=== PATIENT | male | born 1980 | race Caucasian/White ===

== ENCOUNTER 2017-02-26 12:07 | Emergency (ER) | payer OTHER ==
[2017-02-26 12:16] VITALS: BP 138/82; PULSE 96; RESP 20; TEMP 97.5; O2SAT 100
--- NOTE | 2017-02-26 12:24 | PD ---
HPI Chief Complaint: Laceration/Skin Injury Time Seen by Provider: 12:19 Travel History International Travel<30 days: No Contact w/Intl Traveler<30days: No Traveled to known affect area: No History of Present Illness HPI This is a 36-year-old male who presents to the emergency department having been arrested and going to assisted. Retirement was unwilling to take him because he has a chronic wound on his foot and he wanted him to be evaluated. He denies any fevers or chills. The foot wound has been present since 2000 and he says he is intermittently required wound care. He was just admitted to [facility] 3 days ago for 5 days and was discharged on 12 weeks of Zyvox and Levaquin which she's been taking. He's been doing wet-to-dry dressings and cleaning the wound with Hibiclens. FOR[facility]LY [facility] Social History Alcohol Use: Yes Tobacco Use: Yes Review of Systems General / Constitutional: No: Fever, Chills Respiratory: No: Cough, Shortness of Breath Physical Exam Narrative GENERAL: Well-appearing, no acute distress, nontoxic SKIN: 4 x 3 cm ulcer on the base of the left heel, with clean wound margins, some surrounding warmth and erythema with no purulent discharge HEAD: Atraumatic. Normocephalic. ENT: No nasal bleeding or discharge. Moist mucous membranes MUSCULOSKELETAL: No obvious deformities. No clubbing. No cyanosis. No edema. NEUROLOGICAL: Awake and alert. No obvious cranial nerve deficits. Motor grossly within normal limits. Normal speech. PSYCHIATRIC: Appropriate mood and affect; insight and judgment normal. Data Data Last Documented VS Vital Signs Date Time Temp Pulse Resp B/P (MAP) Pulse Ox O2 Delivery O2 Flow Rate FiO2 02/26/17 12:16 97.5 96 20 138/82 (100) 100 MDM Medical Decision Making Medical Screen Exam Complete: Yes Emergency Medical Condition: Yes Interpretation(s) Afebrile, heart rate is 96 Differential Diagnosis Foot ulcer, osteomyelitis, cellulitis Narrative Course This is a 36-year-old male who presents to the emergency department having recently been hospitalized and discharged due to a chronic foot ulcer on his left heel. He was discharged on 12 weeks of Zyvox and Levaquin which he has at home and he seems well versed in his personal wound care. He is nontoxic appearing. He is getting active treatment for the wound. I don't think there is anything additional I can offer this patient and the patient didn't really want to be evaluated in the emergency department as he is happy with the care he is received at another hospital. Patient will be discharged home. Diagnosis Primary Impression: Chronic foot ulcer Qualified Codes: L97.522 - Non-pressure chronic ulcer of other part of left foot with fat layer exposed Patient Instructions: General Instructions Additional Instructions: If you develop fever, increasing redness, warmth, or spreading of your infection , or severe pain return to the emergency department immediately as you may require antibiotics through your IV. Complete your course of antibiotics as prescribed. Med/Other Pt SpecificInfo: No Change to Meds Disposition: 01 DISCHARGE HOME Condition: Stable Sammi Cervantes MD Feb 26, 2017 12:24
== END 2017-02-26 13:02 | disposition home or self-care (01) ==
LOC: NEPD 12:07
DX: L97.522 Non-pressure chronic ulcer of other part of left foot with fat layer exposed (principal)
CPT/HCPCS: 99282

== ENCOUNTER 2017-06-09 23:35 | Inpatient (IN) | payer MEDICARE, OTHER ==
[~2017-06-09] VITALS: Ht 170.2 cm; Wt 80.0 kg
[2017-06-09 23:49] VITALS: BP 157/82; PULSE 118; RESP 16; TEMP 99.2; O2SAT 98
[2017-06-09] MEDS ORDERED: NAPR500T2 PO (23:59)
[2017-06-09] MEDS ORDERED: ZANT150T2 PO (23:59)
[2017-06-09] MEDS ORDERED: GABA300C5 PO (23:59)
[2017-06-09] MEDS ORDERED: DILA8TAB4 PO (23:59)
[2017-06-09] MEDS ORDERED: XANA2TAB2 PO (23:59)
[2017-06-10] VITALS (11 sets, daily range): BP systolic 104–132; BP diastolic 52–76; PULSE 60–111; RESP 16–20; TEMP 97.5–99.7; O2SAT 98–100
--- NOTE | 2017-06-10 01:23 | PD ---
HPI Chief Complaint: Pain: Acute or Chronic Time Seen by Provider: 01:01 Travel History International Travel<30 days: No Contact w/Intl Traveler<30days: No Traveled to known affect area: No History of Present Illness HPI Patient is a 36-year-old male presents emergency department for evaluation of left foot pain and ulcer. Patient has a history of osteomyelitis of the foot and has been taking p.o. antibiotics as an outpatient per his infectious disease office or at [facility]. He was told that he may ultimately need an amputation below the knee but they wanted to try antibiotics first. He states that it became significantly more swollen and inflamed today and so he decided to come here and see what our opinion of that was as well. 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 He denies any fever nausea vomiting diarrhea constipation chest pain or shortness of breath. PFSH Past Medical History Anxiety: Yes Integumentary: Yes (MRSA AND STAPH IN LEFT LEG ) Tetanus Vaccination: < 5 Years Social History Alcohol Use: No Tobacco Use: Yes (5/ DAY) Substance Use: Yes (MARIJUANA, JOSE, DILAUDID) Allergies-Medications (Allergen,Severity, Reaction): Coded Allergies: No Known Allergies (Unverified , 06/09/17) Reported Meds & Prescriptions Reported Meds & Active Scripts Active Reported Naproxen 500 Mg Tab 500 Mg PO DAILY Gabapentin 300 Mg Cap 300 Mg PO TID Zantac (Ranitidine HCl) 150 Mg Tab 150 Mg PO BID Xanax (Alprazolam) 2 Mg Tab 2 Mg PO DAILY PRN Dilaudid (Hydromorphone HCl) 8 Mg Tab 8 Mg PO Q6H PRN Review of Systems Except as stated in HPI: all other systems reviewed are Neg Physical Exam Narrative GENERAL: Well-developed well-nourished no obvious distress SKIN: Focused skin assessment warm/dry. There is a significant skin ulcer on the heel of his left foot, significant erythema edema of the left ankle and foot. Highly suggestive of osteomyelitis. HEAD: Atraumatic. Normocephalic. EYES: Pupils equal and round. No scleral icterus. No injection or drainage. ENT: No nasal bleeding or discharge. Mucous membranes pink and moist. NECK: Trachea midline. No JVD. CARDIOVASCULAR: Regular rate and rhythm. No murmur appreciated. RESPIRATORY: No accessory muscle use. Clear to auscultation. Breath sounds equal bilaterally. GASTROINTESTINAL: Abdomen soft, non-tender, nondistended. Hepatic and splenic margins not palpable. MUSCULOSKELETAL: No obvious deformities. No clubbing. No cyanosis. No edema. NEUROLOGICAL: Awake and alert. No obvious cranial nerve deficits. Motor grossly within normal limits. Normal speech. PSYCHIATRIC: Appropriate mood and affect; insight and judgment normal. Data Data Last Documented VS Vital Signs Date Time Temp Pulse Resp B/P (MAP) Pulse Ox O2 Delivery O2 Flow Rate FiO2 06/10/17 01:41 99 Room Air 06/10/17 01:41 06/10/17 00:55 111 18 06/09/17 23:49 99.2 Orders Orders Sepsis Workup Initiated (06/10/17 ) Complete Blood Count With Diff (06/10/17:18) Comprehensive Metabolic Panel (06/10/17:18) Prothrombin Time / Inr (Pt) (06/10/17:18) Act Partial Throm Time (Ptt) (06/10/17:18) Lactic Acid Sepsis Protocol (06/10/17:18) Phosphorus (Po4) (06/10/17:18) Lipase (06/10/17:18) Ckmb (Isoenzyme) Profile (06/10/17:18) Troponin I (06/10/17:18) Urinalysis - C+S If Indicated (06/10/17:18) Blood Culture (06/10/17:18) Ecg Monitoring (06/10/17:18) Iv Access Insert/Monitor (06/10/17:18) Oximetry (06/10/17:18) Oxygen Administration (06/10/17:18) Vancomycin Inj (Vancomycin Inj) (06/10/17 01:30) Piperacil-Tazo 4.5 Gm Premix (Zosyn 4.5 (06/10/17 01:30) Foot, Complete ([id number]) (06/10/17 ) Sodium Chlor 0.9% 1000 Ml Inj (Ns 1000 M (06/10/17 01:30) Drug Screen, Random Urine (06/10/17 02:09) CKMB (06/10/17 01:20) CKMB% (06/10/17 01:20) Admit Order (Ed Use Only) (06/10/17 ) Labs Laboratory Tests Test 06/10/17 01:20 06/10/17 01:45 White Blood Count 11.2 TH/MM3 Red Blood Count 4.50 MIL/MM3 Hemoglobin 12.2 GM/DL Hematocrit 36.6 % Mean Corpuscular Volume 81.4 FL Mean Corpuscular Hemoglobin 27.0 PG Mean Corpuscular Hemoglobin Concent 33.2 % Red Cell Distribution Width 16.4 % Platelet Count 357 TH/MM3 Mean Platelet Volume 7.1 FL Neutrophils (%) (Auto) 67.2 % Lymphocytes (%) (Auto) 18.8 % Monocytes (%) (Auto) 13.5 % Eosinophils (%) (Auto) 0.2 % Basophils (%) (Auto) 0.3 % Neutrophils # (Auto) 7.5 TH/MM3 Lymphocytes # (Auto) 2.1 TH/MM3 Monocytes # (Auto) 1.5 TH/MM3 Eosinophils # (Auto) 0.0 TH/MM3 Basophils # (Auto) 0.0 TH/MM3 CBC Comment DIFF FINAL Differential Comment Prothrombin Time 11.3 SEC Prothromb Time International Ratio 1.1 RATIO Activated Partial Thromboplast Time 35.5 SEC Blood Urea Nitrogen 15 MG/DL Creatinine 0.81 MG/DL Random Glucose 88 MG/DL Total Protein 7.2 GM/DL Albumin 3.0 GM/DL Calcium Level 8.4 MG/DL Phosphorus Level 3.3 MG/DL Alkaline Phosphatase 148 U/L Aspartate Amino Transf (AST/SGOT) 96 U/L Alanine Aminotransferase (ALT/SGPT) 186 U/L Total Bilirubin 0.6 MG/DL Sodium Level 140 MEQ/L Potassium Level 3.9 MEQ/L Chloride Level 105 MEQ/L Carbon Dioxide Level 25.9 MEQ/L Anion Gap 9 MEQ/L Estimat Glomerular Filtration Rate 108 ML/MIN Lactic Acid Level 1.2 mmol/L Total Creatine Kinase 149 U/L Creatine Kinase MB 2.1 NG/ML Troponin I LESS THAN 0.02 NG/ML Lipase 171 U/L Urine Color YELLOW Urine Turbidity CLEAR Urine pH 6.0 Urine Specific [place] 1.024 Urine Protein TRACE mg/dL Urine Glucose (UA) NEG mg/dL Urine Ketones NEG mg/dL Urine Occult Blood MOD Urine Nitrite NEG Urine Bilirubin NEG Urine Urobilinogen 4.0 MG/DL Urine Leukocyte Esterase NEG Urine RBC 98 /hpf Urine WBC 3 /hpf Urine Calcium Oxalate Crystals MOD /hpf Urine Mucus FEW /lpf Microscopic Urinalysis Comment CATH-CULT NOT IND Urine Opiates Screen POS Urine Barbiturates Screen NEG Urine Amphetamines Screen NEG Urine Benzodiazepines Screen NEG Urine Cocaine Screen NEG Urine Cannabinoids Screen POS MDM Medical Decision Making Medical Screen Exam Complete: Yes Emergency Medical Condition: Yes Differential Diagnosis Osteomyelitis of the foot, sepsis unlikely, nonhealing ulcer to the plantar surface of the foot. Narrative Course Patient room to the emergency department, his signs and symptoms highly suggestive of osteomyelitis, he is on an unknown p.o. antibiotic as an outpatient, certainly this would warrant a failure of outpatient therapy, I recommended for him to be admitted to the hospital for further workup and he is agreeable. Labs are otherwise reassuring, x-ray does show the deep ulcer but no evidence of osteomyelitis. Discussed with Dr. Toledo who agrees to admit. Last 24 hours Impressions Foot X-Ray 06/10/17 0000 Signed Impressions: Service Date/Time: Saturday, June 10, 2017 01:31 - CONCLUSION: Deep ulceration involving the heel with soft tissue air extending to the bone Dustin Soto MD Diagnosis Primary Impression: Cellulitis of foot Admitting Information Admitting Physician Requests: Admit Condition: Stable Miguel Ángel Horner MD Jun 10, 2017 01:23
[2017-06-10] MEDS ORDERED: VANCOMYCIN INJ 1,000 MG in SODIUM CHLOR 0.9% 250 ML INJ 250 ML IV ONE (01:30)
[2017-06-10] MEDS ORDERED: SODIUM CHLOR 0.9% 1000 ML INJ 1,000 ML IV ONE (01:30)
[2017-06-10] MEDS ORDERED: PIPERACIL-TAZO 4.5 GM PREMIX 100 ML IV ONE (01:30)
[2017-06-10 01:44] LABS: AUTOMATED NEUTROPHIL # 7.5 TH/MM3 (1.8-7.7); BASOPHIL % 0.3 % (0.0-2.0); EOSINOPHIL % 0.2 % (0.0-4.0); HEMATOCRIT 36.6 % (39.0-51.0); HEMOGLOBIN 12.2 GM/DL (13.0-17.0); LYMPH % 18.8 % (9.0-44.0); LYMPHOCYTE # 2.1 TH/MM3 (1.0-4.8); MEAN CELL VOLUME 81.4 FL (80.0-100.0); MEAN CORPUSCULAR HGB CONC 33.2 % (32.0-36.0); MEAN PLATELET VOLUME 7.1 FL (7.0-11.0); MONO % 13.5 % (0.0-8.0); MONOCYTE # 1.5 TH/MM3 (0-0.9); NEUT % 67.2 % (16.0-70.0); PLATELET COUNT 357 TH/MM3 (150-450); RED CELL DISTRIBUTION WIDTH 16.4 % (11.6-17.2); WHITE BLOOD COUNT 11.2 TH/MM3 (4.0-11.0)
--- NOTE | 2017-06-10 01:49 | RADRPT ---
EXAM DATE/TIME: 06/10/2017 01:31 [place] COMPARISON: No previous studies available for comparison. INDICATIONS : Swelling in left foot. Pain at left foot. MEDICAL HISTORY : Non responsive. SURGICAL HISTORY : None. ENCOUNTER: Initial ACUITY: 1 day PAIN SCORE: Non-responsive. LOCATION: Left foot FINDINGS: There is a deep ulceration along the plantar aspect of the heel with air in the soft tissues extendin g to the base of the calcaneus. The foot is elsewhere unremarkable. CONCLUSION: Deep ulceration involving the heel with soft tissue air extending to the bone Dustin Soto MD on June 10, 2017 at 1:46 Board Certified Radiologist. This report was verified electronically.
[2017-06-10 01:54] LABS: INTERNATIONAL NORMALIZED RATIO 1.1 RATIO; PROTHROMBIN TIME - PATIENT 11.3 SEC (9.8-11.6)
[2017-06-10 02:09] LABS: BILIRUBIN, URINE NEG (NEG); BLOOD, URINE MOD (NEG); CALCIUM OXALATE CRYSTALS,URINE MOD /hpf; GLUCOSE,URINE NEG (NEG); KETONE, URINE NEG (NEG); MUCUS URINE FEW /lpf (OCC); NITRITE,URINE NEG (NEG); URINE COLOR YELLOW (YELLW/STRAW); URINE LEUKOCYTE ESTERASE NEG (NEG)
[2017-06-10 02:09] LABS: ALT (GPT) 186 U/L (12-78); AST (GOT) 96 U/L (15-37); BICARBONATE 25.9 MEQ/L (21.0-32.0); BLOOD UREA NITROGEN 15 MG/DL (7-18); CALCIUM 8.4 MG/DL (8.5-10.1); CHLORIDE 105 MEQ/L (98-107); CREATININE 0.81 MG/DL (0.60-1.30); GLOMERULAR FILTRATION RATE 108 ML/MIN (>89); GLUCOSE,RANDOM 88 MG/DL (74-106); PHOSPHORUS 3.3 MG/DL (2.5-4.9); SODIUM (NA) 140 MEQ/L (136-145)
[2017-06-10 02:13] LABS: ALKALINE PHOSPHATASE 148 U/L (45-117); TOTAL BILIRUBIN ADULT 0.6 MG/DL (0.2-1.0); TOTAL PROTEIN 7.2 GM/DL (6.4-8.2); TROPONIN I LESS THAN 0.02 NG/ML (0.02-0.05)
[2017-06-10] MEDS ORDERED: Vancomycin Consult Pharmacy 1 EA OTHER SCH (02:45)
[2017-06-10] MEDS ORDERED: NALOXONE HCL 0.4 MG/ML AMP IV PUSH PRN (02:45)
[2017-06-10] MEDS ORDERED: ACETAMINOPHEN 325 MG TAB PO PRN (02:45)
[2017-06-10] MEDS ORDERED: BISACODYL 10 MG SUPP RECTAL PRN (02:45)
[2017-06-10] MEDS ORDERED: SENNOSIDES 8.6 MG TAB PO PRN (02:45)
[2017-06-10] MEDS ORDERED: MAGNESIUM HYDROXIDE SUSP 30 ML CUP PO PRN (02:45)
[2017-06-10] MEDS ORDERED: ONDANSETRON HCL 4 MG/2 ML VIAL IVP PRN (02:45)
[2017-06-10] MEDS ORDERED: MORPHINE SULFATE 2 MG/ML SYRINGE IM PRN (03:00)
[2017-06-10] MEDS: SODIUM CHLOR 0.9% 1000 ML INJ 1,000 ML IV SCH ×3 (03:18→20:37)
[2017-06-10] MEDS: MORPHINE SULFATE 2 MG/ML SYRINGE IV PUSH PRN ×5 (03:19→15:53)
[2017-06-10] MEDS: PIPERACIL-TAZO 3.375 GM PREMIX 50 ML IV SCH ×3 (07:41→19:35)
--- NOTE | 2017-06-10 07:53 | PD.POD ---
Past Med/Surg/Social History Social History Smoking Status: Current Every Day Smoker Objective Vital Signs Vital Signs Date Time Temp Pulse Resp B/P (MAP) Pulse Ox O2 Delivery O2 Flow Rate FiO2 06/10/17 07:15 97.9 79 18 118/63 (81) 98 Room Air 06/10/17 05:00 99.7 99 18 121/57 (78) 99 Room Air 06/10/17 03:30 89 18 127/67 (87) 98 Room Air 06/10/17 01:41 99 Room Air 06/10/17 01:41 99 Room Air 06/10/17 00:55 111 18 132/76 (94) 98 Room Air 06/10/17 00:00 99 18 06/09/17 23:49 99.2 118 16 157/82 (107) 98 Coded Allergies: No Known Allergies (Unverified , 06/09/17) Assessment & Plan A/P FULL CONSULT DICTATED Left heel ulcer infection with gas and tissue. CT with and without contrast ordered, heel ulcer open and draining, plan for urgent incision and drainage debridement with bone biopsy later today. Patient ordered n.p.o. after liquid breakfast, patient seen and discussed with medicine. Arnulfo Jin DPM Jun 10, 2017 07:53
--- NOTE | 2017-06-10 07:56 | HHI.HP ---
[facility] Service [place] [facility] Primary Care Physician Unknown Admission Diagnosis Osteomyelitis of foot. Diagnoses: (1) Left foot infection Diagnosis: Principal Chief Complaint: infection of the left foot Travel History International Travel<30 Days: No Contact w/Intl Traveler <30 Da: No Traveled to Known Affected Are: No History of Present Illness patient is a 36 y/o male who presented to ER with infection of the left foot. he says that it's been going on for about six months. he's been on regimens of antibiotics since then. he says that he had a bone biopsy about three weeks ago. he says that it seems the the antibiotics are not working. he had some fever last week. he says that the swelling and redness of the left foot is getting worse which made him to come to the hospital. Review of Systems Constitutional: DENIES: Fever, Weight loss, Chills, Night Sweats Eyes: DENIES: Blurred vision, Diplopia, Vision loss, Double Vision Ears, nose, mouth, throat: DENIES: Tinnitus, Vertigo, Throat pain, Epistaxis Respiratory: DENIES: Apneas, Cough, Snoring, Wheezing, Hemoptysis, Sputum production, Shortness of breath Cardiovascular: DENIES: Chest pain, Palpitations, Syncope, Dyspnea on Exertion , PND, Lower Extremity Edema, Orthopnea, Claudication Gastrointestinal: DENIES: Abdominal pain, Black stools, Bloody stools, Constipation, Diarrhea, Nausea, Vomiting, Difficulty Swallowing, Anorexia Genitourinary: DENIES: Urinary frequency, Urgency, Hematuria, Dysuria Musculoskeletal: COMPLAINS OF: Joint pain (left foot), DENIES: Muscle aches, Stiffness, Joint Swelling Integumentary: DENIES: Rash Neurologic: DENIES: Abnormal gait, Headache, Localized weakness, Paresthesias, Seizures, Speech Problems, Tremor, Poor Balance Psychiatric: DENIES: Anxiety, Confusion, Mood changes, Depression, Hallucinations, Agitation, Suicidal Ideation, Homicidal Ideation, Delusions Past Family Social History Past Medical History left foot infection-otherwise no other health issues. Past Surgical History nerve stimulator/ surgeries on the foot. Reported Medications Naproxen 500 Mg Tab 500 Mg PO DAILY Gabapentin 300 Mg Cap 300 Mg PO TID Zantac (Ranitidine HCl) 150 Mg Tab 150 Mg PO BID Xanax (Alprazolam) 2 Mg Tab 2 Mg PO DAILY PRN Dilaudid (Hydromorphone HCl) 8 Mg Tab 8 Mg PO Q6H PRN Allergies: Coded Allergies: No Known Allergies (Unverified , 06/09/17) Active Ordered Medications Inpatient Medications Acetaminophen (Tylenol) 650 mg Q4H PRN PO TEMP > 100.4 Last administered on 06/10at 05:02; Start 06/10/17 at 02:45 Bisacodyl (Dulcolax Supp) 10 mg DAILY PRN RECTAL SEVERE CONSITIPATION; Start at 02:45 Magnesium Hydroxide (Milk Of Magnesia Liq) 30 ml Q12H PRN PO Mild constipation ; Start 06/10/17 at 02:45 Morphine Sulfate (Morphine Inj) 2 mg Q3H PRN IV PUSH pain > 4 Last administered on 06/10/17at 06:06; Start 06/10/17 at 03:00 Naloxone HCl (Narcan Inj) 0.4 mg UNSCH PRN IV PUSH SEE LABEL COMMENTS; Start at 02:45 Ondansetron HCl (Zofran Inj) 4 mg Q6H PRN IVP NAUSEA OR VOMITING; Start at 02:45 Pharmacy Profile Note 0 ml @ 0 mls/hr UNSCH OTHER ; Start 06/10/17 at 02:45 Piperacillin Sod/ Tazobactam Sod 50 ml @ 100 mls/hr Q6H IV Last administered on 06/10/17at 07:41; Start 06/10/17 at 07:35 Sennosides (Senokot) 17.2 mg Q12H PRN PO Moderate constipation; Start 06/10/17 at 02:45 Sodium Chloride (NS Flush) 2 ml BID IV FLUSH ; Start 06/10/17 at 09:00 Vancomycin HCl 1000 mg/Sodium Chloride 250 ml @ 250 mls/hr ONCE ONCE IV Last administered on 06/10/17at 01:53; Start 06/10/17 at 01:30; Stop 06/10/17 at 02:29; Status DC Family History not relevant to this admission. Social History smokes a few cigarettes/ uses marijuana/ doesn't drink. Physical Exam Vital Signs Vital Signs Date Time Temp Pulse Resp B/P (MAP) Pulse Ox O2 Delivery O2 Flow Rate FiO2 06/10/17 05:00 99.7 99 18 121/57 (78) 99 Room Air 06/10/17 03:30 89 18 127/67 (87) 98 Room Air 06/10/17 01:41 99 Room Air 06/10/17 01:41 99 Room Air 06/10/17 00:55 111 18 132/76 (94) 98 Room Air 06/10/17 00:00 99 18 06/09/17 23:49 99.2 118 16 157/82 (107) 98 Physical Exam GENERAL: This is a well-nourished, well-developed patient, in no apparent distress. SKIN:erythema of the left foot with an open wound on the bottom of the left foot. HEAD: Atraumatic. Normocephalic. No temporal or scalp tenderness. EYES: Pupils equal round and reactive. Extraocular motions intact. No scleral icterus. No injection or drainage. ENT: Nose without bleeding, purulent drainage or septal hematoma. Throat without erythema, tonsillar hypertrophy or exudate. Uvula midline. Airway patent. NECK: Trachea midline. No JVD or lymphadenopathy. Supple, nontender, no meningeal signs. CARDIOVASCULAR: Regular rate and rhythm without murmurs, gallops, or rubs. RESPIRATORY: Clear to auscultation. Breath sounds equal bilaterally. No wheezes , rales, or rhonchi. GASTROINTESTINAL: Abdomen soft, non-tender, nondistended. No hepato-splenomegaly , or palpable masses. No guarding. MUSCULOSKELETAL: swelling/ erythema of the left foot. NEUROLOGICAL: Awake and alert. Cranial nerves II through XII intact. Motor and sensory grossly within normal limits. Five out of 5 muscle strength in all muscle groups. Normal speech. Laboratory Laboratory Tests Test 06/10/17 01:20 06/10/17 01:45 White Blood Count 11.2 Red Blood Count 4.50 Hemoglobin 12.2 Hematocrit 36.6 Mean Corpuscular Volume 81.4 Mean Corpuscular Hemoglobin 27.0 Mean Corpuscular Hemoglobin Concent 33.2 Red Cell Distribution Width 16.4 Platelet Count 357 Mean Platelet Volume 7.1 Neutrophils (%) (Auto) 67.2 Lymphocytes (%) (Auto) 18.8 Monocytes (%) (Auto) 13.5 Eosinophils (%) (Auto) 0.2 Basophils (%) (Auto) 0.3 Neutrophils # (Auto) 7.5 Lymphocytes # (Auto) 2.1 Monocytes # (Auto) 1.5 Eosinophils # (Auto) 0.0 Basophils # (Auto) 0.0 CBC Comment DIFF FINAL Differential Comment Prothrombin Time 11.3 Prothromb Time International Ratio 1.1 Activated Partial Thromboplast Time 35.5 Blood Urea Nitrogen 15 Creatinine 0.81 Random Glucose 88 Total Protein 7.2 Albumin 3.0 Calcium Level 8.4 Phosphorus Level 3.3 Alkaline Phosphatase 148 Aspartate Amino Transf (AST/SGOT) 96 Alanine Aminotransferase (ALT/SGPT) 186 Total Bilirubin 0.6 Sodium Level 140 Potassium Level 3.9 Chloride Level 105 Carbon Dioxide Level 25.9 Anion Gap 9 Estimat Glomerular Filtration Rate 108 Lactic Acid Level 1.2 Total Creatine Kinase 149 Creatine Kinase MB 2.1 Troponin I LESS THAN 0.02 Lipase 171 Urine Color YELLOW Urine Turbidity CLEAR Urine pH 6.0 Urine Specific [place] 1.024 Urine Protein TRACE Urine Glucose (UA) NEG Urine Ketones NEG Urine Occult Blood MOD Urine Nitrite NEG Urine Bilirubin NEG Urine Urobilinogen 4.0 Urine Leukocyte Esterase NEG Urine RBC 98 Urine WBC 3 Urine Calcium Oxalate Crystals MOD Urine Mucus FEW Microscopic Urinalysis Comment CATH-CULT NOT IND Urine Opiates Screen POS Urine Barbiturates Screen NEG Urine Amphetamines Screen NEG Urine Benzodiazepines Screen NEG Urine Cocaine Screen NEG Urine Cannabinoids Screen POS Date/Time Source Procedure Growth Status 06/10/17 01:20 Blood Peripheral Aerobic Blood Culture Pending Received 06/10/17 01:20 Blood Peripheral Anaerobic Blood Culture Pending Received Result Diagram: 06/10/17 0120 06/10/17 0120 Imaging Last Impressions Foot X-Ray 06/10/17 0000 Signed Impressions: Service Date/Time: Saturday, June 10, 2017 01:31 - CONCLUSION: Deep ulceration involving the heel with soft tissue air extending to the bone MD Elder Ríos VTE Risk Assessment Elder VTE Risk Assessment: Mod/High Risk (score >= 2) Nikhilrini Risk Assessment Model Point Value = 1 Point Value = 2 Point Value = 3 Point Value = 5 Age 41-60 Minor surgery BMI > 25 kg/m2 Swollen legs Varicose veins or History of unexplained or recurrent spontaneous Oral contraceptives or hormone replacement Sepsis (< 1 month) Serious lung disease, including pneumonia (< 1 month) Abnormal pulmonary function Acute myocardial infarction Congestive heart failure (< 1 month) History of inflammatory bowel disease Medical patient at bed rest Age 61-74 Arthroscopic surgery Major open surgery (> 45 min) Laparoscopic surgery (> 45 min) Malignancy Confined to bed (> 72 hours) Immobilizing plaster cast Central venous access Age >= 75 History of VTE Family history of VTE Factor V Leiden Prothrombin [id number] Lupus anticoagulant Anticardiolipin antibodies Elevated serum homocysteine Heparin-induced thrombocytopenia Other congenital or acquired thrombophilia Stroke (< 1 month) Elective arthroplasty Hip, pelvis, or leg fracture Acute spinal cord injury (< 1 month) Prophylaxis Regimen Total Risk Factor Score Risk Level Prophylaxis Regimen 0-1 Low Early ambulation 2 Moderate Order ONE of the following: *Sequential Compression Device (SCD) *Heparin 5000 units SQ BID 3-4 Higher Order ONE of the following medications: *Heparin 5000 units SQ TID *Enoxaparin/Lovenox 40 mg SQ daily (WT < 150 kg, CrCl > 30 mL/min) *Enoxaparin/Lovenox 30 mg SQ daily (WT < 150 kg, CrCl > 10-29 mL/min) *Enoxaparin/Lovenox 30 mg SQ BID (WT < 150 kg, CrCl > 30 mL/min) AND/OR *Sequential Compression Device (SCD) 5 or more Highest Order ONE of the following medications: *Heparin 5000 units SQ TID (Preferred with Epidurals) *Enoxaparin/Lovenox 40 mg SQ daily (WT < 150 kg, CrCl > 30 mL/min) *Enoxaparin/Lovenox 30 mg SQ daily (WT < 150 kg, CrCl > 10-29 mL/min) *Enoxaparin/Lovenox 30 mg SQ BID (WT < 150 kg, CrCl > 30 mL/min) AND *Sequential Compression Device (SCD) Assessment and Plan Assessment and Plan A/P -infection/open wound of the left foot continue with IV antibiotics and pain control- follow the cultures. podiatry consult appreciated; will obtain CT of the left foot; plan for surgery /bone biopsy this afternoon- ID consulted. -elevated LFT's- check hepatitis panel -DVT prophylaxis- pending surgical intervention. Discussed Condition With the patient and . Physician Certification 2 Midnight Certification Type: Admission for Inpatient Services Order for Inpatient Services The services are ordered in accordance with Medicare regulations or non- Medicare payer requirements, as applicable. In the case of services not specified as inpatient-only, they are appropriately provided as inpatient services in accordance with the 2-midnight benchmark. Estimated LOS (days): 3 days is the estimated time the patient will need to remain in the hospital, assuming treatment plan goals are met and no additional complications. Post-Hospital Plan: Not yet determined Josseline Bernard MD Jun 10, 2017 07:56
[2017-06-10] MEDS ORDERED: IOHEXOL 350 MG/ML 10 ML VIAL (for RAD DIAG) IVCONTRAST ONE (08:24)
[2017-06-10] MEDS: SODIUM CHLORIDE 0.9% FLUSH 10 ML FLUSH IV FLUSH SCH ×2 (08:26→21:00)
[2017-06-10] MEDS: VANCOMYCIN INJ 1,500 MG in SODIUM CHLORID 0.9% 500 ML INJ 500 ML IV SCH ×2 (09:20→23:40)
--- NOTE | 2017-06-10 10:07 | RADRPT ---
EXAM DATE/TIME: 06/10/2017 08:21 [place] COMPARISON: No previous studies available for comparison. INDICATIONS : Left heel ulcer IV CONTRAST: 94 cc Omnipaque 350 (iohexol) IV RADIATION DOSE: 7.29 CTDIvol (mGy) MEDICAL HISTORY : Osteomyelitis. SURGICAL HISTORY : None. ENCOUNTER: Initial ACUITY: 2 weeks PAIN SCALE: 4/10 LOCATION: Left Foot TECHNIQUE: Volumetric scanning of the foot was performed. Using automated exposure control and adjustment of th e mA and/or kV according to patient size, radiation dose was kept as low as reasonably achievable to obtain optimal diagnostic quality images. DICOM format image data is available electronically for re view and comparison. FINDINGS: BONES: Calcaneal spurs at the Achilles attachment and plantar aponeurosis. Just posterior to the aponeurotic spur is an area of cortical disruption and regional sclerosis concerning for osteomyelitis. This is subjacent to the prominent heel ulcer and regional soft tissue edema. Benign appearing, well-corticat ed osseous cyst at the junction of body and neck of the calcaneus. JOINTS: No evidence of joint narrowing or effusion. SOFT TISSUES: Muscles, tendons, and neurovascular structures are grossly unremarkable. Plantar heel spur with soft tissue air measures 1.9 cm in depth. A few dots of air actually extend down to the plantar surface of the calcaneus. Regional soft tissue edema characteristic of cellulitis CONCLUSION: 1. Heel ulcer measuring 1.9 cm in depth with dots of air actually extending deeper adjacent to the co rtical surface of the calcaneus. Edema and air is seen in the adjacent soft tissues characteristic of cellulitis. 2. In addition, there is cortical disruption of the plantar aspect of the calcaneus characteristic of regional osteomyelitis. 3. No acute fracture. Benign calcaneal osseous cyst Kian Rock MD on June 10, 2017 at 9:58 Board Certified Radiologist. This report was verified electronically.
[2017-06-10] MEDS ORDERED: PROPOFOL 200 MG/20 ML AMP IV ONE (12:00)
[2017-06-10] MEDS ORDERED: ROCURONIUM INJ 50 MG/5 ML SYRINGE IV PUSH ONE (12:00)
[2017-06-10] MEDS ORDERED: LACTATED RINGER'S 1000 ML INJ 1,000 ML IV ONE (12:00)
[2017-06-10] MEDS ORDERED: LIDOCAINE HCL 1% PF 5 ML SYRINGE OTHER ONE (12:00)
[2017-06-10] MEDS ORDERED: ONDANSETRON HCL 4 MG/2 ML VIAL IV ONE (12:00)
[2017-06-10] MEDS ORDERED: NEOSTIGMINE 5 MG/5 ML SYRINGE IV PUSH ONE (12:00)
[2017-06-10] MEDS ORDERED: DEXAMETHASONE SOD PHOS 4 MG/ML VIAL IV ONE (12:00)
[2017-06-10] MEDS ORDERED: GLYCOPYRROLATE 1 MG/5 ML SYRINGE IV PUSH ONE (12:00)
--- NOTE | 2017-06-10 12:14 | PD.ID.CON ---
History of Present Illness Service ID Consult Requested By Delicia Rogers Reason for Consult L foot osteo Primary Care Physician Unknown Diagnoses: History of Present Illness 36 yo M with neuropathy n2/2 tarumatic nerve injury with markedly decresaed L foot sensation develops ulcers on the heel Apparently last time developped ulcer on L heel about 6 mos ago with heavy drainage, edema, erythea He came with above issue t the hosp[facility] and Xray showed gas in soft tissue, CT showed osteo Pt is scheduled for OR today NO fever, Leukocytosis @ 11.2 K Review of Systems Except as stated in HPI: all other systems reviewed are Neg Past Family Social History Allergies: Coded Allergies: No Known Allergies (Unverified , 06/09/17) Past Medical History left foot infection-otherwise no other health issues. B/L hip fractures Past Surgical History hip surgeries nerve stimulator/ surgeries on the foot. Active Ordered Medications Medications where reviewed in EMR Antibiotics Include: reanna chamorro Family History not contributory to ID problem this admission. Social History smokes a few cigarettes/ uses marijuana/ doesn't drink. Physical Exam Vital Signs Vital Signs Date Time Temp Pulse Resp B/P (MAP) Pulse Ox O2 Delivery O2 Flow Rate FiO2 06/10/17 11:00 97.9 93 16 118/69 (85) 99 Room Air 06/10/17 09:25 16 06/10/17 09:03 98.0 86 18 123/71 (88) 98 Room Air 06/10/17 07:15 97.9 79 18 118/63 (81) 98 Room Air 06/10/17 07:15 78 16 06/10/17 05:00 99.7 99 18 121/57 (78) 99 Room Air 06/10/17 03:30 89 18 127/67 (87) 98 Room Air 06/10/17 01:41 99 Room Air 06/10/17 01:41 99 Room Air 06/10/17 00:55 111 18 132/76 (94) 98 Room Air 06/10/17 00:00 99 18 06/09/17 23:49 99.2 118 16 157/82 (107) 98 Physical Exam CONSTITUTIONAL/GENERAL: This is an adequately nourished patient, in no apparent distress. TUBES/LINES/DRAINS: SKIN: No jaundice, rashes, or lesions. Skin temperature appropriate. Not diaphoretic. HEAD: Atraumatic. Normocephalic. EYES: Pupils equal and round and reactive. Extraocular motions intact. No scleral icterus. No injection or drainage. Fundi not examined. ENT: Hearing grossly normal. Nose without bleeding or purulent drainage. Throat without visible erythema, exudates, masses, or lesions. NECK: Trachea midline. Supple, nontender. No palpable thyroid enlargement or nodularity. CARDIOVASCULAR: Regular rate and rhythm without murmurs, gallops, or rubs. No JVD. Peripheral pulses symmetric. RESPIRATORY/CHEST: Symmetric, unlabored respirations. Clear to auscultation. Breath sounds equal bilaterally. No wheezes, rales, or rhonchi. GASTROINTESTINAL: Abdomen soft, non-tender, nondistended. No hepato-splenomegaly , or palpable masses. No guarding. Bowel sounds present. GENITOURINARY: Without palpable bladder distension. MUSCULOSKELETAL: Extremities without clubbing, cyanosis, STATUS LOCLIS: marked edema of L heel, hindfoot extending to proximal ankle Open wound staining odorless pus from the heel' + prominenet ertyhema as well + ipsilateral lymphadenopathy . No joint tenderness or effusion noted. No calf tenderness. No mottling or clubbing. LYMPHATICS: No palpable cervical or supraclavicular adenopathy. NEUROLOGICAL: Awake and alert. Motor and sensory grossly within normal limits. Follows commands. Clear speech. Moves all extremities. PSYCHIATRIC: No obvious anxiety/depression. no apparent hallucinations or other psychotic thought process. Laboratory Laboratory Tests Test 06/10/17 01:20 06/10/17 01:45 06/10/17 09:21 White Blood Count 11.2 Red Blood Count 4.50 Hemoglobin 12.2 Hematocrit 36.6 Mean Corpuscular Volume 81.4 Mean Corpuscular Hemoglobin 27.0 Mean Corpuscular Hemoglobin Concent 33.2 Red Cell Distribution Width 16.4 Platelet Count 357 Mean Platelet Volume 7.1 Neutrophils (%) (Auto) 67.2 Lymphocytes (%) (Auto) 18.8 Monocytes (%) (Auto) 13.5 Eosinophils (%) (Auto) 0.2 Basophils (%) (Auto) 0.3 Neutrophils # (Auto) 7.5 Lymphocytes # (Auto) 2.1 Monocytes # (Auto) 1.5 Eosinophils # (Auto) 0.0 Basophils # (Auto) 0.0 CBC Comment DIFF FINAL Differential Comment Prothrombin Time 11.3 Prothromb Time International Ratio 1.1 Activated Partial Thromboplast Time 35.5 Blood Urea Nitrogen 15 Creatinine 0.81 Random Glucose 88 Total Protein 7.2 Albumin 3.0 Calcium Level 8.4 Phosphorus Level 3.3 Alkaline Phosphatase 148 Aspartate Amino Transf (AST/SGOT) 96 Alanine Aminotransferase (ALT/SGPT) 186 Total Bilirubin 0.6 Sodium Level 140 Potassium Level 3.9 Chloride Level 105 Carbon Dioxide Level 25.9 Anion Gap 9 Estimat Glomerular Filtration Rate 108 Lactic Acid Level 1.2 Total Creatine Kinase 149 Creatine Kinase MB 2.1 Troponin I LESS THAN 0.02 Lipase 171 Urine Color YELLOW Urine Turbidity CLEAR Urine pH 6.0 Urine Specific [place] 1.024 Urine Protein TRACE Urine Glucose (UA) NEG Urine Ketones NEG Urine Occult Blood MOD Urine Nitrite NEG Urine Bilirubin NEG Urine Urobilinogen 4.0 Urine Leukocyte Esterase NEG Urine RBC 98 Urine WBC 3 Urine Calcium Oxalate Crystals MOD Urine Mucus FEW Microscopic Urinalysis Comment CATH-CULT NOT IND Urine Opiates Screen POS Urine Barbiturates Screen NEG Urine Amphetamines Screen NEG Urine Benzodiazepines Screen NEG Urine Cocaine Screen NEG Urine Cannabinoids Screen POS Hepatitis A IgM Antibody NONREACTIVE Hepatitis B Surface Antigen REACTIVE Hepatitis B Core IgM Antibody REACTIVE Hepatitis C IgG Antibody REACTIVE Date/Time Source Procedure Growth Status 06/10/17 01:20 Blood Peripheral Aerobic Blood Culture Pending Received 06/10/17 01:20 Blood Peripheral Anaerobic Blood Culture Pending Received Result Diagram: 06/10/17 0120 06/10/17 0120 Imaging Last Impressions Lower Extremity CT 06/10/17 0000 Signed Impressions: Service Date/Time: Saturday, June 10, 2017 08:21 - CONCLUSION: 1. Heel ulcer measuring 1.9 cm in depth with dots of air actually extending deeper adjacent to the cortical surface of the calcaneus. Edema and air is seen in the adjacent soft tissues characteristic of cellulitis. 2. In addition, there is cortical disruption of the plantar aspect of the calcaneus characteristic of regional osteomyelitis. 3. No acute fracture. 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
[2017-06-10] MEDS ORDERED: HYDROmorphone HCL PF 2 MG/ML VIAL IV PUSH ONE (14:00)
[2017-06-10] MEDS ORDERED: BUPIVACAINE HCL PF 0.5% 30 ML VIAL ONE (15:25)
[2017-06-10] MEDS ORDERED: NEOMYCIN/POLYMYXIN 1 ML G.U. IRRIGANT ONE (15:28)
[2017-06-10] MEDS ORDERED: ACETAMINOPHEN 1000 MG/100 ML 0 ML IV ONE (16:57)
[2017-06-10] MEDS ORDERED: KETAMINE HCL 500 MG/10 ML VIAL ONE (17:37)
[2017-06-10] MEDS ORDERED: DEXMEDETOMIDINE HCL 200 MCG/2 ML VIAL ONE (18:47)
[2017-06-10] MEDS ORDERED: LORazepam 2 MG/ML VIAL ONE (18:49)
--- NOTE | 2017-06-10 19:40 | HHI.PR ---
Immediate Post Op Note Procedure Date: Jun 10, 2017 Pre Op Diagnosis: (1) Left foot infection Post Op Diagnosis: same Surgeon: Arnulfo Vasquez Chief Investigator(s): scrub Procedure: Left incision bone cortex, Incision drainage left foot Findings: deep abscess along calcaneus with likely OM Additional Information: Will likely need calcanectomy vs BKA pending path. Complications: none Specimen(s) removed: soft tissue and bone for micro bone for path Estimated blood loss: less than 75 mL Anesthesia: General Drains: Other Patient to: Other Patient Condition: Good Implant/Devices: SEE IMPLANT LOG (if applicable) Date/Time of Procedure: SEE SURGICAL CARE RECORD Arnulfo Vasquez DPM Jun 10, 2017 19:40
[2017-06-10] MEDS ORDERED: DO NOT ADM ANY ANTICOAGULANT DRUGS PRN (19:48)
--- NOTE | 2017-06-10 19:51 | MP ---
cc: Arnulfo Jin DPM DATE OF OPERATION: PREOPERATIVE DIAGNOSIS: Left calcaneal osteomyelitis abscess with a gas-producing organism. POSTOPERATIVE DIAGNOSIS: Left calcaneal osteomyelitis abscess with a gas-producing organism. PROCEDURE PERFORMED: Left incision, bone, calcaneus; expansile incision, drainage, debridement, posterior heel and plantar foot with resection of plantar fascia. ESTIMATED BLOOD LOSS: Less than 75 mL ANESTHESIA: General. POSITION: Prone. TOURNIQUET: 10 minutes with an Esmarch about the patient's ankle. SPECIMEN: Tissue for microbial analysis, bone for microbial analysis, bone for biopsy, plantar calcaneus. COMPLICATIONS: None. DISPOSITION: Return to floor. Monitor wound and bone biopsy status. Likely will need partial calcanectomy or discussion regarding below the knee amputation. PROCEDURE IN DETAIL: Under mild sedation, the patient was brought to the operating room, remained on the operative gurney. He was then intubated, sedated and placed in the prone position. The left lower extremity was then scrubbed, prepped and draped in the usual aseptic fashion. The foot was elevated, exsanguinated and the Esmarch was wrapped around the ankle. The foot was examined. There was noted to be a full-thickness ulcer measuring approximately 2 x 3 cm probing directly to the calcaneus. A linear incision was made along the posterior aspect of the calcaneus. Sharp and blunt dissection was carried down to the level of the cortical wall, which is noted to be soft. It was then debrided down to viable cancellous bone. A deep biopsy was taken and sent for pathological analysis, microbial analysis and tissue was also removed and sent for microbial analysis. There was noted to be mixed fatty, maria-like, unhealthy, granulomatous-type tissue. Further dissection took place along the medial wall of the calcaneus. There was noted to be air pocket. There was no obvious distinct putrid odor. There was noted to be abscess formation, which was debrided and packed open. The wound was then flushed with copious amounts of normal saline. Retention sutures placed along the back of the heel. A packing placed within the wound. A bulky bandage applied. After release of the tourniquet, there was a prompt hyperemic response to all digits with actually good blood flow at the surgical site. The patient was then extubated uneventfully in the supine position. My recommendation is to continue to monitor the wound status, await biopsy results and then possibly proceed at a later date with a partial calcanectomy versus discussion regarding functionality with a below the knee amputation. YVONNE Hart/BRIAN , 07:36 PM , 07:50 PM
[2017-06-10] MEDS ORDERED: MIDAZOLAM HCL 2 MG/2 ML VIAL ONE (19:53)
[2017-06-10] MEDS: HYDROmorphone HCL 4 MG TAB PO PRN (22:39)
[2017-06-11] VITALS (7 sets, daily range): BP systolic 101–117; BP diastolic 53–61; PULSE 57–89; RESP 17–20; TEMP 97.3–98; O2SAT 97–99
[2017-06-11] MEDS: PIPERACIL-TAZO 3.375 GM PREMIX 50 ML IV SCH ×3 (01:34→12:17)
[2017-06-11] MEDS: MORPHINE SULFATE 2 MG/ML SYRINGE IV PUSH PRN ×4 (01:45→21:02)
[2017-06-11 05:25] LABS: AUTOMATED NEUTROPHIL # 5.4 TH/MM3 (1.8-7.7); BASOPHIL % 0.2 % (0.0-2.0); HEMATOCRIT 34.6 % (39.0-51.0); HEMOGLOBIN 11.3 GM/DL (13.0-17.0); LYMPH % 13.8 % (9.0-44.0); LYMPHOCYTE # 0.9 TH/MM3 (1.0-4.8); MEAN CORPUSCULAR HEMOGLOBIN 26.8 PG (27.0-34.0); MEAN CORPUSCULAR HGB CONC 32.7 % (32.0-36.0); MONO % 6.6 % (0.0-8.0); MONOCYTE # 0.5 TH/MM3 (0-0.9); NEUT % 79.4 % (16.0-70.0); PLATELET COUNT 244 TH/MM3 (150-450); RED BLOOD COUNT 4.21 MIL/MM3 (4.50-5.90); RED CELL DISTRIBUTION WIDTH 16.2 % (11.6-17.2); WHITE BLOOD COUNT 6.9 TH/MM3 (4.0-11.0)
[2017-06-11 05:52] LABS: ALBUMIN 2.5 GM/DL (3.4-5.0); ALT (GPT) 145 U/L (12-78); AST (GOT) 86 U/L (15-37); BICARBONATE 27.1 MEQ/L (21.0-32.0); BLOOD UREA NITROGEN 8 MG/DL (7-18); CALCIUM 8.3 MG/DL (8.5-10.1); CHLORIDE 104 MEQ/L (98-107); CREATININE 0.69 MG/DL (0.60-1.30); GLOMERULAR FILTRATION RATE 130 ML/MIN (>89); GLUCOSE,RANDOM 151 MG/DL (74-106); SODIUM (NA) 138 MEQ/L (136-145)
[2017-06-11 05:55] LABS: ALKALINE PHOSPHATASE 111 U/L (45-117); TOTAL BILIRUBIN ADULT 0.4 MG/DL (0.2-1.0); TOTAL PROTEIN 5.9 GM/DL (6.4-8.2)
[2017-06-11] MEDS: HYDROmorphone HCL 4 MG TAB PO PRN ×3 (05:57→18:34)
[2017-06-11] MEDS: SODIUM CHLORIDE 0.9% FLUSH 10 ML FLUSH IV FLUSH SCH ×2 (08:39→21:08)
[2017-06-11] MEDS ORDERED: PHARMACY ORDERED LAB ONE (09:45)
[2017-06-11] MEDS: VANCOMYCIN INJ 1,500 MG in SODIUM CHLORID 0.9% 500 ML INJ 500 ML IV SCH (10:11)
--- NOTE | 2017-06-11 15:10 | HHI.PR ---
Subjective Remarks The patient is in bed he appears to not acute distress at this time. Says he has some pain in his leg at the surgical site. No nausea or vomiting no diarrhea or constipation. He is eating well. No fever or chills overnight. Objective Vitals Vital Signs Date Time Temp Pulse Resp B/P (MAP) Pulse Ox O2 Delivery O2 Flow Rate FiO2 06/11/17 12:40 97.8 69 20 117/54 (75) 97 06/11/17 08:28 97.3 57 20 103/53 (70) 99 06/11/17 05:00 98.0 89 18 105/56 (72) 98 06/11/17 02:00 16 06/11/17 00:00 97.6 82 18 101/59 (73) 97 06/10/17 23:47 17 06/10/17 23:41 99 21 06/10/17 21:00 97.5 66 18 112/52 (72) 99 06/10/17 20:30 97.4 69 14 102/53 (69) 99 Room Air 06/10/17 20:15 54 18 96/54 (68) 100 Nasal Cannula 2 06/10/17 20:00 52 22 89/54 (66) 100 Nasal Cannula 2 06/10/17 19:45 60 16 91/50 (64) 97 Nasal Cannula 2 06/10/17 19:40 97.1 56 16 95/50 (65) 100 Nasal Cannula 2 06/10/17 18:05 98.1 60 16 108/59 (75) 99 06/10/17 16:34 97.6 60 20 104/65 (78) 100 I/O 06/10/17 06/10/17 06/10/17 06/11/17 06/11/17 06/11/17 07:00 15:00 23:00 07:00 15:00 23:00 Intake Total 2350 ml 1565 ml 1156 ml 1156 ml Output Total 400 ml 900 ml 75 ml Balance 1950 ml 665 ml 1081 ml 1156 ml Intake IV Total 2350 ml 1565 ml 1156 ml 1156 ml Output Urine Total 400 ml 900 ml Estimated Blood Loss 75 ml # Voids 1 1 1 # Bowel Movements 0 Result Diagram: 06/11/17 0507 06/11/17 0507 Imaging Last Impressions Lower Extremity CT 06/10/17 0000 Signed Impressions: Service Date/Time: Saturday, June 10, 2017 08:21 - CONCLUSION: 1. Heel ulcer measuring 1.9 cm in depth with dots of air actually extending deeper adjacent to the cortical surface of the calcaneus. Edema and air is seen in the adjacent soft tissues characteristic of cellulitis. 2. In addition, there is cortical disruption of the plantar aspect of the calcaneus characteristic of regional osteomyelitis. 3. No acute fracture. Benign calcaneal osseous cyst Kian Rock MD Foot X-Ray 06/10/17 0000 Signed Impressions: Service Date/Time: Saturday, June 10, 2017 01:31 - CONCLUSION: Deep ulceration involving the heel with soft tissue air extending to the bone Dustin Soto MD Objective Remarks GENERAL: This is a well-nourished, well-developed patient, in no apparent distress. SKIN: Erythema of the left foot with an open wound on the bottom of the left foot. HEAD: Atraumatic. Normocephalic. No temporal or scalp tenderness. EYES: Pupils equal round and reactive. Extraocular motions intact. No scleral icterus. No injection or drainage. ENT: Nose without bleeding, purulent drainage or septal hematoma. Throat without erythema, tonsillar hypertrophy or exudate. Uvula midline. Airway patent. NECK: Trachea midline. No JVD or lymphadenopathy. Supple, nontender, no meningeal signs. CARDIOVASCULAR: Regular rate and rhythm without murmurs, gallops, or rubs. RESPIRATORY: Clear to auscultation. Breath sounds equal bilaterally. No wheezes , rales, or rhonchi. GASTROINTESTINAL: Abdomen soft, non-tender, nondistended. No hepato-splenomegaly , or palpable masses. No guarding. MUSCULOSKELETAL: swelling/ erythema of the left foot. NEUROLOGICAL: Awake and alert. Cranial nerves II through XII intact. Motor and sensory grossly within normal limits. Five out of 5 muscle strength in all muscle groups. Normal speech. A/P Problem List: (1) Left foot infection ICD Code: L08.9 - Local infection of the skin and subcutaneous tissue, unspecified Assessment and Plan Infection/open wound of the left foot Bacteremia, MRSA. Repeat blood cultures. Consult infectious disease following Neuropathy continue with IV antibiotics and pain control- follow the cultures. podiatry consult appreciated; will obtain CT of the left foot; plan for surgery /bone biopsy this afternoon- ID consulted. Elevated LFT's- hepatitis panel pending DVT prophylaxis- pending surgical intervention. Discussed Condition With Pt., nurse Kassie Ross MD Jun 11, 2017 15:10
[2017-06-11] MEDS: VANCOMYCIN 1,000 MG/NS 250 ML IV SCH ×2 (16:55)
--- NOTE | 2017-06-11 17:22 | HHI.IDPN ---
Subjective Subjective Remarks 2 D echo neg repeat blood clx negative MRSA in blood 03/12 c/l foot pain Antibiotics vanco Allergies: Coded Allergies: No Known Allergies (Unverified , 06/09/17) Objective . Vital Signs Date Time Temp Pulse Resp B/P (MAP) Pulse Ox O2 Delivery O2 Flow Rate FiO2 06/11/17 12:40 97.8 69 20 117/54 (75) 97 06/11/17 08:28 97.3 57 20 103/53 (70) 99 06/11/17 05:00 98.0 89 18 105/56 (72) 98 06/11/17 02:00 16 06/11/17 00:00 97.6 82 18 101/59 (73) 97 06/10/17 23:47 17 06/10/17 23:41 99 21 06/10/17 21:00 97.5 66 18 112/52 (72) 99 06/10/17 20:30 97.4 69 14 102/53 (69) 99 Room Air 06/10/17 20:15 54 18 96/54 (68) 100 Nasal Cannula 2 06/10/17 20:00 52 22 89/54 (66) 100 Nasal Cannula 2 06/10/17 19:45 60 16 91/50 (64) 97 Nasal Cannula 2 06/10/17 19:40 97.1 56 16 95/50 (65) 100 Nasal Cannula 2 06/10/17 18:05 98.1 60 16 108/59 (75) 99 . Laboratory Tests Test 06/10/17 01:20 06/11/17 05:07 White Blood Count 11.2 TH/MM3 6.9 TH/MM3 Red Blood Count 4.50 MIL/MM3 4.21 MIL/MM3 Hemoglobin 12.2 GM/DL 11.3 GM/DL Hematocrit 36.6 % 34.6 % Mean Corpuscular Volume 81.4 FL 82.0 FL Mean Corpuscular Hemoglobin 27.0 PG 26.8 PG Mean Corpuscular Hemoglobin Concent 33.2 % 32.7 % Red Cell Distribution Width 16.4 % 16.2 % Platelet Count 357 TH/MM3 244 TH/MM3 Mean Platelet Volume 7.1 FL 7.0 FL Neutrophils (%) (Auto) 67.2 % 79.4 % Lymphocytes (%) (Auto) 18.8 % 13.8 % Monocytes (%) (Auto) 13.5 % 6.6 % Eosinophils (%) (Auto) 0.2 % 0.0 % Basophils (%) (Auto) 0.3 % 0.2 % Neutrophils # (Auto) 7.5 TH/MM3 5.4 TH/MM3 Lymphocytes # (Auto) 2.1 TH/MM3 0.9 TH/MM3 Monocytes # (Auto) 1.5 TH/MM3 0.5 TH/MM3 Eosinophils # (Auto) 0.0 TH/MM3 0.0 TH/MM3 Basophils # (Auto) 0.0 TH/MM3 0.0 TH/MM3 CBC Comment DIFF FINAL DIFF FINAL Differential Comment Laboratory Tests Test 06/10/17 01:20 06/11/17 05:07 Blood Urea Nitrogen 15 MG/DL 8 MG/DL Creatinine 0.81 MG/DL 0.69 MG/DL Random Glucose 88 MG/DL 151 MG/DL Total Protein 7.2 GM/DL 5.9 GM/DL Albumin 3.0 GM/DL 2.5 GM/DL Calcium Level 8.4 MG/DL 8.3 MG/DL Phosphorus Level 3.3 MG/DL Alkaline Phosphatase 148 U/L 111 U/L Aspartate Amino Transf (AST/SGOT) 96 U/L 86 U/L Alanine Aminotransferase (ALT/SGPT) 186 U/L 145 U/L Total Bilirubin 0.6 MG/DL 0.4 MG/DL Sodium Level 140 MEQ/L 138 MEQ/L Potassium Level 3.9 MEQ/L 4.5 MEQ/L Chloride Level 105 MEQ/L 104 MEQ/L Carbon Dioxide Level 25.9 MEQ/L 27.1 MEQ/L Anion Gap 9 MEQ/L 7 MEQ/L Estimat Glomerular Filtration Rate 108 ML/MIN 130 ML/MIN Lactic Acid Level 1.2 mmol/L Total Creatine Kinase 149 U/L Creatine Kinase MB 2.1 NG/ML Troponin I LESS THAN 0.02 NG/ML Lipase 171 U/L Microbiology Date/Time Source Procedure Growth Status 06/11/17 14:30 Blood Peripheral Aerobic Blood Culture Pending Received 06/11/17 14:30 Blood Peripheral Anaerobic Blood Culture Pending Received 06/11/17 14:25 Blood Peripheral Aerobic Blood Culture Pending Received 06/11/17 14:25 Blood Peripheral Anaerobic Blood Culture Pending Received 06/10/17 01:20 Blood Peripheral Aerobic Blood Culture - Preliminary S. Aureus Mrsa Resulted 06/10/17 01:20 Blood Peripheral Anaerobic Blood Culture - Preliminary NO GROWTH IN 1 DAY Resulted 06/10/17 01:15 Blood Peripheral Aerobic Blood Culture - Preliminary NO GROWTH IN 1 DAY Resulted 06/10/17 01:15 Blood Peripheral Anaerobic Blood Culture - Preliminary NO GROWTH IN 1 DAY Resulted 06/10/17 19:11 Wound Foot Fungal Smear - Final NO FUNGAL ELEMENTS SEEN. Resulted 06/10/17 19:11 Wound Foot Fungal Culture Pending Resulted 06/10/17 19:11 Wound Foot Acid Fast Stain Pending Received 06/10/17 19:11 Wound Foot Mycobacterial Culture Pending Received 06/10/17 19:11 Wound Foot Gram Stain - Final Resulted 06/10/17 19:11 Wound Culture - Preliminary S. Aureus Mrsa Resulted 06/10/17 19:11 Wound Foot Fungal Smear - Final NO FUNGAL ELEMENTS SEEN. Resulted 06/10/17 19:11 Wound Foot Fungal Culture Pending Resulted 06/10/17 19:11 Wound Foot Acid Fast Stain Pending Received 06/10/17 19:11 Wound Foot Mycobacterial Culture Pending Received 06/10/17 19:11 Wound Foot Gram Stain - Final Resulted 06/10/17 19:11 Wound Culture - Preliminary S. Aureus Mrsa Resulted Imaging Last Impressions Foot X-Ray 06/16/17 0000 Signed Impressions: Service Date/Time: Friday, June 16, 2017 17:47 - CONCLUSION: Surgical changes with amputation of the inferior posterior aspect of the calcaneus. Julius Barry MD Lower Extremity CT 06/10/17 0000 Signed Impressions: Service Date/Time: Saturday, June 10, 2017 08:21 - CONCLUSION: 1. Heel ulcer measuring 1.9 cm in depth with dots of air actually extending deeper adjacent to the cortical surface of the calcaneus. Edema and air is seen in the adjacent soft tissues characteristic of cellulitis. 2. In addition, there is cortical disruption of the plantar aspect of the calcaneus characteristic of regional osteomyelitis. 3. No acute fracture. Benign calcaneal osseous cyst Kian Rock MD Physical Exam CONSTITUTIONAL/GENERAL: This is an adequately nourished patient, in no apparent distress. TUBES/LINES/DRAINS: SKIN: No jaundice, rashes, or lesions. Skin temperature appropriate. Not diaphoretic. MUSCULOSKELETAL: Extremities without clubbing, cyanosis, STATUS LOCLIS: post op dressing in place . No joint tenderness or effusion noted. No calf tenderness. No mottling or clubbing. NEUROLOGICAL: Awake and alert. Motor and sensory grossly within normal limits. Follows commands. Clear speech. Moves all extremities. PSYCHIATRIC: No obvious anxiety/depression. no apparent hallucinations or other psychotic thought process. 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
[2017-06-12 00:10] VITALS: BP 131/60; PULSE 75; RESP 17; TEMP 97.4; O2SAT 98
[2017-06-12] MEDS: VANCOMYCIN 1,000 MG/NS 250 ML IV SCH ×6 (02:26→18:03)
[2017-06-12] MEDS: SODIUM CHLOR 0.9% 1000 ML INJ 1,000 ML IV SCH ×3 (02:34→13:04)
[2017-06-12 05:03] VITALS: BP 121/68; PULSE 62; RESP 17; TEMP 98.4; O2SAT 99
[2017-06-12] MEDS: HYDROmorphone HCL 4 MG TAB PO PRN ×3 (05:43→18:43)
--- NOTE | 2017-06-12 05:47 | PD.PN.STU ---
Subjective Remarks Follow up for left foot wound. Patient is resting comfortably in bed. No acute concerns over night. He denies fever, chills, nausea, vomiting, shortness of breath and chest pain. Objective Vitals Vital Signs Date Time Temp Pulse Resp B/P (MAP) Pulse Ox O2 Delivery O2 Flow Rate FiO2 06/12/17 05:03 98.4 62 17 121/68 (85) 99 06/12/17 00:10 97.4 75 17 131/60 (83) 98 06/11/17 20:40 97.7 72 17 115/61 (79) 98 06/11/17 17:58 99 21 06/11/17 17:26 97.4 64 20 105/55 (72) 99 06/11/17 12:40 97.8 69 20 117/54 (75) 97 06/11/17 08:28 97.3 57 20 103/53 (70) 99 I/O 06/11/17 06/11/17 06/11/17 06/12/17 06/12/17 06/12/17 07:00 15:00 23:00 07:00 15:00 23:00 Intake Total 1156 ml 720 ml 490 ml Output Total 1125 ml 2650 ml Balance 1156 ml -405 ml -2160 ml Intake Oral 720 ml 240 ml IV Total 1156 ml 250 ml Output Urine Total 1125 ml 2650 ml # Voids 1 Result Diagram: 06/11/17 0507 06/11/17 0507 Imaging Last Impressions Lower Extremity CT 06/10/17 0000 Signed Impressions: Service Date/Time: Saturday, June 10, 2017 08:21 - CONCLUSION: 1. Heel ulcer measuring 1.9 cm in depth with dots of air actually extending deeper adjacent to the cortical surface of the calcaneus. Edema and air is seen in the adjacent soft tissues characteristic of cellulitis. 2. In addition, there is cortical disruption of the plantar aspect of the calcaneus characteristic of regional osteomyelitis. 3. No acute fracture. Benign calcaneal osseous cyst Kian Rock MD Foot X-Ray 06/10/17 0000 Signed Impressions: Service Date/Time: Saturday, June 10, 2017 01:31 - CONCLUSION: Deep ulceration involving the heel with soft tissue air extending to the bone Dustin Soto MD Objective Remarks GENERAL: Alert, oriented x3, NAD SKIN: Warm and dry. HEAD: Normocephalic. EYES: No scleral icterus. No injection or drainage. NECK: Supple, trachea midline. No JVD or lymphadenopathy. CARDIOVASCULAR: Regular rate and rhythm without murmurs, gallops, or rubs. RESPIRATORY: Breath sounds equal bilaterally. No accessory muscle use. GASTROINTESTINAL: Abdomen soft, non-tender, nondistended. MUSCULOSKELETAL: No cyanosis, or edema of RLE. LLE in post op dressing. BACK: Nontender without obvious deformity. No CVA tenderness. Procedures 2D Echo done 06/12 Findings Normal left ventricular size. Wall thickness is measured at the upper limits of normal. Mild thickening of the mitral valve leaflets. Mild thickening of the aortic valve leaflets. The pulmonary valve is not well visualized. The left ventricular systolic function is normal with an estimated ejection fraction in the range of 60-65%. A/P Assessment and Plan The patient is a 36 year old male with infection of the left foot for the last 6 months. He's had courses of antibiotics in the past. He said that he had a bone biopsy about three weeks ago. He said that it seems the the antibiotics are not working. He had some fever last week. He said that the swelling and redness of the left foot were getting worse which made him to come to the hospital. He was seen by podiatry and underwent left calcaneal I and D with tissue and bone biopsy and culture. Assessment and Plan Infection/open wound of the left foot Bacteremia, MRSA. Continue Vancomycin/Zosyn and pain control Repeat blood cultures. ID following Podiatry consult appreciated will obtain CT of the left foot S/P left calcaneal I and D with tissue and bone biopsy and culture Elevated LFT's hepatitis panel back, Hep B surface antigen +, anti core Hep B IgM + may indicate acute hepatitis. DVT prophylaxis: scd/teds/lovenox Discharge Planning D/C pending bone biopsy results, blood cx's, podiatry and ID recs. Trevin Aviles M3 Jun 12, 2017 05:47 Kassie Ross MD Jun 12, 2017 11:10
[2017-06-12 08:00] VITALS: BP 114/57; PULSE 72; RESP 20; TEMP 97.3; O2SAT 97
[2017-06-12] MEDS: SODIUM CHLORIDE 0.9% FLUSH 10 ML FLUSH IV FLUSH SCH ×2 (08:00→20:00)
[2017-06-12] MEDS: MORPHINE SULFATE 2 MG/ML SYRINGE IV PUSH PRN ×3 (09:22→20:00)
[2017-06-12 10:33] VITALS: O2SAT 95
--- NOTE | 2017-06-12 11:10 | HHI.PR ---
Subjective Remarks No fever or chills overnight. Denies any chest pain or shortness of breath. He has pain at the surgical site, the pain is controlled by medications. Objective Vitals Vital Signs Date Time Temp Pulse Resp B/P (MAP) Pulse Ox O2 Delivery O2 Flow Rate FiO2 06/12/17 10:33 95 06/12/17 08:00 97.3 72 20 114/57 (76) 97 06/12/17 05:03 98.4 62 17 121/68 (85) 99 06/12/17 00:10 97.4 75 17 131/60 (83) 98 06/11/17 20:40 97.7 72 17 115/61 (79) 98 06/11/17 17:58 99 21 06/11/17 17:26 97.4 64 20 105/55 (72) 99 06/11/17 12:40 97.8 69 20 117/54 (75) 97 I/O 06/11/17 06/11/17 06/11/17 06/12/17 06/12/17 06/12/17 07:00 15:00 23:00 07:00 15:00 23:00 Intake Total 1156 ml 720 ml 490 ml 250 ml Output Total 1125 ml 2650 ml Balance 1156 ml -405 ml -2160 ml 250 ml Intake Oral 720 ml 240 ml IV Total 1156 ml 250 ml 250 ml Output Urine Total 1125 ml 2650 ml # Voids 1 Result Diagram: 06/11/17 0507 06/11/17 0507 Imaging Last Impressions Lower Extremity CT 06/10/17 0000 Signed Impressions: Service Date/Time: Saturday, June 10, 2017 08:21 - CONCLUSION: 1. Heel ulcer measuring 1.9 cm in depth with dots of air actually extending deeper adjacent to the cortical surface of the calcaneus. Edema and air is seen in the adjacent soft tissues characteristic of cellulitis. 2. In addition, there is cortical disruption of the plantar aspect of the calcaneus characteristic of regional osteomyelitis. 3. No acute fracture. Benign calcaneal osseous cyst Kian Rock MD Foot X-Ray 06/10/17 0000 Signed Impressions: Service Date/Time: Saturday, June 10, 2017 01:31 - CONCLUSION: Deep ulceration involving the heel with soft tissue air extending to the bone Dustin Soto MD Objective Remarks GENERAL: This is a well-nourished, well-developed patient, in no apparent distress. SKIN: Erythema of the left foot with an open wound on the bottom of the left foot. HEAD: Atraumatic. Normocephalic. No temporal or scalp tenderness. EYES: Pupils equal round and reactive. Extraocular motions intact. No scleral icterus. No injection or drainage. ENT: Nose without bleeding, purulent drainage or septal hematoma. Throat without erythema, tonsillar hypertrophy or exudate. Uvula midline. Airway patent. NECK: Trachea midline. No JVD or lymphadenopathy. Supple, nontender, no meningeal signs. CARDIOVASCULAR: Regular rate and rhythm without murmurs, gallops, or rubs. RESPIRATORY: Clear to auscultation. Breath sounds equal bilaterally. No wheezes , rales, or rhonchi. GASTROINTESTINAL: Abdomen soft, non-tender, nondistended. No hepato-splenomegaly , or palpable masses. No guarding. MUSCULOSKELETAL: swelling/ erythema of the left foot. NEUROLOGICAL: Awake and alert. Cranial nerves II through XII intact. Motor and sensory grossly within normal limits. Five out of 5 muscle strength in all muscle groups. Normal speech. A/P Problem List: (1) Left foot infection ICD Code: L08.9 - Local infection of the skin and subcutaneous tissue, unspecified Assessment and Plan Infection/open wound of the left foot Bacteremia, MRSA. Repeat blood cultures. Consult infectious disease following Neuropathy continue with IV antibiotics and pain control- follow the cultures. podiatry consult appreciated; will obtain CT of the left foot; plan for surgery /bone biopsy this afternoon- ID consulted. Elevated LFT's- hepatitis panel pending DVT prophylaxis- pending surgical intervention. Discussed Condition With Pt., nurse Kassie Ross MD Jun 12, 2017 11:10
--- NOTE | 2017-06-12 13:17 | ECHRPT ---
Indication: Endocarditis CONCLUSIONS Normal left ventricular size. Wall thickness is measured at the upper limits of normal. Mild thickening of the mitral valve leaflets. Mild thickening of the aortic valve leaflets. The pulmonary valve is not well visualized. The left ventricular systolic function is normal with an estimated ejection fraction in the range of 60-65%. BP: / HR: 61 Rhythm: Sinus Technical Quality:Fair FINDINGS LEFT VENTRICLE Normal left ventricular size. Wall thickness is measured at the upper limits of normal. The left ventricular systolic function is normal with an estimated ejection fraction in the range of 60-65%. RIGHT VENTRICLE Normal right ventricular size and systolic function. LEFT ATRIUM The left atrial size is normal. RIGHT ATRIUM The right atrial size is normal. ATRIAL SEPTUM Normal atrial septal thickness without atrial level shunting by limited color doppler interrogation. AORTA The aortic root and proximal ascending aorta are normal in size on limited imaging. MITRAL VALVE Mild thickening of the mitral valve leaflets. AORTIC VALVE Trileaflet aortic valve. Mild thickening of the aortic valve leaflets. TRICUSPID VALVE Structurally normal tricuspid valve. No tricuspid valve stenosis or regurgitation. PULMONARY VALVE The pulmonary valve is not well visualized. VESSELS The inferior vena cava is normal in size. PERICARDIUM No pericardial effusion. Kennedy Rutledge MD, FACC (Electronically Signed) Final Date:12 June 2017 13:16
[2017-06-12 16:23] VITALS: BP 115/61; PULSE 75; RESP 20; TEMP 97.7; O2SAT 98
--- NOTE | 2017-06-12 17:08 | PD.POD ---
Subjective Pain score: 6 Remarks Chronic pain remains he is asking for increase in pain meds, he states he receives 8 mg oral Dilaudid 5 times a day. Past Med/Surg/Social History Social History Smoking Status: Current Every Day Smoker Objective Vital Signs Vital Signs Date Time Temp Pulse Resp B/P (MAP) Pulse Ox O2 Delivery O2 Flow Rate FiO2 06/12/17 16:23 97.7 75 20 115/61 (79) 98 06/12/17 10:33 95 06/12/17 08:00 97.3 72 20 114/57 (76) 97 06/12/17 05:03 98.4 62 17 121/68 (85) 99 06/12/17 00:10 97.4 75 17 131/60 (83) 98 06/11/17 20:40 97.7 72 17 115/61 (79) 98 06/11/17 17:58 99 21 06/11/17 17:26 97.4 64 20 105/55 (72) 99 Coded Allergies: No Known Allergies (Unverified , 06/09/17) Medications and IVs Administered Medications Medications (Trade) Dose Ordered Sig/Negra Route PRN Reason Start Time Stop Time Status Last Admin Dose Admin Sodium Chloride 1,000 ml @ 100 mls/hr Q10H IV 06/10/17 02:43 06/12/17 13:04 Sodium Chloride (NS Flush) 2 ml BID IV FLUSH 06/10/17 09:00 06/11/17 21:08 Acetaminophen (Tylenol) 650 mg Q4H PRN PO TEMP > 100.4 06/10/17 02:45 06/10/17 05:02 Morphine Sulfate (Morphine Inj) 2 mg Q3H PRN IV PUSH breakthrough pain 06/10/17 03:00 06/12/17 14:54 Hydromorphone HCl (Dilaudid) 4 mg Q6HR PRN PO PAIN SCALE 5 TO 10 06/10/17 19:30 06/12/17 13:04 Vancomycin HCl 1000 mg/Sodium Chloride 250 ml @ 250 mls/hr Q8H IV 06/11/17 18:00 06/12/17 09:23 Miscellaneous Information SPECIFIC LAB TO BE DRAWN:VANCO TROUGH DATE... ONCE ONCE .XX 06/12/17 17:45 06/12/17 17:46 06/12/17 16:31 Other Results Laboratory Tests Test 06/11/17 05:07 White Blood Count 6.9 TH/MM3 Red Blood Count 4.21 MIL/MM3 Hemoglobin 11.3 GM/DL Hematocrit 34.6 % Mean Corpuscular Volume 82.0 FL Mean Corpuscular Hemoglobin 26.8 PG Mean Corpuscular Hemoglobin Concent 32.7 % Red Cell Distribution Width 16.2 % Platelet Count 244 TH/MM3 Mean Platelet Volume 7.0 FL Neutrophils (%) (Auto) 79.4 % Lymphocytes (%) (Auto) 13.8 % Monocytes (%) (Auto) 6.6 % Eosinophils (%) (Auto) 0.0 % Basophils (%) (Auto) 0.2 % Neutrophils # (Auto) 5.4 TH/MM3 Lymphocytes # (Auto) 0.9 TH/MM3 Monocytes # (Auto) 0.5 TH/MM3 Eosinophils # (Auto) 0.0 TH/MM3 Basophils # (Auto) 0.0 TH/MM3 CBC Comment DIFF FINAL Differential Comment Laboratory Tests Test 06/11/17 05:07 Blood Urea Nitrogen 8 MG/DL Creatinine 0.69 MG/DL Random Glucose 151 MG/DL Total Protein 5.9 GM/DL Albumin 2.5 GM/DL Calcium Level 8.3 MG/DL Alkaline Phosphatase 111 U/L Aspartate Amino Transf (AST/SGOT) 86 U/L Alanine Aminotransferase (ALT/SGPT) 145 U/L Total Bilirubin 0.4 MG/DL Sodium Level 138 MEQ/L Potassium Level 4.5 MEQ/L Chloride Level 104 MEQ/L Carbon Dioxide Level 27.1 MEQ/L Anion Gap 7 MEQ/L Estimat Glomerular Filtration Rate 130 ML/MIN Microbiology Date/Time Source Procedure Growth Status 06/11/17 14:30 Blood Peripheral Aerobic Blood Culture - Preliminary NO GROWTH IN 1 DAY Resulted 06/11/17 14:30 Blood Peripheral Anaerobic Blood Culture - Preliminary NO GROWTH IN 1 DAY Resulted 06/11/17 14:25 Blood Peripheral Aerobic Blood Culture - Preliminary NO GROWTH IN 1 DAY Resulted 06/11/17 14:25 Blood Peripheral Anaerobic Blood Culture - Preliminary NO GROWTH IN 1 DAY Resulted 06/10/17 01:20 Blood Peripheral Aerobic Blood Culture - Final S. Aureus Mrsa Resulted 06/10/17 01:20 Blood Peripheral Anaerobic Blood Culture - Preliminary NO GROWTH IN 2 DAYS Resulted 06/10/17 01:15 Blood Peripheral Aerobic Blood Culture - Preliminary NO GROWTH IN 2 DAYS Resulted 06/10/17 01:15 Blood Peripheral Anaerobic Blood Culture - Preliminary NO GROWTH IN 2 DAYS Resulted 06/10/17 19:11 Wound Foot Fungal Smear - Final NO FUNGAL ELEMENTS SEEN. Resulted 06/10/17 19:11 Wound Foot Fungal Culture Pending Resulted 06/10/17 19:11 Wound Foot Acid Fast Stain - Final NO ACID FAST BACILLI SEEN Resulted 06/10/17 19:11 Wound Foot Mycobacterial Culture Pending Resulted 06/10/17 19:11 Wound Foot Gram Stain - Final Complete 06/10/17 19:11 Wound Culture - Final S. Aureus Mrsa Complete 06/10/17 19:11 Wound Foot Fungal Smear - Final NO FUNGAL ELEMENTS SEEN. Resulted 06/10/17 19:11 Wound Foot Fungal Culture Pending Resulted 06/10/17 19:11 Wound Foot Acid Fast Stain - Final NO ACID FAST BACILLI SEEN Resulted 06/10/17 19:11 Wound Foot Mycobacterial Culture Pending Resulted 06/10/17 19:11 Wound Foot Gram Stain - Final Complete 06/10/17 19:11 Wound Culture - Final S. Aureus Mrsa Complete Pathology has returned as acute osteomyelitis Physical Exam Remarks Left lower extremity is examined Partially coapted posterior calcaneal incision with packing intact decreased erythema and decreased edema of fluctuance within tissue no gas pockets felt Limited range of motion decreased feeling to light touch intact pedal pulses capillary fill time intact digits Assessment & Plan A/P Left heel ulcer infection with gas and tissue, calcaneal osteomyelitis Status post incision and drainage debridement with now positive osteomyelitis confirmed by bone biopsy postop day 2 Recommendation is to continue IV antibiotics, preparing the soft tissue envelope for likely partial calcanectomy next week. PT ordered crutches the patient is okay for toe-touch weight-bear with CAM walking boot for now however will need to be nonweightbearing after calcanectomy. We will attempt to obtain clear margins however may need long-term IV antibiotics. I do not feel comfortable adjusting the patient's oral dilaudid as the patient has requested, I will leave this to the medical team to manage his chronic- Low back Arnulfo Jin DPM Jun 12, 2017 17:08
[2017-06-12] MEDS ORDERED: PHARMACY ORDERED LAB ONE (17:45)
[2017-06-12] MEDS: ENOXAPARIN SODIUM 40 MG/0.4 ML SYRINGE SQ SCH (18:42)
[2017-06-12 21:00] VITALS: BP 142/79; PULSE 86; RESP 18; TEMP 97.9; O2SAT 97
[2017-06-13] VITALS (7 sets, daily range): BP systolic 107–137; BP diastolic 56–75; PULSE 66–122; RESP 18; TEMP 97.4–98.7; O2SAT 94–99
[2017-06-13] MEDS: MORPHINE SULFATE 2 MG/ML SYRINGE IV PUSH PRN ×5 (00:21→23:38)
[2017-06-13] MEDS: HYDROmorphone HCL 4 MG TAB PO PRN ×4 (01:16→19:18)
[2017-06-13] MEDS: SODIUM CHLOR 0.9% 1000 ML INJ 1,000 ML IV SCH ×3 (01:53→23:38)
[2017-06-13] MEDS: VANCOMYCIN INJ 1,500 MG in SODIUM CHLORID 0.9% 500 ML INJ 500 ML IV SCH ×3 (01:53→18:17)
--- NOTE | 2017-06-13 10:01 | HHI.PR ---
Subjective Remarks Patient seen and examined this morning. His vitals are stable he's afebrile. Resting comfortably. No complaints or concerns this am. Denies CP or difficulty breathing. Objective Vital Signs Date Time Temp Pulse Resp B/P (MAP) Pulse Ox O2 Delivery O2 Flow Rate FiO2 06/13/17 08:00 98.4 67 18 122/61 (81) 95 06/13/17 06:06 98.6 79 18 107/75 (86) 98 06/13/17 00:34 98.3 67 18 128/65 (86) 99 06/12/17 21:00 97.9 86 18 142/79 (100) 97 06/12/17 16:23 97.7 75 20 115/61 (79) 98 06/12/17 10:33 95 I/O 06/12/17 06/12/17 06/12/17 06/13/17 06/13/17 06/13/17 06:59 14:59 22:59 06:59 14:59 22:59 Intake Total 490 ml 250 ml 1960 ml Output Total 2650 ml 1200 ml Balance -2160 ml 250 ml 1960 ml -1200 ml Intake Oral 240 ml 960 ml IV Total 250 ml 250 ml 1000 ml Output Urine Total 2650 ml 1200 ml # Voids 4 Result Diagram: 06/11/17 0507 06/11/17 0507 Imaging Last Impressions Lower Extremity CT 06/10/17 0000 Signed Impressions: Service Date/Time: Saturday, June 10, 2017 08:21 - CONCLUSION: 1. Heel ulcer measuring 1.9 cm in depth with dots of air actually extending deeper adjacent to the cortical surface of the calcaneus. Edema and air is seen in the adjacent soft tissues characteristic of cellulitis. 2. In addition, there is cortical disruption of the plantar aspect of the calcaneus characteristic of regional osteomyelitis. 3. No acute fracture. Benign calcaneal osseous cyst Kian Rock MD Foot X-Ray 06/10/17 0000 Signed Impressions: Service Date/Time: Saturday, June 10, 2017 01:31 - CONCLUSION: Deep ulceration involving the heel with soft tissue air extending to the bone Dustin Soto MD Objective Remarks GENERAL: WN, WD CA male laying comfortably in bed in NAD. SKIN: Warm and dry. HEENT: Pupils equal and round. MMM. NECK: Supple no tender LAD or JVD. HEART: RRR no m/r/g. LUNGS: CTAB without wheezes or crackles. ABDOMEN: Soft, NT, ND. EXTREMITIES: Left extremity bandage on foot, c/d/i. NEURO: Awake and alert. PSYCH: Appropriate mood and affect. A/P Problem List: (1) Left foot infection ICD Code: L08.9 - Local infection of the skin and subcutaneous tissue, unspecified Assessment and Plan In summary this is a 36-year-old male is in his [place] ER for evaluation of left foot ulcer. Failed outpatient treatment. 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 He is on chronic pain medications. Left foot infection - Infectious disease was consulted, currently on Zosyn, MRSA + blood one out of 4. 2-D echo with no vegetations - Podiatry: Status post I&D by Dr. Jin, Biopsy shoes acute osteo, positive margins. Plan to continue IV antibiotics, further intervention next week. Patient is okay for toe-touch weightbearing with walking boot for now however will need to be nonweightbearing after calcenectomy. May need long-term antibiotics. Chronic pain - Patient reports chronic low back pain and that he takes 8 mg of oral Dilaudid 5 times a day - Also per review of H&P patient consumes soren and marijuana on a daily basis - He is sitting comfortably in bed, no indication to change his medications at this time. Discharge Planning D/C plan not yet in place. Surgical and medical management still underway. Rand Hamm MD Jun 13, 2017 10:01
[2017-06-13] MEDS: SODIUM CHLORIDE 0.9% FLUSH 10 ML FLUSH IV FLUSH SCH ×2 (10:19→21:00)
[2017-06-13] MEDS: ENOXAPARIN SODIUM 40 MG/0.4 ML SYRINGE SQ SCH (18:16)
[2017-06-14] VITALS (7 sets, daily range): BP systolic 107–127; BP diastolic 57–76; PULSE 62–104; RESP 16–18; TEMP 97.9–98.6; O2SAT 96–99
[2017-06-14] MEDS: HYDROmorphone HCL 4 MG TAB PO PRN ×4 (01:20→19:50)
[2017-06-14] MEDS: VANCOMYCIN INJ 1,500 MG in SODIUM CHLORID 0.9% 500 ML INJ 500 ML IV SCH ×3 (01:20→18:10)
[2017-06-14] MEDS: SODIUM CHLOR 0.9% 1000 ML INJ 1,000 ML IV SCH ×2 (06:43→16:43)
[2017-06-14 07:44] LABS: AUTOMATED NEUTROPHIL # 3.6 TH/MM3 (1.8-7.7); BASOPHIL % 0.6 % (0.0-2.0); EOSINOPHIL # 0.1 TH/MM3 (0-0.4); EOSINOPHIL % 0.9 % (0.0-4.0); HEMATOCRIT 36.6 % (39.0-51.0); HEMOGLOBIN 11.8 GM/DL (13.0-17.0); LYMPH % 31.2 % (9.0-44.0); MEAN CELL VOLUME 82.6 FL (80.0-100.0); MEAN CORPUSCULAR HEMOGLOBIN 26.7 PG (27.0-34.0); MEAN CORPUSCULAR HGB CONC 32.3 % (32.0-36.0); MONO % 10.7 % (0.0-8.0); MONOCYTE # 0.7 TH/MM3 (0-0.9); NEUT % 56.6 % (16.0-70.0); PLATELET COUNT 312 TH/MM3 (150-450); RED BLOOD COUNT 4.43 MIL/MM3 (4.50-5.90); RED CELL DISTRIBUTION WIDTH 16.5 % (11.6-17.2); WHITE BLOOD COUNT 6.4 TH/MM3 (4.0-11.0)
[2017-06-14 08:33] LABS: BICARBONATE 30.7 MEQ/L (21.0-32.0); CALCIUM 8.7 MG/DL (8.5-10.1); CREATININE 0.51 MG/DL (0.60-1.30)
[2017-06-14] MEDS: MORPHINE SULFATE 2 MG/ML SYRINGE IV PUSH PRN ×3 (08:49→20:58)
[2017-06-14] MEDS: SODIUM CHLORIDE 0.9% FLUSH 10 ML FLUSH IV FLUSH SCH ×2 (08:50→21:00)
[2017-06-14] MEDS ORDERED: PHARMACY ORDERED LAB-VANCO TROUGH ONE (09:45)
--- NOTE | 2017-06-14 10:19 | HHI.PR ---
Subjective Remarks Patient seen and examined this morning. His vitals are stable he's afebrile. Resting comfortably. No complaints or concerns this am. Denies CP or difficulty breathing. Wants to know if he can have dilaudid for his chronic back pain. Foot pain he says is well controlled. Objective Vital Signs Date Time Temp Pulse Resp B/P (MAP) Pulse Ox O2 Delivery O2 Flow Rate FiO2 06/14/17 07:41 98.0 85 18 109/59 (76) 96 06/14/17 04:00 98.2 70 18 127/70 (89) 98 06/14/17 00:00 97.9 104 18 127/76 (93) 98 06/13/17 20:00 98.7 122 18 137/63 (87) 94 06/13/17 16:39 98.4 68 18 123/56 (78) 98 06/13/17 12:21 97.4 66 18 116/68 (84) 98 I/O 06/13/17 06/13/17 06/13/17 06/14/17 06/14/17 06/14/17 07:00 15:00 23:00 07:00 15:00 23:00 Output Total 800 ml 2900 ml Balance -800 ml -2900 ml Output Urine Total 800 ml 2900 ml Result Diagram: 06/14/17 0619 06/14/17 0619 Imaging Last Impressions Lower Extremity CT 06/10/17 0000 Signed Impressions: Service Date/Time: Saturday, June 10, 2017 08:21 - CONCLUSION: 1. Heel ulcer measuring 1.9 cm in depth with dots of air actually extending deeper adjacent to the cortical surface of the calcaneus. Edema and air is seen in the adjacent soft tissues characteristic of cellulitis. 2. In addition, there is cortical disruption of the plantar aspect of the calcaneus characteristic of regional osteomyelitis. 3. No acute fracture. Benign calcaneal osseous cyst Kian Rock MD Foot X-Ray 06/10/17 0000 Signed Impressions: Service Date/Time: Saturday, June 10, 2017 01:31 - CONCLUSION: Deep ulceration involving the heel with soft tissue air extending to the bone Dustin Soto MD Objective Remarks GENERAL: WN, WD CA male laying comfortably in bed in NAD. SKIN: Warm and dry. HEENT: Pupils equal and round. MMM. NECK: Supple no tender LAD or JVD. HEART: RRR no m/r/g. LUNGS: CTAB without wheezes or crackles. ABDOMEN: Soft, NT, ND. EXTREMITIES: Left extremity bandage on foot, c/d/i. NEURO: Awake and alert. PSYCH: Appropriate mood and affect. A/P Problem List: (1) Left foot infection ICD Code: L08.9 - Local infection of the skin and subcutaneous tissue, unspecified Assessment and Plan In summary this is a 36-year-old male is in his [place] ER for evaluation of left foot ulcer. Failed outpatient treatment. 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 He is on chronic pain medications. Left foot infection - Infectious disease was consulted, currently on Zosyn, MRSA + blood one out of 4. 2-D echo with no vegetations - Podiatry: Status post I&D by Dr. Jin, Biopsy shoes acute osteo, positive margins. Plan to continue IV antibiotics, further intervention next week. Patient is okay for toe-touch weightbearing with walking boot for now however will need to be nonweightbearing after calcenectomy. May need long-term antibiotics. Chronic pain - Patient reports chronic low back pain and that he takes 8 mg of oral Dilaudid 5 times a day - Also per review of H&P patient consumes soren and marijuana on a daily basis - Spoke with Daren clinical pharmacist, he will assist and see if we can get this verified. [facility] in [place], prescriber is Dr. Sunday Lewis Discharge Planning D/C plan not yet in place. Surgical and medical management still underway. Rand Hamm MD Jun 14, 2017 10:19
--- NOTE | 2017-06-14 15:39 | PD.POD ---
Subjective Pain score: 6 Remarks Chronic pain remains, no events. Past Med/Surg/Social History Social History Smoking Status: Current Every Day Smoker Objective Vital Signs Vital Signs Date Time Temp Pulse Resp B/P (MAP) Pulse Ox O2 Delivery O2 Flow Rate FiO2 06/14/17 11:42 98.6 62 18 125/57 (79) 98 06/14/17 08:12 99 21 06/14/17 07:41 98.0 85 18 109/59 (76) 96 06/14/17 04:00 98.2 70 18 127/70 (89) 98 06/14/17 00:00 97.9 104 18 127/76 (93) 98 06/13/17 20:00 98.7 122 18 137/63 (87) 94 06/13/17 16:39 98.4 68 18 123/56 (78) 98 Coded Allergies: No Known Allergies (Unverified , 06/09/17) Physical Exam Remarks Left lower extremity is examined Partially coapted posterior calcaneal incision with packing intact continued decreased erythema and continue decreased edema of fluctuance within tissue no gas pockets felt Limited range of motion decreased feeling to light touch intact pedal pulses capillary fill time intact digits Assessment & Plan A/P Left heel ulcer infection with gas and tissue, calcaneal osteomyelitis Status post incision and drainage debridement with now positive osteomyelitis confirmed by bone biopsy postop Wants limb salvage. Recommendation is to continue IV antibiotics, We will attempt to obtain clear margins however may need long-term IV antibiotics due to chronic infection. Will sign out to Dr Virk, surgery, left foot incision drainage debridement with partial calcanectomy with possible wound vac planned for . Arnulfo Jin DPM Jun 14, 2017 15:39
[2017-06-14] MEDS ORDERED: VANCOMYCIN INJ 1,750 MG in SODIUM CHLORID 0.9% 500 ML INJ 500 ML IV SCH (18:00)
[2017-06-14] MEDS: ENOXAPARIN SODIUM 40 MG/0.4 ML SYRINGE SQ SCH (18:10)
[2017-06-15] VITALS: BP 148/72; PULSE 81; RESP 20; TEMP 97; O2SAT 98
[2017-06-15] MEDS: SODIUM CHLOR 0.9% 1000 ML INJ 1,000 ML IV SCH ×3 (00:02→22:43)
[2017-06-15] MEDS: MORPHINE SULFATE 2 MG/ML SYRINGE IV PUSH PRN ×6 (00:03→23:27)
[2017-06-15] MEDS: VANCOMYCIN INJ 1,500 MG in SODIUM CHLORID 0.9% 500 ML INJ 500 ML IV SCH ×3 (01:54→18:00)
[2017-06-15] MEDS: HYDROmorphone HCL 4 MG TAB PO PRN ×4 (01:54→21:05)
[2017-06-15 04:00] VITALS: BP 123/58; PULSE 79; RESP 18; TEMP 97.9; O2SAT 97
[2017-06-15] MEDS ORDERED: SODIUM CHLORID 0.9% 500 ML IV PRN (04:45)
[2017-06-15] MEDS ORDERED: LACTATED RINGER'S 1000 ML IV PRN (04:45)
[2017-06-15 08:15] VITALS: BP 110/59; PULSE 75; RESP 18; TEMP 98.1; O2SAT 99
[2017-06-15] MEDS: SODIUM CHLORIDE 0.9% FLUSH 10 ML FLUSH IV FLUSH SCH ×2 (10:36→21:00)
--- NOTE | 2017-06-15 11:59 | HHI.PR ---
Subjective Remarks Follow up Left heel ulcer infection with gas and tissue, calcaneal osteomyelitis 06/15/17-patient seen and examined; requesting his narcotics to be adjusted accordingly due to poorly controlled pain. Afebrile Objective Vitals Vital Signs Date Time Temp Pulse Resp B/P (MAP) Pulse Ox O2 Delivery O2 Flow Rate FiO2 06/15/17 08:15 98.1 75 18 110/59 (76) 99 06/15/17 04:00 97.9 79 18 123/58 (79) 97 06/15/17 00:00 97.0 81 20 148/72 (97) 98 06/14/17 20:00 98.1 77 16 107/57 (74) 97 06/14/17 16:00 98.0 77 18 114/57 (76) 98 I/O 06/14/17 06/14/17 06/14/17 06/15/17 06/15/17 06/15/17 07:00 15:00 23:00 07:00 15:00 23:00 Intake Total 850 ml Output Total 2900 ml 900 ml 1000 ml Balance -2900 ml -900 ml -150 ml Intake Oral 850 ml Output Urine Total 2900 ml 900 ml 1000 ml # Voids 5 # Bowel Movements 1 Result Diagram: 06/14/17 0619 06/14/17 0619 Imaging Last Impressions Lower Extremity CT 06/10/17 0000 Signed Impressions: Service Date/Time: Saturday, June 10, 2017 08:21 - CONCLUSION: 1. Heel ulcer measuring 1.9 cm in depth with dots of air actually extending deeper adjacent to the cortical surface of the calcaneus. Edema and air is seen in the adjacent soft tissues characteristic of cellulitis. 2. In addition, there is cortical disruption of the plantar aspect of the calcaneus characteristic of regional osteomyelitis. 3. No acute fracture. Benign calcaneal osseous cyst Kian Rock MD Foot X-Ray 06/10/17 0000 Signed Impressions: Service Date/Time: Saturday, June 10, 2017 01:31 - CONCLUSION: Deep ulceration involving the heel with soft tissue air extending to the bone Dustin Soto MD Objective Remarks GENERAL: NAD SKIN: Warm and dry. HEAD: Normocephalic. EYES: No scleral icterus. No injection or drainage. NECK: Supple, trachea midline. No JVD or lymphadenopathy. CARDIOVASCULAR: Regular rate and rhythm without murmurs, gallops, or rubs. RESPIRATORY: Breath sounds equal bilaterally. No accessory muscle use. GASTROINTESTINAL: Abdomen soft, non-tender, nondistended. MUSCULOSKELETAL: No cyanosis, or edema. dressing over left foot-neurovascular intact BACK: Nontender without obvious deformity. No CVA tenderness. Procedures 06/10/17-Left incision, bone, calcaneus; expansile incision, drainage, debridement , posterior heel and plantar foot with resection of plantar fascia. A/P Problem List: (1) Left foot infection ICD Code: L08.9 - Local infection of the skin and subcutaneous tissue, unspecified Assessment and Plan 36-year-old man with Left foot infection Status post I&D by Dr. Jin, Biopsy shoes acute osteo, positive margins. Plan for left foot incision drainage debridement with partial calcanectomy with possible wound vac planned for 06/16/17 currently on vancomycin per ID and monitor culture report Okay for toe-touch weightbearing with walking boot for now Chronic pain - Patient reports chronic low back pain and that he takes 8 mg of oral Dilaudid 5 times a day - Also per review of H&P patient consumes soren and marijuana on a daily basis - Previous Hospitalist Spoke with Daren clinical pharmacist, and states he will assist and see if we can get this verified. [facility] in [place] , prescriber is Haider Duckworth MD Jun 15, 2017 11:59
[2017-06-15 12:10] VITALS: BP 112/58; PULSE 77; RESP 16; TEMP 97.7; O2SAT 98
[2017-06-15 16:24] VITALS: BP 106/62; PULSE 90; RESP 16; TEMP 97.6; O2SAT 96
[2017-06-15] MEDS: ENOXAPARIN SODIUM 40 MG/0.4 ML SYRINGE SQ SCH (18:01)
[2017-06-15 20:00] VITALS: BP 121/60; PULSE 79; RESP 20; TEMP 98.4; O2SAT 99
--- NOTE | 2017-06-15 21:22 | HHI.PR ---
Subjective Remarks Patient seen bedside. Denies N,V,F,CH. Reports his pain is not well controlled as he is not receiving appropriate pain medications. States his outside chronic pain medications are not being matched. Agrees with surgical intervention. Objective Vital Signs Date Time Temp Pulse Resp B/P (MAP) Pulse Ox O2 Delivery O2 Flow Rate FiO2 06/15/17 16:24 97.6 90 16 106/62 (77) 96 06/15/17 12:10 97.7 77 16 112/58 (76) 98 06/15/17 08:15 98.1 75 18 110/59 (76) 99 06/15/17 04:00 97.9 79 18 123/58 (79) 97 06/15/17 00:00 97.0 81 20 148/72 (97) 98 I/O 06/14/17 06/14/17 06/14/17 06/15/17 06/15/17 06/15/17 07:00 15:00 23:00 07:00 15:00 23:00 Intake Total 850 ml 480 ml Output Total 2900 ml 900 ml 1000 ml Balance -2900 ml -900 ml -150 ml 480 ml Intake Oral 850 ml 480 ml Output Urine Total 2900 ml 900 ml 1000 ml # Voids 5 4 # Bowel Movements 1 1 Result Diagram: 06/14/17 0619 06/14/17 0619 Imaging Last Impressions Lower Extremity CT 06/10/17 0000 Signed Impressions: Service Date/Time: Saturday, June 10, 2017 08:21 - CONCLUSION: 1. Heel ulcer measuring 1.9 cm in depth with dots of air actually extending deeper adjacent to the cortical surface of the calcaneus. Edema and air is seen in the adjacent soft tissues characteristic of cellulitis. 2. In addition, there is cortical disruption of the plantar aspect of the calcaneus characteristic of regional osteomyelitis. 3. No acute fracture. Benign calcaneal osseous cyst Kian Rock MD Foot X-Ray 06/10/17 0000 Signed Impressions: Service Date/Time: Saturday, June 10, 2017 01:31 - CONCLUSION: Deep ulceration involving the heel with soft tissue air extending to the bone Dustin Soto MD Procedures Microbiology Date/Time Source Procedure Growth Status 06/11/17 14:30 Blood Peripheral Aerobic Blood Culture - Preliminary NO GROWTH IN 4 DAYS Resulted 06/11/17 14:30 Blood Peripheral Anaerobic Blood Culture - Preliminary NO GROWTH IN 4 DAYS Resulted 06/10/17 19:11 Wound Foot Fungal Smear - Final NO FUNGAL ELEMENTS SEEN. Resulted 06/10/17 19:11 Wound Foot Fungal Culture Pending Resulted Other Results Microbiology Date/Time Source Procedure Growth Status 06/11/17 14:30 Blood Peripheral Aerobic Blood Culture - Preliminary NO GROWTH IN 4 DAYS Resulted 06/11/17 14:30 Blood Peripheral Anaerobic Blood Culture - Preliminary NO GROWTH IN 4 DAYS Resulted 06/10/17 19:11 Wound Foot Fungal Smear - Final NO FUNGAL ELEMENTS SEEN. Resulted 06/10/17 19:11 Wound Foot Fungal Culture Pending Resulted Objective Remarks Incision to posterior calcaneus with distal ulceration with sanguinous drainage. Surrounding erythema and edema noted. MMT 0/5. Active/passive DF/PF absent. STORE GIFT WRAP ASSOCIATE under 3 secs to digits x5. DP/PT 2/4. Medications and IVs Current Medications Medications (Trade) Dose Ordered Sig/Negra Route Start Time Stop Time Status Last Admin Pharmacy Profile Note 0 ml @ 0 mls/hr UNSCH OTHER 06/10/17 02:45 Sodium Chloride 1,000 ml @ 100 mls/hr Q10H IV 06/10/17 02:43 06/15/17 00:02 (NS Flush) 2 ml UNSCH PRN IV FLUSH 06/10/17 02:45 (NS Flush) 2 ml BID IV FLUSH 06/10/17 09:00 06/15/17 10:36 (Tylenol) 650 mg Q4H PRN PO 06/10/17 02:45 06/10/17 05:02 (Zofran Inj) 4 mg Q6H PRN IVP 06/10/17 02:45 (Narcan Inj) 0.4 mg UNSCH PRN IV PUSH 06/10/17 02:45 (Milk Of Magnesia Liq) 30 ml Q12H PRN PO 06/10/17 02:45 (Senokot) 17.2 mg Q12H PRN PO 06/10/17 02:45 (Dulcolax Supp) 10 mg DAILY PRN RECTAL 06/10/17 02:45 (Morphine Inj) 2 mg Q3H PRN IV PUSH 06/10/17 03:00 06/15/17 20:14 (Dilaudid) 4 mg Q6HR PRN PO 06/10/17 19:30 06/15/17 21:05 (Lovenox Inj) 40 mg Q24H SQ 06/12/17 19:00 06/15/17 18:01 Vancomycin HCl 1500 mg/Sodium Chloride 515 ml @ 250 mls/hr Q8H IV 06/13/17 02:00 06/15/17 18:00 Miscellaneous Information SPECIFIC LAB TO BE MARIAM... ONCE ONCE .XX 06/16/17 01:45 06/16/17 01:46 Lactated Ringer's 1,000 ml @ 30 mls/hr Q24H PRN IV 06/15/17 04:45 06/18/17 04:44 Sodium Chloride 500 ml @ 30 mls/hr [id number] PRN IV 06/15/17 04:45 06/18/17 04:44 Assessment and Plan Assessment and Plan 36 year old male with positive bone biopsy to left heel Patient examined and evaluated with all questions answered To OR tomorrow for partial calc resection with incision and drainage NPO after midnight Consent signed LLE marked and signed Patient states he is aware of risk of limb loss with continued smoking Dayna Virk DPM Jun 15, 2017 21:22
[2017-06-16] VITALS: BP 119/63; PULSE 74; RESP 18; TEMP 97.4; O2SAT 98
[2017-06-16] MEDS ORDERED: PHARMACY ORDERED LAB ONE (01:45)
[2017-06-16] MEDS: HYDROmorphone HCL 4 MG TAB PO PRN ×3 (02:50→20:33)
[2017-06-16] MEDS: VANCOMYCIN INJ 1,500 MG in SODIUM CHLORID 0.9% 500 ML INJ 500 ML IV SCH ×2 (02:52→09:05)
[2017-06-16] MEDS: MORPHINE SULFATE 2 MG/ML SYRINGE IV PUSH PRN ×5 (03:28→21:58)
[2017-06-16 04:00] VITALS: BP 116/62; PULSE 70; RESP 20; TEMP 98.6; O2SAT 98
[2017-06-16] MEDS ORDERED: LACTATED RINGER'S 1000 ML IV PRN (05:30)
[2017-06-16] MEDS ORDERED: CHLORHEXIDINE GLUCONATE 2 % 1 PACK (2 CLOTHS) TOPICAL PRN (05:30)
[2017-06-16] MEDS ORDERED: SODIUM CHLORID 0.9% 500 ML IV PRN (05:30)
[2017-06-16] MEDS ORDERED: POVIDONE IODINE 5% (ANTISEPSIS KIT) 4 APPLICATIONS EACH NARE PRN (05:30)
[2017-06-16 07:59] LABS: CREATININE 0.53 MG/DL (0.60-1.30)
[2017-06-16 08:22] VITALS: BP 107/55; PULSE 60; RESP 18; TEMP 97.9; O2SAT 99
[2017-06-16] MEDS: SODIUM CHLORIDE 0.9% FLUSH 10 ML FLUSH IV FLUSH SCH ×2 (09:05→20:39)
--- NOTE | 2017-06-16 11:25 | HHI.PR ---
Subjective Remarks Follow up Left heel ulcer infection with gas and tissue, calcaneal osteomyelitis 06/15/17-patient seen and examined; requesting his narcotics to be adjusted accordingly due to poorly controlled pain. Afebrile 06/16/17-patient seen and examined; currently nothing by mouth pending surgical intervention today by podiatry. pain medication will be adjusted accordingly Objective Vitals Vital Signs Date Time Temp Pulse Resp B/P (MAP) Pulse Ox O2 Delivery O2 Flow Rate FiO2 06/16/17 08:22 97.9 60 18 107/55 (72) 99 06/16/17 04:00 98.6 70 20 116/62 (80) 98 06/16/17 00:00 97.4 74 18 119/63 (81) 98 06/15/17 20:00 98.4 79 20 121/60 (80) 99 06/15/17 16:24 97.6 90 16 106/62 (77) 96 06/15/17 12:10 97.7 77 16 112/58 (76) 98 I/O 06/15/17 06/15/17 06/15/17 06/16/17 06/16/17 06/16/17 07:00 15:00 23:00 07:00 15:00 23:00 Intake Total 850 ml 480 ml Output Total 1000 ml 750 ml 800 ml Balance -150 ml 480 ml -750 ml -800 ml Intake Oral 850 ml 480 ml Output Urine Total 1000 ml 750 ml 800 ml # Voids 5 4 # Bowel Movements 1 1 Result Diagram: 06/14/17 0619 06/16/17 0608 Objective Remarks GENERAL: NAD SKIN: Warm and dry. HEAD: Normocephalic. EYES: No scleral icterus. No injection or drainage. NECK: Supple, trachea midline. No JVD or lymphadenopathy. CARDIOVASCULAR: Regular rate and rhythm without murmurs, gallops, or rubs. RESPIRATORY: Breath sounds equal bilaterally. No accessory muscle use. GASTROINTESTINAL: Abdomen soft, non-tender, nondistended. MUSCULOSKELETAL: No cyanosis, or edema. dressing over left foot-neurovascular intact BACK: Nontender without obvious deformity. No CVA tenderness. Procedures 06/10/17-Left incision, bone, calcaneus; expansile incision, drainage, debridement , posterior heel and plantar foot with resection of plantar fascia. A/P Problem List: (1) Left foot infection ICD Code: L08.9 - Local infection of the skin and subcutaneous tissue, unspecified Assessment and Plan 36-year-old man with Left foot infection Status post I&D by Dr. Jin, Biopsy shoes acute osteo, positive margins. Plan for left foot incision drainage debridement with partial calcanectomy with possible wound vac plan for today 06/16/17 currently on vancomycin per ID and monitor culture report Okay for toe-touch weightbearing with walking boot for now Will adjust patient's pain meds accordingly after his procedure today 06/16/17 Chronic pain - Patient reports chronic low back pain and that he takes 8 mg of oral Dilaudid 5 times a day - Also per review of H&P patient consumes soren and marijuana on a daily basis - Previous Hospitalist Spoke with Daren clinical pharmacist, and states he will assist and see if we can get this verified. [facility] in [place] , prescriber is Haider Duckworth MD Jun 16, 2017 11:24
[2017-06-16] MEDS ORDERED: PHENYLEPH/NS 1000 MCG/10 ML SYR IV ONE (12:00)
[2017-06-16] MEDS ORDERED: ROCURONIUM INJ 50 MG/5 ML SYRINGE IV PUSH ONE (12:00)
[2017-06-16] MEDS ORDERED: GLYCOPYRROLATE 1 MG/5 ML SYRINGE IV PUSH ONE (12:00)
[2017-06-16] MEDS ORDERED: STERILE WATER FOR INJECTION 20 ML VIAL IV ONE (12:00)
[2017-06-16] MEDS ORDERED: PROPOFOL 200 MG/20 ML AMP IV ONE (12:00)
[2017-06-16] MEDS ORDERED: NEOSTIGMINE 5 MG/5 ML SYRINGE IV PUSH ONE (12:00)
[2017-06-16] MEDS ORDERED: ONDANSETRON HCL 4 MG/2 ML VIAL IV ONE (12:00)
[2017-06-16] MEDS ORDERED: LACTATED RINGER'S 1000 ML INJ 1,000 ML IV ONE (12:00)
[2017-06-16] MEDS ORDERED: ePHEDrine/NS 25 MG/5 ML SYRINGE IV ONE (12:00)
[2017-06-16] MEDS ORDERED: LIDOCAINE HCL 1% PF 5 ML SYRINGE OTHER ONE (12:00)
[2017-06-16 12:05] VITALS: BP 108/60; PULSE 79; RESP 16; TEMP 97.7; O2SAT 97
[2017-06-16] MEDS: SODIUM CHLORIDE 0.9% FLUSH 10 ML FLUSH IV FLUSH PRN ×2 (13:47→21:58)
--- NOTE | 2017-06-16 14:17 | HHI.PR ---
Subjective Remarks Consent signed. LLE marked. Agrees with surgical intervention. Objective Vital Signs Date Time Temp Pulse Resp B/P (MAP) Pulse Ox O2 Delivery O2 Flow Rate FiO2 06/16/17 12:05 97.7 79 16 108/60 (76) 97 06/16/17 08:22 97.9 60 18 107/55 (72) 99 06/16/17 04:00 98.6 70 20 116/62 (80) 98 06/16/17 00:00 97.4 74 18 119/63 (81) 98 06/15/17 20:00 98.4 79 20 121/60 (80) 99 06/15/17 16:24 97.6 90 16 106/62 (77) 96 I/O 06/15/17 06/15/17 06/15/17 06/16/17 06/16/17 06/16/17 07:00 15:00 23:00 07:00 15:00 23:00 Intake Total 850 ml 480 ml Output Total 1000 ml 750 ml 800 ml Balance -150 ml 480 ml -750 ml -800 ml Intake Oral 850 ml 480 ml Output Urine Total 1000 ml 750 ml 800 ml # Voids 5 4 # Bowel Movements 1 1 Result Diagram: 06/14/17 0619 06/16/17 0608 Imaging Last Impressions Lower Extremity CT 06/10/17 0000 Signed Impressions: Service Date/Time: Saturday, June 10, 2017 08:21 - CONCLUSION: 1. Heel ulcer measuring 1.9 cm in depth with dots of air actually extending deeper adjacent to the cortical surface of the calcaneus. Edema and air is seen in the adjacent soft tissues characteristic of cellulitis. 2. In addition, there is cortical disruption of the plantar aspect of the calcaneus characteristic of regional osteomyelitis. 3. No acute fracture. Benign calcaneal osseous cyst Kian Rock MD Foot X-Ray 06/10/17 0000 Signed Impressions: Service Date/Time: Saturday, June 10, 2017 01:31 - CONCLUSION: Deep ulceration involving the heel with soft tissue air extending to the bone Dustin Soto MD Procedures Microbiology Date/Time Source Procedure Growth Status 06/11/17 14:30 Blood Peripheral Aerobic Blood Culture - Preliminary NO GROWTH IN 4 DAYS Resulted 06/11/17 14:30 Blood Peripheral Anaerobic Blood Culture - Preliminary NO GROWTH IN 4 DAYS Resulted 06/10/17 19:11 Wound Foot Fungal Smear - Final NO FUNGAL ELEMENTS SEEN. Resulted 06/10/17 19:11 Wound Foot Fungal Culture Pending Resulted Other Results Microbiology Date/Time Source Procedure Growth Status 06/11/17 14:30 Blood Peripheral Aerobic Blood Culture - Final NO GROWTH IN 5 DAYS Complete 06/11/17 14:30 Blood Peripheral Anaerobic Blood Culture - Final NO GROWTH IN 5 DAYS Complete 06/10/17 19:11 Wound Foot Fungal Smear - Final NO FUNGAL ELEMENTS SEEN. Resulted 06/10/17 19:11 Wound Foot Fungal Culture Pending Resulted Objective Remarks Incision to posterior calcaneus with distal ulceration with sanguinous drainage. Surrounding erythema and edema noted. MMT 0/5. Active/passive DF/PF absent. TALENT DEVELOPMENT SPECIALIST under 3 secs to digits x5. DP/PT 2/4. Medications and IVs Current Medications Medications (Trade) Dose Ordered Sig/Negra Route Start Time Stop Time Status Last Admin Pharmacy Profile Note 0 ml @ 0 mls/hr UNSCH OTHER 06/10/17 02:45 Sodium Chloride 1,000 ml @ 100 mls/hr Q10H IV 06/10/17 02:43 06/15/17 00:02 (NS Flush) 2 ml UNSCH PRN IV FLUSH 06/10/17 02:45 06/16/17 13:47 (NS Flush) 2 ml BID IV FLUSH 06/10/17 09:00 06/15/17 10:36 (Tylenol) 650 mg Q4H PRN PO 06/10/17 02:45 06/10/17 05:02 (Zofran Inj) 4 mg Q6H PRN IVP 06/10/17 02:45 (Narcan Inj) 0.4 mg UNSCH PRN IV PUSH 06/10/17 02:45 (Milk Of Magnesia Liq) 30 ml Q12H PRN PO 06/10/17 02:45 (Senokot) 17.2 mg Q12H PRN PO 06/10/17 02:45 (Dulcolax Supp) 10 mg DAILY PRN RECTAL 06/10/17 02:45 (Morphine Inj) 2 mg Q3H PRN IV PUSH 06/10/17 03:00 06/16/17 13:46 (Dilaudid) 4 mg Q6HR PRN PO 06/10/17 19:30 06/16/17 09:08 (Lovenox Inj) 40 mg Q24H SQ 06/12/17 19:00 06/15/17 18:01 Lactated Ringer's 1,000 ml @ 30 mls/hr Q24H PRN IV 06/16/17 05:30 06/19/17 05:29 Sodium Chloride 500 ml @ 30 mls/hr [id number] PRN IV 06/16/17 05:30 06/19/17 05:29 (Betadine 5% Antisepsis Kit) 1 applic METAL FRAMER PRN EACH NARE 06/16/17 05:30 06/19/17 05:29 (Chlorhexidine 2% Cloth) 3 pack METAL FRAMER PRN TOPICAL 06/16/17 05:30 06/19/17 05:29 Vancomycin HCl 1500 mg/Sodium Chloride 515 ml @ 250 mls/hr Q12H IV 06/17/17 00:00 Miscellaneous Information SPECIFIC LAB TO BE DRAWN:VANCOMYCIN TROUGH DATE TO... ONCE ONCE .XX 06/18/17 11:45 06/18/17 11:46 Assessment and Plan Assessment and Plan 36 year old male with positive bone biopsy to left heel Patient examined and evaluated with all questions answered To OR today for partial calc resection with incision and drainage Patient has remained NPO after midnight Consent signed LLE marked and signed Patient states he is aware of risk of limb loss with continued smoking Dyana Vrik DPRo Jun 16, 2017 14:17
[2017-06-16] MEDS ORDERED: LIDOCAINE 1%/EPINEPHrine 1:100,000 SOLN 30 ML VIAL ONE (15:49)
[2017-06-16] MEDS ORDERED: DEXMEDETOMIDINE HCL 200 MCG/2 ML VIAL ONE ×2 (15:54→16:03)
[2017-06-16] MEDS ORDERED: BUPIVACAINE HCL PF 0.5% 30 ML VIAL INFIL ONE (17:23)
[2017-06-16] MEDS: SODIUM CHLOR 0.9% 1000 ML INJ 1,000 ML IV SCH ×2 (18:43→20:37)
[2017-06-16] MEDS ORDERED: MIDAZOLAM HCL 2 MG/2 ML VIAL ONE (18:57)
[2017-06-16] MEDS: ENOXAPARIN SODIUM 40 MG/0.4 ML SYRINGE SQ SCH (19:00)
--- NOTE | 2017-06-16 19:05 | HHI.PR ---
Immediate Post Op Note Procedure Date: Jun 16, 2017 Pre Op Diagnosis: Left posterior heel gas gangrene, left posterior heel acute osteomyelitis Post Op Diagnosis: Left posterior heel gas gangrene, left posterior heel acute osteomyelitis Surgeon: Dayna Virk Streetcar Dispatcher(s): None Procedure: Left partial calcaneal resection/osteotomy, left foot incision and drainage Findings: None Additional Information: None Complications: None Specimen(s) removed: 1. Calcaneus left foot 2. Calcaneus proximal clearing margin for pathology 3. Calcaneus proximal clearing margin for micro 4. Soft tissue left foot Estimated blood loss: None Anesthesia: General Drains: None (Leslie wound VAC placed) Patient to: PACU Patient Condition: Dayna Sher DPM Jun 16, 2017 19:05
[2017-06-16] MEDS ORDERED: Post-op Orders (for Pharmacy) XX ONE (19:15)
[2017-06-16] MEDS ORDERED: DO NOT ADM ANY ANTICOAGULANT DRUGS PRN (19:30)
[2017-06-16] MEDS ORDERED: *morphine SULFATE 4 MG/ML PERIprocedure ONLY ONE (19:32)
[2017-06-16 20:00] VITALS: BP 109/73; PULSE 90; RESP 19; TEMP 97.5; O2SAT 100
--- NOTE | 2017-06-16 20:04 | RADRPT ---
EXAM DATE/TIME: 06/16/2017 19:30 [facility] COMPARISON: CT FOOT LEFT W CONTRAST, June 10, 2017, 8:21. FOOT LEFT COMPLETE ([id number]), June 10, 2017, 1:31. INDICATIONS : Post OP, osteomyelitis. MEDICAL HISTORY : None. SURGICAL HISTORY : None. ENCOUNTER: Subsequent ACUITY: 4 - 6 days PAIN SCORE: 0/10 LOCATION: Bilateral chest FINDINGS: Multiple views left foot were obtained and demonstrate interval postsurgical changes with removal of the inferior most portion of the calcaneus. There is adjacent soft tissue swelling and gas bubbles. CONCLUSION: Interval postsurgical change. Julius Barry MD on June 16, 2017 at 20:00 Board Certified Radiologist. This report was verified electronically.
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
--- NOTE | 2017-06-16 20:35 | RADRPT ---
EXAM DATE/TIME: 06/16/2017 17:47 [facility] COMPARISON: CT FOOT LEFT W CONTRAST, June 10, 2017, 8:21. FOOT LEFT COMPLETE ([id number]), June 10, 2017, 1:31. INDICATIONS : Left calcanectomy. MEDICAL HISTORY : Smoker. SURGICAL HISTORY : None. ENCOUNTER: Subsequent ACUITY: 4 - 6 days PAIN SCORE: Non-responsive. LOCATION: Left calcaneous. FINDINGS: A single lateral view of the calcaneus was obtained and demonstrates postsurgical change with amputat ion of the inferior posterior aspect of the calcaneus. There is adjacent soft tissue swelling and irr egularity. CONCLUSION: Surgical changes with amputation of the inferior posterior aspect of the calcaneus. Julius Barry MD on June 16, 2017 at 20:32 Board Certified Radiologist. This report was verified electronically.
[2017-06-17] VITALS (7 sets, daily range): BP systolic 105–122; BP diastolic 56–80; PULSE 81–98; RESP 18–20; TEMP 97.6–100.7; O2SAT 96–100
[2017-06-17] MEDS: MORPHINE SULFATE 2 MG/ML SYRINGE IV PUSH PRN ×5 (00:28→13:16)
[2017-06-17] MEDS: HYDROmorphone HCL 4 MG TAB PO PRN ×2 (02:28→08:41)
[2017-06-17] MEDS: SODIUM CHLORIDE 0.9% FLUSH 10 ML FLUSH IV FLUSH SCH (04:38)
--- NOTE | 2017-06-17 10:17 | HHI.PR ---
Subjective Remarks Follow up Left heel ulcer infection with gas and tissue, calcaneal osteomyelitis 06/15/17-patient seen and examined; requesting his narcotics to be adjusted accordingly due to poorly controlled pain. Afebrile 06/16/17-patient seen and examined; currently nothing by mouth pending surgical intervention today by podiatry. pain medication will be adjusted accordingly 06/17/17-patient seen and examined, s/p Left partial calcaneal resection/ osteotomy, left foot incision and drainage. patient is requesting adjustment of his narcotics. Tmax of 100.7 Objective Vitals Vital Signs Date Time Temp Pulse Resp B/P (MAP) Pulse Ox O2 Delivery O2 Flow Rate FiO2 06/17/17 09:29 100.7 98 20 119/58 (78) 98 06/17/17 05:12 17 06/17/17 04:00 99.0 95 18 121/56 (77) 100 06/17/17 03:50 17 06/17/17 00:18 97.7 88 20 122/60 (80) 99 06/16/17 20:00 97.5 90 19 109/73 (85) 100 06/16/17 19:30 63 12 101/58 (72) 100 Room Air 06/16/17 19:15 63 12 93/54 (67) 100 Nasal Cannula 2 06/16/17 19:00 62 12 93/51 (65) 100 Nasal Cannula 2 06/16/17 18:53 67 13 93/55 (68) 100 Nasal Cannula 2 06/16/17 18:49 97.6 63 15 101/52 (68) 99 Nasal Cannula 2 06/16/17 12:05 97.7 79 16 108/60 (76) 97 I/O 06/16/17 06/16/17 06/16/17 06/17/17 06/17/17 06/17/17 07:00 15:00 23:00 07:00 15:00 23:00 Intake Total 960 ml 1956 ml Output Total 750 ml 800 ml 1705 ml 500 ml Balance -750 ml -800 ml -745 ml 1456 ml Intake Oral 960 ml 720 ml IV Total 1236 ml Output Urine Total 750 ml 800 ml 1700 ml 500 ml Estimated Blood Loss 5 ml # Bowel Movements 1 0 0 Result Diagram: 06/14/17 0619 06/16/17 0608 Objective Remarks GENERAL: NAD SKIN: Warm and dry. HEAD: Normocephalic. EYES: No scleral icterus. No injection or drainage. NECK: Supple, trachea midline. No JVD or lymphadenopathy. CARDIOVASCULAR: Regular rate and rhythm without murmurs, gallops, or rubs. RESPIRATORY: Breath sounds equal bilaterally. No accessory muscle use. GASTROINTESTINAL: Abdomen soft, non-tender, nondistended. MUSCULOSKELETAL: No cyanosis, or edema. dressing over left foot BACK: Nontender without obvious deformity. No CVA tenderness. Procedures 06/10/17-Left incision, bone, calcaneus; expansile incision, drainage, debridement , posterior heel and plantar foot with resection of plantar fascia. 06/16/17-s/p Left partial calcaneal resection/osteotomy, left foot incision and drainage A/P Problem List: (1) Left foot infection ICD Code: L08.9 - Local infection of the skin and subcutaneous tissue, unspecified Assessment and Plan 36-year-old man with Left foot infection Status post I&D by Dr. Jin, Biopsy shoes acute osteo, positive margins. s/p Left partial calcaneal resection/osteotomy, left foot incision and drainage 06/16/17 currently on vancomycin per ID and monitor culture report Okay for toe-touch weightbearing with walking boot for now Will adjust his pain meds accordingly Chronic pain - Patient reports chronic low back pain and that he takes 8 mg of oral Dilaudid 5 times a day - Also per review of H&P patient consumes soren and marijuana on a daily basis - Previous Hospitalist Spoke with Daren clinical pharmacist, and states he will assist and see if we can get this verified. [facility] in [place] , prescriber is Dr. Sunday Lewis Hep C and B Outpatient follow up with Traveling Sales Representative Haider Weber MD Jun 17, 2017 10:16
[2017-06-17] MEDS: VANCOMYCIN INJ 1,500 MG in SODIUM CHLORID 0.9% 500 ML INJ 500 ML IV SCH ×3 (10:22)
[2017-06-17] MEDS ORDERED: HYDROmorphone HCL 4 MG TAB PO PRN (10:30)
[2017-06-17] MEDS ORDERED: HYDROmorphone HCL 2 MG TAB PO PRN (11:15)
[2017-06-17] MEDS: SODIUM CHLORIDE 0.9% FLUSH 10 ML FLUSH IV FLUSH PRN (13:16)
[2017-06-17] MEDS: ENOXAPARIN SODIUM 40 MG/0.4 ML SYRINGE SQ SCH (18:24)
[2017-06-17] MEDS: HYDROmorphone HCL 2 MG TAB PO PRN (18:25)
--- NOTE | 2017-06-17 21:28 | HHI.PR ---
Subjective Remarks Patient seen bedside. States his outside medications are being matched. Patient understands he will no longer be receiving morphine. Objective Vital Signs Date Time Temp Pulse Resp B/P (MAP) Pulse Ox O2 Delivery O2 Flow Rate FiO2 06/17/17 15:44 98.5 87 20 115/59 (77) 96 06/17/17 12:18 98.5 84 20 105/80 (88) 97 06/17/17 09:29 100.7 98 20 119/58 (78) 98 06/17/17 05:12 17 06/17/17 04:00 99.0 95 18 121/56 (77) 100 06/17/17 03:50 17 06/17/17 00:18 97.7 88 20 122/60 (80) 99 I/O 06/16/17 06/16/17 06/16/17 06/17/17 06/17/17 06/17/17 07:00 15:00 23:00 07:00 15:00 23:00 Intake Total 960 ml 1956 ml 940 ml Output Total 750 ml 800 ml 1705 ml 500 ml Balance -750 ml -800 ml -745 ml 1456 ml 940 ml Intake Oral 960 ml 720 ml 940 ml IV Total 1236 ml Output Urine Total 750 ml 800 ml 1700 ml 500 ml Estimated Blood Loss 5 ml # Voids 4 # Bowel Movements 1 0 0 0 Result Diagram: 06/14/17 0619 06/16/17 0608 Imaging Last Impressions Foot X-Ray 06/16/17 0000 Signed Impressions: Service Date/Time: Friday, June 16, 2017 17:47 - CONCLUSION: Surgical changes with amputation of the inferior posterior aspect of the calcaneus. Julius Barry MD Lower Extremity CT 06/10/17 0000 Signed Impressions: Service Date/Time: Saturday, June 10, 2017 08:21 - CONCLUSION: 1. Heel ulcer measuring 1.9 cm in depth with dots of air actually extending deeper adjacent to the cortical surface of the calcaneus. Edema and air is seen in the adjacent soft tissues characteristic of cellulitis. 2. In addition, there is cortical disruption of the plantar aspect of the calcaneus characteristic of regional osteomyelitis. 3. No acute fracture. Benign calcaneal osseous cyst Kian Rock MD Procedures Microbiology Date/Time Source Procedure Growth Status 06/11/17 14:30 Blood Peripheral Aerobic Blood Culture - Preliminary NO GROWTH IN 4 DAYS Resulted 06/11/17 14:30 Blood Peripheral Anaerobic Blood Culture - Preliminary NO GROWTH IN 4 DAYS Resulted 06/10/17 19:11 Wound Foot Fungal Smear - Final NO FUNGAL ELEMENTS SEEN. Resulted 06/10/17 19:11 Wound Foot Fungal Culture Pending Resulted Other Results Microbiology Date/Time Source Procedure Growth Status 06/16/17 18:31 Wound Foot Fungal Smear - Final NO FUNGAL ELEMENTS SEEN. Resulted 06/16/17 18:31 Wound Foot Fungal Culture Pending Resulted 06/16/17 18:31 Wound Foot Acid Fast Stain Pending Received 06/16/17 18:31 Wound Foot Mycobacterial Culture Pending Received 06/16/17 18:31 Wound Foot Gram Stain - Final Resulted 06/16/17 18:31 Wound Foot Wound Culture - Preliminary NO GROWTH IN 24 HOURS. Resulted 06/16/17 18:31 Wound Foot Fungal Smear - Final NO FUNGAL ELEMENTS SEEN. Resulted 06/16/17 18:31 Wound Foot Fungal Culture Pending Resulted 06/16/17 18:31 Wound Foot Acid Fast Stain Pending Received 06/16/17 18:31 Wound Foot Mycobacterial Culture Pending Received 06/16/17 18:31 Wound Foot Gram Stain - Final Resulted 06/16/17 18:31 Wound Foot Wound Culture - Preliminary NO GROWTH IN 24 HOURS. Resulted Objective Remarks Dressing to left foot clean dry and intact. 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 Medications and IVs Current Medications Medications (Trade) Dose Ordered Sig/Negra Route Start Time Stop Time Status Last Admin Pharmacy Profile Note 0 ml @ 0 mls/hr UNSCH OTHER 06/10/17 02:45 (NS Flush) 2 ml UNSCH PRN IV FLUSH 06/10/17 02:45 06/17/17 13:16 (NS Flush) 2 ml BID IV FLUSH 06/10/17 09:00 06/17/17 04:38 (Tylenol) 650 mg Q4H PRN PO 06/10/17 02:45 06/10/17 05:02 (Zofran Inj) 4 mg Q6H PRN IVP 06/10/17 02:45 (Narcan Inj) 0.4 mg UNSCH PRN IV PUSH 06/10/17 02:45 (Milk Of Magnesia Liq) 30 ml Q12H PRN PO 06/10/17 02:45 (Senokot) 17.2 mg Q12H PRN PO 06/10/17 02:45 (Dulcolax Supp) 10 mg DAILY PRN RECTAL 06/10/17 02:45 (Lovenox Inj) 40 mg Q24H SQ 06/12/17 19:00 06/17/17 18:24 Lactated Ringer's 1,000 ml @ 30 mls/hr Q24H PRN IV 06/16/17 05:30 06/19/17 05:29 06/16/17 14:47 Sodium Chloride 500 ml @ 30 mls/hr [id number] PRN IV 06/16/17 05:30 06/19/17 05:29 (Betadine 5% Antisepsis Kit) 1 applic PAPER PROCESSING MACHINE HELPER PRN EACH NARE 06/16/17 05:30 06/19/17 05:29 (Chlorhexidine 2% Cloth) 3 pack PAPER PROCESSING MACHINE HELPER PRN TOPICAL 06/16/17 05:30 06/19/17 05:29 Vancomycin HCl 1500 mg/Sodium Chloride 515 ml @ 250 mls/hr Q12H IV 06/17/17 00:00 06/17/17 10:22 Miscellaneous Information SPECIFIC LAB TO BE DRAWN:VANCOMYCIN TROUGH DATE TO... ONCE ONCE .XX 06/18/17 11:45 06/18/17 11:46 (Dilaudid) 8 mg Q6H PRN PO 06/17/17 17:15 06/17/17 18:25 Assessment and Plan Assessment and Plan 36 year old male with positive bone biopsy to left heel Patient examined and evaluated with all questions answered Dressing to remain clean, dry and intact. Will perform dressing change prior to discharge Awaiting clean bone margins and ID recommendation on outpatient antibiotics base on bone biopsy results Patient to have heel offloaded at all times in foam Patient to remain NWB to right foot Dayna Virk DPM Jun 17, 2017 21:28
[2017-06-18 00:10] VITALS: BP 110/64; PULSE 80; RESP 17; TEMP 97.8; O2SAT 97
[2017-06-18] MEDS: VANCOMYCIN INJ 1,500 MG in SODIUM CHLORID 0.9% 500 ML INJ 500 ML IV SCH ×2 (00:10→12:00)
[2017-06-18] MEDS: HYDROmorphone HCL 2 MG TAB PO PRN ×4 (00:11→18:32)
[2017-06-18] MEDS: SODIUM CHLORIDE 0.9% FLUSH 10 ML FLUSH IV FLUSH SCH ×3 (00:12→22:50)
[2017-06-18 04:00] VITALS: BP 112/69; PULSE 76; RESP 19; TEMP 97.6; O2SAT 98
[2017-06-18 08:10] VITALS: BP 112/63; PULSE 88; RESP 20; TEMP 98.8; O2SAT 95
[2017-06-18 09:01] LABS: CREATININE 0.6 MG/DL (0.60-1.30)
--- NOTE | 2017-06-18 10:26 | HHI.PR ---
Subjective Remarks Follow up Left heel ulcer infection with gas and tissue, calcaneal osteomyelitis 06/15/17-patient seen and examined; requesting his narcotics to be adjusted accordingly due to poorly controlled pain. Afebrile 06/16/17-patient seen and examined; currently nothing by mouth pending surgical intervention today by podiatry. pain medication will be adjusted accordingly 06/17/17-patient seen and examined, s/p Left partial calcaneal resection/ osteotomy, left foot incision and drainage. patient is requesting adjustment of his narcotics. Tmax of 100.7 06/18/17-patient seen and examined; states his pain is now well controlled now. Afebrile Objective Vitals Vital Signs Date Time Temp Pulse Resp B/P (MAP) Pulse Ox O2 Delivery O2 Flow Rate FiO2 06/18/17 08:10 98.8 88 20 112/63 (79) 95 06/18/17 04:00 97.6 76 19 112/69 (83) 98 06/18/17 00:10 97.8 80 17 110/64 (79) 97 06/17/17 20:50 97.6 81 18 106/61 (76) 96 06/17/17 20:32 98 21 06/17/17 15:44 98.5 87 20 115/59 (77) 96 06/17/17 12:18 98.5 84 20 105/80 (88) 97 I/O 06/17/17 06/17/17 06/17/17 06/18/17 06/18/17 06/18/17 07:00 15:00 23:00 07:00 15:00 23:00 Intake Total 1956 ml 2140 ml 1710 ml Output Total 500 ml 1000 ml 1950 ml Balance 1456 ml 1140 ml -240 ml Intake Oral 720 ml 2140 ml 1200 ml IV Total 1236 ml 510 ml Output Urine Total 500 ml 1000 ml 1950 ml # Voids 4 # Bowel Movements 0 0 0 Result Diagram: 06/14/1719 06/18/17 08 Objective Remarks GENERAL: NAD SKIN: Warm and dry. HEAD: Normocephalic. EYES: No scleral icterus. No injection or drainage. NECK: Supple, trachea midline. No JVD or lymphadenopathy. CARDIOVASCULAR: Regular rate and rhythm without murmurs, gallops, or rubs. RESPIRATORY: Breath sounds equal bilaterally. No accessory muscle use. GASTROINTESTINAL: Abdomen soft, non-tender, nondistended. MUSCULOSKELETAL: No cyanosis, or edema. dressing over left foot BACK: Nontender without obvious deformity. No CVA tenderness. Procedures 06/10/17-Left incision, bone, calcaneus; expansile incision, drainage, debridement , posterior heel and plantar foot with resection of plantar fascia. 06/16/17-s/p Left partial calcaneal resection/osteotomy, left foot incision and drainage A/P Problem List: (1) Left foot infection ICD Code: L08.9 - Local infection of the skin and subcutaneous tissue, unspecified Assessment and Plan 36-year-old man with Left foot infection Status post I&D by Dr. Jin, Biopsy shoes acute osteo, positive margins. s/p Left partial calcaneal resection/osteotomy, left foot incision and drainage 06/16/17 Awaiting clean bone margins currently on vancomycin per ID and monitor culture report Okay for toe-touch weightbearing with walking boot for now Chronic pain - Patient reports chronic low back pain and that he takes 8 mg of oral Dilaudid 5 times a day - Also per review of H&P patient consumes soren and marijuana on a daily basis - Previous Hospitalist Spoke with Daren clinical pharmacist, and states he will assist and see if we can get this verified. [facility] in [place] , prescriber is Dr. Sunday Lewis Hep C and B Outpatient follow up with Cardiac Technologist Haider Weber MD Jun 18, 2017 10:26
[2017-06-18] MEDS ORDERED: DO NOT ADM ANY ANTICOAGULANT DRUGS PRN (11:00)
[2017-06-18 11:39] VITALS: BP 117/66; PULSE 87; RESP 20; TEMP 98.9; O2SAT 98
[2017-06-18] MEDS ORDERED: PHARMACY ORDERED LAB ONE (11:45)
[2017-06-18] MEDS: PIPERACIL-TAZO 4.5 GM PREMIX 100 ML IV SCH ×2 (12:54→18:29)
--- NOTE | 2017-06-18 13:00 | HHI.IDPN ---
Subjective Subjective Remarks afebrile , but had some low grade temps yday no new c/o Growing GNB from the foot Antibiotics vanco zosyn - restarted 06/18 Allergies: Coded Allergies: No Known Allergies (Unverified , 06/09/17) Objective . Vital Signs Date Time Temp Pulse Resp B/P (MAP) Pulse Ox O2 Delivery O2 Flow Rate FiO2 06/18/17 11:39 98.9 87 20 117/66 (83) 98 06/18/17 08:10 98.8 88 20 112/63 (79) 95 06/18/17 04:00 97.6 76 19 112/69 (83) 98 06/18/17 00:10 97.8 80 17 110/64 (79) 97 06/17/17 20:50 97.6 81 18 106/61 (76) 96 06/17/17 20:32 98 21 06/17/17 15:44 98.5 87 20 115/59 (77) 96 . Laboratory Tests Test 06/18/17 08:05 Creatinine 0.60 MG/DL Estimat Glomerular Filtration Rate 153 ML/MIN Microbiology Date/Time Source Procedure Growth Status 06/16/17 18:31 Wound Foot Fungal Smear - Final NO FUNGAL ELEMENTS SEEN. Resulted 06/16/17 18:31 Wound Foot Fungal Culture Pending Resulted 06/16/17 18:31 Wound Foot Acid Fast Stain - Final NO ACID FAST BACILLI SEEN Resulted 06/16/17 18:31 Wound Foot Mycobacterial Culture Pending Resulted 06/16/17 18:31 Wound Foot Gram Stain - Final Resulted 06/16/17 18:31 Wound Culture - Preliminary Gram Negative Veto Resulted 06/16/17 18:31 Wound Foot Fungal Smear - Final NO FUNGAL ELEMENTS SEEN. Resulted 06/16/17 18:31 Wound Foot Fungal Culture Pending Resulted 06/16/17 18:31 Wound Foot Acid Fast Stain - Final NO ACID FAST BACILLI SEEN Resulted 06/16/17 18:31 Wound Foot Mycobacterial Culture Pending Resulted 06/16/17 18:31 Wound Foot Gram Stain - Final Resulted 06/16/17 18:31 Wound Foot Wound Culture - Preliminary NO GROWTH IN 48 HOURS. Resulted Imaging Last Impressions Foot X-Ray 06/16/17 0000 Signed Impressions: Service Date/Time: Friday, June 16, 2017 17:47 - CONCLUSION: Surgical changes with amputation of the inferior posterior aspect of the calcaneus. Julius Barry MD Lower Extremity CT 06/10/17 0000 Signed Impressions: Service Date/Time: Saturday, June 10, 2017 08:21 - CONCLUSION: 1. Heel ulcer measuring 1.9 cm in depth with dots of air actually extending deeper adjacent to the cortical surface of the calcaneus. Edema and air is seen in the adjacent soft tissues characteristic of cellulitis. 2. In addition, there is cortical disruption of the plantar aspect of the calcaneus characteristic of regional osteomyelitis. 3. No acute fracture. Benign calcaneal osseous cyst Kian Rock MD Physical Exam CONSTITUTIONAL/GENERAL: This is an adequately nourished patient, in no apparent distress. TUBES/LINES/DRAINS: SKIN: No jaundice, rashes, or lesions. EYES: . No scleral icterus. No injection or drainage. Fundi not examined. CARDIOVASCULAR: Regular rate and rhythm without murmurs, gallops, or rubs. No JVD. Peripheral pulses symmetric. RESPIRATORY/CHEST: Symmetric, unlabored respirations. Clear to auscultation. Breath sounds equal bilaterally. No wheezes, rales, or rhonchi. GASTROINTESTINAL: Abdomen soft, non-tender, nondistended. No hepato-splenomegaly , or palpable masses. No guarding. Bowel sounds present. MUSCULOSKELETAL: Extremities without clubbing, cyanosis, Dressing in place L foot LYMPHATICS: No palpable cervical or supraclavicular adenopathy. NEUROLOGICAL: Awake and alert. Motor and sensory grossly within normal limits. Follows commands. Clear speech. Moves all extremities. PSYCHIATRIC: No obvious anxiety/depression. no apparent hallucinations or other psychotic thought process. 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
[2017-06-18 15:05] VITALS: BP 124/63; PULSE 98; RESP 20; TEMP 98.1; O2SAT 98
[2017-06-18] MEDS: ENOXAPARIN SODIUM 40 MG/0.4 ML SYRINGE SQ SCH (18:30)
[2017-06-18 20:00] VITALS: BP 135/63; PULSE 87; RESP 18; TEMP 98; O2SAT 98
[2017-06-18] MEDS ORDERED: VANCOMYCIN INJ 1,500 MG in SODIUM CHLORID 0.9% 500 ML INJ 500 ML IV SCH (22:00)
[2017-06-18] MEDS ORDERED: VANCOMYCIN INJ 1,250 MG in SODIUM CHLOR 0.9% 250 ML INJ 250 ML IV SCH (22:00)
[2017-06-18] MEDS: VANCOMYCIN INJ 1,250 MG in SODIUM CHLOR 0.9% 250 ML INJ 250 ML IV SCH (22:49)
[2017-06-19] VITALS: BP 145/84; PULSE 69; RESP 18; TEMP 98.6; O2SAT 97
[2017-06-19] MEDS: HYDROmorphone HCL 2 MG TAB PO PRN ×5 (00:05→23:54)
[2017-06-19] MEDS: PIPERACIL-TAZO 4.5 GM PREMIX 100 ML IV SCH ×5 (00:52→23:51)
[2017-06-19 04:00] VITALS: BP 115/55; PULSE 90; RESP 18; TEMP 98.1; O2SAT 98
[2017-06-19] MEDS: VANCOMYCIN INJ 1,250 MG in SODIUM CHLOR 0.9% 250 ML INJ 250 ML IV SCH ×3 (07:10→23:50)
[2017-06-19 08:00] VITALS: BP 113/60; PULSE 82; RESP 18; TEMP 98.2; O2SAT 97
[2017-06-19] MEDS: SODIUM CHLORIDE 0.9% FLUSH 10 ML FLUSH IV FLUSH SCH ×2 (08:22→23:49)
--- NOTE | 2017-06-19 10:24 | HHI.PR ---
Subjective Remarks Follow up Left heel ulcer infection with gas and tissue, calcaneal osteomyelitis 06/15/17-patient seen and examined; requesting his narcotics to be adjusted accordingly due to poorly controlled pain. Afebrile 06/16/17-patient seen and examined; currently nothing by mouth pending surgical intervention today by podiatry. pain medication will be adjusted accordingly 06/17/17-patient seen and examined, s/p Left partial calcaneal resection/ osteotomy, left foot incision and drainage. patient is requesting adjustment of his narcotics. Tmax of 100.7 06/18/17-patient seen and examined; states his pain is now well controlled now. Afebrile 06/19/17-patient seen and examined; afebrile and no complaints. Objective Vitals Vital Signs Date Time Temp Pulse Resp B/P (MAP) Pulse Ox O2 Delivery O2 Flow Rate FiO2 06/19/17 08:00 98.2 82 18 113/60 (77) 97 06/19/17 04:00 98.1 90 18 115/55 (75) 98 06/19/17 00:00 98.6 69 18 145/84 (104) 97 06/18/17 20:00 98.0 87 18 135/63 (87) 98 06/18/17 15:05 98.1 98 20 124/63 (83) 98 06/18/17 11:39 98.9 87 20 117/66 (83) 98 I/O 06/18/17 06/18/17 06/18/17 06/19/17 06/19/17 06/19/17 07:00 15:00 23:00 07:00 15:00 23:00 Intake Total 1710 ml 940 ml 455 ml Output Total 1950 ml 1600 ml Balance -240 ml 940 ml -1145 ml Intake Oral 1200 ml 940 ml IV Total 510 ml 455 ml Output Urine Total 1950 ml 1600 ml # Voids 3 # Bowel Movements 0 1 Result Diagram: 06/18/17804 Objective Remarks GENERAL: NAD SKIN: Warm and dry. HEAD: Normocephalic. EYES: No scleral icterus. No injection or drainage. NECK: Supple, trachea midline. No JVD or lymphadenopathy. CARDIOVASCULAR: Regular rate and rhythm without murmurs, gallops, or rubs. RESPIRATORY: Breath sounds equal bilaterally. No accessory muscle use. GASTROINTESTINAL: Abdomen soft, non-tender, nondistended. MUSCULOSKELETAL: No cyanosis, or edema. dressing over left foot BACK: Nontender without obvious deformity. No CVA tenderness. Procedures 06/10/17-Left incision, bone, calcaneus; expansile incision, drainage, debridement , posterior heel and plantar foot with resection of plantar fascia. 06/16/17-s/p Left partial calcaneal resection/osteotomy, left foot incision and drainage A/P Problem List: (1) Left foot infection ICD Code: L08.9 - Local infection of the skin and subcutaneous tissue, unspecified Assessment and Plan 36-year-old man with Left foot infection Status post I&D by Dr. Jin, Biopsy shoes acute osteo, positive margins. s/p Left partial calcaneal resection/osteotomy, left foot incision and drainage 06/16/17 Awaiting clean bone margins currently on vancomycin and Zosyn per ID and culture +GNB Will need 6weeks of therapy Chronic pain - Patient reports chronic low back pain and that he takes 8 mg of oral Dilaudid 5 times a day - Also per review of H&P patient consumes soren and marijuana on a daily basis - Previous Hospitalist Spoke with Daren clinical pharmacist, and states he will assist and see if we can get this verified. [facility] in [place] , prescriber is Dr. Sunday Lewis Hep C and B Outpatient follow up with Security Door Installer Haider Weber MD Jun 19, 2017 10:24
[2017-06-19 12:00] VITALS: BP 119/60; PULSE 88; RESP 18; TEMP 98.1; O2SAT 98
[2017-06-19 16:00] VITALS: BP 108/55; PULSE 77; RESP 18; TEMP 97.8; O2SAT 97
[2017-06-19] MEDS: ENOXAPARIN SODIUM 40 MG/0.4 ML SYRINGE SQ SCH (16:02)
--- NOTE | 2017-06-19 17:14 | HHI.PR ---
Subjective Remarks Patient seen bedside. States he occasionally experiences sharp pain to his left ankle however pain is well controlled. Objective Vital Signs Date Time Temp Pulse Resp B/P (MAP) Pulse Ox O2 Delivery O2 Flow Rate FiO2 06/19/17 16:00 97.8 77 18 108/55 (72) 97 06/19/17 12:00 98.1 88 18 119/60 (79) 98 06/19/17 08:00 98.2 82 18 113/60 (77) 97 06/19/17 04:00 98.1 90 18 115/55 (75) 98 06/19/17 00:00 98.6 69 18 145/84 (104) 97 06/18/17 20:00 98.0 87 18 135/63 (87) 98 I/O 06/18/17 06/18/17 06/18/17 06/19/17 06/19/17 06/19/17 07:00 15:00 23:00 07:00 15:00 23:00 Intake Total 1710 ml 940 ml 455 ml Output Total 1950 ml 1600 ml Balance -240 ml 940 ml -1145 ml Intake Oral 1200 ml 940 ml IV Total 510 ml 455 ml Output Urine Total 1950 ml 1600 ml # Voids 3 # Bowel Movements 0 1 Result Diagram: 06/18/17 0805 Imaging Last Impressions Foot X-Ray 06/16/17 0000 Signed Impressions: Service Date/Time: Friday, June 16, 2017 17:47 - CONCLUSION: Surgical changes with amputation of the inferior posterior aspect of the calcaneus. Julius Barry MD Lower Extremity CT 06/10/17 0000 Signed Impressions: Service Date/Time: Saturday, June 10, 2017 08:21 - CONCLUSION: 1. Heel ulcer measuring 1.9 cm in depth with dots of air actually extending deeper adjacent to the cortical surface of the calcaneus. Edema and air is seen in the adjacent soft tissues characteristic of cellulitis. 2. In addition, there is cortical disruption of the plantar aspect of the calcaneus characteristic of regional osteomyelitis. 3. No acute fracture. Benign calcaneal osseous cyst Kian Rock MD Procedures Microbiology Date/Time Source Procedure Growth Status 06/11/17 14:30 Blood Peripheral Aerobic Blood Culture - Preliminary NO GROWTH IN 4 DAYS Resulted 06/11/17 14:30 Blood Peripheral Anaerobic Blood Culture - Preliminary NO GROWTH IN 4 DAYS Resulted 06/10/17 19:11 Wound Foot Fungal Smear - Final NO FUNGAL ELEMENTS SEEN. Resulted 06/10/17 19:11 Wound Foot Fungal Culture Pending Resulted Other Results Microbiology Date/Time Source Procedure Growth Status 06/11/17 14:30 Blood Peripheral Aerobic Blood Culture - Final NO GROWTH IN 5 DAYS Complete 06/11/17 14:30 Blood Peripheral Anaerobic Blood Culture - Final NO GROWTH IN 5 DAYS Complete 06/16/17 18:31 Wound Foot Fungal Smear - Final NO FUNGAL ELEMENTS SEEN. Resulted 06/16/17 18:31 Wound Foot Fungal Culture Pending Resulted Objective Remarks Dressing to left foot clean dry and intact. 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 Upon removal of jesse wound vac dressing suture line to posterior heel and plantar heel with sutures intact and skin well coapted. No periwound maceration noted. No erythema noted to incision line. Minimal drainage noted. Medications and IVs Current Medications Medications (Trade) Dose Ordered Sig/Negra Route Start Time Stop Time Status Last Admin Pharmacy Profile Note 0 ml @ 0 mls/hr UNSCH OTHER 06/10/17 02:45 (NS Flush) 2 ml UNSCH PRN IV FLUSH 06/10/17 02:45 06/17/17 13:16 (NS Flush) 2 ml BID IV FLUSH 06/10/17 09:00 06/19/17 08:22 (Tylenol) 650 mg Q4H PRN PO 06/10/17 02:45 06/10/17 05:02 (Zofran Inj) 4 mg Q6H PRN IVP 06/10/17 02:45 (Narcan Inj) 0.4 mg UNSCH PRN IV PUSH 06/10/17 02:45 (Milk Of Magnesia Liq) 30 ml Q12H PRN PO 06/10/17 02:45 (Senokot) 17.2 mg Q12H PRN PO 06/10/17 02:45 (Dulcolax Supp) 10 mg DAILY PRN RECTAL 06/10/17 02:45 (Lovenox Inj) 40 mg Q24H SQ 06/12/17 19:00 06/19/17 16:02 (Dilaudid) 8 mg Q6H PRN PO 06/17/17 17:15 06/19/17 12:32 Piperacillin Sod/ Tazobactam Sod 100 ml @ 200 mls/hr Q6H IV 06/18/17 12:00 06/19/17 16:04 Miscellaneous Information SPECIFIC LAB TO BE DRAWN:VANCOMYCIN TROUGH DATE TO... ONCE ONCE .XX 06/20/17 05:45 06/20/17 05:46 Vancomycin HCl 1250 mg/Sodium Chloride 262.5 ml @ 250 mls/hr Q8H IV 06/18/17 22:00 06/19/17 14:49 Assessment and Plan Assessment and Plan 36 year old male with positive bone biopsy to left heel Patient examined and evaluated with all questions answered Dressing to remain clean, dry and intact. OK to DC per podiatry with abx recommendations from ID Pathology + for acute OM in proximal clearing margins Patient to follow up in 1 week in office once discharged Patient to have heel offloaded at all times in foam Patient to remain NWB to right foot Dayna Virk DPM Jun 19, 2017 17:14
[2017-06-19 21:15] VITALS: BP 124/68; PULSE 82; RESP 16; TEMP 97.6; O2SAT 96
[2017-06-20 00:40] VITALS: BP 127/72; PULSE 80; RESP 16; TEMP 98.4; O2SAT 97
[2017-06-20 05:00] VITALS: BP 125/65; PULSE 88; RESP 17; TEMP 97.6; O2SAT 98
[2017-06-20] MEDS ORDERED: PHARMACY ORDERED LAB ONE (05:45)
[2017-06-20] MEDS: HYDROmorphone HCL 2 MG TAB PO PRN ×3 (06:04→23:54)
[2017-06-20] MEDS: PIPERACIL-TAZO 4.5 GM PREMIX 100 ML IV SCH ×4 (06:04→23:34)
[2017-06-20] MEDS: VANCOMYCIN INJ 1,250 MG in SODIUM CHLOR 0.9% 250 ML INJ 250 ML IV SCH ×3 (06:04→21:24)
[2017-06-20] MEDS: SODIUM CHLORIDE 0.9% FLUSH 10 ML FLUSH IV FLUSH SCH ×2 (07:26→21:24)
[2017-06-20 07:47] LABS: CREATININE 0.65 MG/DL (0.60-1.30)
[2017-06-20 07:49] LABS: VANCOMYCIN TROUGH 12.2 MCG/ML (5.0-10.0)
[2017-06-20 08:24] VITALS: BP 130/59; PULSE 78; RESP 18; TEMP 98.2; O2SAT 97
--- NOTE | 2017-06-20 11:09 | HHI.PR ---
Subjective Remarks Follow up Left heel ulcer infection with gas and tissue, calcaneal osteomyelitis 06/15/17-patient seen and examined; requesting his narcotics to be adjusted accordingly due to poorly controlled pain. Afebrile 06/16/17-patient seen and examined; currently nothing by mouth pending surgical intervention today by podiatry. pain medication will be adjusted accordingly 06/17/17-patient seen and examined, s/p Left partial calcaneal resection/ osteotomy, left foot incision and drainage. patient is requesting adjustment of his narcotics. Tmax of 100.7 06/18/17-patient seen and examined; states his pain is now well controlled now. Afebrile 06/19/17-patient seen and examined; afebrile and no complaints. 06/20/17-patient seen and examined, Doing well and no acute event overnight Objective Vitals Vital Signs Date Time Temp Pulse Resp B/P (MAP) Pulse Ox O2 Delivery O2 Flow Rate FiO2 06/20/17 08:24 98.2 78 18 130/59 (82) 97 06/20/17 07:25 16 06/20/17 05:00 97.6 88 17 125/65 (85) 98 06/20/17 00:40 98.4 80 16 127/72 (90) 97 06/19/17 21:15 97.6 82 16 124/68 (86) 96 06/19/17 16:00 97.8 77 18 108/55 (72) 97 06/19/17 12:00 98.1 88 18 119/60 (79) 98 I/O 06/19/17 06/19/17 06/19/17 06/20/17 06/20/17 06/20/17 07:00 15:00 23:00 07:00 15:00 23:00 Intake Total 455 ml 850 ml 1000 ml Output Total 1600 ml 1600 ml Balance -1145 ml 850 ml -600 ml Intake Oral 850 ml 1000 ml IV Total 455 ml Output Urine Total 1600 ml 1600 ml # Voids 1 2 # Bowel Movements 0 0 Result Diagram: 06/20/17 0528 Objective Remarks GENERAL: NAD SKIN: Warm and dry. HEAD: Normocephalic. EYES: No scleral icterus. No injection or drainage. NECK: Supple, trachea midline. No JVD or lymphadenopathy. CARDIOVASCULAR: Regular rate and rhythm without murmurs, gallops, or rubs. RESPIRATORY: Breath sounds equal bilaterally. No accessory muscle use. GASTROINTESTINAL: Abdomen soft, non-tender, nondistended. MUSCULOSKELETAL: No cyanosis, or edema. dressing over left foot BACK: Nontender without obvious deformity. No CVA tenderness. Procedures 06/10/17-Left incision, bone, calcaneus; expansile incision, drainage, debridement , posterior heel and plantar foot with resection of plantar fascia. 06/16/17-s/p Left partial calcaneal resection/osteotomy, left foot incision and drainage A/P Problem List: (1) Left foot infection ICD Code: L08.9 - Local infection of the skin and subcutaneous tissue, unspecified Assessment and Plan 36-year-old man with Left foot infection Status post I&D by Dr. Jin, Biopsy shoes acute osteo, positive margins. s/p Left partial calcaneal resection/osteotomy, left foot incision and drainage 06/16/17 Pathology + for acute OM in proximal clearing margins currently on vancomycin and Zosyn per ID and culture +GNB Will need 6weeks of therapy NWB to LLE Chronic pain - Patient reports chronic low back pain and that he takes 8 mg of oral Dilaudid 5 times a day - Also per review of H&P patient consumes soren and marijuana on a daily basis - Previous Hospitalist Spoke with Daren clinical pharmacist, and states he will assist and see if we can get this verified. [facility] in [place] , prescriber is Dr. Sunday Lewis Hep C and B Outpatient follow up with Household Appliance Mechanic Haider Weber MD Jun 20, 2017 11:09
[2017-06-20 12:21] VITALS: BP 126/61; PULSE 85; RESP 18; TEMP 98.2; O2SAT 99
[2017-06-20 16:00] VITALS: BP 117/58; PULSE 86; RESP 18; TEMP 98; O2SAT 99
[2017-06-20] MEDS: ENOXAPARIN SODIUM 40 MG/0.4 ML SYRINGE SQ SCH (17:51)
[2017-06-20 20:46] VITALS: BP 117/56; PULSE 77; RESP 18; TEMP 97.8; O2SAT 98
[2017-06-21 01:28] VITALS: BP 130/63; PULSE 71; RESP 18; TEMP 98.7; O2SAT 100
[2017-06-21 05:24] VITALS: BP 117/56; PULSE 88; RESP 18; TEMP 99; O2SAT 99
[2017-06-21] MEDS: VANCOMYCIN INJ 1,250 MG in SODIUM CHLOR 0.9% 250 ML INJ 250 ML IV SCH ×3 (05:33→23:00)
[2017-06-21] MEDS: PIPERACIL-TAZO 4.5 GM PREMIX 100 ML IV SCH ×3 (05:33→17:59)
[2017-06-21] MEDS: HYDROmorphone HCL 2 MG TAB PO PRN ×3 (05:36→18:07)
[2017-06-21] MEDS: SODIUM CHLORIDE 0.9% FLUSH 10 ML FLUSH IV FLUSH SCH ×2 (07:43→23:00)
[2017-06-21 08:20] VITALS: BP 122/60; PULSE 92; RESP 18; TEMP 98.9; O2SAT 97
--- NOTE | 2017-06-21 10:25 | HHI.PR ---
Subjective Remarks Follow up Left heel ulcer infection with gas and tissue, calcaneal osteomyelitis 06/15/17-patient seen and examined; requesting his narcotics to be adjusted accordingly due to poorly controlled pain. Afebrile 06/16/17-patient seen and examined; currently nothing by mouth pending surgical intervention today by podiatry. pain medication will be adjusted accordingly 06/17/17-patient seen and examined, s/p Left partial calcaneal resection/ osteotomy, left foot incision and drainage. patient is requesting adjustment of his narcotics. Tmax of 100.7 06/18/17-patient seen and examined; states his pain is now well controlled now. Afebrile 06/19/17-patient seen and examined; afebrile and no complaints. 06/20/17-patient seen and examined, Doing well and no acute event overnight 06/21/17-patient seen and examined; no complaint this AM,Afebrile, NO CP or SOB Objective Vitals Vital Signs Date Time Temp Pulse Resp B/P (MAP) Pulse Ox O2 Delivery O2 Flow Rate FiO2 06/21/17 08:20 98.9 92 18 122/60 (80) 97 06/21/17 05:24 99.0 88 18 117/56 (76) 99 06/21/17 01:28 98.7 71 18 130/63 (85) 100 06/20/17 20:46 97.8 77 18 117/56 (76) 98 06/20/17 19:01 16 06/20/17 16:00 98.0 86 18 117/58 (77) 99 06/20/17 12:21 98.2 85 18 126/61 (82) 99 I/O 06/20/17 06/20/17 06/20/17 06/21/17 06/21/17 06/21/17 07:00 15:00 23:00 07:00 15:00 23:00 Intake Total 1000 ml 360 ml Output Total 1600 ml 625 ml Balance -600 ml 360 ml -625 ml Intake Oral 1000 ml IV Total 360 ml Output Urine Total 1600 ml 625 ml # Voids 2 # Bowel Movements 0 1 Result Diagram: 06/20/17 0528 Imaging Last Impressions Foot X-Ray 06/16/17 0000 Signed Impressions: Service Date/Time: Friday, June 16, 2017 17:47 - CONCLUSION: Surgical changes with amputation of the inferior posterior aspect of the calcaneus. Julius Barry MD Lower Extremity CT 06/10/17 0000 Signed Impressions: Service Date/Time: Saturday, June 10, 2017 08:21 - CONCLUSION: 1. Heel ulcer measuring 1.9 cm in depth with dots of air actually extending deeper adjacent to the cortical surface of the calcaneus. Edema and air is seen in the adjacent soft tissues characteristic of cellulitis. 2. In addition, there is cortical disruption of the plantar aspect of the calcaneus characteristic of regional osteomyelitis. 3. No acute fracture. Benign calcaneal osseous cyst Kian Rock MD Objective Remarks GENERAL: NAD SKIN: Warm and dry. HEAD: Normocephalic. EYES: No scleral icterus. No injection or drainage. NECK: Supple, trachea midline. No JVD or lymphadenopathy. CARDIOVASCULAR: Regular rate and rhythm without murmurs, gallops, or rubs. RESPIRATORY: Breath sounds equal bilaterally. No accessory muscle use. GASTROINTESTINAL: Abdomen soft, non-tender, nondistended. MUSCULOSKELETAL: No cyanosis, or edema. dressing over left foot BACK: Nontender without obvious deformity. No CVA tenderness. Procedures 06/10/17-Left incision, bone, calcaneus; expansile incision, drainage, debridement , posterior heel and plantar foot with resection of plantar fascia. 06/16/17-s/p Left partial calcaneal resection/osteotomy, left foot incision and drainage A/P Problem List: (1) Left foot infection ICD Code: L08.9 - Local infection of the skin and subcutaneous tissue, unspecified Assessment and Plan 36-year-old man with Left foot infection Status post I&D by Dr. Jin, Biopsy shoes acute osteo, positive margins. s/p Left partial calcaneal resection/osteotomy, left foot incision and drainage 06/16/17 Pathology + for acute OM in proximal clearing margins currently on vancomycin and Zosyn per ID and culture +GNB Will need 6weeks of therapy NWB to LLE Chronic pain - On Dilaudid 8mg Q4 Hep C and B Outpatient follow up with Foreign Exchange Clerk Haider Weber MD Jun 21, 2017 10:25
[2017-06-21 12:22] VITALS: BP 107/57; PULSE 86; RESP 18; TEMP 98.3; O2SAT 97
[2017-06-21 15:56] VITALS: BP 116/59; PULSE 74; RESP 18; TEMP 98.5; O2SAT 98
[2017-06-21] MEDS: ENOXAPARIN SODIUM 40 MG/0.4 ML SYRINGE SQ SCH (18:05)
[2017-06-21 20:44] VITALS: BP 119/59; PULSE 77; RESP 18; TEMP 98; O2SAT 98
[2017-06-22] MEDS: HYDROmorphone HCL 2 MG TAB PO PRN ×5 (00:05→23:59)
[2017-06-22] MEDS: PIPERACIL-TAZO 4.5 GM PREMIX 100 ML IV SCH ×3 (00:05→11:48)
[2017-06-22 01:13] VITALS: BP 124/67; PULSE 70; RESP 18; TEMP 98.7; O2SAT 100
[2017-06-22 05:23] VITALS: BP 113/62; PULSE 79; RESP 18; TEMP 98.6; O2SAT 96
[2017-06-22] MEDS ORDERED: PHARMACY ORDERED LAB ONE (05:45)
[2017-06-22] MEDS: VANCOMYCIN INJ 1,250 MG in SODIUM CHLOR 0.9% 250 ML INJ 250 ML IV SCH ×2 (06:57→14:03)
[2017-06-22 07:51] VITALS: BP 126/64; PULSE 78; RESP 17; TEMP 98.5; O2SAT 98
[2017-06-22] MEDS: SODIUM CHLORIDE 0.9% FLUSH 10 ML FLUSH IV FLUSH SCH ×2 (08:12→22:19)
[2017-06-22] MEDS ORDERED: Vancomycin Consult Pharmacy 1 EA IV SCH (10:00)
[2017-06-22 10:54] LABS: CREATININE 0.63 MG/DL (0.60-1.30)
[2017-06-22 11:00] LABS: VANCOMYCIN TROUGH 11.9 MCG/ML (5.0-10.0)
--- NOTE | 2017-06-22 11:09 | HHI.PR ---
Subjective Remarks Follow up Left heel ulcer infection with gas and tissue, calcaneal osteomyelitis 06/15/17-patient seen and examined; requesting his narcotics to be adjusted accordingly due to poorly controlled pain. Afebrile 06/16/17-patient seen and examined; currently nothing by mouth pending surgical intervention today by podiatry. pain medication will be adjusted accordingly 06/17/17-patient seen and examined, s/p Left partial calcaneal resection/ osteotomy, left foot incision and drainage. patient is requesting adjustment of his narcotics. Tmax of 100.7 06/18/17-patient seen and examined; states his pain is now well controlled now. Afebrile 06/19/17-patient seen and examined; afebrile and no complaints. 06/20/17-patient seen and examined, Doing well and no acute event overnight 06/21/17-patient seen and examined; no complaint this AM,Afebrile, NO CP or SOB 06/22/17-patient seen and examined; stable and no complaint Objective Vitals Vital Signs Date Time Temp Pulse Resp B/P (MAP) Pulse Ox O2 Delivery O2 Flow Rate FiO2 06/22/17 07:51 98.5 78 17 126/64 (84) 98 06/22/17 05:23 98.6 79 18 113/62 (79) 96 06/22/17 01:13 98.7 70 18 124/67 (86) 100 06/21/17 20:44 98.0 77 18 119/59 (79) 98 06/21/17 15:56 98.5 74 18 116/59 (78) 98 06/21/17 12:22 98.3 86 18 107/57 (74) 97 I/O 06/21/17 06/21/17 06/21/17 06/22/17 06/22/17 06/22/17 07:00 15:00 23:00 07:00 15:00 23:00 Intake Total 360 ml 460 ml Output Total 625 ml 800 ml Balance 360 ml -625 ml -340 ml IV Total 360 ml 460 ml Output Urine Total 625 ml 800 ml # Bowel Movements 1 Result Diagram: 06/22/17 0654 Imaging Last Impressions Foot X-Ray 06/16/17 0000 Signed Impressions: Service Date/Time: Friday, June 16, 2017 17:47 - CONCLUSION: Surgical changes with amputation of the inferior posterior aspect of the calcaneus. Julius Barry MD Lower Extremity CT 06/10/17 0000 Signed Impressions: Service Date/Time: Saturday, June 10, 2017 08:21 - CONCLUSION: 1. Heel ulcer measuring 1.9 cm in depth with dots of air actually extending deeper adjacent to the cortical surface of the calcaneus. Edema and air is seen in the adjacent soft tissues characteristic of cellulitis. 2. In addition, there is cortical disruption of the plantar aspect of the calcaneus characteristic of regional osteomyelitis. 3. No acute fracture. Benign calcaneal osseous cyst Kian Rock MD Objective Remarks GENERAL: NAD SKIN: Warm and dry. HEAD: Normocephalic. EYES: No scleral icterus. No injection or drainage. NECK: Supple, trachea midline. No JVD or lymphadenopathy. CARDIOVASCULAR: Regular rate and rhythm without murmurs, gallops, or rubs. RESPIRATORY: Breath sounds equal bilaterally. No accessory muscle use. GASTROINTESTINAL: Abdomen soft, non-tender, nondistended. MUSCULOSKELETAL: No cyanosis, or edema. dressing over left foot BACK: Nontender without obvious deformity. No CVA tenderness. Procedures 06/10/17-Left incision, bone, calcaneus; expansile incision, drainage, debridement , posterior heel and plantar foot with resection of plantar fascia. 06/16/17-s/p Left partial calcaneal resection/osteotomy, left foot incision and drainage A/P Problem List: (1) Left foot infection ICD Code: L08.9 - Local infection of the skin and subcutaneous tissue, unspecified Assessment and Plan 36-year-old man with Left foot infection Status post I&D by Dr. Jin, Biopsy shoes acute osteo, positive margins. s/p Left partial calcaneal resection/osteotomy, left foot incision and drainage 06/16/17 Pathology + for acute OM in proximal clearing margins currently on vancomycin and Zosyn per ID and culture +GNB Will need 6weeks of therapy NWB to LLE Chronic pain - On Dilaudid 8mg Q4 Hep C and B Outpatient follow up with Footwear Stitcher Haider Weber MD Jun 22, 2017 11:09
[2017-06-22 11:47] VITALS: BP 122/65; PULSE 83; RESP 18; TEMP 98.5; O2SAT 100
[2017-06-22] MEDS ORDERED: DILA2TAB4 PO (12:09)
--- NOTE | 2017-06-22 14:14 | HHI.FF ---
Infusion Therapy Location of Infusion Therapy: Home Health Care IV Infusion Order Patient Information Patient Weight 80 kg Diagnosis: Coded Allergies: No Known Allergies (Unverified , 06/09/17) Administer Medication Vancomycin 2 grams IV q 12 hours Start Treatment: Jun 22, 2017 Stop Treatment: August 02, 2017 Additional Information Venous access: PICC Line Additional Instructions [x] Peripheral flush and dressing changes per protocol [x] Implanted port and central line maintainer: * Implanted port: 10 ml Normal Saline followed by 5 ml Heparin 100 units/ml Heparin flush after each use and monthly to maintain. [] May leave port accessed during therapy. [] May leave peripheral site accessed for duration of therapy. [x] If patient has SOB or respiratory distress, check oxygen saturation. If less than 90% or clinical signs of respiratory distress, administer oxygen at 2 L/min. via nasal cannula and notify physician. [x] Anaphylaxis/Reaction orders: * Stop infusion. * Keep IV line open with saline flush. * Notify physician. * Monitor vital signs every 15 minutes until symptoms resolve. * Check Oxygen saturation; Oxygen at 2 L/min. via nasal cannula if less than 90% or clinical signs of respiratory distress. * Administer diphenhydramine (Benadryl) 25 mg IV STAT, (unless patient has received as pre-med). May repeat once, if necessary. * Solu-Cortef 250 mg IVP over 30-60 seconds, use 100 mg vials for each dissolution. * Epinephrine (1mg/1 ml) 0.3 mg subcutaneously or IVP now with any signs of respiratory distress. * Check with physician for new additional pre-med orders if patient is re- challenged or re-treated. [x] May remove PICC line when treatment complete, after confirming with Physician. [x] If the patient is admitted to the hospital, the ED, or transferred via [facility] , complete transfer form including medication reconciliation order sheet. Laboratory Tests Weekly Labs: CBC w/diff, Creatinine, CRP, LFT's (Hepatic function test), SED Rate, Vancomycin Trough Pham Alvarez MD Jun 22, 2017 14:14
[2017-06-22] MEDS ORDERED: SOLU250I IV PUSH (14:16)
[2017-06-22] MEDS ORDERED: LEVA750T9 PO (14:16)
[2017-06-22] MEDS ORDERED: EPIN1INJ21 IV PUSH (14:16)
[2017-06-22] MEDS ORDERED: VANC10IN IV (14:16)
[2017-06-22] MEDS ORDERED: EPIN1INJ21 SQ (14:16)
[2017-06-22 15:43] VITALS: BP 113/57; PULSE 96; RESP 18; TEMP 98.4; O2SAT 99
--- NOTE | 2017-06-22 16:24 | HHI.FF ---
Face to Face Verification Diagnosis: (1) Left foot infection Home Health Nursing Order: IV medication administration I have seen patient Hipolito Sarmiento on 06/22/17. My clinical findings support the need for the requested home health care services because: Infection w/ risk of complications Injectable med education/admin I certify that my clinical findings support that this patient is homebound because: Poor cardiac reserve Haider Weber MD Jun 22, 2017 16:24
--- NOTE | 2017-06-22 16:25 | HHI.DS ---
Discharge Summary Admission Date Jun 10, 2017 at 02:33 Discharge Date: Jun 23, 2017 Admitting Diagnosis Osteomyelitis of foot. (1) Left foot infection ICD Code: L08.9 - Local infection of the skin and subcutaneous tissue, unspecified Diagnosis: Principal Procedures 06/10/17-Left incision, bone, calcaneus; expansile incision, drainage, debridement , posterior heel and plantar foot with resection of plantar fascia. 06/16/17-s/p Left partial calcaneal resection/osteotomy, left foot incision and drainage Brief History - From Admission patient is a 36 y/o male who presented to ER with infection of the left foot. he says that it's been going on for about six months. he's been on regimens of antibiotics since then. he says that he had a bone biopsy about three weeks ago. he says that it seems the the antibiotics are not working. he had some fever last week. he says that the swelling and redness of the left foot is getting worse which made him to come to the hospital. CBC/BMP: 06/22/17 0654 Significant Findings Laboratory Tests Test 06/20/17 05:28 06/22/17 06:54 Vancomycin Level Trough 12.2 MCG/ML (5.0-10.0) 11.9 MCG/ML (5.0-10.0) Imaging Last Impressions Foot X-Ray 06/16/17 0000 Signed Impressions: Service Date/Time: Friday, June 16, 2017 17:47 - CONCLUSION: Surgical changes with amputation of the inferior posterior aspect of the calcaneus. Julius Barry MD Lower Extremity CT 06/10/17 0000 Signed Impressions: Service Date/Time: Saturday, June 10, 2017 08:21 - CONCLUSION: 1. Heel ulcer measuring 1.9 cm in depth with dots of air actually extending deeper adjacent to the cortical surface of the calcaneus. Edema and air is seen in the adjacent soft tissues characteristic of cellulitis. 2. In addition, there is cortical disruption of the plantar aspect of the calcaneus characteristic of regional osteomyelitis. 3. No acute fracture. Benign calcaneal osseous cyst Kian Rock MD PE at Discharge GENERAL: NAD SKIN: Warm and dry. HEAD: Normocephalic. EYES: No scleral icterus. No injection or drainage. NECK: Supple, trachea midline. No JVD or lymphadenopathy. CARDIOVASCULAR: Regular rate and rhythm without murmurs, gallops, or rubs. RESPIRATORY: Breath sounds equal bilaterally. No accessory muscle use. GASTROINTESTINAL: Abdomen soft, non-tender, nondistended. MUSCULOSKELETAL: No cyanosis, or edema. dressing over left foot BACK: Nontender without obvious deformity. No CVA tenderness. Hospital Course While in the hospital, the patient was treated for: Left foot infection Status post I&D by Dr. Jin, Biopsy shoes acute osteo, positive margins. s/p Left partial calcaneal resection/osteotomy, left foot incision and drainage 06/16/17 Pathology + for acute OM in proximal clearing margins currently on vancomycin and Zosyn per ID and culture +GNB Will need 6weeks of therapy NWB to LLE Chronic pain - On Dilaudid 8mg Q4 Hep C and B Outpatient follow up with Product Management Intern Pt Condition on Discharge: Good Discharge Disposition: Disch w/ Home Health Serv Discharge Time: > 30 minutes Discharge Instructions DIET: Follow Instructions for: As Tolerated, No Restrictions Activities you can perform: Non Weight Bearing Follow up Referrals: PCP Follow-up - 1 Week Podiatry @ [facility] with Dayna Virk DPM New Medications: Epinephrine Inj (Epinephrine Inj) 1 Mg/Ml (1 Ml) Inj 0.3 MG IV PUSH ONCE PRN for ALLERGIC REACTION, #1 VIAL Epinephrine Inj (Epinephrine Inj) 1 Mg/Ml (1 Ml) Inj 0.3 MG SQ ONCE PRN for ALLERGIC REACTION, #1 VIAL Give with any signs of respiratory distress. Hydrocortisone Inj (Solu-Cortef Inj) 250 Mg/2 Ml Inj 250 MG IV PUSH ONCE PRN for ALLERGIC REACTION, #1 VIAL 0 Refills Give over 30-60 seconds. Levofloxacin (Levaquin) 750 Mg Tablet 750 MG PO DAILY for Infection for 40 Days, #40 TAB 0 Refills Vancomycin Inj (Vancomycin Inj) 10 Gram Inj 2000 MG IV Q12HR for Infection for 40 Days, VIAL Hydromorphone (Dilaudid) 2 Mg Tab 8 MG PO Q6H PRN for PAIN SCALE 5 TO 10, #20 TAB Continued Medications: Alprazolam (Xanax) 2 Mg Tab 2 MG PO DAILY PRN for ANXIETY, TAB 0 Refills Gabapentin (Gabapentin) 300 Mg Cap 300 MG PO TID, #90 CAP 0 Refills Hydromorphone (Dilaudid) 8 Mg Tab 8 MG PO Q6H PRN for Pain Management, TAB 0 Refills Naproxen (Naproxen) 500 Mg Tab 500 MG PO DAILY, #60 TAB 0 Refills Ranitidine (Zantac) 150 Mg Tab 150 MG PO BID for Reduce Stomach Acid, #60 TAB 0 Refills Haider Weber MD Jun 22, 2017 16:25
[2017-06-22] MEDS: LEVOFLOXACIN 750 MG TAB PO SCH (17:54)
[2017-06-22] MEDS: ENOXAPARIN SODIUM 40 MG/0.4 ML SYRINGE SQ SCH (19:00)
[2017-06-22 20:00] VITALS: BP 108/58; PULSE 82; RESP 18; TEMP 98.1; O2SAT 98
--- NOTE | 2017-06-22 20:27 | HHI.IDPN ---
Subjective Subjective Remarks Delayed entry afebrile no new c/o Growing GNBx2 from the foot both S to Levaquine Antibiotics vanco zosyn - restarted 06/18 Allergies: Coded Allergies: No Known Allergies (Unverified , 06/09/17) Objective . Vital Signs Date Time Temp Pulse Resp B/P (MAP) Pulse Ox O2 Delivery O2 Flow Rate FiO2 06/22/17 15:43 98.4 96 18 113/57 (75) 99 06/22/17 11:47 98.5 83 18 122/65 (84) 100 06/22/17 07:51 98.5 78 17 126/64 (84) 98 06/22/17 05:23 98.6 79 18 113/62 (79) 96 06/22/17 01:13 98.7 70 18 124/67 (86) 100 06/21/17 20:44 98.0 77 18 119/59 (79) 98 06/22/17 06/22/17 06/23/17 15:00 23:00 07:00 Intake Total 362.5 ml 742.5 ml Output Total 700 ml Balance -337.5 ml 742.5 ml Intake Oral 480 ml IV Total 362.5 ml 262.5 ml Output Urine Total 700 ml # Voids 2 . Laboratory Tests Test 06/22/17 06:54 Creatinine 0.63 MG/DL Estimat Glomerular Filtration Rate 145 ML/MIN Imaging Last Impressions Foot X-Ray 06/16/17 0000 Signed Impressions: Service Date/Time: Friday, June 16, 2017 17:47 - CONCLUSION: Surgical changes with amputation of the inferior posterior aspect of the calcaneus. Julius Barry MD Lower Extremity CT 06/10/17 0000 Signed Impressions: Service Date/Time: Saturday, June 10, 2017 08:21 - CONCLUSION: 1. Heel ulcer measuring 1.9 cm in depth with dots of air actually extending deeper adjacent to the cortical surface of the calcaneus. Edema and air is seen in the adjacent soft tissues characteristic of cellulitis. 2. In addition, there is cortical disruption of the plantar aspect of the calcaneus characteristic of regional osteomyelitis. 3. No acute fracture. Benign calcaneal osseous cyst Kian Rock MD Physical Exam CONSTITUTIONAL/GENERAL: This is an adequately nourished patient, in no apparent distress. TUBES/LINES/DRAINS: SKIN: No jaundice, rashes, or lesions. 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 Infection, probably mixed aerobic /anaerobic with osteomyelitis L heel, MRSA s/p partial calcanectomy: margins appear free of infx now growing GNBs x2 - PROVIDENCIA STUARTII and PROTEUS VULGARIS MRSA sepsis - likley 2/2 osteo - low grade 1/4 bottlexs 2 D echo, repeat clx negativw Hep C, Hep B - - cont vanco - will need at least 6 weeks of post op vancomycin will cjhnage zosyn to levaquine po and also give x 6 weeks OPAT forms filled/monitor labs: CBC creat, LFTs PICC OK to dc once everytheing is arranged - if clinically not improving will need longer course - the final stop date to be decided by o/p provider Pham Alvarez MD Jun 22, 2017 20:26
[2017-06-22 20:35] LABS: AUTOMATED NEUTROPHIL # 4.5 TH/MM3 (1.8-7.7); BASOPHIL % 0.6 % (0.0-2.0); EOSINOPHIL # 0.1 TH/MM3 (0-0.4); EOSINOPHIL % 1.2 % (0.0-4.0); LYMPH % 20.8 % (9.0-44.0); LYMPHOCYTE # 1.4 TH/MM3 (1.0-4.8); MEAN CELL VOLUME 82.7 FL (80.0-100.0); MEAN CORPUSCULAR HEMOGLOBIN 26.8 PG (27.0-34.0); MEAN CORPUSCULAR HGB CONC 32.4 % (32.0-36.0); MEAN PLATELET VOLUME 7.1 FL (7.0-11.0); MONO % 11.7 % (0.0-8.0); MONOCYTE # 0.8 TH/MM3 (0-0.9); NEUT % 65.7 % (16.0-70.0); PLATELET COUNT 281 TH/MM3 (150-450); RED BLOOD COUNT 4.48 MIL/MM3 (4.50-5.90); RED CELL DISTRIBUTION WIDTH 16.9 % (11.6-17.2); WHITE BLOOD COUNT 6.8 TH/MM3 (4.0-11.0)
[2017-06-22] MEDS: VANCOMYCIN INJ 2,000 MG in SODIUM CHLORID 0.9% 500 ML INJ 500 ML IV SCH (22:19)
[2017-06-23 04:00] VITALS: BP 127/83; PULSE 92; RESP 18; TEMP 97.1; O2SAT 98
[2017-06-23] MEDS: HYDROmorphone HCL 2 MG TAB PO PRN ×2 (06:30→12:09)
[2017-06-23 08:00] VITALS: BP 119/74; PULSE 87; RESP 20; TEMP 98.1; O2SAT 96
[2017-06-23] MEDS: LEVOFLOXACIN 750 MG TAB PO SCH (08:01)
[2017-06-23] MEDS: SODIUM CHLORIDE 0.9% FLUSH 10 ML FLUSH IV FLUSH SCH (08:03)
[2017-06-23] MEDS: VANCOMYCIN INJ 2,000 MG in SODIUM CHLORID 0.9% 500 ML INJ 500 ML IV SCH (09:52)
--- NOTE | 2017-06-23 10:47 | HHI.PR ---
Subjective Remarks Follow up Left heel ulcer infection with gas and tissue, calcaneal osteomyelitis 06/15/17-patient seen and examined; requesting his narcotics to be adjusted accordingly due to poorly controlled pain. Afebrile 06/16/17-patient seen and examined; currently nothing by mouth pending surgical intervention today by podiatry. pain medication will be adjusted accordingly 06/17/17-patient seen and examined, s/p Left partial calcaneal resection/ osteotomy, left foot incision and drainage. patient is requesting adjustment of his narcotics. Tmax of 100.7 06/18/17-patient seen and examined; states his pain is now well controlled now. Afebrile 06/19/17-patient seen and examined; afebrile and no complaints. 06/20/17-patient seen and examined, Doing well and no acute event overnight 06/21/17-patient seen and examined; no complaint this AM,Afebrile, NO CP or SOB 06/22/17-patient seen and examined; stable and no complaint June 23, 2017-patient is excited about going home today. No acute event overnight. PICC line was placed today Objective Vitals Vital Signs Date Time Temp Pulse Resp B/P (MAP) Pulse Ox O2 Delivery O2 Flow Rate FiO2 06/23/17 08:00 98.1 87 20 119/74 (89) 96 06/23/17 04:00 97.1 92 18 127/83 (98) 98 06/23/17 01:23 18 06/22/17 20:00 98.1 82 18 108/58 (75) 98 06/22/17 15:43 98.4 96 18 113/57 (75) 99 06/22/17 11:47 98.5 83 18 122/65 (84) 100 I/O 06/22/17 06/22/17 06/22/17 06/23/17 06/23/17 06/23/17 07:00 15:00 23:00 07:00 15:00 23:00 Intake Total 460 ml 362.5 ml 995.5 ml 520 ml Output Total 800 ml 700 ml 700 ml 2 ml Balance -340 ml -337.5 ml 295.5 ml 518 ml Intake Oral 480 ml IV Total 460 ml 362.5 ml 515.5 ml 520 ml Output Urine Total 800 ml 700 ml 700 ml 2 ml # Voids 3 Result Diagram: 06/22/17202506/22/17 0654 Imaging Last Impressions Foot X-Ray 06/16/17 0000 Signed Impressions: Service Date/Time: Friday, June 16, 2017 17:47 - CONCLUSION: Surgical changes with amputation of the inferior posterior aspect of the calcaneus. Julius Barry MD Lower Extremity CT 06/10/17 0000 Signed Impressions: Service Date/Time: Saturday, June 10, 2017 08:21 - CONCLUSION: 1. Heel ulcer measuring 1.9 cm in depth with dots of air actually extending deeper adjacent to the cortical surface of the calcaneus. Edema and air is seen in the adjacent soft tissues characteristic of cellulitis. 2. In addition, there is cortical disruption of the plantar aspect of the calcaneus characteristic of regional osteomyelitis. 3. No acute fracture. Benign calcaneal osseous cyst Kian Rock MD Objective Remarks GENERAL: NAD SKIN: Warm and dry. HEAD: Normocephalic. EYES: No scleral icterus. No injection or drainage. NECK: Supple, trachea midline. No JVD or lymphadenopathy. CARDIOVASCULAR: Regular rate and rhythm without murmurs, gallops, or rubs. RESPIRATORY: Breath sounds equal bilaterally. No accessory muscle use. GASTROINTESTINAL: Abdomen soft, non-tender, nondistended. MUSCULOSKELETAL: No cyanosis, or edema. dressing over left foot BACK: Nontender without obvious deformity. No CVA tenderness. Procedures 06/10/17-Left incision, bone, calcaneus; expansile incision, drainage, debridement , posterior heel and plantar foot with resection of plantar fascia. 06/16/17-s/p Left partial calcaneal resection/osteotomy, left foot incision and drainage A/P Problem List: (1) Left foot infection ICD Code: L08.9 - Local infection of the skin and subcutaneous tissue, unspecified Assessment and Plan 36-year-old man with Left foot infection Status post I&D by Dr. Jin, Biopsy shoes acute osteo, positive margins. s/p Left partial calcaneal resection/osteotomy, left foot incision and drainage 06/16/17 Pathology + for acute OM in proximal clearing margins currently on vancomycin and Zosyn per ID and culture +GNB Will need 6weeks of therapy NWB to LLE PICC line placed today June 23, 2017 [facility] written Chronic pain - On Dilaudid 8mg Q4 Hep C and B Outpatient follow up with [employer] Supervisor Haider Weber MD Jun 23, 2017 10:47
[2017-06-25] MEDS ORDERED: PHARMACY ORDERED LAB ONE (09:45)
== END 2017-06-23 14:38 | disposition home health service (06) | DRG 477 ==
LOC: NEPE 23:35 → NEDA 06-10 02:33 → NEDH 06-10 06:48 → N05A 06-10 15:39
PROVIDERS: ADMIT Hospitalist; ATTEND Hospitalist
PROC: 0QBM0ZX Excision of Left Tarsal, Open Approach, Diagnostic (ICD-10-PCS; 2017-06-10)
PROC: 0QDM0ZZ Extraction of Left Tarsal, Open Approach (ICD-10-PCS; 2017-06-10)
PROC: 0QBM0ZX Excision of Left Tarsal, Open Approach, Diagnostic (ICD-10-PCS; 2017-06-16)
PROC: 0QBM0ZZ Excision of Left Tarsal, Open Approach (ICD-10-PCS; principal; 2017-06-16 16:19)
DX: M86.172 Other acute osteomyelitis, left ankle and foot (principal); A48.0 Gas gangrene; L89.624 Pressure ulcer of left heel, stage 4; L03.116 Cellulitis of left lower limb; B19.10 Unspecified viral hepatitis B without hepatic coma; G62.9 Polyneuropathy, unspecified; F41.9 Anxiety disorder, unspecified; F17.210 Nicotine dependence, cigarettes, uncomplicated; F12.90 Cannabis use, unspecified, uncomplicated; Z86.14 Personal history of Methicillin resistant Staphylococcus aureus infection; B19.20 Unspecified viral hepatitis C without hepatic coma; G89.29 Other chronic pain; M54.5 Low back pain
CPT/HCPCS: 36569; 73630; 73701; 76000; 76937; 80048; 80053; 80074; 80202; 80307; 81001; 82550; 82552; 82565; 82948; 83605; 83690; 84100; 84484; 85025; 85610; 85730; 86403; 87015; 87040; 87070; 87077; 87102; 87116; 87147; 87176; 87186; 87205; 87206; 88305; 88307; 88311; 93308; 94150; 96365; 96368; 99285; E0113; J0131; J1100; J1170; J1650; J2060; J2250; J2270; J2370; J2405; J2543; J2710; J3010; J3370; J7030; J7040; J7050; J7120; Q9967

== ENCOUNTER 2017-06-26 10:29 | Emergency (ER) | payer MEDICARE, OTHER ==
[~2017-06-26] VITALS: Ht 180.3 cm; Wt 82.0 kg
[~2017-06-26 10:29] MED LIST: DILA2TAB4 PO; DILA8TAB4 PO; EPIN1INJ21 IV PUSH; EPIN1INJ21 SQ; GABA300C5 PO; LEVA750T9 PO; NAPR500T2 PO; SOLU250I IV PUSH; VANC10IN IV; XANA2TAB2 PO; ZANT150T2 PO
[2017-06-26 10:37] VITALS: BP 128/89; PULSE 110; RESP 20; TEMP 98; O2SAT 99
[2017-06-26 10:51] VITALS: O2SAT 98
[2017-06-26] MEDS ORDERED: VANCOMYCIN INJ 2,000 MG in SODIUM CHLORID 0.9% 500 ML INJ 500 ML IV ONE (11:00)
[2017-06-26] MEDS ORDERED: LEVOFLOXACIN 750 MG TAB PO ONE (11:00)
[2017-06-26 11:25] LABS: BICARBONATE 29.5 MEQ/L (21.0-32.0); BLOOD UREA NITROGEN 13 MG/DL (7-18); CALCIUM 9.3 MG/DL (8.5-10.1); CHLORIDE 106 MEQ/L (98-107); CREATININE 0.75 MG/DL (0.60-1.30); GLOMERULAR FILTRATION RATE 119 ML/MIN (>89); GLUCOSE,RANDOM 98 MG/DL (74-106); SODIUM (NA) 140 MEQ/L (136-145)
--- NOTE | 2017-06-26 11:32 | PD ---
HPI Chief Complaint: Medical Clearance Time Seen by Provider: 10:57 Travel History International Travel<30 days: No Contact w/Intl Traveler<30days: No Traveled to known affect area: No History of Present Illness HPI 36-year-old male with a history of osteomyelitis of the right foot, drug use, who presents here in custody with the police for medical clearance. The patient apparently had a warrant out for his arrest and was stopped by police today. He states that he was sleeping at a friend's house and using "mildly". He states that when he woke up this morning he was walking outside and the police stopped him and asked him who he was. He states that he is scheduled to have his vancomycin dose this morning and unfortunately missed it. He does have a wound VAC in place and reports that it stopped working this morning. There are no other complaints at this time my examination. PFSH Past Medical History Anxiety: Yes Cancer: No Cardiovascular Problems: No Diminished Hearing: No Endocrine: No Genitourinary: No Immune Disorder: No Medical other: Yes (OSTEOMYELITIS) Musculoskeletal: Yes (CHRONIC BACK PAIN) Neurologic: Yes Reproductive: No Respiratory: No Integumentary: Yes (MRSA AND STAPH IN LEFT LEG ) Tetanus Vaccination: < 5 Years Influenza Vaccination: No Past Surgical History Abdominal Surgery: No Body Medical Devices: NEUROSTIMULATOR, HARDWARE IN HIPS Cardiac Surgery: No Ear Surgery: No Endocrine Surgery: No Eye Surgery: No Genitourinary Surgery: No Gynecologic Surgery: No Neurologic Surgery: Yes (NEUROSTIMULATOR IN BACK) Oral Surgery: No Thoracic Surgery: No Other Surgery: Yes (RIGHT FOOT SX) Social History Alcohol Use: No Tobacco Use: Yes (5/ DAY) Substance Use: Yes (JOSE LAST NIGHT) Allergies-Medications (Allergen,Severity, Reaction): Coded Allergies: No Known Allergies (Unverified , 06/26/17) Reported Meds & Prescriptions Reported Meds & Active Scripts Active Epinephrine Inj 1 Mg/Ml (1 Ml) Inj 0.3 Mg IV PUSH ONCE PRN Solu-Cortef Inj (Hydrocortisone Sodium Succinate) 250 Mg/2 Ml Inj 250 Mg IV PUSH ONCE PRN Give over 30-60 seconds. Vancomycin Inj (Vancomycin HCl) 10 Gram Inj 2,000 Mg IV Q12HR 40 Days Levaquin (Levofloxacin) 750 Mg Tablet 750 Mg PO DAILY 40 Days Reported Naproxen 500 Mg Tab 500 Mg PO DAILY Gabapentin 300 Mg Cap 300 Mg PO TID Zantac (Ranitidine HCl) 150 Mg Tab 150 Mg PO BID Xanax (Alprazolam) 2 Mg Tab 2 Mg PO DAILY PRN Dilaudid (Hydromorphone HCl) 8 Mg Tab 8 Mg PO Q6H PRN Review of Systems Except as stated in HPI: all other systems reviewed are Neg General / Constitutional: No: Fever, Chills HENT: No: Headaches, Lightheadedness Cardiovascular: No: Chest Pain or Discomfort, Palpitations Respiratory: No: Cough, Shortness of Breath Gastrointestinal: No: Nausea, Vomiting, Diarrhea, Abdominal Pain Genitourinary: No: Dysuria, Decreased Urinary Output Musculoskeletal: Positive: Edema (Of the left foot. He reports because he has been up and ambulatory more than normal.), Pain (left foot where he has a wound VAC near his heel.) Skin: Positive Lesions (Wound VAC over an open wound on his right heel and posterior foot) Neurologic: No: Weakness, Headache, Change in Mentation Psychiatric: Positive: Substance Abuse ("Mildly".) Physical Exam Narrative GENERAL: Well-developed well-nourished male in no acute respiratory distress. SKIN: Focused skin assessment warm/dry. HEAD: Atraumatic. Normocephalic. EYES: No scleral icterus. No injection or drainage. ENT: No nasal bleeding or discharge. Mucous membranes pink and moist. NECK: Trachea midline. Supple. CARDIOVASCULAR: Regular rate and rhythm. No murmur appreciated. RESPIRATORY: No accessory muscle use. Clear to auscultation. Breath sounds equal bilaterally. GASTROINTESTINAL: Abdomen soft, non-tender, nondistended. Hepatic and splenic margins not palpable. MUSCULOSKELETAL: Patient has a wound VAC over his left posterior heel. There is no obvious drainage from the skin. NEUROLOGICAL: Awake and alert. No obvious cranial nerve deficits. Motor grossly within normal limits. Normal speech. Data Data Last Documented VS Vital Signs Date Time Temp Pulse Resp B/P (MAP) Pulse Ox O2 Delivery O2 Flow Rate FiO2 06/26/17 14:12 81 19 148/85 (106) 98 Room Air 06/26/17 10:37 98.0 Orders Orders Basic Metabolic Panel (Bmp) (06/26/17 10:48) Iv Access Insert/Monitor (06/26/17 10:48) Ecg Monitoring (06/26/17 10:48) Oximetry (06/26/17 10:48) Drug Screen, Random Urine (06/26/17 10:48) Alcohol (Ethanol) (06/26/17 10:48) Vancomycin Inj (Vancomycin Inj) (06/26/17 11:00) Levofloxacin (Levaquin) (06/26/17 11:00) Wound Care (06/26/17 13:14) Oxycodone-Acetamin 7.5-325 Mg (Percocet (06/26/17 14:00) Diet Regular Basic (06/26/17 Lunch) Wound Culture And Gram Stain (06/26/17 14:40) Consult Wound / Ostomy Nurse (06/26/17 ) Wound Care (06/26/17 15:03) Labs Laboratory Tests Test 06/26/17 10:55 Blood Urea Nitrogen 13 MG/DL Creatinine 0.75 MG/DL Random Glucose 98 MG/DL Calcium Level 9.3 MG/DL Sodium Level 140 MEQ/L Potassium Level 3.8 MEQ/L Chloride Level 106 MEQ/L Carbon Dioxide Level 29.5 MEQ/L Anion Gap 5 MEQ/L Estimat Glomerular Filtration Rate 119 ML/MIN Ethyl Alcohol Level LESS THAN 3 MG/DL MDM Medical Decision Making Medical Screen Exam Complete: Yes Emergency Medical Condition: Yes Differential Diagnosis Substance-induced mood disorder versus wound VAC mouth function versus metabolic derangement Narrative Course 36-year-old male presents in custody for medical clearance. Patient has a chronic wound on his left heel that has a wound VAC in place. He is scheduled to have his vancomycin and Levaquin today. The patient has been given 2 g of IV vancomycin and 750 mg of Levaquin. The wound care nurses come to see the patient and has replaced the dressing on his left heel. He will be discharged in the custody of the policeman. He is instructed to follow-up with wound clinic when he is released from [facility]. Diagnosis Primary Impression: Chronic left foot infection Additional Impression: History of polysubstance abuse Additional Instructions: Follow-up with wound clinic when released from [facility]. Disposition: [address] LAW ENFORCEMNT Condition: Stable Mark Mccrary MD Jun 26, 2017 11:32
[2017-06-26] MEDS ORDERED: oxyCODONE/ACETAMINOPHEN 7.5 MG/325 MG TAB PO ONE (14:00)
[2017-06-26 14:12] VITALS: BP 148/85; PULSE 81; RESP 19; O2SAT 98
--- NOTE | 2017-06-26 14:51 | PD.WCN.NOT ---
Wound Consult Description: Wound consult ordered by for wound management Communicated with: Fiona STRICKLAND C-pod, Recommendation: 1. Encourage patient to offload left foot 2. Cleanse suture line incision with normal saline pat dry. 3. Skin prep periwound 4. Loosely pack dehisced incision with Maxorb ll leaving tail exposed. 5. Cover with ABD secure with rolled gauze and Abilio Scottie , sign and date 6. Change dressing every other day or as needed for dislodgement or exudate. 7. Follow up with roping tender Additional Information: Patient was seen today by proposal lead writer and Fiona STRICKLAND C-pod for wound management.Patient alert and oriented x3 though he does state he is still a little loopy from using "Carmel' last night.Leslie vac removed from left foot .Incision line cleansed with normal saline .Patient states vac has not been on for awhile.Maceration noted to plantar foot/incision line.Culture obtained and sent to lab.Patient has dehisced incision line measuring ~1.0cm x 0.5cm x 1.0cm located in mid incision.scant bloody drainage noted with mild odor.skin prep applied to anaid incision and intact sutures.Maxorb ll loosely packed in dehisced open area and tail left exposed .Incision/wound covered with ABD and secured with rolled gauze and abilio Scottie sign and dated.Patient tolerated wound care well.Reinforced teaching on vac management importance of removing sponge when machine malfunction max of 2 hours after initial loss of suction.Patient noted to have RUE picc line with dressing dated 06/23 dressing is soiled and lifting will need to be changed prior to discharge.Alessia Hastings RN [facility] Jun 26, 2017 14:51
[2017-06-26 15:51] VITALS: BP 151/82
== END 2017-06-26 16:00 ==
LOC: NEPC 10:29
DX: M86.671 Other chronic osteomyelitis, right ankle and foot (principal); F19.10 Other psychoactive substance abuse, uncomplicated; F17.200 Nicotine dependence, unspecified, uncomplicated; Z79.899 Other long term (current) drug therapy
CPT/HCPCS: 80048; 80307; 87070; 87077; 87186; 96365; 96366; 99284; J3370; J7040; 87205

== ENCOUNTER 2017-07-21 18:33 | Inpatient (IN) | payer MEDICARE, OTHER ==
[~2017-07-21] VITALS: Ht 182.9 cm; Wt 88.6 kg
[~2017-07-21 18:33] MED LIST changes: -DILA2TAB4 PO; -EPIN1INJ21 SQ
[2017-07-21 18:43] VITALS: BP 138/111; PULSE 148; RESP 25; TEMP 99.1; O2SAT 98
[2017-07-21] MEDS ORDERED: MORPHINE SULFATE 4 MG/ML INJ IV PUSH ONE (19:00)
[2017-07-21] MEDS ORDERED: METOCLOPRAMIDE HCL 10 MG/2 ML VIAL IV PUSH ONE (19:00)
[2017-07-21] MEDS ORDERED: SODIUM CHLOR 0.9% 1000 ML INJ 1,000 ML IV ONE ×3 (19:00→22:00)
[2017-07-21] MEDS ORDERED: VANCOMYCIN INJ 2,000 MG in SODIUM CHLORID 0.9% 500 ML INJ 500 ML IV ONE (19:15)
--- NOTE | 2017-07-21 19:21 | PD ---
HPI Chief Complaint: Pain: Acute or Chronic Time Seen by Provider: 18:50 Travel History International Travel<30 days: No Contact w/Intl Traveler<30days: No Traveled to known affect area: No History of Present Illness HPI 36-year-old male presents to the emergency department for evaluation of worsening left heel infection. Patient was admitted June 10 - June 23 for osteomyelitis of the left foot. He underwent surgery by Dr. Jin for left calcaneal osteomyelitis abscess with a gas producing organism on June 10, 2017. He was discharged on June 23 with a PICC line to the right upper extremity to get vancomycin IV and Levaquin p.o. He states that however, a few days after discharge, he was arrested has been in intermediate up until recently. He states that he missed a total of 11 days of vancomycin while in intermediate. He states that they were taking his vancomycin troughs at the wrong time and were holding his vancomycin. He states he has not missed his Levaquin. He states over the past few days, he has noticed worsening erythema, warmth, fluctuance to the right calcaneus. Patient denies any fevers or chills. No chest pain or shortness breath. No abdominal pain. No nausea, vomiting, diarrhea. Patient states the pain is currently 10/10, aching and throbbing. He has not received vancomycin since Thursday according to the patient. Moderate severity. PFSH Past Medical History Anxiety: Yes Cancer: No Cardiovascular Problems: No Diminished Hearing: No Endocrine: No Genitourinary: No Immune Disorder: No Musculoskeletal: Yes (CHRONIC BACK PAIN) Neurologic: Yes Reproductive: No Respiratory: No Integumentary: Yes (MRSA AND STAPH IN LEFT LEG ) Past Surgical History Abdominal Surgery: No Body Medical Devices: NEUROSTIMULATOR, HARDWARE IN HIPS Cardiac Surgery: No Ear Surgery: No Endocrine Surgery: No Eye Surgery: No Genitourinary Surgery: No Gynecologic Surgery: No Neurologic Surgery: Yes (NEUROSTIMULATOR IN BACK) Oral Surgery: No Thoracic Surgery: No Other Surgery: Yes (RIGHT FOOT SX) Social History Alcohol Use: No Tobacco Use: Yes (5/ DAY) Substance Use: Yes (JOSE LAST NIGHT) Allergies-Medications (Allergen,Severity, Reaction): Coded Allergies: No Known Allergies (Unverified , 06/26/17) Reported Meds & Prescriptions Reported Meds & Active Scripts Active Epinephrine Inj 1 Mg/Ml (1 Ml) Inj 0.3 Mg IV PUSH ONCE PRN Solu-Cortef Inj (Hydrocortisone Sodium Succinate) 250 Mg/2 Ml Inj 250 Mg IV PUSH ONCE PRN Give over 30-60 seconds. Vancomycin Inj (Vancomycin HCl) 10 Gram Inj 2,000 Mg IV Q12HR 40 Days Levaquin (Levofloxacin) 750 Mg Tablet 750 Mg PO DAILY 40 Days Reported Naproxen 500 Mg Tab 500 Mg PO DAILY Gabapentin 300 Mg Cap 300 Mg PO TID Zantac (Ranitidine HCl) 150 Mg Tab 150 Mg PO BID Xanax (Alprazolam) 2 Mg Tab 2 Mg PO DAILY PRN Dilaudid (Hydromorphone HCl) 8 Mg Tab 8 Mg PO Q6H PRN Review of Systems Except as stated in HPI: all other systems reviewed are Neg Physical Exam Narrative GENERAL: Well-nourished, well-developed male patient, afebrile SKIN: Focused skin assessment warm/dry. HEAD: Normocephalic. Atraumatic. EYES: No scleral icterus. No injection or drainage. NECK: Supple, trachea midline. No JVD or lymphadenopathy. CARDIOVASCULAR: Regular rhythm without murmurs, gallops, or rubs. Patient is tachycardic with heart rate in the 120s on my exam RESPIRATORY: Breath sounds equal bilaterally. No accessory muscle use. Lung sounds are clear to auscultation. GASTROINTESTINAL: Abdomen soft, non-tender, nondistended. MUSCULOSKELETAL: No cyanosis, or edema. Patient has erythema and warmth to the left calcaneus. No active drainage. There does appear to be swelling over the calcaneus. BACK: Nontender without obvious deformity. No CVA tenderness. Data Data Last Documented VS Vital Signs Date Time Temp Pulse Resp B/P (MAP) Pulse Ox O2 Delivery O2 Flow Rate FiO2 07/21/17 20:30 98 Room Air 07/21/17 18:43 99.1 148 25 138/111 (120) Orders Orders Sepsis Workup Initiated (07/21/17 ) Electrocardiogram (07/21/17 19:00) Complete Blood Count With Diff (07/21/17 19:00) Comprehensive Metabolic Panel (07/21/17 19:00) Prothrombin Time / Inr (Pt) (07/21/17 19:00) Act Partial Throm Time (Ptt) (07/21/17 19:00) Lactic Acid Sepsis Protocol (07/21/17 19:00) Blood Culture (07/21/17 19:00) Ecg Monitoring (07/21/17 19:00) Iv Access Insert/Monitor (07/21/17:00) Oximetry (07/21/17 19:00) Oxygen Administration (07/21/17 19:00) Sodium Chlor 0.9% 1000 Ml Inj (Ns 1000 M (07/21/17 19:00) Sodium Chlor 0.9% 1000 Ml Inj (Ns 1000 M (07/21/17 19:00) Westergren Sedimentation Rate (07/21/17 19:00) C-Reactive Protein (Crp) (07/21/17 19:00) Foot, Complete ([id number]) (07/21/17 ) Morphine Inj (Morphine Inj) (07/21/17 19:00) Metoclopramide Inj (Reglan Inj) (07/21/17 19:00) Vancomycin Inj (Vancomycin Inj) (07/21/17 19:15) Admit Order (Ed Use Only) (07/21/17 21:39) Labs Laboratory Tests Test 07/21/17 19:40 White Blood Count 8.3 TH/MM3 Red Blood Count 5.08 MIL/MM3 Hemoglobin 14.4 GM/DL Hematocrit 41.2 % Mean Corpuscular Volume 81.0 FL Mean Corpuscular Hemoglobin 28.4 PG Mean Corpuscular Hemoglobin Concent 35.1 % Red Cell Distribution Width 18.3 % Platelet Count 170 TH/MM3 Mean Platelet Volume 8.3 FL Neutrophils (%) (Auto) 59.0 % Lymphocytes (%) (Auto) 26.8 % Monocytes (%) (Auto) 12.6 % Eosinophils (%) (Auto) 1.2 % Basophils (%) (Auto) 0.4 % Neutrophils # (Auto) 4.9 TH/MM3 Lymphocytes # (Auto) 2.2 TH/MM3 Monocytes # (Auto) 1.0 TH/MM3 Eosinophils # (Auto) 0.1 TH/MM3 Basophils # (Auto) 0.0 TH/MM3 CBC Comment DIFF FINAL Differential Comment Erythrocyte Sedimentation Rate 4 mm/hr Prothrombin Time 11.2 SEC Prothromb Time International Ratio 1.1 RATIO Activated Partial Thromboplast Time 30.4 SEC Blood Urea Nitrogen 9 MG/DL Creatinine 1.16 MG/DL Random Glucose 120 MG/DL Total Protein 7.4 GM/DL Albumin 3.7 GM/DL Calcium Level 8.5 MG/DL Alkaline Phosphatase 156 U/L Aspartate Amino Transf (AST/SGOT) 144 U/L Alanine Aminotransferase (ALT/SGPT) 224 U/L Total Bilirubin 0.8 MG/DL Sodium Level 139 MEQ/L Potassium Level 4.2 MEQ/L Chloride Level 103 MEQ/L Carbon Dioxide Level 24.9 MEQ/L Anion Gap 11 MEQ/L Lactic Acid Level 2.9 mmol/L C-Reactive Protein 0.98 MG/DL [facility] Medical Decision Making Medical Screen Exam Complete: Yes Emergency Medical Condition: Yes Medical Record Reviewed: Yes Differential Diagnosis Cellulitis versus abscess versus osteomyelitis versus sepsis Narrative Course 36-year-old male presents to the emergency department for evaluation of worsening symptoms to the left heel. He was diagnosed with osteomyelitis and underwent surgery by Dr. Jin. He was to be getting vancomycin through his PICC line and Levaquin p.o. However, while in intermediate, he states he missed 11 doses of his vancomycin has not received it since Thursday. He states that his left heel symptoms are worsening. Patient is tachycardic on arrival. EKG, CBC , CMP, lactic acid, PTT, PT/INR, ESR, CRP, blood cultures 2 were ordered and pending. X-ray left foot is ordered and pending. Patient is given normal saline bolus 2. Patient is given morphine 4 mg IV, Reglan 10 mg IV for pain. Patient is given his dose of vancomycin, 2 g IV. EKG shows sinus rhythm, heart rate 97, no acute ST changes. CBC shows no acute abnormality. CMP shows elevated AST of 144, ALT 224, alkaline phosphatase 156. Lactic acid is 2.9. ESR is 4. CRP is 0.98. Coags show no acute abnormality. X-ray of the left foot shows no acute bony findings. Patient will be admitted to hospital to arrange for outpatient IV antibiotics and have podiatry see him. Dr. Bernard accepted admission. Diagnosis Primary Impression: Left foot infection Additional Impression: Lactic acid acidosis Admitting Information Admitting Physician Requests: Suzanne Guzman July 21, 2017 19:21
--- NOTE | 2017-07-21 19:33 | RADRPT ---
EXAM DATE/TIME: 07/21/2017 19:08 [facility] COMPARISON: CT FOOT LEFT W CONTRAST, June 10, 2017, 8:21. FOOT LEFT COMPLETE ([id number]), June 16, 2017, 19:30. INDICATIONS : Left foot pain and swelling. Pain near patients heel. MEDICAL HISTORY : Smoker. SURGICAL HISTORY : None. ENCOUNTER: Initial ACUITY: 3 days PAIN SCORE: 8/10 LOCATION: Left foot. FINDINGS: Post surgical deformity of the calcaneus is again noted. No definite acute bony findings. There is pl qi soft tissue swelling. The mid foot and forefoot are stable and unremarkable. CONCLUSION: No definite acute bony findings Dustin Soto MD on July 21, 2017 at 19:28 Board Certified Radiologist. This report was verified electronically.
--- NOTE | 2017-07-21 19:36 | PD ---
Physical Exam Narrative I, Dr. Marrero, have reviewed the advance practice practitioner's documentation and am in agreement, met with the patient face to face, made the diagnosis, and the medical decision making was done by me. *My assessment and Findings: Osteomyelitis vs. sepsis 36yo M who was recently discharge with PICC line for IV vancomycin for osteomyelitis of left calcaneus here because he said the left heel pain is worst and redness is worst. Said after he was discharge, he was arrested and in [facility], they did his vancomycin trough wrong and he was missing many doses of his vancomycin. Last vancomycin dose was last . Denies any fever, chest pain, sob, n/v, abdominal pain, new trauma, focal weakness or numbness. Pt is tachycardic when he arrived, at triage it was documented at 148bpm. In the room, he was about 113bpm. Labs reviewed, no leukocytosis. ESR normal. Lactic acid elevated at 2.9. Pt given NS IVF x2. LFTs elevated but is at baseline. C-reactive protein elevated at 0.98. Xray left foot showed no definite acute bony findings. Left heel is erythematous and tender and warm to touch. DP2+. Pt has a PICC line but does not have any home health. Given he is tachycardic, has worsening redness and pain, has elevated lactic acid, will observe pt and consult podiatry. Will need high risk case manager to set up outpatient antibiotics. Pt given vancomycin here. Data Data Last Documented VS Vital Signs Date Time Temp Pulse Resp B/P (MAP) Pulse Ox O2 Delivery O2 Flow Rate FiO2 07/21/17 20:30 98 Room Air 07/21/17 18:43 99.1 148 25 138/111 (120) Orders Orders Sepsis Workup Initiated (07/21/17 ) Electrocardiogram (07/21/17 19:00) Complete Blood Count With Diff (07/21/17 19:00) Comprehensive Metabolic Panel (07/21/17 19:00) Prothrombin Time / Inr (Pt) (07/21/17 19:00) Act Partial Throm Time (Ptt) (07/21/17 19:00) Lactic Acid Sepsis Protocol (07/21/17 19:00) Blood Culture (07/21/17 19:00) Ecg Monitoring (07/21/17 19:00) Iv Access Insert/Monitor (5/15/18 19:00) Oximetry (07/21/17 19:00) Oxygen Administration (07/21/17 19:00) Sodium Chlor 0.9% 1000 Ml Inj (Ns 1000 M (07/21/17 19:00) Sodium Chlor 0.9% 1000 Ml Inj (Ns 1000 M (07/21/17 19:00) Westergren Sedimentation Rate (07/21/17 19:00) C-Reactive Protein (Crp) (07/21/17 19:00) Foot, Complete (Ysq3oth) (07/21/17 ) Morphine Inj (Morphine Inj) (07/21/17 19:00) Metoclopramide Inj (Reglan Inj) (07/21/17 19:00) Vancomycin Inj (Vancomycin Inj) (07/21/17 19:15) Labs Laboratory Tests Test 07/21/17 19:40 White Blood Count 8.3 TH/MM3 Red Blood Count 5.08 MIL/MM3 Hemoglobin 14.4 GM/DL Hematocrit 41.2 % Mean Corpuscular Volume 81.0 FL Mean Corpuscular Hemoglobin 28.4 PG Mean Corpuscular Hemoglobin Concent 35.1 % Red Cell Distribution Width 18.3 % Platelet Count 170 TH/MM3 Mean Platelet Volume 8.3 FL Neutrophils (%) (Auto) 59.0 % Lymphocytes (%) (Auto) 26.8 % Monocytes (%) (Auto) 12.6 % Eosinophils (%) (Auto) 1.2 % Basophils (%) (Auto) 0.4 % Neutrophils # (Auto) 4.9 TH/MM3 Lymphocytes # (Auto) 2.2 TH/MM3 Monocytes # (Auto) 1.0 TH/MM3 Eosinophils # (Auto) 0.1 TH/MM3 Basophils # (Auto) 0.0 TH/MM3 CBC Comment DIFF FINAL Differential Comment Erythrocyte Sedimentation Rate 4 mm/hr Prothrombin Time 11.2 SEC Prothromb Time International Ratio 1.1 RATIO Activated Partial Thromboplast Time 30.4 SEC Blood Urea Nitrogen 9 MG/DL Creatinine 1.16 MG/DL Random Glucose 120 MG/DL Total Protein 7.4 GM/DL Albumin 3.7 GM/DL Calcium Level 8.5 MG/DL Alkaline Phosphatase 156 U/L Aspartate Amino Transf (AST/SGOT) 144 U/L Alanine Aminotransferase (ALT/SGPT) 224 U/L Total Bilirubin 0.8 MG/DL Sodium Level 139 MEQ/L Potassium Level 4.2 MEQ/L Chloride Level 103 MEQ/L Carbon Dioxide Level 24.9 MEQ/L Anion Gap 11 MEQ/L Lactic Acid Level 2.9 mmol/L C-Reactive Protein 0.98 MG/DL MDM Supervised Visit with DENNY: Yes Interpretation(s) EKG: NSR 97bpm. Normal axis. No ST segment elevation or depression. Diagnosis Primary Impression: Left foot infection Admitting Information Admitting Physician Requests: Chastity Naranjo DO July 21, 2017 19:36
[2017-07-21 20:00] LABS: AUTOMATED NEUTROPHIL # 4.9 TH/MM3 (1.8-7.7); BASOPHIL % 0.4 % (0.0-2.0); EOSINOPHIL # 0.1 TH/MM3 (0-0.4); EOSINOPHIL % 1.2 % (0.0-4.0); HEMATOCRIT 41.2 % (39.0-51.0); HEMOGLOBIN 14.4 GM/DL (13.0-17.0); LYMPH % 26.8 % (9.0-44.0); LYMPHOCYTE # 2.2 TH/MM3 (1.0-4.8); MEAN CORPUSCULAR HEMOGLOBIN 28.4 PG (27.0-34.0); MEAN CORPUSCULAR HGB CONC 35.1 % (32.0-36.0); MEAN PLATELET VOLUME 8.3 FL (7.0-11.0); MONO % 12.6 % (0.0-8.0); PLATELET COUNT 170 TH/MM3 (150-450); RED BLOOD COUNT 5.08 MIL/MM3 (4.50-5.90); RED CELL DISTRIBUTION WIDTH 18.3 % (11.6-17.2); WHITE BLOOD COUNT 8.3 TH/MM3 (4.0-11.0)
[2017-07-21 20:14] LABS: INTERNATIONAL NORMALIZED RATIO 1.1 RATIO; PROTHROMBIN TIME - PATIENT 11.2 SEC (9.8-11.6)
[2017-07-21 20:20] LABS: C-REACTIVE PROTEIN 0.98 MG/DL (0.00-0.30)
[2017-07-21 20:21] LABS: LACTIC ACID SEPSIS PROTOCOL 2.9 mmol/L (0.4-2.0)
[2017-07-21 20:22] LABS: ALKALINE PHOSPHATASE 156 U/L (45-117); TOTAL BILIRUBIN ADULT 0.8 MG/DL (0.2-1.0)
[2017-07-21 20:37] LABS: ALBUMIN 3.7 GM/DL (3.4-5.0); AST (GOT) 144 U/L (15-37); BICARBONATE 24.9 MEQ/L (21.0-32.0); BLOOD UREA NITROGEN 9 MG/DL (7-18); CALCIUM 8.5 MG/DL (8.5-10.1); CHLORIDE 103 MEQ/L (98-107); CREATININE 1.16 MG/DL (0.60-1.30); GLUCOSE,RANDOM 120 MG/DL (74-106); SODIUM (NA) 139 MEQ/L (136-145)
[2017-07-21 20:57] LABS: ALT (GPT) 224 U/L (12-78); TOTAL PROTEIN 7.4 GM/DL (6.4-8.2)
[2017-07-21] MEDS ORDERED: ALPRAZolam 1 MG TAB PO PRN (22:00)
[2017-07-21] MEDS ORDERED: Vancomycin Consult Pharmacy 1 EA OTHER SCH (22:00)
[2017-07-21] MEDS ORDERED: HYDROmorphone HCL 2 MG TAB PO PRN (22:00)
--- NOTE | 2017-07-21 22:06 | HHI.HP ---
[facility] Service [facility] Primary Care Physician Non-Staff Admission Diagnosis left foot celluliits, lactic acidosis Diagnoses: (1) Left foot infection Diagnosis: Principal Chief Complaint: infection of the left foot Travel History International Travel<30 Days: No Contact w/Intl Traveler <30 Da: No Traveled to Known Affected Are: No Sepsis Criteria SIRS Criteria (2 or more): Heart rate over 90, RR > 20 or PaCO2 < 32 Sepsis Criteria (SIRS+source): Infect source susp/known Criteria Outcome: Meets sepsis criteria History of Present Illness patient is a 36 y/o male who was diagnosed with osteomyelitis of the left foot last month, underwent left calcaneal resection and was discharged on IV Vancomycin and PO Levaquin per ID recommendations. he says that [facility] and was just released today. he says that while he was in halfway he missed a few days of his IV Vanco. he says that he's noticed that the redness of his left has been getting worse the past three days. he denies any fever or chills but complaining of moderate to severe pain to the left foot. Review of Systems Constitutional: DENIES: Fever, Weight loss, Chills, Night Sweats Eyes: DENIES: Blurred vision, Diplopia, Vision loss, Double Vision Ears, nose, mouth, throat: DENIES: Tinnitus, Vertigo, Throat pain, Epistaxis Respiratory: DENIES: Apneas, Cough, Snoring, Wheezing, Hemoptysis, Sputum production, Shortness of breath Cardiovascular: DENIES: Chest pain, Palpitations, Syncope, Dyspnea on Exertion , PND, Lower Extremity Edema, Orthopnea, Claudication Gastrointestinal: DENIES: Abdominal pain, Black stools, Bloody stools, Constipation, Diarrhea, Nausea, Vomiting, Difficulty Swallowing, Anorexia Genitourinary: DENIES: Urinary frequency, Urgency, Hematuria, Dysuria Musculoskeletal: COMPLAINS OF: Joint pain (left foot.), DENIES: Muscle aches, Stiffness, Joint Swelling Integumentary: DENIES: Rash Neurologic: DENIES: Abnormal gait, Headache, Localized weakness, Paresthesias, Seizures, Speech Problems, Tremor, Poor Balance Psychiatric: DENIES: Anxiety, Confusion, Mood changes, Depression, Hallucinations, Agitation, Suicidal Ideation, Homicidal Ideation, Delusions Past Family Social History Past Medical History recently-diagnosed osteomyelitis/ hepatitis C Past Surgical History calcaneal resection last month. Reported Medications Epinephrine Inj 1 Mg/Ml (1 Ml) Inj 0.3 Mg IV PUSH ONCE PRN Solu-Cortef Inj (Hydrocortisone Sodium Succinate) 250 Mg/2 Ml Inj 250 Mg IV PUSH ONCE PRN Give over 30-60 seconds. Vancomycin Inj (Vancomycin HCl) 10 Gram Inj 2,000 Mg IV Q12HR 40 Days Levaquin (Levofloxacin) 750 Mg Tablet 750 Mg PO DAILY 40 Days Reported Naproxen 500 Mg Tab 500 Mg PO DAILY Gabapentin 300 Mg Cap 300 Mg PO TID Zantac (Ranitidine HCl) 150 Mg Tab 150 Mg PO BID Xanax (Alprazolam) 2 Mg Tab 2 Mg PO DAILY PRN Dilaudid (Hydromorphone HCl) 8 Mg Tab 8 Mg PO Q6H PRN Allergies: Coded Allergies: No Known Allergies (Unverified , 06/26/17) Active Ordered Medications Inpatient Medications Metoclopramide HCl (Reglan Inj) 10 mg ONCE ONCE IV PUSH Last administered on at 19:41; Start 07/21/17 at 19:00; Stop 07/21/17 at 19:04; Status DC Morphine Sulfate (Morphine Inj) 4 mg ONCE ONCE IV PUSH Last administered on at 19:42; Start 07/21/17 at 19:00; Stop 07/21/17 at 19:04; Status DC Sodium Chloride 1,000 ml @ 999 mls/hr BOLUS ONCE IV Last administered on 07/21at 19:40; Start 07/21/17 at 19:00; Stop 07/21/17 at 20:00; Status DC Vancomycin HCl 2000 mg/Sodium Chloride 520 ml @ 257.5 mls/ hr ONCE ONCE IV Last administered on 07/21/17at 20:55; Start 07/21/17 at 19:15; Stop 07/21/17 at 21:16; Status DC Family History not relevant to this admission. Social History history of IVDA - doesn't drink.smokes a few cigarettes a day. Physical Exam Vital Signs Vital Signs Date Time Temp Pulse Resp B/P (MAP) Pulse Ox O2 Delivery O2 Flow Rate FiO2 07/21/17 20:30 98 Room Air 07/21/17 18:43 99.1 148 25 138/111 (120) 98 Physical Exam GENERAL: This is a well-nourished, well-developed patient, in no apparent distress. SKIN: No rashes, ecchymoses or lesions. Cool and dry. HEAD: Atraumatic. Normocephalic. No temporal or scalp tenderness. EYES: Pupils equal round and reactive. Extraocular motions intact. No scleral icterus. No injection or drainage. ENT: Nose without bleeding, purulent drainage or septal hematoma. Throat without erythema, tonsillar hypertrophy or exudate. Uvula midline. Airway patent. NECK: Trachea midline. No JVD or lymphadenopathy. Supple, nontender, no meningeal signs. CARDIOVASCULAR: Regular rate and rhythm without murmurs, gallops, or rubs. RESPIRATORY: Clear to auscultation. Breath sounds equal bilaterally. No wheezes , rales, or rhonchi. GASTROINTESTINAL: Abdomen soft, non-tender, nondistended. No hepato-splenomegaly , or palpable masses. No guarding. MUSCULOSKELETAL: left foot is swollen, red and somewhat tender to touch. NEUROLOGICAL: Awake and alert. Cranial nerves II through XII intact. Motor and sensory grossly within normal limits. Five out of 5 muscle strength in all muscle groups. Normal speech. Laboratory Laboratory Tests Test 07/21/17 19:40 White Blood Count 8.3 Red Blood Count 5.08 Hemoglobin 14.4 Hematocrit 41.2 Mean Corpuscular Volume 81.0 Mean Corpuscular Hemoglobin 28.4 Mean Corpuscular Hemoglobin Concent 35.1 Red Cell Distribution Width 18.3 Platelet Count 170 Mean Platelet Volume 8.3 Neutrophils (%) (Auto) 59.0 Lymphocytes (%) (Auto) 26.8 Monocytes (%) (Auto) 12.6 Eosinophils (%) (Auto) 1.2 Basophils (%) (Auto) 0.4 Neutrophils # (Auto) 4.9 Lymphocytes # (Auto) 2.2 Monocytes # (Auto) 1.0 Eosinophils # (Auto) 0.1 Basophils # (Auto) 0.0 CBC Comment DIFF FINAL Differential Comment Erythrocyte Sedimentation Rate 4 Prothrombin Time 11.2 Prothromb Time International Ratio 1.1 Activated Partial Thromboplast Time 30.4 Blood Urea Nitrogen 9 Creatinine 1.16 Random Glucose 120 Total Protein 7.4 Albumin 3.7 Calcium Level 8.5 Alkaline Phosphatase 156 Aspartate Amino Transf (AST/SGOT) 144 Alanine Aminotransferase (ALT/SGPT) 224 Total Bilirubin 0.8 Sodium Level 139 Potassium Level 4.2 Chloride Level 103 Carbon Dioxide Level 24.9 Anion Gap 11 Lactic Acid Level 2.9 C-Reactive Protein 0.98 Date/Time Source Procedure Growth Status 07/21/17 19:50 Blood Peripheral Aerobic Blood Culture Pending Received 07/21/17 19:50 Blood Peripheral Anaerobic Blood Culture Pending Received Result Diagram: 07/21/17193907/21/171939 Imaging Last Impressions Foot X-Ray 07/21/17 0000 Signed Impressions: Service Date/Time: Friday, July 21, 2017 19:08 - CONCLUSION: No definite acute bony findings MD Elder Ríos VTE Risk Assessment Elder VTE Risk Assessment: Mod/High Risk (score >= 2) Caprini Risk Assessment Model Point Value = 1 Point Value = 2 Point Value = 3 Point Value = 5 Age 41-60 Minor surgery BMI > 25 kg/m2 Swollen legs Varicose veins or History of unexplained or recurrent spontaneous Oral contraceptives or hormone replacement Sepsis (< 1 month) Serious lung disease, including pneumonia (< 1 month) Abnormal pulmonary function Acute myocardial infarction Congestive heart failure (< 1 month) History of inflammatory bowel disease Medical patient at bed rest Age 61-74 Arthroscopic surgery Major open surgery (> 45 min) Laparoscopic surgery (> 45 min) Malignancy Confined to bed (> 72 hours) Immobilizing plaster cast Central venous access Age >= 75 History of VTE Family history of VTE Factor V Leiden Prothrombin [id number] Lupus anticoagulant Anticardiolipin antibodies Elevated serum homocysteine Heparin-induced thrombocytopenia Other congenital or acquired thrombophilia Stroke (< 1 month) Elective arthroplasty Hip, pelvis, or leg fracture Acute spinal cord injury (< 1 month) Prophylaxis Regimen Total Risk Factor Score Risk Level Prophylaxis Regimen 0-1 Low Early ambulation 2 Moderate Order ONE of the following: *Sequential Compression Device (SCD) *Heparin 5000 units SQ BID 3-4 Higher Order ONE of the following medications: *Heparin 5000 units SQ TID *Enoxaparin/Lovenox 40 mg SQ daily (WT < 150 kg, CrCl > 30 mL/min) *Enoxaparin/Lovenox 30 mg SQ daily (WT < 150 kg, CrCl > 10-29 mL/min) *Enoxaparin/Lovenox 30 mg SQ BID (WT < 150 kg, CrCl > 30 mL/min) AND/OR *Sequential Compression Device (SCD) 5 or more Highest Order ONE of the following medications: *Heparin 5000 units SQ TID (Preferred with Epidurals) *Enoxaparin/Lovenox 40 mg SQ daily (WT < 150 kg, CrCl > 30 mL/min) *Enoxaparin/Lovenox 30 mg SQ daily (WT < 150 kg, CrCl > 10-29 mL/min) *Enoxaparin/Lovenox 30 mg SQ BID (WT < 150 kg, CrCl > 30 mL/min) AND *Sequential Compression Device (SCD) Assessment and Plan Assessment and Plan A/P -sepsis ( tachycardia/tachypnea) due to osteomyelitis of the left calcaneus - s/ p Left partial calcaneal resection/osteotomy, left foot incision and drainage 12/24, Pathology + for acute OM in proximal clearing margins was discharged on IV Vancomycin and PO Levaquin ( end-date ; 08/02/17 per ID)- however the patient missed a few days of his IV Vanco while he was in halfway-now with reported worsening erythema of the left foot. will resume the antibiotic regimen and will consult podiatry and ID for reevaluation. continue with pain control- -tachycardia; check EKG and place on telemetry- patient denies any chest pain or sob. -elevated LFT's- with history of Hepatitis C- will monitor- -DVT prophylaxis with subq Lovenox -case management consult to assist with dc planning. Discussed Condition With ER physician and the patient. Josseline Bernard MD July 21, 2017 22:06
[2017-07-21] MEDS ORDERED: PILL SPLITTER OTHER PRN (22:30)
[2017-07-21 22:44] VITALS: BP 122/80; PULSE 95; RESP 17; TEMP 97.8; O2SAT 98
[2017-07-21 22:55] VITALS: BP 129/87; PULSE 90; RESP 20; O2SAT 98
[2017-07-22] VITALS (9 sets, daily range): BP systolic 106–142; BP diastolic 57–81; PULSE 71–156; RESP 18–20; TEMP 97.2–102.8; O2SAT 94–99
[2017-07-22] MEDS: HYDROmorphone HCL 2 MG TAB PO PRN ×5 (00:01→18:47)
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
[2017-07-22] MEDS ORDERED: NON-FORMULARY DRUG (Ranitidine (Zantac) 150 MG) PO SCH (09:00)
[2017-07-22] MEDS: LEVOFLOXACIN 750 MG TAB PO SCH (09:26)
[2017-07-22] MEDS: FAMOTIDINE 20 MG TAB PO SCH ×2 (09:27→21:12)
[2017-07-22] MEDS: GABAPENTIN 300 MG CAP PO SCH ×3 (09:28→18:46)
[2017-07-22] MEDS: ENOXAPARIN SODIUM 40 MG/0.4 ML SYRINGE SQ SCH (09:28)
[2017-07-22] MEDS ORDERED: PANTOPRAZOLE SOD 40 MG DELAYED RELEASE TAB PO ONE (09:30)
--- NOTE | 2017-07-22 09:36 | HHI.PR ---
Subjective Remarks patient is a 36 y/o male who was diagnosed with osteomyelitis of the left foot last month, underwent left calcaneal resection and was discharged on IV Vancomycin and PO Levaquin per ID recommendations. he says that he went to the [facility] after discharged and was just released today. he says that while he was in [facility] he missed a few days of his IV Vanco. he says that he's noticed that the redness of his left has been getting worse the past three days. he denies any fever or chills but complaining of moderate to severe pain to the left foot. 07-22 PATIENT COMPLAINS OF PAIN WAS SUSPECTED OF POCKETING HIS ORAL NARCOTICS DW RN AND PT AND CM AWAIT ID EVALUATIONS AM LABS Complains of left heel pain as well as back pain which is chronic States he sees a chronic pain doctor in [place] DR SAHRA SAUCEDO? WANTS A MUSCLE RELAXER WILL START ROBAXIN PO DRUG SEEKING BEHAVIOR SEEN BY PODIATRY NO SURGERY YET Objective Vitals Vital Signs Date Time Temp Pulse Resp B/P (MAP) Pulse Ox O2 Delivery O2 Flow Rate FiO2 07/22/17 04:00 97.2 78 18 116/75 (89) 99 07/22/17 04:00 71 07/22/17 00:00 Room Air 07/22/17 00:00 100 07/21/17 23:30 Room Air 07/21/17 22:55 07/21/17 22:55 90 20 129/87 (101) 98 Room Air 07/21/17 22:44 97.8 95 17 122/80 (94) 98 07/21/17 20:30 98 Room Air 07/21/17 18:43 99.1 148 25 138/111 (120) 98 I/O 07/21/17 07/21/17 07/21/17 07/22/17 07/22/17 07/22/17 07:00 15:00 23:00 07:00 15:00 23:00 Intake Total 2000 ml 1351 ml Balance 2000 ml 1351 ml Intake Oral 831 ml IV Total 2000 ml 520 ml # Voids 3 # Bowel Movements 0 Result Diagram: 07/21/17193907/21/171939 Other Results Laboratory Tests Test 07/21/17 19:40 07/21/17 23:30 White Blood Count 8.3 TH/MM3 Red Blood Count 5.08 MIL/MM3 Hemoglobin 14.4 GM/DL Hematocrit 41.2 % Mean Corpuscular Volume 81.0 FL Mean Corpuscular Hemoglobin 28.4 PG Mean Corpuscular Hemoglobin Concent 35.1 % Red Cell Distribution Width 18.3 % Platelet Count 170 TH/MM3 Mean Platelet Volume 8.3 FL Neutrophils (%) (Auto) 59.0 % Lymphocytes (%) (Auto) 26.8 % Monocytes (%) (Auto) 12.6 % Eosinophils (%) (Auto) 1.2 % Basophils (%) (Auto) 0.4 % Neutrophils # (Auto) 4.9 TH/MM3 Lymphocytes # (Auto) 2.2 TH/MM3 Monocytes # (Auto) 1.0 TH/MM3 Eosinophils # (Auto) 0.1 TH/MM3 Basophils # (Auto) 0.0 TH/MM3 CBC Comment DIFF FINAL Differential Comment Erythrocyte Sedimentation Rate 4 mm/hr Prothrombin Time 11.2 SEC Prothromb Time International Ratio 1.1 RATIO Activated Partial Thromboplast Time 30.4 SEC Blood Urea Nitrogen 9 MG/DL Creatinine 1.16 MG/DL Random Glucose 120 MG/DL Total Protein 7.4 GM/DL Albumin 3.7 GM/DL Calcium Level 8.5 MG/DL Alkaline Phosphatase 156 U/L Aspartate Amino Transf (AST/SGOT) 144 U/L Alanine Aminotransferase (ALT/SGPT) 224 U/L Total Bilirubin 0.8 MG/DL Sodium Level 139 MEQ/L Potassium Level 4.2 MEQ/L Chloride Level 103 MEQ/L Carbon Dioxide Level 24.9 MEQ/L Anion Gap 11 MEQ/L Lactic Acid Level 2.9 mmol/L 2.6 mmol/L C-Reactive Protein 0.98 MG/DL Imaging Last Impressions Foot X-Ray 07/21/17 0000 Signed Impressions: Service Date/Time: Friday, July 21, 2017 19:08 - CONCLUSION: No definite acute bony findings Dustin Soto MD Objective Remarks GENERAL: Awake alert and oriented talkative and cooperative -appears to be seeking drugs SKIN: Warm and dry. Multiple tattoos left heel with hole in the calcaneal region HEAD: Atraumatic. Normocephalic. EYES: Pupils equal and round. No scleral icterus. No injection or drainage. Extraocular muscles intact ENT: No nasal bleeding or discharge. Mucous membranes pink and moist. Tongue is midline NECK: Trachea midline. No JVD. Supple CARDIOVASCULAR: Regular rate and rhythm. S1-S2 no S3 or S4 no heave or thrill or rub or gallop RESPIRATORY: No accessory muscle use. Clear to auscultation. Breath sounds equal bilaterally. GASTROINTESTINAL: Abdomen soft, non-tender, nondistended. Hepatic and splenic margins not palpable. MUSCULOSKELETAL: Extremities without clubbing, cyanosis, or edema. No obvious deformities. NEUROLOGICAL: Awake and alert. No obvious cranial nerve deficits. Motor grossly within normal limits. Five out of 5 muscle strength in the arms and legs. Normal speech. PSYCHIATRIC: INAppropriate mood and affect; insight and judgment ABnormal. Procedures NONE Medications and IVs Current Medications Sodium Chloride 1,000 ml @ 999 mls/hr BOLUS ONCE IV Last administered on 07/21at 19:40; Start 07/21/17 at 19:00; Stop 07/21/17 at 20:00; Status DC Sodium Chloride 1,000 ml @ 999 mls/hr BOLUS ONCE IV Last administered on 07/21at 19:40; Start 07/21/17 at 19:00; Stop 07/21/17 at 20:00; Status DC Morphine Sulfate (Morphine Inj) 4 mg ONCE ONCE IV PUSH Last administered on at 19:42; Start 07/21/17 at 19:00; Stop 07/21/17 at 19:04; Status DC Metoclopramide HCl (Reglan Inj) 10 mg ONCE ONCE IV PUSH Last administered on at 19:41; Start 07/21/17 at 19:00; Stop 07/21/17 at 19:04; Status DC Vancomycin HCl 2000 mg/Sodium Chloride 520 ml @ 257.5 mls/ hr ONCE ONCE IV Last administered on 07/21/17at 20:55; Start 07/21/17 at 19:15; Stop 07/21/17 at 21:16; Status DC Pharmacy Profile Note 0 ml @ 0 mls/hr UNSCH OTHER ; Start 07/21/17 at 22:00 Levofloxacin (Levaquin) 750 mg DAILY PO ; Start 07/22/17 at 09:00 Acetaminophen (Tylenol) 650 mg Q4H PRN PO FEVER; Start 07/21/17 at 22:00 Hydromorphone HCl (Dilaudid) 1 mg Q4H PRN PO PAIN 1-5; Start 07/21/17 at 22:00 Hydromorphone HCl (Dilaudid) 2 mg Q4H PRN PO PAIN 6-10 Last administered on at 05:06; Start 07/21/17 at 22:00 Enoxaparin Sodium (Lovenox Inj) 40 mg Q24H SQ ; Start 07/22/17 at 09:00 Alprazolam (Xanax) 2 mg DAILY PRN PO ANXIETY Last administered on 07/22/17at 00: 00; Start 07/21/17 at 22:00 Gabapentin (Neurontin) 300 mg TID PO ; Start 07/22/17 at 09:00 Non-Formulary Medication 150 mg BID PO ; Start 07/22/17 at 09:00; Status UNV Sodium Chloride 1,000 ml @ 100 mls/hr Q10H ONCE IV Last administered on at 23:58; Start 07/21/17 at 22:00; Stop 07/22/17 at 07:59; Status DC Miscellaneous (Pill Splitter) 1 ea UNSCH PRN OTHER SEE LABEL COMMENTS; Start at 22:30 Famotidine (Pepcid) 20 mg BID PO ; Start 07/22/17 at 09:00 Vancomycin HCl 900 mg/Sodium Chloride 259 ml @ 250 mls/hr Q8H IV ; Start at 14:00; Status Cancel Vancomycin HCl 900 mg/Sodium Chloride 259 ml @ 250 mls/hr Q8HR IV ; Start 07/22 at 14:00 Miscellaneous Information ([facility] Ordered Lab Info) SPECIFIC LAB TO BE DRAWN:VANCO TROUGH DATE TO BE DR... ONCE ONCE .XX ; Start 07/23/17 at 06:00; Stop 07/23/17 at 06:01 A/P Problem List: (1) Left foot infection ICD Code: L08.9 - Local infection of the skin and subcutaneous tissue, unspecified Assessment and Plan -sepsis ( tachycardia/tachypnea) due to osteomyelitis of the left calcaneus - s/ p Left partial calcaneal resection/osteotomy, left foot incision and drainage 12/24, Pathology + for acute OM in proximal clearing margins was discharged on IV Vancomycin and PO Levaquin ( end-date ; 08/02/17 per ID)- however the patient missed a few days of his IV Vanco while he was in [facility]-now with reported worsening erythema of the left foot. will resume the antibiotic regimen and will consult podiatry and ID for reevaluation. ON VANCO AND LEVAQUIN continue with pain control- HAS CHRONIC PAIN WITH PAIN PUMP -tachycardia; check EKG and place on telemetry- patient denies any chest pain or sob. -elevated LFT's- with history of Hepatitis C- will monitor- -DVT prophylaxis with subq Lovenox -case management consult to assist with dc planning. CHRONIC PAIN WITH CHRONIC PAIN PUMP- DRUG SEEKING BEHAVIOR CONTINUE ON PO PAIN MEDS ROBAXIN FOR MUSCLE RELAXERS ON CHRONIC PO PAIN MEDS GERD ADD H2 THELMA AND PPI Discharge Planning PENDING ID CLEARANCE Sumeet Rodríguez DO July 22, 2017 09:36
[2017-07-22] MEDS: METHOCARBAMOL 500 MG TAB PO SCH ×2 (11:00→18:46)
[2017-07-22] MEDS: ALPRAZolam 1 MG TAB PO PRN ×2 (12:53→18:48)
[2017-07-22] MEDS: VANCOMYCIN INJ 1,500 MG in SODIUM CHLORID 0.9% 500 ML INJ 500 ML IV SCH (13:07)
[2017-07-22] MEDS ORDERED: VANCOMYCIN INJ 900 MG in SODIUM CHLOR 0.9% 250 ML INJ 250 ML IV SCH (14:00)
[2017-07-22] MEDS ORDERED: VANCOMYCIN 0 MG/NS 250 ML IV SCH ×2 (14:00)
--- NOTE | 2017-07-22 14:46 | PD.ID.CON ---
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 I know him from previous admission I saw him in June and he was d/c'd on vanco + levauine (po) Rx x 6 weeks for MRSA/Providentia mixed infection He was discharged but soon after d/c he was jailed and missed 11 days aof abx treatment He was admitted yday when he presented c/o worsening L heel pain No fever ESR 4 WBC wnl Mildly elevated lactic acid No fevers, however T max 99.1 today Restarted on vanco + levaquine Review of Systems Except as stated in HPI: all other systems reviewed are Neg Past Family Social History Allergies: Coded Allergies: No Known Allergies (Unverified , 06/26/17) Past Medical History IVDU Hep B Henp C Past Surgical History B/L hip fractures hip surgeries nerve stimulator/ surgeries on the foot. Active Ordered Medications Medications where reviewed in EMR Antibiotics Include: levaquine vanco Family History not contributory to ID problem this admission. Social History smokes a few cigarettes/ uses marijuana/ doesn't drink. Physical Exam Vital Signs Vital Signs Date Time Temp Pulse Resp B/P (MAP) Pulse Ox O2 Delivery O2 Flow Rate FiO2 07/22/17 08:06 99.1 126 18 142/81 (101) 98 07/22/17 04:00 97.2 78 18 116/75 (89) 99 07/22/17 04:00 71 07/22/17 00:00 Room Air 07/22/17 00:00 100 07/21/17 23:30 Room Air 07/21/17 22:55 07/21/17 22:55 90 20 129/87 (101) 98 Room Air 07/21/17 22:44 97.8 95 17 122/80 (94) 98 07/21/17 20:30 98 Room Air 07/21/17 18:43 99.1 148 25 138/111 (120) 98 Physical Exam CONSTITUTIONAL/GENERAL: This is an adequately nourished patient, in no apparent distress. TUBES/LINES/DRAINS: RUE PICC looks fine SKIN: No jaundice, rashes, or lesions. Skin temperature appropriate. Not diaphoretic. HEAD: Atraumatic. Normocephalic. EYES: Pupils equal and round and reactive. Extraocular motions intact. No scleral icterus. No injection or drainage. Fundi not examined. ENT: Hearing grossly normal. Nose without bleeding or purulent drainage. Throat without visible erythema, exudates, masses, or lesions. NECK: Trachea midline. Supple, nontender. No palpable thyroid enlargement or nodularity. CARDIOVASCULAR: Regular rate and rhythm without murmurs, gallops, or rubs. No JVD. Peripheral pulses symmetric. RESPIRATORY/CHEST: Symmetric, unlabored respirations. Clear to auscultation. Breath sounds equal bilaterally. No wheezes, rales, or rhonchi. GASTROINTESTINAL: Abdomen soft, non-tender, nondistended. No hepato-splenomegaly , or palpable masses. No guarding. Bowel sounds present. GENITOURINARY: Without palpable bladder distension. Tam catheter in place. MUSCULOSKELETAL: Extremities without clubbing, cyanosis, or edema. No joint tenderness or effusion noted. No calf tenderness. No mottling or clubbing. L foot with minimla edema, no erythema, no tenderness, well healed wound with small crusty lesion in the mid calcaneoaus area LYMPHATICS: No palpable cervical or supraclavicular adenopathy. NEUROLOGICAL: Awake and alert. Motor and sensory grossly within normal limits. Follows commands. Cognitively sharp. Moves all extremities. PSYCHIATRIC: No obvious anxiety/depression. no apparent hallucinations or other psychotic thought process. Laboratory Laboratory Tests Test 07/21/17 19:40 07/21/17 23:30 White Blood Count 8.3 Red Blood Count 5.08 Hemoglobin 14.4 Hematocrit 41.2 Mean Corpuscular Volume 81.0 Mean Corpuscular Hemoglobin 28.4 Mean Corpuscular Hemoglobin Concent 35.1 Red Cell Distribution Width 18.3 Platelet Count 170 Mean Platelet Volume 8.3 Neutrophils (%) (Auto) 59.0 Lymphocytes (%) (Auto) 26.8 Monocytes (%) (Auto) 12.6 Eosinophils (%) (Auto) 1.2 Basophils (%) (Auto) 0.4 Neutrophils # (Auto) 4.9 Lymphocytes # (Auto) 2.2 Monocytes # (Auto) 1.0 Eosinophils # (Auto) 0.1 Basophils # (Auto) 0.0 CBC Comment DIFF FINAL Differential Comment Erythrocyte Sedimentation Rate 4 Prothrombin Time 11.2 Prothromb Time International Ratio 1.1 Activated Partial Thromboplast Time 30.4 Blood Urea Nitrogen 9 Creatinine 1.16 Random Glucose 120 Total Protein 7.4 Albumin 3.7 Calcium Level 8.5 Alkaline Phosphatase 156 Aspartate Amino Transf (AST/SGOT) 144 Alanine Aminotransferase (ALT/SGPT) 224 Total Bilirubin 0.8 Sodium Level 139 Potassium Level 4.2 Chloride Level 103 Carbon Dioxide Level 24.9 Anion Gap 11 Lactic Acid Level 2.9 2.6 C-Reactive Protein 0.98 Date/Time Source Procedure Growth Status 07/21/17 19:50 Blood Peripheral Aerobic Blood Culture - Preliminary NO GROWTH IN 1 DAY Resulted 07/21/17 19:50 Blood Peripheral Anaerobic Blood Culture - Preliminary NO GROWTH IN 1 DAY Resulted Result Diagram: 07/21/17 1940 07/21/17 1940 Imaging Last Impressions Foot X-Ray 07/21/17 0000 Signed Impressions: Service Date/Time: Friday, July 21, 2017 19:08 - CONCLUSION: No definite acute bony findings Dustin Soto MD Assessment and Plan Assessment and Plan L calcaneous osteo, MRSA, gram-neg - seem responding clinically cont vanco, levaquin x 6 weeks MRI Pham Alvarez MD July 22, 2017 14:46
--- NOTE | 2017-07-22 15:17 | HHI.PR ---
Addendum to Inpatient Note Additional Information MRI cancelled 2/2 nerve stimulator Pham Alvarez MD July 22, 2017 15:17
[2017-07-22] MEDS: ACETAMINOPHEN 325 MG TAB PO PRN (18:47)
[2017-07-22] MEDS ORDERED: IBUPROFEN 400 MG TAB PO ONE (21:00)
[2017-07-22] MEDS ORDERED: METOPROLOL TARTRATE 25 MG TAB PO ONE (21:00)
[2017-07-22 21:43] LABS: LACTIC ACID SEPSIS PROTOCOL 2.5 mmol/L (0.4-2.0)
--- NOTE | 2017-07-22 22:26 | EKG ---
Date Performed: 07/21/2017 Time Performed: 21:09:54 PTAGE: 36 years EKG: Sinus rhythm NORMAL ECG NO PREVIOUS TRACING DOCTOR: Tommy Ko Interpretating Date/Time 07/22/2017 22:24:34
[2017-07-22] MEDS ORDERED: SODIUM CHLOR 0.9% 1000 ML INJ 1,000 ML IV ONE (22:45)
[2017-07-22] MEDS: SODIUM CHLOR 0.9% 1000 ML INJ 1,000 ML IV SCH (22:57)
[2017-07-23] VITALS (9 sets, daily range): BP systolic 93–124; BP diastolic 51–85; PULSE 76–125; RESP 16–20; TEMP 97.3–99.8; O2SAT 92–96
[2017-07-23] MEDS: VANCOMYCIN INJ 1,500 MG in SODIUM CHLORID 0.9% 500 ML INJ 500 ML IV SCH ×3 (01:17→22:07)
[2017-07-23] MEDS: METHOCARBAMOL 500 MG TAB PO SCH ×3 (01:23→18:00)
[2017-07-23 05:22] LABS: AUTOMATED NEUTROPHIL # 6.4 TH/MM3 (1.8-7.7); BASOPHIL % 0.2 % (0.0-2.0); EOSINOPHIL % 0.1 % (0.0-4.0); HEMOGLOBIN 10.9 GM/DL (13.0-17.0); LYMPH % 10.9 % (9.0-44.0); LYMPHOCYTE # 0.9 TH/MM3 (1.0-4.8); MEAN CELL VOLUME 83.1 FL (80.0-100.0); MEAN CORPUSCULAR HEMOGLOBIN 27.5 PG (27.0-34.0); MEAN CORPUSCULAR HGB CONC 33.1 % (32.0-36.0); MEAN PLATELET VOLUME 8.8 FL (7.0-11.0); MONOCYTE # 1.1 TH/MM3 (0-0.9); NEUT % 75.8 % (16.0-70.0); PLATELET COUNT 87 TH/MM3 (150-450); RED BLOOD COUNT 3.97 MIL/MM3 (4.50-5.90); RED CELL DISTRIBUTION WIDTH 18.7 % (11.6-17.2); WHITE BLOOD COUNT 8.4 TH/MM3 (4.0-11.0)
[2017-07-23 05:45] LABS: ALBUMIN 2.8 GM/DL (3.4-5.0); ALKALINE PHOSPHATASE 110 U/L (45-117); ALT (GPT) 160 U/L (12-78); AST (GOT) 105 U/L (15-37); BICARBONATE 26.7 MEQ/L (21.0-32.0); BLOOD UREA NITROGEN 10 MG/DL (7-18); CALCIUM 7.8 MG/DL (8.5-10.1); CHLORIDE 108 MEQ/L (98-107); CREATININE 0.78 MG/DL (0.60-1.30); FREE T4 1.21 NG/DL (0.76-1.46); GLOMERULAR FILTRATION RATE 113 ML/MIN (>89); GLUCOSE,RANDOM 96 MG/DL (74-106); MAGNESIUM 1.9 MG/DL (1.5-2.5); SODIUM (NA) 144 MEQ/L (136-145); TOTAL BILIRUBIN ADULT 1.2 MG/DL (0.2-1.0); TOTAL PROTEIN 5.4 GM/DL (6.4-8.2)
[2017-07-23] MEDS ORDERED: PHARMACY ORDERED LAB ONE ×2 (06:00→12:45)
[2017-07-23] MEDS: GABAPENTIN 300 MG CAP PO SCH ×3 (08:48→18:00)
[2017-07-23] MEDS: ENOXAPARIN SODIUM 40 MG/0.4 ML SYRINGE SQ SCH (08:48)
[2017-07-23] MEDS: FAMOTIDINE 20 MG TAB PO SCH ×2 (08:48→22:08)
[2017-07-23] MEDS: LEVOFLOXACIN 750 MG TAB PO SCH (08:48)
[2017-07-23] MEDS: PANTOPRAZOLE SOD 40 MG DELAYED RELEASE TAB PO SCH (08:48)
[2017-07-23] MEDS: HYDROmorphone HCL 2 MG TAB PO PRN ×4 (09:00→23:11)
[2017-07-23] MEDS: SODIUM CHLOR 0.9% 1000 ML INJ 1,000 ML IV SCH ×2 (12:41→18:45)
--- NOTE | 2017-07-23 12:44 | HHI.IDPN ---
Subjective Subjective Remarks ID [id number] for Dr. Alvarez Patient seen and examined on behalf of Dr. 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 I know him from previous admission I saw him in June and he was d/c'd on vanco + levauine (po) Rx x 6 weeks for MRSA/Providentia mixed infection He was discharged but soon after d/c he was jailed and missed 11 days aof abx treatment He was admitted yday when he presented c/o worsening L heel pain Notes reviewed Tmax 102.8 yesterday, afebrile today patient denies any specific complaints denies any increase in back pain no fever or chills no N/V no rash no diarrhea afebrile WBC WNL Foot xray no definite bony findings Unable to have MRI 2/2 spinal cord stimulator BCX 07/21 with yeast in 03/12 btls Wound cx 06/26 +providencia rettgeri and mirella albicans Wound cx 06/16 +providencia stuartii and proteus vulgaris Wound cx 06/10 +MRSA BCX 06/10 +MRSA Antibiotics IV Vancomycin PO Levaquin Lines PIV sites x 2 with no e/o infx Past Medical History IVDU (Heather Gr) Allergies: Coded Allergies: MRI PRECAUTION (Verified Adverse Reaction, Severe, Patient states he has a neurostimulator and can't have a MRI, 07/22/17) 07/22/17 LRS Objective . Vital Signs Date Time Temp Pulse Resp B/P (MAP) Pulse Ox O2 Delivery O2 Flow Rate FiO2 07/23/17 08:06 97.4 76 16 101/51 (68) 93 07/23/17 04:00 97.3 82 20 106/53 (70) 93 07/23/17 04:00 85 07/23/17 00:00 92 07/23/17 00:00 98.0 125 20 93/63 (73) 96 07/22/17 20:00 100.4 138 20 114/57 (76) 94 07/22/17 20:00 142 07/22/17 20:00 Room Air 07/22/17 18:51 102.8 156 20 137/64 (88) 07/22/17 16:06 99.0 122 18 116/70 (85) 97 . Laboratory Tests Test 07/21/17 19:40 07/23/17 03:35 White Blood Count 8.3 TH/MM3 8.4 TH/MM3 Red Blood Count 5.08 MIL/MM3 3.97 MIL/MM3 Hemoglobin 14.4 GM/DL 10.9 GM/DL Hematocrit 41.2 % 33.0 % Mean Corpuscular Volume 81.0 FL 83.1 FL Mean Corpuscular Hemoglobin 28.4 PG 27.5 PG Mean Corpuscular Hemoglobin Concent 35.1 % 33.1 % Red Cell Distribution Width 18.3 % 18.7 % Platelet Count 170 TH/MM3 87 TH/MM3 Mean Platelet Volume 8.3 FL 8.8 FL Neutrophils (%) (Auto) 59.0 % 75.8 % Lymphocytes (%) (Auto) 26.8 % 10.9 % Monocytes (%) (Auto) 12.6 % 13.0 % Eosinophils (%) (Auto) 1.2 % 0.1 % Basophils (%) (Auto) 0.4 % 0.2 % Neutrophils # (Auto) 4.9 TH/MM3 6.4 TH/MM3 Lymphocytes # (Auto) 2.2 TH/MM3 0.9 TH/MM3 Monocytes # (Auto) 1.0 TH/MM3 1.1 TH/MM3 Eosinophils # (Auto) 0.1 TH/MM3 0.0 TH/MM3 Basophils # (Auto) 0.0 TH/MM3 0.0 TH/MM3 CBC Comment DIFF FINAL AUTO DIFF Differential Comment AUTO DIFF CONFIRMED Erythrocyte Sedimentation Rate 4 mm/hr Platelet Estimate LOW Platelet Morphology Comment ENLARGED Laboratory Tests Test 07/21/17 19:40 07/21/17 23:30 07/22/17 21:17 07/23/17 00:30 Blood Urea Nitrogen 9 MG/DL Creatinine 1.16 MG/DL Random Glucose 120 MG/DL Total Protein 7.4 GM/DL Albumin 3.7 GM/DL Calcium Level 8.5 MG/DL Alkaline Phosphatase 156 U/L Aspartate Amino Transf (AST/SGOT) 144 U/L Alanine Aminotransferase (ALT/SGPT) 224 U/L Total Bilirubin 0.8 MG/DL Sodium Level 139 MEQ/L Potassium Level 4.2 MEQ/L Chloride Level 103 MEQ/L Carbon Dioxide Level 24.9 MEQ/L Anion Gap 11 MEQ/L Lactic Acid Level 2.9 mmol/L 2.6 mmol/L 2.5 mmol/L 1.7 mmol/L C-Reactive Protein 0.98 MG/DL Test 07/23/17 03:35 Blood Urea Nitrogen 10 MG/DL Creatinine 0.78 MG/DL Random Glucose 96 MG/DL Total Protein 5.4 GM/DL Albumin 2.8 GM/DL Calcium Level 7.8 MG/DL Phosphorus Level 4.0 MG/DL Magnesium Level 1.9 MG/DL Alkaline Phosphatase 110 U/L Aspartate Amino Transf (AST/SGOT) 105 U/L Alanine Aminotransferase (ALT/SGPT) 160 U/L Total Bilirubin 1.2 MG/DL Sodium Level 144 MEQ/L Potassium Level 4.3 MEQ/L Chloride Level 108 MEQ/L Carbon Dioxide Level 26.7 MEQ/L Anion Gap 9 MEQ/L Estimat Glomerular Filtration Rate 113 ML/MIN Free Thyroxine 1.21 NG/DL Thyroid Stimulating Hormone 3rd Gen 0.219 uIU/ML Microbiology Date/Time Source Procedure Growth Status 07/21/17 19:50 Blood Peripheral Aerobic Blood Culture - Preliminary Yeast-Id To Follow Resulted 07/21/17 19:50 Blood Peripheral Anaerobic Blood Culture - Preliminary NO GROWTH IN 2 DAYS Resulted 07/21/17 19:45 Blood Peripheral Aerobic Blood Culture - Preliminary NO GROWTH IN 2 DAYS Resulted 07/21/17 19:45 Blood Peripheral Anaerobic Blood Culture - Preliminary NO GROWTH IN 2 DAYS Resulted Imaging Last Impressions Foot X-Ray 07/21/17 0000 Signed Impressions: Service Date/Time: Friday, July 21, 2017 19:08 - CONCLUSION: No definite acute bony findings Dustin Soto MD Physical Exam CONSTITUTIONAL/GENERAL: This is an adequately nourished patient, in no apparent distress. Appears lethargic, having a hard time keeping his eyes open during our conversation. Mother is at the bedside. TUBES/LINES/DRAINS: PIV with no e/o infection RUE PICC looks fine SKIN: No jaundice, rashes, or lesions. Skin temperature appropriate. Not diaphoretic. HEAD: Atraumatic. Normocephalic. EYES: Pupils equal and round and reactive. Extraocular motions intact. No scleral icterus. No injection or drainage. Fundi not examined. ENT: Hearing grossly normal. Nose without bleeding or purulent drainage. Throat without visible erythema, exudates, masses, or lesions. NECK: Trachea midline. Supple, nontender. CARDIOVASCULAR: Regular rate and rhythm without murmurs, gallops, or rubs. RESPIRATORY/CHEST: Symmetric, unlabored respirations. Clear to auscultation. Breath sounds equal bilaterally. No wheezes, rales, or rhonchi. GASTROINTESTINAL: Abdomen soft, non-tender, nondistended. No hepato-splenomegaly , or palpable masses. No guarding. Bowel sounds present. GENITOURINARY: Without palpable bladder distension. MUSCULOSKELETAL: Extremities without clubbing, cyanosis, or edema. No joint tenderness or effusion noted. No calf tenderness. No mottling or clubbing. L foot with +eschar over posterior calcaneus area with surrounding mild edema and erythema, tender to palpation. LYMPHATICS: No palpable cervical or supraclavicular adenopathy. NEUROLOGICAL: Awake and alert. Motor and sensory grossly within normal limits. Follows commands. Cognitively sharp. Moves all extremities. PSYCHIATRIC: No obvious anxiety/depression. no apparent hallucinations or other psychotic thought process. (Heather Gr) Assessment & Plan Remarks L calcaneous osteo, MRSA, gram-neg -podiatry following - no surgical intervention -wound culture + MRSA, providencia rettgeri, porvidencia stuartii, proteus vulgaris, mirella albicans MRSA bacteremia Blood cx +yeast 1/4 bottles Very lethargic during exam today Unable to have MRI 2/2 spinal cord stimulator implant RECS: Continue IV vanco and po levaquin Add IV Micafungin Blood cx x 2 stat - one from LUE PIV and one from RUE PICC line Doppler US RUE Remove PICC and send tip for culture STAT UDS Obtain 2D echocardiogram Consult ophthalmology follow up on cultures until finalized Monitor for clinical improvement Further recommendations (Heather Gr) Remarks The exam, history, and the medical decision-making described in the above note were completed with the assistance of the mid-level provider. I reviewed and agree with the findings presented. I attest that I had a [id number] encounter with the patient on the same day, and personally performed and documented my assessment and findings in the medical record. Yeast in blood/Fungemia R/o septic fungal thrombophlebitis r/o fungal endopthalmitis r/o fungal endocarditis Acute metabolic encephalopathy: sepsis, meds. Recs: DC PICC Blood cultures Doppler UE ECHO Opthalm consult: r/o fungal endopthalmitis Start Micafungin IV Continue Levaquin Continue Vanco IV dw patient and his mom with his permission She wants to take him to [place] when stable. to resume care in am. (Priscilla Scott MD) Heather Gr July 23, 2017 12:44 Priscilla Scott MD July 23, 2017 20:05
--- NOTE | 2017-07-23 15:03 | HHI.PR ---
Subjective Remarks patient is a 36 y/o male who was diagnosed with osteomyelitis of the left foot last month, underwent left calcaneal resection and was discharged on IV Vancomycin and PO Levaquin per ID recommendations. [facility] and was just [facility] today. he says that while he was in long term he missed a few days of his IV Vanco. he says that he's noticed that the redness of his left has been getting worse the past three days. he denies any fever or chills but complaining of moderate to severe pain to the left foot. 5-16 PATIENT COMPLAINS OF PAIN WAS SUSPECTED OF POCKETING HIS ORAL NARCOTICS DW RN AND PT AND CM AWAIT ID EVALUATIONS AM LABS Complains of left heel pain as well as back pain which is chronic States he sees a chronic pain doctor in [place] DR SAHRA SAUCEDO? WANTS A MUSCLE RELAXER WILL START ROBAXIN PO DRUG SEEKING BEHAVIOR SEEN BY PODIATRY NO SURGERY YET 5-17 PICC LINE NOT WORKING SUSPECT MANIPULATION DW RN AND PT AND MOTHER AND CM AND ID WILL NEED PICC PULLED US OF LEFT UPPER EXTREMITY HAS FUNGAL INFECTION IN BLOOD ON ANTIFUNGALS NOW ALSO AM LABS NOT CLEARED FOR DC DW MOTHER AND ID ON VANCO AND LEVAQUIN AND micafungin Objective Vitals Vital Signs Date Time Temp Pulse Resp B/P (MAP) Pulse Ox O2 Delivery O2 Flow Rate FiO2 07/23/17 12:06 97.3 78 16 110/54 (72) 94 07/23/17 08:06 97.4 76 16 101/51 (68) 93 07/23/17 04:00 97.3 82 20 106/53 (70) 93 07/23/17 04:00 85 07/23/17 00:00 92 07/23/17 00:00 98.0 125 20 93/63 (73) 96 07/22/17 20:00 100.4 138 20 114/57 (76) 94 07/22/17 20:00 142 07/22/17 20:00 Room Air 07/22/17 18:51 102.8 156 20 137/64 (88) 07/22/17 16:06 99.0 122 18 116/70 (85) 97 I/O 07/22/17 07/22/17 07/22/17 07/23/17 07/23/17 07/23/17 07:00 15:00 23:00 07:00 15:00 23:00 Intake Total 1351 ml 1310 ml 2765 ml Balance 1351 ml 1310 ml 2765 ml Intake Oral 831 ml 280 ml 1250 ml IV Total 520 ml 1030 ml 1515 ml # Voids 3 7 3 # Bowel Movements 0 1 Result Diagram: 07/23/17 0335 07/23/17 0335 Other Results Laboratory Tests Test 07/21/17 19:40 07/21/17 23:30 07/22/17 21:17 07/23/17 00:30 White Blood Count 8.3 TH/MM3 Red Blood Count 5.08 MIL/MM3 Hemoglobin 14.4 GM/DL Hematocrit 41.2 % Mean Corpuscular Volume 81.0 FL Mean Corpuscular Hemoglobin 28.4 PG Mean Corpuscular Hemoglobin Concent 35.1 % Red Cell Distribution Width 18.3 % Platelet Count 170 TH/MM3 Mean Platelet Volume 8.3 FL Neutrophils (%) (Auto) 59.0 % Lymphocytes (%) (Auto) 26.8 % Monocytes (%) (Auto) 12.6 % Eosinophils (%) (Auto) 1.2 % Basophils (%) (Auto) 0.4 % Neutrophils # (Auto) 4.9 TH/MM3 Lymphocytes # (Auto) 2.2 TH/MM3 Monocytes # (Auto) 1.0 TH/MM3 Eosinophils # (Auto) 0.1 TH/MM3 Basophils # (Auto) 0.0 TH/MM3 CBC Comment DIFF FINAL Differential Comment Erythrocyte Sedimentation Rate 4 mm/hr Prothrombin Time 11.2 SEC Prothromb Time International Ratio 1.1 RATIO Activated Partial Thromboplast Time 30.4 SEC Blood Urea Nitrogen 9 MG/DL Creatinine 1.16 MG/DL Random Glucose 120 MG/DL Total Protein 7.4 GM/DL Albumin 3.7 GM/DL Calcium Level 8.5 MG/DL Alkaline Phosphatase 156 U/L Aspartate Amino Transf (AST/SGOT) 144 U/L Alanine Aminotransferase (ALT/SGPT) 224 U/L Total Bilirubin 0.8 MG/DL Sodium Level 139 MEQ/L Potassium Level 4.2 MEQ/L Chloride Level 103 MEQ/L Carbon Dioxide Level 24.9 MEQ/L Anion Gap 11 MEQ/L Lactic Acid Level 2.9 mmol/L 2.6 mmol/L 2.5 mmol/L 1.7 mmol/L C-Reactive Protein 0.98 MG/DL Test 07/23/17 03:35 07/23/17 12:50 07/23/17 13:15 White Blood Count 8.4 TH/MM3 Red Blood Count 3.97 MIL/MM3 Hemoglobin 10.9 GM/DL Hematocrit 33.0 % Mean Corpuscular Volume 83.1 FL Mean Corpuscular Hemoglobin 27.5 PG Mean Corpuscular Hemoglobin Concent 33.1 % Red Cell Distribution Width 18.7 % Platelet Count 87 TH/MM3 Mean Platelet Volume 8.8 FL Neutrophils (%) (Auto) 75.8 % Lymphocytes (%) (Auto) 10.9 % Monocytes (%) (Auto) 13.0 % Eosinophils (%) (Auto) 0.1 % Basophils (%) (Auto) 0.2 % Neutrophils # (Auto) 6.4 TH/MM3 Lymphocytes # (Auto) 0.9 TH/MM3 Monocytes # (Auto) 1.1 TH/MM3 Eosinophils # (Auto) 0.0 TH/MM3 Basophils # (Auto) 0.0 TH/MM3 CBC Comment AUTO DIFF Differential Comment AUTO DIFF CONFIRMED Platelet Estimate LOW Platelet Morphology Comment ENLARGED Blood Urea Nitrogen 10 MG/DL Creatinine 0.78 MG/DL Random Glucose 96 MG/DL Total Protein 5.4 GM/DL Albumin 2.8 GM/DL Calcium Level 7.8 MG/DL Phosphorus Level 4.0 MG/DL Magnesium Level 1.9 MG/DL Alkaline Phosphatase 110 U/L Aspartate Amino Transf (AST/SGOT) 105 U/L Alanine Aminotransferase (ALT/SGPT) 160 U/L Total Bilirubin 1.2 MG/DL Sodium Level 144 MEQ/L Potassium Level 4.3 MEQ/L Chloride Level 108 MEQ/L Carbon Dioxide Level 26.7 MEQ/L Anion Gap 9 MEQ/L Estimat Glomerular Filtration Rate 113 ML/MIN Free Thyroxine 1.21 NG/DL Thyroid Stimulating Hormone 3rd Gen 0.219 uIU/ML Urine Opiates Screen POS Urine Barbiturates Screen NEG Urine Amphetamines Screen NEG Urine Benzodiazepines Screen POS Urine Cocaine Screen NEG Urine Cannabinoids Screen NEG Vancomycin Level Trough 7.4 MCG/ML Imaging Last Impressions Foot X-Ray 07/21/17 0000 Signed Impressions: Service Date/Time: Friday, July 21, 2017 19:08 - CONCLUSION: No definite acute bony findings Dustin Soto MD Objective Remarks GENERAL: Awake alert and oriented talkative and cooperative -appears to be seeking drugs- VERY LETHARGIC AFTER COMING FROM BATHROOM IN HIS ROOM SKIN: Warm and dry. Multiple tattoos ALL OVER- left heel with hole in the calcaneal region HEAD: Atraumatic. Normocephalic. EYES: Pupils equal and round. No scleral icterus. No injection or drainage. Extraocular muscles intact ENT: No nasal bleeding or discharge. Mucous membranes pink and moist. Tongue is midline NECK: Trachea midline. No JVD. Supple CARDIOVASCULAR: Regular rate and rhythm. S1-S2 no S3 or S4 no heave or thrill or rub or gallop RESPIRATORY: No accessory muscle use. Clear to auscultation. Breath sounds equal bilaterally. GASTROINTESTINAL: Abdomen soft, non-tender, nondistended. Hepatic and splenic margins not palpable. MUSCULOSKELETAL: Extremities without clubbing, cyanosis, or edema. No obvious deformities. RIGHT UE SWELLING NEUROLOGICAL: Awake and alert. No obvious cranial nerve deficits. Motor grossly within normal limits. Five out of 5 muscle strength in the arms and legs. Normal speech. PSYCHIATRIC: INAppropriate mood and affect; insight and judgment ABnormal. VERY LETHARGIC EVEN AFTER COMING OUT OF THE BATHROOM Procedures NONE Medications and IVs Current Medications Sodium Chloride 1,000 ml @ 999 mls/hr BOLUS ONCE IV Last administered on 07/21 19:40; Start 07/21/17 at 19:00; Stop 07/21/17 at 20:00; Status DC Sodium Chloride 1,000 ml @ 999 mls/hr BOLUS ONCE IV Last administered on 07/21 19:40; Start 07/21/17 at 19:00; Stop 07/21/17 at 20:00; Status DC Morphine Sulfate (Morphine Inj) 4 mg ONCE ONCE IV PUSH Last administered on 19:42; Start 07/21/17 at 19:00; Stop 07/21/17 at 19:04; Status DC Metoclopramide HCl (Reglan Inj) 10 mg ONCE ONCE IV PUSH Last administered on 19:41; Start 07/21/17 at 19:00; Stop 07/21/17 at 19:04; Status DC Vancomycin HCl 2000 mg/Sodium Chloride 520 ml @ 257.5 mls/ hr ONCE ONCE IV Last administered on 07/21/17at 20:55; Start 07/21/17 at 19:15; Stop 07/21/17 at 21:16; Status DC Pharmacy Profile Note 0 ml @ 0 mls/hr UNSCH OTHER ; Start 07/21/17 at 22:00 Levofloxacin (Levaquin) 750 mg DAILY PO Last administered on 07/23/17at 08:48; Start 07/22/17 at 09:00 Acetaminophen (Tylenol) 650 mg Q4H PRN PO FEVER Last administered on 07/22/17at 18:47; Start 07/21/17 at 22:00 Hydromorphone HCl (Dilaudid) 1 mg Q4H PRN PO PAIN 1-5; Start 07/21/17 at 22:00 ; Stop 07/22/17 at 11:31; Status DC Hydromorphone HCl (Dilaudid) 2 mg Q4H PRN PO PAIN 6-10 Last administered on at 09:27; Start 07/21/17 at 22:00; Stop 07/22/17 at 11:31; Status DC Enoxaparin Sodium (Lovenox Inj) 40 mg Q24H SQ Last administered on 07/23/17at 08 :48; Start 07/22/17 at 09:00 Alprazolam (Xanax) 2 mg DAILY PRN PO ANXIETY Last administered on 07/22/17at 00: 00; Start 07/21/17 at 22:00; Stop 07/22/17 at 11:31; Status DC Gabapentin (Neurontin) 300 mg TID PO Last administered on 07/23/17at 13:03; Start 07/22/17 at 09:00 Non-Formulary Medication 150 mg BID PO ; Start 07/22/17 at 09:00; Status UNV Sodium Chloride 1,000 ml @ 100 mls/hr Q10H ONCE IV Last administered on at 23:58; Start 07/21/17 at 22:00; Stop 07/22/17 at 07:59; Status DC Miscellaneous (Pill Splitter) 1 ea UNSCH PRN OTHER SEE LABEL COMMENTS; Start at 22:30 Famotidine (Pepcid) 20 mg BID PO Last administered on 07/23/17at 08:48; Start at 09:00 Vancomycin HCl 900 mg/Sodium Chloride 259 ml @ 250 mls/hr Q8H IV ; Start at 14:00; Status Cancel Vancomycin HCl 900 mg/Sodium Chloride 259 ml @ 250 mls/hr Q8HR IV ; Start 07/22 at 14:00; Status Cancel Miscellaneous Information ([facility] [place] Info) SPECIFIC LAB TO BE DRAWN:VANCO TROUGH DATE TO BE DR... ONCE ONCE .XX ; Start 07/23/17 at 06:00; Stop 07/23/17 at 06:01; Status Cancel Pantoprazole Sodium (Protonix) 40 mg ONCE ONCE PO Last administered on at 11:00; Start 07/22/17 at 09:30; Stop 07/22/17 at 09:40; Status DC Pantoprazole Sodium (Protonix) 40 mg DAILY PO Last administered on 07/23/17at 08 :48; Start 07/23/17 at 09:00 Methocarbamol (Robaxin) 1,000 mg Q8H PO Last administered on 07/22/17at 18:46; Start 07/22/17 at 10:00 Vancomycin HCl 1500 mg/Sodium Chloride 515 ml @ 250 mls/hr Q12H IV Last administered on 07/23/17at 13:25; Start 07/22/17 at 13:00; Stop 07/23/17 at 14:43 ; Status DC Miscellaneous Information ([facility] [place]dered Lab Info) SPECIFIC LAB TO BE DRAWN:VANCOMYCIN TROUGH DATE TO... ONCE ONCE .XX ; Start 07/23/17 at 12:45; Stop 07/23/17 at 12:46; Status DC Alprazolam (Xanax) 2 mg Q6H PRN PO ANXIETY Last administered on 07/22/17at 18:48 ; Start 07/22/17 at 11:45 Hydromorphone HCl (Dilaudid) 2 mg Q4H PRN PO PAIN 1-5 Last administered on 07/22at 18:47; Start 07/22/17 at 14:00 Hydromorphone HCl (Dilaudid) 4 mg Q4H PRN PO PAIN 6-10 Last administered on at 13:04; Start 07/22/17 at 14:00 Ibuprofen (Motrin) 400 mg ONCE ONCE PO Last administered on 07/22/17at 21:12; Start 07/22/17 at 21:00; Stop 07/22/17 at 21:01; Status DC Metoprolol Tartrate (Lopressor) 25 mg ONCE ONCE PO Last administered on at 21:12; Start 07/22/17 at 21:00; Stop 07/22/17 at 21:01; Status DC Sodium Chloride 1,000 ml @ 999 mls/hr BOLUS ONCE IV Last administered on 07/22at 22:57; Start 07/22/17 at 22:45; Stop 07/22/17 at 23:45; Status DC Sodium Chloride 1,000 ml @ 100 mls/hr Q10H IV Last administered on 07/23/17at 12:41; Start 07/22/17 at 22:45 Micafungin Sodium 150 mg/Sodium Chloride 100 ml @ 100 mls/hr Q24H IV ; Start at 15:00 Vancomycin HCl 1500 mg/Sodium Chloride 515 ml @ 250 mls/hr Q8H IV ; Start 07/23 at 21:00 Miscellaneous Information ([facility] [place] Info) SPECIFIC LAB TO BE DRAWN:VANCOMYCIN TROUGH DATE TO... ONCE ONCE .XX ; Start 07/25/17 at 04:45; Stop 07/25/17 at 04:46 A/P Problem List: (1) Left foot infection ICD Code: L08.9 - Local infection of the skin and subcutaneous tissue, unspecified (2) Noncompliance ICD Code: Z91.19 - Patient's noncompliance with other medical treatment and regimen (3) Drug-seeking behavior ICD Code: Z76.5 - Malingerer [conscious simulation] (4) Fungal infection ICD Code: B49 - Unspecified mycosis Assessment and Plan -sepsis ( tachycardia/tachypnea) due to osteomyelitis of the left calcaneus - s/ p Left partial calcaneal resection/osteotomy, left foot incision and drainage 12/24, Pathology + for acute OM in proximal clearing margins was discharged on IV Vancomycin and PO Levaquin ( end-date ; 08/02/17 per ID)- however the patient missed a few days of his IV Vanco while he was in long term-now with reported worsening erythema of the left foot. will resume the antibiotic regimen and will consult podiatry and ID for reevaluation. ON VANCO AND LEVAQUIN continue with pain control- HAS CHRONIC PAIN WITH PAIN PUMP- AND NEUROSTIMULATOR -tachycardia; check EKG and place on telemetry- patient denies any chest pain or sob. -elevated LFT's- with history of Hepatitis C- will monitor- -DVT prophylaxis with subq Lovenox -case management consult to assist with dc planning. CHRONIC PAIN WITH CHRONIC PAIN PUMP- DRUG SEEKING BEHAVIOR CONTINUE ON PO PAIN MEDS ROBAXIN FOR MUSCLE RELAXERS ON CHRONIC PO PAIN MEDS GERD ADD H2 THELMA AND PPI FUNGAL INFECTION ON micafungin SUSPECT IV/PICC MANIPULATION AND DRUG USE HERE Discharge Planning PENDING ID CLEARANCE Sumeet Rodríguez DO July 23, 2017 15:03
--- NOTE | 2017-07-23 15:18 | RADRPT ---
EXAM DATE/TIME: 07/23/2017 13:59 [facility] COMPARISON: No previous studies available for comparison. INDICATIONS : Right arm pain. MEDICAL HISTORY : Osteomyelitis. Hepatitis C. Chronic back pain. Heartburn. MRSA. Anxiety. SURGICAL HISTORY : Neurostimulator implant in back. Left calcaneal resection. ENCOUNTER: Initial ACUITY: 1 day PAIN SCORE: 0/10 LOCATION: Right arm. FINDINGS: There is spontaneous flow documented in the brachial, basilic, cephalic, axillary, and subclavian vei ns. The vessels are compressible and augmentation response is documented. No filling defects are se en. The flow is phasic with respiration. Direction of flow in the jugular vein is caudal. CONCLUSION: No evidence of DVT. Erik Mcdowell MD on July 23, 2017 at 15:16 Board Certified Radiologist. This report was verified electronically.
[2017-07-23 15:47] LABS: HEMOGLOBIN A1C 5.5 % (4.3-6.0)
[2017-07-23] MEDS: MICAFUNGIN INJ 150 MG in SODIUM CHLORIDE 0.9% INJ 100 ML IV SCH (16:19)
[2017-07-23] MEDS: ACETAMINOPHEN 325 MG TAB PO PRN (22:08)
[2017-07-24] VITALS (11 sets, daily range): BP systolic 106–124; BP diastolic 57–69; PULSE 92–139; RESP 18–20; TEMP 97.6–102.8; O2SAT 69–100
[2017-07-24] MEDS: ALPRAZolam 1 MG TAB PO PRN ×3 (00:17→20:03)
[2017-07-24] MEDS: METHOCARBAMOL 500 MG TAB PO SCH ×3 (00:21→17:38)
[2017-07-24] MEDS: ACETAMINOPHEN 325 MG TAB PO PRN (02:42)
[2017-07-24] MEDS: SODIUM CHLOR 0.9% 1000 ML INJ 1,000 ML IV SCH ×2 (04:49→14:45)
[2017-07-24] MEDS: VANCOMYCIN INJ 1,500 MG in SODIUM CHLORID 0.9% 500 ML INJ 500 ML IV SCH ×3 (04:51→20:04)
[2017-07-24] MEDS: HYDROmorphone HCL 2 MG TAB PO PRN ×2 (04:52→10:38)
[2017-07-24 05:12] LABS: BASOPHIL % 0.2 % (0.0-2.0); EOSINOPHIL % 0.1 % (0.0-4.0); HEMOGLOBIN 11.1 GM/DL (13.0-17.0); LYMPH % 13.7 % (9.0-44.0); LYMPHOCYTE # 1.1 TH/MM3 (1.0-4.8); MEAN CELL VOLUME 83.1 FL (80.0-100.0); MEAN CORPUSCULAR HGB CONC 33.7 % (32.0-36.0); MEAN PLATELET VOLUME 8.8 FL (7.0-11.0); MONO % 21.6 % (0.0-8.0); MONOCYTE # 1.7 TH/MM3 (0-0.9); NEUT % 64.4 % (16.0-70.0); PLATELET COUNT 68 TH/MM3 (150-450); RED BLOOD COUNT 3.98 MIL/MM3 (4.50-5.90); RED CELL DISTRIBUTION WIDTH 19.4 % (11.6-17.2); WHITE BLOOD COUNT 7.8 TH/MM3 (4.0-11.0)
[2017-07-24 05:35] LABS: ALBUMIN 2.7 GM/DL (3.4-5.0); ALT (GPT) 159 U/L (12-78); AST (GOT) 142 U/L (15-37); CALCIUM 7.7 MG/DL (8.5-10.1); CHLORIDE 107 MEQ/L (98-107); CREATININE 0.76 MG/DL (0.60-1.30); GLOMERULAR FILTRATION RATE 117 ML/MIN (>89); GLUCOSE,RANDOM 110 MG/DL (74-106); MAGNESIUM 1.7 MG/DL (1.5-2.5); PHOSPHORUS 3.8 MG/DL (2.5-4.9); SODIUM (NA) 142 MEQ/L (136-145)
[2017-07-24 05:37] LABS: ALKALINE PHOSPHATASE 102 U/L (45-117); BICARBONATE 26.6 MEQ/L (21.0-32.0); BLOOD UREA NITROGEN 10 MG/DL (7-18); TOTAL BILIRUBIN ADULT 1.3 MG/DL (0.2-1.0); TOTAL PROTEIN 5.5 GM/DL (6.4-8.2)
[2017-07-24] MEDS: PANTOPRAZOLE SOD 40 MG DELAYED RELEASE TAB PO SCH (08:51)
[2017-07-24] MEDS: FAMOTIDINE 20 MG TAB PO SCH ×2 (08:52→20:03)
[2017-07-24] MEDS: GABAPENTIN 300 MG CAP PO SCH ×3 (08:52→17:38)
[2017-07-24] MEDS: LEVOFLOXACIN 750 MG TAB PO SCH (08:52)
[2017-07-24 09:20] LABS: BANDS 26 % (0-6); LYMPHOCYTES 11 % (9-44); MONOCYTES 11 % (0-8); NEUTROPHIL # MANUAL DIFF 5.9 TH/MM3 (1.8-7.7); POLYS (SEG NEUTROPHILS) 50 % (16-70)
[2017-07-24 09:21] LABS: OVALOCYTES 1+ (NORMAL)
--- NOTE | 2017-07-24 10:17 | PD.CONS ---
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 Blood culture positive for yeast. Ophthalmology called to rule out fungal endophthalmitis. Pt does not have any visual complaints. Past Family Social History Allergies: Coded Allergies: MRI PRECAUTION (Verified Adverse Reaction, Severe, Patient states he has a neurostimulator and can't have a MRI, 07/22/17) 07/22/17 LRS Physical Exam Vital Signs Vital Signs Date Time Temp Pulse Resp B/P (MAP) Pulse Ox O2 Delivery O2 Flow Rate FiO2 07/24/17 08:00 98.7 117 20 106/59 (75) 94 07/24/17 04:00 98.6 99 18 122/57 (78) 94 07/24/17 03:56 108 07/24/17 00:11 121 07/24/17 00:00 102.8 128 18 124/68 (86) 94 07/23/17 21:50 99.8 07/23/17 20:30 Room Air 07/23/17 19:59 119 07/23/17 19:52 98.9 106 18 124/85 (98) 93 07/23/17 16:06 97.4 76 16 118/56 (76) 95 07/23/17 12:06 97.3 78 16 110/54 (72) 94 Physical Exam Va cc at near OD 20/20, OS 20/20 EOM full OU, no diplopia CVF full OU Pupils 2-1 no APD OU IOP normal to palpation OU Anterior exam OD - normal eyelid, C/S W&Q, K clear, AC deep, pupil round, lens clear OS - normal eyelid, C/S W&Q, K clear, AC deep, pupil round, lens clear Dilated exam OD - ON s/p/f, ves normal, vit clear, retina flat OS - ON s/p/f, ves normal, vit clear, retina flat Laboratory Laboratory Tests Test 07/23/17 12:50 07/23/17 13:15 07/24/17 04:32 Urine Opiates Screen POS Urine Barbiturates Screen NEG Urine Amphetamines Screen NEG Urine Benzodiazepines Screen POS Urine Cocaine Screen NEG Urine Cannabinoids Screen NEG Vancomycin Level Trough 7.4 White Blood Count 7.8 Red Blood Count 3.98 Hemoglobin 11.1 Hematocrit 33.0 Mean Corpuscular Volume 83.1 Mean Corpuscular Hemoglobin 28.0 Mean Corpuscular Hemoglobin Concent 33.7 Red Cell Distribution Width 19.4 Platelet Count 68 Mean Platelet Volume 8.8 Neutrophils (%) (Auto) 64.4 Lymphocytes (%) (Auto) 13.7 Monocytes (%) (Auto) 21.6 Eosinophils (%) (Auto) 0.1 Basophils (%) (Auto) 0.2 Neutrophils # (Auto) 5.0 Lymphocytes # (Auto) 1.1 Monocytes # (Auto) 1.7 Eosinophils # (Auto) 0.0 Basophils # (Auto) 0.0 CBC Comment AUTO DIFF Differential Total Cells Counted 100 Neutrophils % (Manual) 50 Band Neutrophils % 26 Lymphocytes % 11 Monocytes % 11 Eosinophils % 2 Neutrophils # (Manual) 5.9 Differential Comment FINAL DIFF MANUAL Platelet Estimate LOW Platelet Morphology Comment NORMAL Ovalocytes 1+ Blood Urea Nitrogen 10 Creatinine 0.76 Random Glucose 110 Total Protein 5.5 Albumin 2.7 Calcium Level 7.7 Phosphorus Level 3.8 Magnesium Level 1.7 Alkaline Phosphatase 102 Aspartate Amino Transf (AST/SGOT) 142 Alanine Aminotransferase (ALT/SGPT) 159 Total Bilirubin 1.3 Sodium Level 142 Potassium Level 3.8 Chloride Level 107 Carbon Dioxide Level 26.6 Anion Gap 8 Estimat Glomerular Filtration Rate 117 Date/Time Source Procedure Growth Status 07/23/17 13:15 Blood Other Aerobic Blood Culture - Preliminary Gram Negative Veto Resulted 07/23/17 13:15 Anaerobic Blood Culture - Preliminary Gram Negative Veto Resulted 07/23/17 15:27 Catheter Tip Other Wound Culture Pending Received Result Diagram: 07/24/17 0432 07/24/17 0432 Assessment and Plan Problem List: (1) Fungal sepsis ICD Codes: B49 - Unspecified mycosis Plan: No fungal endophthalmitis on exam. Elma Rice MD July 24, 2017 10:17
[2017-07-24] MEDS: ENOXAPARIN SODIUM 40 MG/0.4 ML SYRINGE SQ SCH (10:34)
[2017-07-24] MEDS ORDERED: CEFEPIME INJ 2,000 MG in SODIUM CHLORIDE 0.9% INJ 100 ML IV SCH (13:00)
--- NOTE | 2017-07-24 14:56 | HHI.PR ---
Subjective Remarks patient is a 36 y/o male who was diagnosed with osteomyelitis of the left foot last month, underwent left calcaneal resection and was discharged on IV Vancomycin and PO Levaquin per ID recommendations. he says that he [facility] the [facility] after discharged and was just released today. he says that while he was in custodial he missed a few days of his IV Vanco. he says that he's noticed that the redness of his left has been getting worse the past three days. he denies any fever or chills but complaining of moderate to severe pain to the left foot. 5-16 PATIENT COMPLAINS OF PAIN WAS SUSPECTED OF POCKETING HIS ORAL NARCOTICS DW RN AND PT AND CM AWAIT ID EVALUATIONS AM LABS Complains of left heel pain as well as back pain which is chronic States he sees a chronic pain doctor in [place] DR SAHRA SAUCEDO? WANTS A MUSCLE RELAXER WILL START ROBAXIN PO DRUG SEEKING BEHAVIOR SEEN BY PODIATRY NO SURGERY YET 5-17 PICC LINE NOT WORKING SUSPECT MANIPULATION DW RN AND PT AND MOTHER AND CM AND ID WILL NEED PICC PULLED US OF LEFT UPPER EXTREMITY HAS FUNGAL INFECTION IN BLOOD ON ANTIFUNGALS NOW ALSO AM LABS NOT CLEARED FOR DC DW MOTHER AND ID ON VANCO AND LEVAQUIN AND micafungin 5-18 FOUND TRYING TO SHOOT UP APPLESAUCE SINCE IT HAD HIS CRUSHED UP DILAUDID IN THE APPLESAUCE SEEN BY OPHTHALMOLOGY- NO VISUAL ISSUES MAY LEAVE AMA HAD A HALICAT IS BETTER DW RN AND PT AND CASE MANAGEMENT AND ID CONTINUE ANTIBIOTICS PER ID POSITIVE BLOOD CULTURES FOR GRAM NEGATIVE RODS, YEAST AND E. COLI Objective Vitals Vital Signs Date Time Temp Pulse Resp B/P (MAP) Pulse Ox O2 Delivery O2 Flow Rate FiO2 07/24/17 12:45 100.3 139 20 118/60 (79) 69 07/24/17 08:00 98.7 117 20 106/59 (75) 94 07/24/17 04:00 98.6 99 18 122/57 (78) 94 07/24/17 03:56 108 07/24/17 00:11 121 07/24/17 00:00 102.8 128 18 124/68 (86) 94 07/23/17 21:50 99.8 07/23/17 20:30 Room Air 07/23/17 19:59 119 07/23/17 19:52 98.9 106 18 124/85 (98) 93 07/23/17 16:06 97.4 76 16 118/56 (76) 95 I/O 07/23/17 07/23/17 07/23/17 07/24/17 07/24/17 07/24/17 07:00 15:00 23:00 07:00 15:00 23:00 Intake Total 2765 ml 480 ml 2720 ml Balance 2765 ml 480 ml 2720 ml Intake Oral 1250 ml 480 ml 620 ml IV Total 1515 ml 2100 ml # Voids 3 6 5 # Bowel Movements 0 1 Result Diagram: 07/24/17 0432 07/24/17 0432 Other Results Laboratory Tests Test 07/21/17 19:40 07/21/17 23:30 07/22/17 21:17 07/23/17 00:30 White Blood Count 8.3 TH/MM3 Red Blood Count 5.08 MIL/MM3 Hemoglobin 14.4 GM/DL Hematocrit 41.2 % Mean Corpuscular Volume 81.0 FL Mean Corpuscular Hemoglobin 28.4 PG Mean Corpuscular Hemoglobin Concent 35.1 % Red Cell Distribution Width 18.3 % Platelet Count 170 TH/MM3 Mean Platelet Volume 8.3 FL Neutrophils (%) (Auto) 59.0 % Lymphocytes (%) (Auto) 26.8 % Monocytes (%) (Auto) 12.6 % Eosinophils (%) (Auto) 1.2 % Basophils (%) (Auto) 0.4 % Neutrophils # (Auto) 4.9 TH/MM3 Lymphocytes # (Auto) 2.2 TH/MM3 Monocytes # (Auto) 1.0 TH/MM3 Eosinophils # (Auto) 0.1 TH/MM3 Basophils # (Auto) 0.0 TH/MM3 CBC Comment DIFF FINAL Differential Comment Erythrocyte Sedimentation Rate 4 mm/hr Prothrombin Time 11.2 SEC Prothromb Time International Ratio 1.1 RATIO Activated Partial Thromboplast Time 30.4 SEC Blood Urea Nitrogen 9 MG/DL Creatinine 1.16 MG/DL Random Glucose 120 MG/DL Total Protein 7.4 GM/DL Albumin 3.7 GM/DL Calcium Level 8.5 MG/DL Alkaline Phosphatase 156 U/L Aspartate Amino Transf (AST/SGOT) 144 U/L Alanine Aminotransferase (ALT/SGPT) 224 U/L Total Bilirubin 0.8 MG/DL Sodium Level 139 MEQ/L Potassium Level 4.2 MEQ/L Chloride Level 103 MEQ/L Carbon Dioxide Level 24.9 MEQ/L Anion Gap 11 MEQ/L Lactic Acid Level 2.9 mmol/L 2.6 mmol/L 2.5 mmol/L 1.7 mmol/L C-Reactive Protein 0.98 MG/DL Test 07/23/17 03:35 07/23/17 12:50 07/23/17 13:15 07/24/17 04:32 White Blood Count 8.4 TH/MM3 7.8 TH/MM3 Red Blood Count 3.97 MIL/MM3 3.98 MIL/MM3 Hemoglobin 10.9 GM/DL 11.1 GM/DL Hematocrit 33.0 % 33.0 % Mean Corpuscular Volume 83.1 FL 83.1 FL Mean Corpuscular Hemoglobin 27.5 PG 28.0 PG Mean Corpuscular Hemoglobin Concent 33.1 % 33.7 % Red Cell Distribution Width 18.7 % 19.4 % Platelet Count 87 TH/MM3 68 TH/MM3 Mean Platelet Volume 8.8 FL 8.8 FL Neutrophils (%) (Auto) 75.8 % 64.4 % Lymphocytes (%) (Auto) 10.9 % 13.7 % Monocytes (%) (Auto) 13.0 % 21.6 % Eosinophils (%) (Auto) 0.1 % 0.1 % Basophils (%) (Auto) 0.2 % 0.2 % Neutrophils # (Auto) 6.4 TH/MM3 5.0 TH/MM3 Lymphocytes # (Auto) 0.9 TH/MM3 1.1 TH/MM3 Monocytes # (Auto) 1.1 TH/MM3 1.7 TH/MM3 Eosinophils # (Auto) 0.0 TH/MM3 0.0 TH/MM3 Basophils # (Auto) 0.0 TH/MM3 0.0 TH/MM3 CBC Comment AUTO DIFF AUTO DIFF Differential Comment AUTO DIFF CONFIRMED FINAL DIFF MANUAL Platelet Estimate LOW LOW Platelet Morphology Comment ENLARGED NORMAL Blood Urea Nitrogen 10 MG/DL 10 MG/DL Creatinine 0.78 MG/DL 0.76 MG/DL Random Glucose 96 MG/DL 110 MG/DL Total Protein 5.4 GM/DL 5.5 GM/DL Albumin 2.8 GM/DL 2.7 GM/DL Calcium Level 7.8 MG/DL 7.7 MG/DL Phosphorus Level 4.0 MG/DL 3.8 MG/DL Magnesium Level 1.9 MG/DL 1.7 MG/DL Alkaline Phosphatase 110 U/L 102 U/L Aspartate Amino Transf (AST/SGOT) 105 U/L 142 U/L Alanine Aminotransferase (ALT/SGPT) 160 U/L 159 U/L Total Bilirubin 1.2 MG/DL 1.3 MG/DL Sodium Level 144 MEQ/L 142 MEQ/L Potassium Level 4.3 MEQ/L 3.8 MEQ/L Chloride Level 108 MEQ/L 107 MEQ/L Carbon Dioxide Level 26.7 MEQ/L 26.6 MEQ/L Anion Gap 9 MEQ/L 8 MEQ/L Estimat Glomerular Filtration Rate 113 ML/MIN 117 ML/MIN Hemoglobin A1c 5.5 % Free Thyroxine 1.21 NG/DL Thyroid Stimulating Hormone 3rd Gen 0.219 uIU/ML Urine Opiates Screen POS Urine Barbiturates Screen NEG Urine Amphetamines Screen NEG Urine Benzodiazepines Screen POS Urine Cocaine Screen NEG Urine Cannabinoids Screen NEG Vancomycin Level Trough 7.4 MCG/ML Differential Total Cells Counted 100 Neutrophils % (Manual) 50 % Band Neutrophils % 26 % Lymphocytes % 11 % Monocytes % 11 % Eosinophils % 2 % Neutrophils # (Manual) 5.9 TH/MM3 Ovalocytes 1+ Test 07/24/17 13:00 Blood Gas Puncture Site LT RADIAL Blood Gas Patient Temperature 98.6 Blood Gas HCO3 25 mmol/L Blood Gas Base Excess 0.6 mmol/L Blood Gas Oxygen Saturation 97 % Arterial Blood pH 7.42 Arterial Blood Partial Pressure CO2 39 mmHg Arterial Blood Partial Pressure O2 114 mmHg Arterial Blood Oxygen Content 15.2 Vol % Arterial Blood Carboxyhemoglobin 1.2 % Arterial Blood Methemoglobin 0.9 % Blood Gas Hemoglobin 11.1 G/DL Oxygen Delivery Device NRB Blood Gas Liter Flow 15 L/M Imaging Last Impressions Upper Extremity Ultrasound 07/23/17 0000 Signed Impressions: Service Date/Time: July 13:59 - CONCLUSION: No evidence of DVT. Erik Mcdowell MD Foot X-Ray 07/21/17 0000 Signed Impressions: Service Date/Time: Friday, July 21, 2017 19:08 - CONCLUSION: No definite acute bony findings Dustin Soto MD Objective Remarks GENERAL: Awake alert and oriented talkative and cooperative -appears to be seeking drugs- VERY LETHARGIC AFTER COMING FROM BATHROOM IN HIS ROOM SKIN: Warm and dry. Multiple tattoos ALL OVER- left heel with hole in the calcaneal region HEAD: Atraumatic. Normocephalic. EYES: Pupils equal and round. No scleral icterus. No injection or drainage. Extraocular muscles intact ENT: No nasal bleeding or discharge. Mucous membranes pink and moist. Tongue is midline NECK: Trachea midline. No JVD. Supple CARDIOVASCULAR: Regular rate and rhythm. S1-S2 no S3 or S4 no heave or thrill or rub or gallop RESPIRATORY: No accessory muscle use. Clear to auscultation. Breath sounds equal bilaterally. GASTROINTESTINAL: Abdomen soft, non-tender, nondistended. Hepatic and splenic margins not palpable. MUSCULOSKELETAL: Extremities without clubbing, cyanosis, or edema. No obvious deformities. RIGHT UE SWELLING NEUROLOGICAL: Awake and alert. No obvious cranial nerve deficits. Motor grossly within normal limits. Five out of 5 muscle strength in the arms and legs. Normal speech. PSYCHIATRIC: INAppropriate mood and affect; insight and judgment ABnormal. VERY LETHARGIC EVEN AFTER COMING OUT OF THE BATHROOM Procedures NONE Medications and IVs Current Medications Sodium Chloride 1,000 ml @ 999 mls/hr BOLUS ONCE IV Last administered on 07/21 19:40; Start 07/21/17 at 19:00; Stop 07/21/17 at 20:00; Status DC Sodium Chloride 1,000 ml @ 999 mls/hr BOLUS ONCE IV Last administered on 07/21 19:40; Start 07/21/17 at 19:00; Stop 07/21/17 at 20:00; Status DC Morphine Sulfate (Morphine Inj) 4 mg ONCE ONCE IV PUSH Last administered on 19:42; Start 07/21/17 at 19:00; Stop 07/21/17 at 19:04; Status DC Metoclopramide HCl (Reglan Inj) 10 mg ONCE ONCE IV PUSH Last administered on 19:41; Start 07/21/17 at 19:00; Stop 07/21/17 at 19:04; Status DC Vancomycin HCl 2000 mg/Sodium Chloride 520 ml @ 257.5 mls/ hr ONCE ONCE IV Last administered on 07/21/17at 20:55; Start 07/21/17 at 19:15; Stop 07/21/17 at 21:16; Status DC Pharmacy Profile Note 0 ml @ 0 mls/hr UNSCH OTHER ; Start 07/21/17 at 22:00 Levofloxacin (Levaquin) 750 mg DAILY PO Last administered on 07/24/17at 08:52; Start 07/22/17 at 09:00; Stop 07/24/17 at 11:08; Status DC Acetaminophen (Tylenol) 650 mg Q4H PRN PO FEVER Last administered on 07/24/17at 02:42; Start 07/21/17 at 22:00 Hydromorphone HCl (Dilaudid) 1 mg Q4H PRN PO PAIN 1-5; Start 07/21/17 at 22:00 ; Stop 07/22/17 at 11:31; Status DC Hydromorphone HCl (Dilaudid) 2 mg Q4H PRN PO PAIN 6-10 Last administered on at 09:27; Start 07/21/17 at 22:00; Stop 07/22/17 at 11:31; Status DC Enoxaparin Sodium (Lovenox Inj) 40 mg Q24H SQ Last administered on 07/24/17at 10 :34; Start 07/22/17 at 09:00 Alprazolam (Xanax) 2 mg DAILY PRN PO ANXIETY Last administered on 07/22/17at 00: 00; Start 07/21/17 at 22:00; Stop 07/22/17 at 11:31; Status DC Gabapentin (Neurontin) 300 mg TID PO Last administered on 07/24/17at 14:10; Start 07/22/17 at 09:00 Non-Formulary Medication 150 mg BID PO ; Start 07/22/17 at 09:00; Status UNV Sodium Chloride 1,000 ml @ 100 mls/hr Q10H ONCE IV Last administered on at 23:58; Start 07/21/17 at 22:00; Stop 07/22/17 at 07:59; Status DC Miscellaneous (Pill Splitter) 1 ea UNSCH PRN OTHER SEE LABEL COMMENTS; Start at 22:30 Famotidine (Pepcid) 20 mg BID PO Last administered on 07/24/17at 08:52; Start at 09:00 Vancomycin HCl 900 mg/Sodium Chloride 259 ml @ 250 mls/hr Q8H IV ; Start at 14:00; Status Cancel Vancomycin HCl 900 mg/Sodium Chloride 259 ml @ 250 mls/hr Q8HR IV ; Start 07/22 at 14:00; Status Cancel Miscellaneous Information ([facility]dered Lab Info) SPECIFIC LAB TO BE DRAWN:VANCO TROUGH DATE TO BE DR... ONCE ONCE .XX ; Start 07/23/17 at 06:00; Stop 07/23/17 at 06:01; Status Cancel Pantoprazole Sodium (Protonix) 40 mg ONCE ONCE PO Last administered on at 11:00; Start 07/22/17 at 09:30; Stop 07/22/17 at 09:40; Status DC Pantoprazole Sodium (Protonix) 40 mg DAILY PO Last administered on 07/24/17at 08 :51; Start 07/23/17 at 09:00 Methocarbamol (Robaxin) 1,000 mg Q8H PO Last administered on 07/24/17at 08:58; Start 07/22/17 at 10:00 Vancomycin HCl 1500 mg/Sodium Chloride 515 ml @ 250 mls/hr Q12H IV Last administered on 07/23/17at 13:25; Start 07/22/17 at 13:00; Stop 07/23/17 at 14:43 ; Status DC Miscellaneous Information ([facility]dered Lab Info) SPECIFIC LAB TO BE DRAWN:VANCOMYCIN TROUGH DATE TO... ONCE ONCE .XX ; Start 07/23/17 at 12:45; Stop 07/23/17 at 12:46; Status DC Alprazolam (Xanax) 2 mg Q6H PRN PO ANXIETY Last administered on 07/24/17at 08:53 ; Start 07/22/17 at 11:45 Hydromorphone HCl (Dilaudid) 2 mg Q4H PRN PO PAIN 1-5 Last administered on 07/24at 10:38; Start 07/22/17 at 14:00 Hydromorphone HCl (Dilaudid) 4 mg Q4H PRN PO PAIN 6-10 Last administered on at 04:52; Start 07/22/17 at 14:00 Ibuprofen (Motrin) 400 mg ONCE ONCE PO Last administered on 07/22/17at 21:12; Start 07/22/17 at 21:00; Stop 07/22/17 at 21:01; Status DC Metoprolol Tartrate (Lopressor) 25 mg ONCE ONCE PO Last administered on at 21:12; Start 07/22/17 at 21:00; Stop 07/22/17 at 21:01; Status DC Sodium Chloride 1,000 ml @ 999 mls/hr BOLUS ONCE IV Last administered on 07/22at 22:57; Start 07/22/17 at 22:45; Stop 07/22/17 at 23:45; Status DC Sodium Chloride 1,000 ml @ 100 mls/hr Q10H IV Last administered on 07/24/17at 04:49; Start 07/22/17 at 22:45 Micafungin Sodium 150 mg/Sodium Chloride 100 ml @ 100 mls/hr Q24H IV Last administered on 07/23/17at 16:19; Start 07/23/17 at 15:00 Vancomycin HCl 1500 mg/Sodium Chloride 515 ml @ 250 mls/hr Q8H IV Last administered on 07/24/17at 04:51; Start 07/23/17 at 21:00 Miscellaneous Information ([facility]dered [place] Info) SPECIFIC LAB TO BE DRAWN:VANCOMYCIN TROUGH DATE TO... ONCE ONCE .XX ; Start 07/25/17 at 04:45; Stop 07/25/17 at 04:46 Cefepime HCl 2000 mg/Sodium Chloride 100 ml @ 200 mls/hr Q8H IV Last administered on 07/24/17at 14:10; Start 07/24/17 at 13:00 A/P Problem List: (1) Left foot infection ICD Code: L08.9 - Local infection of the skin and subcutaneous tissue, unspecified (2) Noncompliance ICD Code: Z91.19 - Patient's noncompliance with other medical treatment and regimen (3) Drug-seeking behavior ICD Code: Z76.5 - Malingerer [conscious simulation] (4) Fungal infection ICD Code: B49 - Unspecified mycosis Assessment and Plan -sepsis ( tachycardia/tachypnea) due to osteomyelitis of the left calcaneus - s/ p Left partial calcaneal resection/osteotomy, left foot incision and drainage 12/24, Pathology + for acute OM in proximal clearing margins was discharged on IV Vancomycin and PO Levaquin ( end-date ; 08/02/17 per ID)- however the patient missed a few days of his IV Vanco while he was in custodial-now with reported worsening erythema of the left foot. will resume the antibiotic regimen and will consult podiatry and ID for reevaluation. ON VANCO AND LEVAQUIN and micafungin continue with pain control- HAS CHRONIC PAIN WITH PAIN PUMP- AND NEUROSTIMULATOR -tachycardia; check EKG and place on telemetry- patient denies any chest pain or sob. -elevated LFT's- with history of Hepatitis C- will monitor- -DVT prophylaxis with subq Lovenox -case management consult to assist with dc planning. CHRONIC PAIN WITH CHRONIC PAIN PUMP- DRUG SEEKING BEHAVIOR CONTINUE ON PO PAIN MEDS ROBAXIN FOR MUSCLE RELAXERS ON CHRONIC PO PAIN MEDS GERD ADD H2 THELMA AND PPI FUNGAL INFECTION ON micafungin SUSPECT IV/PICC MANIPULATION AND DRUG USE HERE Attempted to shoot up applesauce that had his Dilaudid crushed IN IT Discharge Planning PENDING ID CLEARANCE Sumeet Rodríguez DO July 24, 2017 14:56
--- NOTE | 2017-07-24 15:55 | HHI.IDPN ---
Subjective Subjective Remarks Growing Yeast 1/4 and GNB 4/4 in admission blood clx s/p attempt to shoot up applesauce that had his Dilaudid crushed IN IT + fever + hypoxia Antibiotics IV Vancomycin micafungin cefepime Lines PIV sites x 2 with no e/o infx Past Medical History IVDU Allergies: Coded Allergies: MRI PRECAUTION (Verified Adverse Reaction, Severe, Patient states he has a neurostimulator and can't have a MRI, 07/22/17) 07/22/17 LRS Objective . Vital Signs Date Time Temp Pulse Resp B/P (MAP) Pulse Ox O2 Delivery O2 Flow Rate FiO2 07/24/17 12:45 100.3 139 20 118/60 (79) 69 07/24/17 08:00 98.7 117 20 106/59 (75) 94 07/24/17 04:00 98.6 99 18 122/57 (78) 94 07/24/17 03:56 108 07/24/17 00:11 121 07/24/17 00:00 102.8 128 18 124/68 (86) 94 07/23/17 21:50 99.8 07/23/17 20:30 Room Air 07/23/17 19:59 119 07/23/17 19:52 98.9 106 18 124/85 (98) 93 07/23/17 16:06 97.4 76 16 118/56 (76) 95 . Laboratory Tests Test 07/23/17 03:35 07/24/17 04:32 White Blood Count 8.4 TH/MM3 7.8 TH/MM3 Red Blood Count 3.97 MIL/MM3 3.98 MIL/MM3 Hemoglobin 10.9 GM/DL 11.1 GM/DL Hematocrit 33.0 % 33.0 % Mean Corpuscular Volume 83.1 FL 83.1 FL Mean Corpuscular Hemoglobin 27.5 PG 28.0 PG Mean Corpuscular Hemoglobin Concent 33.1 % 33.7 % Red Cell Distribution Width 18.7 % 19.4 % Platelet Count 87 TH/MM3 68 TH/MM3 Mean Platelet Volume 8.8 FL 8.8 FL Neutrophils (%) (Auto) 75.8 % 64.4 % Lymphocytes (%) (Auto) 10.9 % 13.7 % Monocytes (%) (Auto) 13.0 % 21.6 % Eosinophils (%) (Auto) 0.1 % 0.1 % Basophils (%) (Auto) 0.2 % 0.2 % Neutrophils # (Auto) 6.4 TH/MM3 5.0 TH/MM3 Lymphocytes # (Auto) 0.9 TH/MM3 1.1 TH/MM3 Monocytes # (Auto) 1.1 TH/MM3 1.7 TH/MM3 Eosinophils # (Auto) 0.0 TH/MM3 0.0 TH/MM3 Basophils # (Auto) 0.0 TH/MM3 0.0 TH/MM3 CBC Comment AUTO DIFF AUTO DIFF Differential Comment AUTO DIFF CONFIRMED FINAL DIFF MANUAL Platelet Estimate LOW LOW Platelet Morphology Comment ENLARGED NORMAL Differential Total Cells Counted 100 Neutrophils % (Manual) 50 % Band Neutrophils % 26 % Lymphocytes % 11 % Monocytes % 11 % Eosinophils % 2 % Neutrophils # (Manual) 5.9 TH/MM3 Ovalocytes 1+ Laboratory Tests Test 07/22/17 21:17 07/23/17 00:30 07/23/17 03:35 07/24/17 04:32 Lactic Acid Level 2.5 mmol/L 1.7 mmol/L Blood Urea Nitrogen 10 MG/DL 10 MG/DL Creatinine 0.78 MG/DL 0.76 MG/DL Random Glucose 96 MG/DL 110 MG/DL Total Protein 5.4 GM/DL 5.5 GM/DL Albumin 2.8 GM/DL 2.7 GM/DL Calcium Level 7.8 MG/DL 7.7 MG/DL Phosphorus Level 4.0 MG/DL 3.8 MG/DL Magnesium Level 1.9 MG/DL 1.7 MG/DL Alkaline Phosphatase 110 U/L 102 U/L Aspartate Amino Transf (AST/SGOT) 105 U/L 142 U/L Alanine Aminotransferase (ALT/SGPT) 160 U/L 159 U/L Total Bilirubin 1.2 MG/DL 1.3 MG/DL Sodium Level 144 MEQ/L 142 MEQ/L Potassium Level 4.3 MEQ/L 3.8 MEQ/L Chloride Level 108 MEQ/L 107 MEQ/L Carbon Dioxide Level 26.7 MEQ/L 26.6 MEQ/L Anion Gap 9 MEQ/L 8 MEQ/L Estimat Glomerular Filtration Rate 113 ML/MIN 117 ML/MIN Hemoglobin A1c 5.5 % Free Thyroxine 1.21 NG/DL Thyroid Stimulating Hormone 3rd Gen 0.219 uIU/ML Microbiology Date/Time Source Procedure Growth Status 07/23/17 13:15 Blood Other Aerobic Blood Culture - Preliminary Escherichia Coli ESBL Resulted 07/23/17 13:15 Anaerobic Blood Culture - Preliminary Gram Negative Veto Resulted 07/23/17 13:07 Blood Peripheral Aerobic Blood Culture - Preliminary Gram Negative Veto Resulted 07/23/17 13:07 Anaerobic Blood Culture - Preliminary Gram Negative Veto Resulted 07/21/17 19:50 Blood Peripheral Aerobic Blood Culture - Preliminary Yeast-Id To Follow Resulted 07/21/17 19:50 Blood Peripheral Anaerobic Blood Culture - Preliminary NO GROWTH IN 3 DAYS Resulted 07/21/17 19:45 Blood Peripheral Aerobic Blood Culture - Preliminary NO GROWTH IN 3 DAYS Resulted 07/21/17 19:45 Blood Peripheral Anaerobic Blood Culture - Preliminary NO GROWTH IN 3 DAYS Resulted 07/23/17 15:27 Catheter Tip Other Wound Culture - Preliminary NO GROWTH IN 24 HOURS. Resulted Imaging Last Impressions Upper Extremity Ultrasound 07/23/17 0000 Signed Impressions: Service Date/Time: July 13:59 - CONCLUSION: No evidence of DVT. Erik Mcdowell MD Foot X-Ray 07/21/17 0000 Signed Impressions: Service Date/Time: Friday, July 21, 2017 19:08 - CONCLUSION: No definite acute bony findings Dustin Soto MD Physical Exam CONSTITUTIONAL/GENERAL: This is an adequately nourished patient, in no apparent distress. Appears lethargic, having a hard time keeping his eyes open during our conversation. Mother is at the bedside. TUBES/LINES/DRAINS: PIV with no e/o infection Lumbar area with neurostimulator on the R - no skin chages, no sweeling, no redness or tenderness RUE PICC removed previous site looks ok SKIN: No jaundice, rashes, or lesions. Skin temperature appropriate. Not diaphoretic. EYES: Pupils equal and round and reactive. Extraocular motions intact. No scleral icterus. No injection or drainage. Fundi not examined. ENT: Hearing grossly normal. Nose without bleeding or purulent drainage. Throat without visible erythema, exudates, masses, or lesions. NECK: Trachea midline. Supple, nontender. CARDIOVASCULAR: Regular rate and rhythm without murmurs, gallops, or rubs. RESPIRATORY/CHEST: Symmetric, unlabored respirations. Clear to auscultation. Breath sounds equal bilaterally. No wheezes, rales, or rhonchi. GASTROINTESTINAL: Abdomen soft, non-tender, nondistended. No hepato-splenomegaly , or palpable masses. No guarding. Bowel sounds present. GENITOURINARY: Without palpable bladder distension. MUSCULOSKELETAL: Extremities without clubbing, cyanosis, or edema. No joint tenderness or effusion noted. No calf tenderness. No mottling or clubbing. L foot with +eschar over posterior calcaneus area with surrounding mild edema and erythema, not tender to palpation. LYMPHATICS: No palpable cervical or supraclavicular adenopathy. NEUROLOGICAL: Awake and alert. Motor and sensory grossly within normal limits. Follows commands. Cognitively sharp. Moves all extremities. PSYCHIATRIC: No obvious anxiety/depression. no apparent hallucinations or other psychotic thought process. Assessment & Plan Remarks T Yeast in blood/Fungemia R/o septic fungal thrombophlebitis: ophthaslm consulted r/o fungal endopthalmitis r/o fungal endocarditis Acute metabolic encephalopathy: sepsis, meds. ESBL E coli sepsis Resp distress, s/p shooting apple sause with crushed dilauidid -new acute hypoxia after attempted shooting up apple sause Recs: fu Blood cultures Meropenem dc cefepime ECHO Opthalm consult: r/o fungal endopthalmitis cont Micafungin IV cContinue Vanco IV CXR Dw Dr Lakesha batres RN dw charge nurse . Pham Alvarez MD July 24, 2017 15:55
[2017-07-24] MEDS ORDERED: ASP: Documented ESBL, MDR A baumannii or P. aeruginosa PRN ×2 (16:00→16:15)
[2017-07-24] MEDS ORDERED: PHARMACY INFORMATION XX PRN ×2 (16:00→16:15)
--- NOTE | 2017-07-24 16:52 | RADRPT ---
EXAM DATE/TIME: 07/24/2017 16:26 [facility] COMPARISON: No previous studies available for comparison. INDICATIONS : Shortness of breath. MEDICAL HISTORY : None. SURGICAL HISTORY : None. ENCOUNTER: Initial ACUITY: 1 day PAIN SCORE: 0/10 LOCATION: Bilateral chest FINDINGS: There is patchy basilar airspace disease bilaterally. No effusions. Cardiomegaly. Respiratory motion artifact. Spinal stimulator leads are present. CONCLUSION: Patchy basilar airspace disease suspected. López Dias MD on July 24, 2017 at 16:50 Board Certified Radiologist. This report was verified electronically.
[2017-07-24] MEDS ORDERED: ERTAPENEM INJ 1,000 MG in SODIUM CHLORIDE 0.9% INJ 100 ML IV SCH (17:00)
[2017-07-24] MEDS: MEROPENEM INJ 1,000 MG in SODIUM CHLORIDE 0.9% INJ 100 ML IV SCH (17:38)
[2017-07-24] MEDS: MICAFUNGIN INJ 150 MG in SODIUM CHLORIDE 0.9% INJ 100 ML IV SCH (18:39)
[2017-07-25] VITALS (13 sets, daily range): BP systolic 109–142; BP diastolic 53–82; PULSE 83–125; RESP 17–21; TEMP 97.3–100.8; O2SAT 95–100
[2017-07-25] MEDS: MEROPENEM INJ 1,000 MG in SODIUM CHLORIDE 0.9% INJ 100 ML IV SCH ×3 (00:58→17:35)
[2017-07-25] MEDS: SODIUM CHLOR 0.9% 1000 ML INJ 1,000 ML IV SCH ×3 (00:58→21:55)
[2017-07-25] MEDS: METHOCARBAMOL 500 MG TAB PO SCH ×3 (01:02→17:34)
[2017-07-25] MEDS: ACETAMINOPHEN 325 MG TAB PO PRN ×2 (01:09→05:11)
[2017-07-25] MEDS: ALPRAZolam 1 MG TAB PO PRN ×5 (02:55→23:37)
[2017-07-25] MEDS: VANCOMYCIN INJ 1,500 MG in SODIUM CHLORID 0.9% 500 ML INJ 500 ML IV SCH (04:38)
[2017-07-25] MEDS ORDERED: PHARMACY ORDERED LAB ONE (04:45)
[2017-07-25] MEDS: PANTOPRAZOLE SOD 40 MG DELAYED RELEASE TAB PO SCH (08:55)
[2017-07-25] MEDS: GABAPENTIN 300 MG CAP PO SCH ×3 (08:55→17:35)
[2017-07-25] MEDS: FAMOTIDINE 20 MG TAB PO SCH ×2 (08:56→21:56)
[2017-07-25] MEDS: ENOXAPARIN SODIUM 40 MG/0.4 ML SYRINGE SQ SCH (08:56)
--- NOTE | 2017-07-25 11:40 | HHI.PR ---
Subjective Remarks patient is a 36 y/o male who was diagnosed with osteomyelitis of the left foot last month, underwent left calcaneal resection and was discharged on IV Vancomycin and PO Levaquin per ID recommendations. he says that [facility] and was just released today. he says that while he was in senior care he missed a few days of his IV Vanco. he says that he's noticed that the redness of his left has been getting worse the past three days. he denies any fever or chills but complaining of moderate to severe pain to the left foot. 5-16 PATIENT COMPLAINS OF PAIN WAS SUSPECTED OF POCKETING HIS ORAL NARCOTICS DW RN AND PT AND CM AWAIT ID EVALUATIONS AM LABS Complains of left heel pain as well as back pain which is chronic States he sees a chronic pain doctor in [place] DR SAHRA SAUCEDO? WANTS A MUSCLE RELAXER WILL START ROBAXIN PO DRUG SEEKING BEHAVIOR SEEN BY PODIATRY NO SURGERY YET 5-17 PICC LINE NOT WORKING SUSPECT MANIPULATION DW RN AND PT AND MOTHER AND CM AND ID WILL NEED PICC PULLED US OF LEFT UPPER EXTREMITY HAS FUNGAL INFECTION IN BLOOD ON ANTIFUNGALS NOW ALSO AM LABS NOT CLEARED FOR DC DW MOTHER AND ID ON VANCO AND LEVAQUIN AND micafungin 5-18 FOUND TRYING TO SHOOT UP APPLESAUCE SINCE IT HAD HIS CRUSHED UP DILAUDID IN THE APPLESAUCE SEEN BY OPHTHALMOLOGY- NO VISUAL ISSUES MAY LEAVE AMA HAD A HALICAT IS BETTER DW RN AND PT AND CASE MANAGEMENT AND ID CONTINUE ANTIBIOTICS PER ID POSITIVE BLOOD CULTURES FOR GRAM NEGATIVE RODS, YEAST AND E. COLI 5-19 LETHARGIC TODAY DW RN AND PT AND MOTHER AND ID AM LABS CONTINUE ON OXYGEN ? ASPIRATION VS REACTION TO INJECTED APPLESAUCE Objective Vitals Vital Signs Date Time Temp Pulse Resp B/P (MAP) Pulse Ox O2 Delivery O2 Flow Rate FiO2 07/25/17 08:00 97.3 91 20 127/69 (88) 96 07/25/17 08:00 88 07/25/17 04:30 94 Nasal Cannula 6.00 Humidified 07/25/17 04:00 100.8 125 19 115/53 (73) 95 07/25/17 03:43 121 07/25/17 01:06 99.7 07/25/17 00:00 98.3 103 17 122/70 (87) 99 07/24/17 20:00 97.6 92 18 107/69 (82) 100 07/24/17 19:43 105 07/24/17 19:30 Simple Mask 8.00 07/24/17 16:26 99.1 119 20 108/61 (77) 91 07/24/17 16:00 109 07/24/17 12:45 100.3 139 20 118/60 (79) 69 07/24/17 12:00 128 I/O 07/24/17 07/24/17 07/24/17 07/25/17 07/25/17 07/25/17 07:00 15:00 23:00 07:00 15:00 23:00 Intake Total 2720 ml 100 ml 1195 ml Output Total 550 ml Balance 2720 ml 100 ml 1195 ml -550 ml Intake Oral 620 ml 480 ml IV Total 2100 ml 100 ml 715 ml Output Urine Total 550 ml # Voids 5 3 3 # Bowel Movements 1 0 Result Diagram: 07/24/17 0432 07/24/17 0432 Other Results Laboratory Tests Test 07/22/17 21:17 07/23/17 00:30 07/23/17 03:35 07/23/17 12:50 Lactic Acid Level 2.5 mmol/L 1.7 mmol/L White Blood Count 8.4 TH/MM3 Red Blood Count 3.97 MIL/MM3 Hemoglobin 10.9 GM/DL Hematocrit 33.0 % Mean Corpuscular Volume 83.1 FL Mean Corpuscular Hemoglobin 27.5 PG Mean Corpuscular Hemoglobin Concent 33.1 % Red Cell Distribution Width 18.7 % Platelet Count 87 TH/MM3 Mean Platelet Volume 8.8 FL Neutrophils (%) (Auto) 75.8 % Lymphocytes (%) (Auto) 10.9 % Monocytes (%) (Auto) 13.0 % Eosinophils (%) (Auto) 0.1 % Basophils (%) (Auto) 0.2 % Neutrophils # (Auto) 6.4 TH/MM3 Lymphocytes # (Auto) 0.9 TH/MM3 Monocytes # (Auto) 1.1 TH/MM3 Eosinophils # (Auto) 0.0 TH/MM3 Basophils # (Auto) 0.0 TH/MM3 CBC Comment AUTO DIFF Differential Comment AUTO DIFF CONFIRMED Platelet Estimate LOW Platelet Morphology Comment ENLARGED Blood Urea Nitrogen 10 MG/DL Creatinine 0.78 MG/DL Random Glucose 96 MG/DL Total Protein 5.4 GM/DL Albumin 2.8 GM/DL Calcium Level 7.8 MG/DL Phosphorus Level 4.0 MG/DL Magnesium Level 1.9 MG/DL Alkaline Phosphatase 110 U/L Aspartate Amino Transf (AST/SGOT) 105 U/L Alanine Aminotransferase (ALT/SGPT) 160 U/L Total Bilirubin 1.2 MG/DL Sodium Level 144 MEQ/L Potassium Level 4.3 MEQ/L Chloride Level 108 MEQ/L Carbon Dioxide Level 26.7 MEQ/L Anion Gap 9 MEQ/L Estimat Glomerular Filtration Rate 113 ML/MIN Hemoglobin A1c 5.5 % Free Thyroxine 1.21 NG/DL Thyroid Stimulating Hormone 3rd Gen 0.219 uIU/ML Urine Opiates Screen POS Urine Barbiturates Screen NEG Urine Amphetamines Screen NEG Urine Benzodiazepines Screen POS Urine Cocaine Screen NEG Urine Cannabinoids Screen NEG Test 07/23/17 13:15 07/24/17 04:32 07/24/17 13:00 07/25/17 04:25 Vancomycin Level Trough 7.4 MCG/ML 10.5 MCG/ML White Blood Count 7.8 TH/MM3 Red Blood Count 3.98 MIL/MM3 Hemoglobin 11.1 GM/DL Hematocrit 33.0 % Mean Corpuscular Volume 83.1 FL Mean Corpuscular Hemoglobin 28.0 PG Mean Corpuscular Hemoglobin Concent 33.7 % Red Cell Distribution Width 19.4 % Platelet Count 68 TH/MM3 Mean Platelet Volume 8.8 FL Neutrophils (%) (Auto) 64.4 % Lymphocytes (%) (Auto) 13.7 % Monocytes (%) (Auto) 21.6 % Eosinophils (%) (Auto) 0.1 % Basophils (%) (Auto) 0.2 % Neutrophils # (Auto) 5.0 TH/MM3 Lymphocytes # (Auto) 1.1 TH/MM3 Monocytes # (Auto) 1.7 TH/MM3 Eosinophils # (Auto) 0.0 TH/MM3 Basophils # (Auto) 0.0 TH/MM3 CBC Comment AUTO DIFF Differential Total Cells Counted 100 Neutrophils % (Manual) 50 % Band Neutrophils % 26 % Lymphocytes % 11 % Monocytes % 11 % Eosinophils % 2 % Neutrophils # (Manual) 5.9 TH/MM3 Differential Comment FINAL DIFF MANUAL Platelet Estimate LOW Platelet Morphology Comment NORMAL Ovalocytes 1+ Blood Urea Nitrogen 10 MG/DL Creatinine 0.76 MG/DL Random Glucose 110 MG/DL Total Protein 5.5 GM/DL Albumin 2.7 GM/DL Calcium Level 7.7 MG/DL Phosphorus Level 3.8 MG/DL Magnesium Level 1.7 MG/DL Alkaline Phosphatase 102 U/L Aspartate Amino Transf (AST/SGOT) 142 U/L Alanine Aminotransferase (ALT/SGPT) 159 U/L Total Bilirubin 1.3 MG/DL Sodium Level 142 MEQ/L Potassium Level 3.8 MEQ/L Chloride Level 107 MEQ/L Carbon Dioxide Level 26.6 MEQ/L Anion Gap 8 MEQ/L Estimat Glomerular Filtration Rate 117 ML/MIN Blood Gas Puncture Site LT RADIAL Blood Gas Patient Temperature 98.6 Blood Gas HCO3 25 mmol/L Blood Gas Base Excess 0.6 mmol/L Blood Gas Oxygen Saturation 97 % Arterial Blood pH 7.42 Arterial Blood Partial Pressure CO2 39 mmHg Arterial Blood Partial Pressure O2 114 mmHg Arterial Blood Oxygen Content 15.2 Vol % Arterial Blood Carboxyhemoglobin 1.2 % Arterial Blood Methemoglobin 0.9 % Blood Gas Hemoglobin 11.1 G/DL Oxygen Delivery Device NRB Blood Gas Liter Flow 15 L/M Imaging Last Impressions Chest X-Ray 07/24/17 0000 Signed Impressions: Service Date/Time: Monday, July 24, 2017 16:26 - CONCLUSION: Patchy basilar airspace disease suspected. López Dias MD Upper Extremity Ultrasound 07/23/17 0000 Signed Impressions: Service Date/Time: July 13:59 - CONCLUSION: No evidence of DVT. Erik Mcdowell MD Foot X-Ray 07/21/17 0000 Signed Impressions: Service Date/Time: Friday, July 21, 2017 19:08 - CONCLUSION: No definite acute bony findings Dustin Soto MD Objective Remarks GENERAL: NOT VERY Awake OR alert OR talkative and cooperative -appears to be seeking drugs- VERY LETHARGIC AFTER COMING FROM BATHROOM IN HIS ROOM-- REMAINS LETHARGIC TODAY SKIN: Warm and dry. Multiple tattoos ALL OVER- left heel with hole in the calcaneal region HEAD: Atraumatic. Normocephalic. EYES: Pupils equal and round. No scleral icterus. No injection or drainage. Extraocular muscles intact ENT: No nasal bleeding or discharge. Mucous membranes pink and moist. Tongue is midline NECK: Trachea midline. No JVD. Supple CARDIOVASCULAR: Regular rate and rhythm. S1-S2 no S3 or S4 no heave or thrill or rub or gallop RESPIRATORY: No accessory muscle use. Clear to auscultation. Breath sounds equal bilaterally. GASTROINTESTINAL: Abdomen soft, non-tender, nondistended. Hepatic and splenic margins not palpable. MUSCULOSKELETAL: Extremities without clubbing, cyanosis, or edema. No obvious deformities. RIGHT UE SWELLING NEUROLOGICAL: Awake and alert. No obvious cranial nerve deficits. Motor grossly within normal limits. Five out of 5 muscle strength in the arms and legs. Normal speech. PSYCHIATRIC: INAppropriate mood and affect; insight and judgment ABnormal. VERY LETHARGIC AT THIS TIME Procedures NONE Medications and IVs Current Medications Sodium Chloride 1,000 ml @ 999 mls/hr BOLUS ONCE IV Last administered on 07/21at 19:40; Start 07/21/17 at 19:00; Stop 07/21/17 at 20:00; Status DC Sodium Chloride 1,000 ml @ 999 mls/hr BOLUS ONCE IV Last administered on 07/21at 19:40; Start 07/21/17 at 19:00; Stop 07/21/17 at 20:00; Status DC Morphine Sulfate (Morphine Inj) 4 mg ONCE ONCE IV PUSH Last administered on at 19:42; Start 07/21/17 at 19:00; Stop 07/21/17 at 19:04; Status DC Metoclopramide HCl (Reglan Inj) 10 mg ONCE ONCE IV PUSH Last administered on at 19:41; Start 07/21/17 at 19:00; Stop 07/21/17 at 19:04; Status DC Vancomycin HCl 2000 mg/Sodium Chloride 520 ml @ 257.5 mls/ hr ONCE ONCE IV Last administered on 07/21/17at 20:55; Start 07/21/17 at 19:15; Stop 07/21/17 at 21:16; Status DC Pharmacy Profile Note 0 ml @ 0 mls/hr UNSCH OTHER ; Start 07/21/17 at 22:00 Levofloxacin (Levaquin) 750 mg DAILY PO Last administered on 07/24/17at 08:52; Start 07/22/17 at 09:00; Stop 07/24/17 at 11:08; Status DC Acetaminophen (Tylenol) 650 mg Q4H PRN PO FEVER Last administered on 07/25/17at 05:11; Start 07/21/17 at 22:00 Hydromorphone HCl (Dilaudid) 1 mg Q4H PRN PO PAIN 1-5; Start 07/21/17 at 22:00 ; Stop 07/22/17 at 11:31; Status DC Hydromorphone HCl (Dilaudid) 2 mg Q4H PRN PO PAIN 6-10 Last administered on at 09:27; Start 07/21/17 at 22:00; Stop 07/22/17 at 11:31; Status DC Enoxaparin Sodium (Lovenox Inj) 40 mg Q24H SQ Last administered on 07/25/17at 08 :56; Start 07/22/17 at 09:00 Alprazolam (Xanax) 2 mg DAILY PRN PO ANXIETY Last administered on 07/22/17at 00: 00; Start 07/21/17 at 22:00; Stop 07/22/17 at 11:31; Status DC Gabapentin (Neurontin) 300 mg TID PO Last administered on 07/25/17at 08:55; Start 07/22/17 at 09:00 Non-Formulary Medication 150 mg BID PO ; Start 07/22/17 at 09:00; Status UNV Sodium Chloride 1,000 ml @ 100 mls/hr Q10H ONCE IV Last administered on at 23:58; Start 07/21/17 at 22:00; Stop 07/22/17 at 07:59; Status DC Miscellaneous (Pill Splitter) 1 ea UNSCH PRN OTHER SEE LABEL COMMENTS; Start at 22:30 Famotidine (Pepcid) 20 mg BID PO Last administered on 07/25/17at 08:56; Start at 09:00 Vancomycin HCl 900 mg/Sodium Chloride 259 ml @ 250 mls/hr Q8H IV ; Start at 14:00; Status Cancel Vancomycin HCl 900 mg/Sodium Chloride 259 ml @ 250 mls/hr Q8HR IV ; Start 07/22 at 14:00; Status Cancel Miscellaneous Information [place] [place] Info[place] SPECIFIC LAB TO BE DRAWN:VANCO TROUGH DATE TO BE DRElvira.. ONCE ONCE .XX ; Start 07/23/17 at 06:00; Stop 07/23/17 at 06:01; Status Cancel Pantoprazole Sodium (Protonix) 40 mg ONCE ONCE PO Last administered on at 11:00; Start 07/22/17 at 09:30; Stop 07/22/17 at 09:40; Status DC Pantoprazole Sodium (Protonix) 40 mg DAILY PO Last administered on 07/25/17at 08 :55; Start 07/23/17 at 09:00 Methocarbamol (Robaxin) 1,000 mg Q8H PO Last administered on 07/25/17at 09:03; Start 07/22/17 at 10:00 Vancomycin HCl 1500 mg/Sodium Chloride 515 ml @ 250 mls/hr Q12H IV Last administered on 07/23/17at 13:25; Start 07/22/17 at 13:00; Stop 07/23/17 at 14:43 ; Status DC Miscellaneous Information ([facility] [place] Info) SPECIFIC LAB TO BE DRAWN:VANCOMYCIN TROUGH DATE TO... ONCE ONCE .XX ; Start 07/23/17 at 12:45; Stop 07/23/17 at 12:46; Status DC Alprazolam (Xanax) 2 mg Q6H PRN PO ANXIETY Last administered on 07/25/17at 08:56 ; Start 07/22/17 at 11:45 Hydromorphone HCl (Dilaudid) 2 mg Q4H PRN PO PAIN 1-5 Last administered on 07/24at 10:38; Start 07/22/17 at 14:00 Hydromorphone HCl (Dilaudid) 4 mg Q4H PRN PO PAIN 6-10 Last administered on at 04:52; Start 07/22/17 at 14:00 Ibuprofen (Motrin) 400 mg ONCE ONCE PO Last administered on 07/22/17at 21:12; Start 07/22/17 at 21:00; Stop 07/22/17 at 21:01; Status DC Metoprolol Tartrate (Lopressor) 25 mg ONCE ONCE PO Last administered on at 21:12; Start 07/22/17 at 21:00; Stop 07/22/17 at 21:01; Status DC Sodium Chloride 1,000 ml @ 999 mls/hr BOLUS ONCE IV Last administered on 07/22at 22:57; Start 07/22/17 at 22:45; Stop 07/22/17 at 23:45; Status DC Sodium Chloride 1,000 ml @ 100 mls/hr Q10H IV Last administered on 07/25/17at 00:58; Start 07/22/17 at 22:45 Micafungin Sodium 150 mg/Sodium Chloride 100 ml @ 100 mls/hr Q24H IV Last administered on 07/24/17at 18:39; Start 07/23/17 at 15:00 Vancomycin HCl 1500 mg/Sodium Chloride 515 ml @ 250 mls/hr Q8H IV Last administered on 07/25/17at 04:38; Start 07/23/17 at 21:00; Stop 07/25/17 at 09:42 ; Status DC Miscellaneous Information [place] [place] Info) SPECIFIC LAB TO BE DRAWN:VANCOMYCIN TROUGH DATE TO... ONCE ONCE .XX Last administered on at 04:37; Start 07/25/17 at 04:45; Stop 07/25/17 at 04:46; Status DC Cefepime HCl 2000 mg/Sodium Chloride 100 ml @ 200 mls/hr Q8H IV Last administered on 07/24/17at 14:10; Start 07/24/17 at 13:00; Stop 07/24/17 at 16:00 ; Status DC Miscellaneous Medication (ASP Crit: Doc ESBL, MDR A baumannii or P aer) 1 UNSCH X1 PRN .XX PHARMACY DOCUMENTATION; Start 07/24/17 at 16:00; Stop 07/24/17 at 16 :04; Status DC Miscellaneous Medication ([facility] [place]) 1 UNSCH X1 PRN XX PHARMACY DOCUMENTATION; Start 07/24/17 at 16:00; Stop 07/24/17 at 16:04; Status DC Ertapenem 1000 mg/ Sodium Chloride 100 ml @ 200 mls/hr Q24H IV ; Start at 17:00; Stop 07/24/17 at 17:00; Status DC Miscellaneous Medication (ASP Crit: Doc ESBL, MDR A baumannii or P aer) 1 UNSCH X1 PRN .XX PHARMACY DOCUMENTATION; Start 07/24/17 at 16:15; Stop 07/25/17 at 16 :14 Miscellaneous Medication ([facility] [place] 1 UNSCH X1 PRN XX PHARMACY DOCUMENTATION; Start 07/24/17 at 16:15; Stop 07/25/17 at 16:14 Meropenem 1000 mg/ Sodium Chloride 100 ml @ 200 mls/hr Q8H IV Last administered on 07/25/17at 08:57; Start 07/24/17 at 17:00 Vancomycin HCl 1750 mg/Sodium Chloride 517.5 ml @ 250 mls/hr Q8H IV ; Start at 13:00 Miscellaneous Information ([facility] Ordered [place] Info) SPECIFIC LAB TO BE MARIAM... ONCE ONCE .XX ; Start 07/26/17 at 12:45; Stop 07/26/17 at 12:46 A/P Problem List: (1) Left foot infection ICD Code: L08.9 - Local infection of the skin and subcutaneous tissue, unspecified (2) Noncompliance ICD Code: Z91.19 - Patient's noncompliance with other medical treatment and regimen (3) Drug-seeking behavior ICD Code: Z76.5 - Malingerer [conscious simulation] (4) Fungal infection ICD Code: B49 - Unspecified mycosis Assessment and Plan -sepsis ( tachycardia/tachypnea) due to osteomyelitis of the left calcaneus - s/ p Left partial calcaneal resection/osteotomy, left foot incision and drainage 12/24, Pathology + for acute OM in proximal clearing margins was discharged on IV Vancomycin and PO Levaquin ( end-date ; 08/02/17 per ID)- however the patient missed a few days of his IV Vanco while he was in senior care-now with reported worsening erythema of the left foot. will resume the antibiotic regimen and will consult podiatry and ID for reevaluation. ON VANCO AND MERREM and micafungin HERE IN HOSPITAL continue with pain control- HAS CHRONIC PAIN WITH NEUROSTIMULATOR -tachycardia; check EKG and place on telemetry- patient denies any chest pain or sob. -elevated LFT's- with history of Hepatitis C- will monitor- -DVT prophylaxis with subq Lovenox -case management consult to assist with dc planning. CHRONIC PAIN WITH - DRUG SEEKING BEHAVIOR CONTINUE ON PO PAIN MEDS ROBAXIN FOR MUSCLE RELAXERS ON CHRONIC PO PAIN MEDS GERD ADD H2 THELMA AND PPI FUNGAL INFECTION ON micafungin SUSPECT IV/PICC MANIPULATION AND DRUG USE HERE Attempted to shoot up applesauce that had his Dilaudid crushed IN IT ON VANCO, MERREM AND MICAFUNGIN POSSIBLE ASPIRATION CONTINUE ON DUONEBS, IS AND MUCINEX Discharge Planning PENDING ID CLEARANCE Sumeet Rodríguez DO July 25, 2017 11:40
[2017-07-25] MEDS ORDERED: RESP: ALBUTEROL 2.5 MG/IPRATROPIUM 0.5 MG NEB (PRN) NEB (11:45)
[2017-07-25] MEDS: guaiFENesin E.R. 600 MG TAB PO SCH ×2 (12:27→21:55)
[2017-07-25] MEDS: VANCOMYCIN INJ 1,750 MG in SODIUM CHLORID 0.9% 500 ML INJ 500 ML IV SCH ×2 (12:34→21:55)
--- NOTE | 2017-07-25 14:01 | EKG ---
Date Performed: 07/24/2017 Time Performed: 12:52:10 PTAGE: 36 years EKG: --- Warning: Data quality may affect interpretation --- Sinus tachycardia. Lead(s) unsuitab le for analysis: V5 Possible anterior infarct - age undetermined Inferior T wave changes are nonspeci fic Abnormal ECG NO PREVIOUS TRACING DOCTOR: Tommy Ko Interpretating Date/Time 07/25/2017 13:57:30
[2017-07-25 14:17] LABS: HEMATOCRIT 29.8 % (39.0-51.0); HEMOGLOBIN 10.1 GM/DL (13.0-17.0); MEAN CELL VOLUME 82.7 FL (80.0-100.0); MEAN CORPUSCULAR HEMOGLOBIN 27.9 PG (27.0-34.0); MEAN CORPUSCULAR HGB CONC 33.8 % (32.0-36.0); MEAN PLATELET VOLUME 8.8 FL (7.0-11.0); PLATELET COUNT 59 TH/MM3 (150-450); RED CELL DISTRIBUTION WIDTH 19.9 % (11.6-17.2)
[2017-07-25 14:26] LABS: ALBUMIN 2.3 GM/DL (3.4-5.0); ALT (GPT) 133 U/L (12-78); AST (GOT) 139 U/L (15-37); BICARBONATE 27.8 MEQ/L (21.0-32.0); BLOOD UREA NITROGEN 7 MG/DL (7-18); CALCIUM 7.6 MG/DL (8.5-10.1); CHLORIDE 109 MEQ/L (98-107); GLOMERULAR FILTRATION RATE 189 ML/MIN (>89); GLUCOSE,RANDOM 88 MG/DL (74-106); MAGNESIUM 1.8 MG/DL (1.5-2.5); PHOSPHORUS 2.8 MG/DL (2.5-4.9); SODIUM (NA) 143 MEQ/L (136-145)
[2017-07-25 14:29] LABS: ALKALINE PHOSPHATASE 101 U/L (45-117); TOTAL BILIRUBIN ADULT 1.2 MG/DL (0.2-1.0); TOTAL PROTEIN 4.9 GM/DL (6.4-8.2)
[2017-07-25 15:00] LABS: BANDS 12 % (0-6); LYMPHOCYTES 14 % (9-44); MONOCYTES 3 % (0-8); NEUTROPHIL # MANUAL DIFF 4.1 TH/MM3 (1.8-7.7); POLYS (SEG NEUTROPHILS) 70 % (16-70)
[2017-07-25 15:01] LABS: OVALOCYTES 1+ (NORMAL)
[2017-07-25] MEDS: MICAFUNGIN INJ 150 MG in SODIUM CHLORIDE 0.9% INJ 100 ML IV SCH (15:14)
[2017-07-25] MEDS: RESP: ALBUTEROL 2.5 MG/IPRATROPIUM 0.5 MG NEB (SCH) NEB ×2 (15:39→20:11)
[2017-07-25] MEDS: FLUCONAZOLE 400 MG PREMIX BAG 200 ML IV SCH (17:35)
[2017-07-25] MEDS: HYDROmorphone HCL 2 MG TAB PO PRN ×2 (17:36→21:56)
[2017-07-26] VITALS (11 sets, daily range): BP systolic 116–160; BP diastolic 75–99; PULSE 83–138; RESP 18–24; TEMP 97.6–102.4; O2SAT 90–99
[2017-07-26] MEDS: ACETAMINOPHEN 325 MG TAB PO PRN (00:48)
[2017-07-26] MEDS: MEROPENEM INJ 1,000 MG in SODIUM CHLORIDE 0.9% INJ 100 ML IV SCH ×3 (01:00→17:37)
[2017-07-26] MEDS: METHOCARBAMOL 500 MG TAB PO SCH ×3 (02:00→18:13)
[2017-07-26] MEDS: RESP: ALBUTEROL 2.5 MG/IPRATROPIUM 0.5 MG NEB (SCH) NEB ×4 (03:17→21:00)
[2017-07-26] MEDS: VANCOMYCIN INJ 1,750 MG in SODIUM CHLORID 0.9% 500 ML INJ 500 ML IV SCH ×3 (05:05→21:44)
[2017-07-26] MEDS: HYDROmorphone HCL 2 MG TAB PO PRN ×4 (05:20→21:44)
[2017-07-26] MEDS: SODIUM CHLOR 0.9% 1000 ML INJ 1,000 ML IV SCH ×2 (05:20→16:35)
[2017-07-26 05:40] LABS: ALBUMIN 2.5 GM/DL (3.4-5.0); ALT (GPT) 164 U/L (12-78); AST (GOT) 179 U/L (15-37); BLOOD UREA NITROGEN 5 MG/DL (7-18); CALCIUM 7.7 MG/DL (8.5-10.1); CHLORIDE 107 MEQ/L (98-107); CREATININE 0.75 MG/DL (0.60-1.30); GLOMERULAR FILTRATION RATE 119 ML/MIN (>89); GLUCOSE,RANDOM 99 MG/DL (74-106); MAGNESIUM 1.6 MG/DL (1.5-2.5); PHOSPHORUS 2.8 MG/DL (2.5-4.9); SODIUM (NA) 143 MEQ/L (136-145)
[2017-07-26 05:43] LABS: ALKALINE PHOSPHATASE 144 U/L (45-117); TOTAL BILIRUBIN ADULT 1.2 MG/DL (0.2-1.0); TOTAL PROTEIN 5.5 GM/DL (6.4-8.2)
[2017-07-26 07:11] LABS: AUTOMATED NEUTROPHIL # 4.2 TH/MM3 (1.8-7.7); BASOPHIL % 0.2 % (0.0-2.0); EOSINOPHIL # 0.1 TH/MM3 (0-0.4); EOSINOPHIL % 1.6 % (0.0-4.0); HEMATOCRIT 33.7 % (39.0-51.0); HEMOGLOBIN 11.4 GM/DL (13.0-17.0); LYMPH % 27.9 % (9.0-44.0); MEAN CELL VOLUME 82.7 FL (80.0-100.0); MEAN CORPUSCULAR HEMOGLOBIN 27.9 PG (27.0-34.0); MEAN CORPUSCULAR HGB CONC 33.8 % (32.0-36.0); MEAN PLATELET VOLUME 9.2 FL (7.0-11.0); MONO % 11.5 % (0.0-8.0); MONOCYTE # 0.8 TH/MM3 (0-0.9); NEUT % 58.8 % (16.0-70.0); PLATELET COUNT 94 TH/MM3 (150-450); RED BLOOD COUNT 4.07 MIL/MM3 (4.50-5.90); RED CELL DISTRIBUTION WIDTH 19.8 % (11.6-17.2); WHITE BLOOD COUNT 7.1 TH/MM3 (4.0-11.0)
[2017-07-26] MEDS: guaiFENesin E.R. 600 MG TAB PO SCH ×2 (09:09→21:44)
[2017-07-26] MEDS: GABAPENTIN 300 MG CAP PO SCH ×3 (09:09→18:13)
[2017-07-26] MEDS: FAMOTIDINE 20 MG TAB PO SCH ×2 (09:09→21:44)
[2017-07-26] MEDS: PANTOPRAZOLE SOD 40 MG DELAYED RELEASE TAB PO SCH (09:09)
[2017-07-26] MEDS: ENOXAPARIN SODIUM 40 MG/0.4 ML SYRINGE SQ SCH (09:10)
--- NOTE | 2017-07-26 11:08 | HHI.PR ---
Subjective Remarks patient is a 36 y/o male who was diagnosed with osteomyelitis of the left foot last month, underwent left calcaneal resection and was discharged on IV Vancomycin and PO Levaquin per ID recommendations. he says that he went to the [facility] after discharged and was just released today. he says that while he was in [facility] he missed a few days of his IV Vanco. he says that he's noticed that the redness of his left has been getting worse the past three days. he denies any fever or chills but complaining of moderate to severe pain to the left foot. 5-16 PATIENT COMPLAINS OF PAIN WAS SUSPECTED OF POCKETING HIS ORAL NARCOTICS DW RN AND PT AND CM AWAIT ID EVALUATIONS AM LABS Complains of left heel pain as well as back pain which is chronic States he sees a chronic pain doctor in [place] DR SAHRA SAUCEDO? WANTS A MUSCLE RELAXER WILL START ROBAXIN PO DRUG SEEKING BEHAVIOR SEEN BY PODIATRY NO SURGERY YET 5-17 PICC LINE NOT WORKING SUSPECT MANIPULATION DW RN AND PT AND MOTHER AND CM AND ID WILL NEED PICC PULLED US OF LEFT UPPER EXTREMITY HAS FUNGAL INFECTION IN BLOOD ON ANTIFUNGALS NOW ALSO AM LABS NOT CLEARED FOR DC DW MOTHER AND ID ON VANCO AND LEVAQUIN AND micafungin 5-18 FOUND TRYING TO SHOOT UP APPLESAUCE SINCE IT HAD HIS CRUSHED UP DILAUDID IN THE APPLESAUCE SEEN BY OPHTHALMOLOGY- NO VISUAL ISSUES MAY LEAVE AMA HAD A HALICAT IS BETTER DW RN AND PT AND CASE MANAGEMENT AND ID CONTINUE ANTIBIOTICS PER ID POSITIVE BLOOD CULTURES FOR GRAM NEGATIVE RODS, YEAST AND E. COLI 5-19 LETHARGIC TODAY DW RN AND PT AND MOTHER AND ID AM LABS CONTINUE ON OXYGEN ? ASPIRATION VS REACTION TO INJECTED APPLESAUCE 5-20 LESS LETHARGIC TODAY DW RN AND PT CONTINUE CURRENT CARE NOT CLEARED FOR DISCHARGE WILL NEED ANTIBIOTICS PER ID RECOMMENDATIONS REPLACE POTASSIUM AND MAGNESIUM Objective Vitals Vital Signs Date Time Temp Pulse Resp B/P (MAP) Pulse Ox O2 Delivery O2 Flow Rate FiO2 07/26/17 09:17 Nasal Cannula 4.00 Humidified 07/26/17 08:31 98 Nasal Cannula 4.00 07/26/17 08:00 83 07/26/17 08:00 97.8 84 20 116/77 (90) 98 07/26/17 06:44 97.9 105 21 132/92 (105) 99 07/26/17 03:50 Nasal Cannula 4.00 Humidified 07/26/17 03:50 117 07/26/17 03:22 97 Nasal Cannula 4.00 07/26/17 00:50 102.4 138 24 160/79 (106) 90 07/26/17 00:50 Nasal Cannula 5.00 Humidified 07/25/17 23:39 112 07/25/17 23:30 99.3 95 20 142/60 (87) 99 07/25/17 20:14 99 Nasal Cannula 5.00 07/25/17 20:01 Nasal Cannula 5.00 Humidified 07/25/17 20:01 98.6 98 21 138/82 (100) 100 07/25/17 20:00 100 07/25/17 16:00 96 07/25/17 16:00 98.0 93 20 109/69 (82) 98 07/25/17 16:00 95 07/25/17 15:40 98 Nasal Cannula 6.00 07/25/17 12:00 97.5 87 20 110/68 (82) 98 07/25/17 12:00 83 I/O 07/25/17 07/25/17 07/25/17 07/26/17 07/26/17 07/26/17 07:00 15:00 23:00 07:00 15:00 23:00 Intake Total 120 ml 1127 ml 550 ml Output Total 550 ml Balance -550 ml 120 ml 1127 ml 550 ml Intake Oral 120 ml IV Total 1127 ml 550 ml Output Urine Total 550 ml # Voids 3 1 # Bowel Movements 0 0 Result Diagram: 07/26/17 0424 07/26/17 0424 Other Results Laboratory Tests Test 07/23/17 12:50 07/23/17 13:15 07/24/17 04:32 07/24/17 13:00 Urine Opiates Screen POS Urine Barbiturates Screen NEG Urine Amphetamines Screen NEG Urine Benzodiazepines Screen POS Urine Cocaine Screen NEG Urine Cannabinoids Screen NEG Vancomycin Level Trough 7.4 MCG/ML White Blood Count 7.8 TH/MM3 Red Blood Count 3.98 MIL/MM3 Hemoglobin 11.1 GM/DL Hematocrit 33.0 % Mean Corpuscular Volume 83.1 FL Mean Corpuscular Hemoglobin 28.0 PG Mean Corpuscular Hemoglobin Concent 33.7 % Red Cell Distribution Width 19.4 % Platelet Count 68 TH/MM3 Mean Platelet Volume 8.8 FL Neutrophils (%) (Auto) 64.4 % Lymphocytes (%) (Auto) 13.7 % Monocytes (%) (Auto) 21.6 % Eosinophils (%) (Auto) 0.1 % Basophils (%) (Auto) 0.2 % Neutrophils # (Auto) 5.0 TH/MM3 Lymphocytes # (Auto) 1.1 TH/MM3 Monocytes # (Auto) 1.7 TH/MM3 Eosinophils # (Auto) 0.0 TH/MM3 Basophils # (Auto) 0.0 TH/MM3 CBC Comment AUTO DIFF Differential Total Cells Counted 100 Neutrophils % (Manual) 50 % Band Neutrophils % 26 % Lymphocytes % 11 % Monocytes % 11 % Eosinophils % 2 % Neutrophils # (Manual) 5.9 TH/MM3 Differential Comment FINAL DIFF MANUAL Platelet Estimate LOW Platelet Morphology Comment NORMAL Ovalocytes 1+ Blood Urea Nitrogen 10 MG/DL Creatinine 0.76 MG/DL Random Glucose 110 MG/DL Total Protein 5.5 GM/DL Albumin 2.7 GM/DL Calcium Level 7.7 MG/DL Phosphorus Level 3.8 MG/DL Magnesium Level 1.7 MG/DL Alkaline Phosphatase 102 U/L Aspartate Amino Transf (AST/SGOT) 142 U/L Alanine Aminotransferase (ALT/SGPT) 159 U/L Total Bilirubin 1.3 MG/DL Sodium Level 142 MEQ/L Potassium Level 3.8 MEQ/L Chloride Level 107 MEQ/L Carbon Dioxide Level 26.6 MEQ/L Anion Gap 8 MEQ/L Estimat Glomerular Filtration Rate 117 ML/MIN Blood Gas Puncture Site LT RADIAL Blood Gas Patient Temperature 98.6 Blood Gas HCO3 25 mmol/L Blood Gas Base Excess 0.6 mmol/L Blood Gas Oxygen Saturation 97 % Arterial Blood pH 7.42 Arterial Blood Partial Pressure CO2 39 mmHg Arterial Blood Partial Pressure O2 114 mmHg Arterial Blood Oxygen Content 15.2 Vol % Arterial Blood Carboxyhemoglobin 1.2 % Arterial Blood Methemoglobin 0.9 % Blood Gas Hemoglobin 11.1 G/DL Oxygen Delivery Device NRB Blood Gas Liter Flow 15 L/M Test 07/25/17 04:25 07/25/17 12:59 07/26/17 04:24 Vancomycin Level Trough 10.5 MCG/ML White Blood Count 5.0 TH/MM3 7.1 TH/MM3 Red Blood Count 3.60 MIL/MM3 4.07 MIL/MM3 Hemoglobin 10.1 GM/DL 11.4 GM/DL Hematocrit 29.8 % 33.7 % Mean Corpuscular Volume 82.7 FL 82.7 FL Mean Corpuscular Hemoglobin 27.9 PG 27.9 PG Mean Corpuscular Hemoglobin Concent 33.8 % 33.8 % Red Cell Distribution Width 19.9 % 19.8 % Platelet Count 59 TH/MM3 94 TH/MM3 Mean Platelet Volume 8.8 FL 9.2 FL CBC Comment AUTO DIFF AUTO DIFF Differential Total Cells Counted 100 Neutrophils % (Manual) 70 % Band Neutrophils % 12 % Lymphocytes % 14 % Monocytes % 3 % Eosinophils % 1 % Neutrophils # (Manual) 4.1 TH/MM3 Differential Comment FINAL DIFF MANUAL AUTO DIFF CONFIRMED Platelet Estimate LOW LOW Platelet Morphology Comment NORMAL NORMAL Ovalocytes 1+ Blood Urea Nitrogen 7 MG/DL 5 MG/DL Creatinine 0.50 MG/DL 0.75 MG/DL Random Glucose 88 MG/DL 99 MG/DL Total Protein 4.9 GM/DL 5.5 GM/DL Albumin 2.3 GM/DL 2.5 GM/DL Calcium Level 7.6 MG/DL 7.7 MG/DL Phosphorus Level 2.8 MG/DL 2.8 MG/DL Magnesium Level 1.8 MG/DL 1.6 MG/DL Alkaline Phosphatase 101 U/L 144 U/L Aspartate Amino Transf (AST/SGOT) 139 U/L 179 U/L Alanine Aminotransferase (ALT/SGPT) 133 U/L 164 U/L Total Bilirubin 1.2 MG/DL 1.2 MG/DL Sodium Level 143 MEQ/L 143 MEQ/L Potassium Level 3.4 MEQ/L 3.1 MEQ/L Chloride Level 109 MEQ/L 107 MEQ/L Carbon Dioxide Level 27.8 MEQ/L 26.0 MEQ/L Anion Gap 6 MEQ/L 10 MEQ/L Estimat Glomerular Filtration Rate 189 ML/MIN 119 ML/MIN Neutrophils (%) (Auto) 58.8 % Lymphocytes (%) (Auto) 27.9 % Monocytes (%) (Auto) 11.5 % Eosinophils (%) (Auto) 1.6 % Basophils (%) (Auto) 0.2 % Neutrophils # (Auto) 4.2 TH/MM3 Lymphocytes # (Auto) 2.0 TH/MM3 Monocytes # (Auto) 0.8 TH/MM3 Eosinophils # (Auto) 0.1 TH/MM3 Basophils # (Auto) 0.0 TH/MM3 Imaging Last Impressions Chest X-Ray 07/24/17 0000 Signed Impressions: Service Date/Time: Monday, July 24, 2017 16:26 - CONCLUSION: Patchy basilar airspace disease suspected. López Dias MD Upper Extremity Ultrasound 07/23/17 0000 Signed Impressions: Service Date/Time: July 13:59 - CONCLUSION: No evidence of DVT. Erik Mcdowell MD Foot X-Ray 07/21/17 0000 Signed Impressions: Service Date/Time: Friday, July 21, 2017 19:08 - CONCLUSION: No definite acute bony findings Dustin Soto MD Objective Remarks GENERAL: NOT VERY Awake OR alert OR talkative and cooperative -appears to be seeking drugs- VERY LETHARGIC AFTER COMING FROM BATHROOM IN HIS ROOM-- REMAINS LETHARGIC TODAY SKIN: Warm and dry. Multiple tattoos ALL OVER- left heel with hole in the calcaneal region HEAD: Atraumatic. Normocephalic. EYES: Pupils equal and round. No scleral icterus. No injection or drainage. Extraocular muscles intact ENT: No nasal bleeding or discharge. Mucous membranes pink and moist. Tongue is midline NECK: Trachea midline. No JVD. Supple CARDIOVASCULAR: Regular rate and rhythm. S1-S2 no S3 or S4 no heave or thrill or rub or gallop RESPIRATORY: No accessory muscle use. Clear to auscultation. Breath sounds equal bilaterally. GASTROINTESTINAL: Abdomen soft, non-tender, nondistended. Hepatic and splenic margins not palpable. MUSCULOSKELETAL: Extremities without clubbing, cyanosis, or edema. No obvious deformities. RIGHT UE SWELLING NEUROLOGICAL: Awake and alert. No obvious cranial nerve deficits. Motor grossly within normal limits. Five out of 5 muscle strength in the arms and legs. Normal speech. PSYCHIATRIC: INAppropriate mood and affect; insight and judgment ABnormal. VERY LETHARGIC AT THIS TIME Procedures NONE Medications and IVs Current Medications Sodium Chloride 1,000 ml @ 999 mls/hr BOLUS ONCE IV Last administered on 07/21at 19:40; Start 07/21/17 at 19:00; Stop 07/21/17 at 20:00; Status DC Sodium Chloride 1,000 ml @ 999 mls/hr BOLUS ONCE IV Last administered on 07/21at 19:40; Start 07/21/17 at 19:00; Stop 07/21/17 at 20:00; Status DC Morphine Sulfate (Morphine Inj) 4 mg ONCE ONCE IV PUSH Last administered on at 19:42; Start 07/21/17 at 19:00; Stop 07/21/17 at 19:04; Status DC Metoclopramide HCl (Reglan Inj) 10 mg ONCE ONCE IV PUSH Last administered on at 19:41; Start 07/21/17 at 19:00; Stop 07/21/17 at 19:04; Status DC Vancomycin HCl 2000 mg/Sodium Chloride 520 ml @ 257.5 mls/ hr ONCE ONCE IV Last administered on 07/21/17at 20:55; Start 07/21/17 at 19:15; Stop 07/21/17 at 21:16; Status DC Pharmacy Profile Note 0 ml @ 0 mls/hr UNSCH OTHER ; Start 07/21/17 at 22:00 Levofloxacin (Levaquin) 750 mg DAILY PO Last administered on 07/24/17at 08:52; Start 07/22/17 at 09:00; Stop 07/24/17 at 11:08; Status DC Acetaminophen (Tylenol) 650 mg Q4H PRN PO FEVER Last administered on 07/26/17at 00:48; Start 07/21/17 at 22:00 Hydromorphone HCl (Dilaudid) 1 mg Q4H PRN PO PAIN 1-5; Start 07/21/17 at 22:00 ; Stop 07/22/17 at 11:31; Status DC Hydromorphone HCl (Dilaudid) 2 mg Q4H PRN PO PAIN 6-10 Last administered on at 09:27; Start 07/21/17 at 22:00; Stop 07/22/17 at 11:31; Status DC Enoxaparin Sodium (Lovenox Inj) 40 mg Q24H SQ Last administered on 07/26/17at 09 :10; Start 07/22/17 at 09:00 Alprazolam (Xanax) 2 mg DAILY PRN PO ANXIETY Last administered on 07/22/17at 00: 00; Start 07/21/17 at 22:00; Stop 07/22/17 at 11:31; Status DC Gabapentin (Neurontin) 300 mg TID PO Last administered on 07/26/17at 09:09; Start 07/22/17 at 09:00 Non-Formulary Medication 150 mg BID PO ; Start 07/22/17 at 09:00; Status UNV Sodium Chloride 1,000 ml @ 100 mls/hr Q10H ONCE IV Last administered on at 23:58; Start 07/21/17 at 22:00; Stop 07/22/17 at 07:59; Status DC Miscellaneous (Pill Splitter) 1 ea UNSCH PRN OTHER SEE LABEL COMMENTS; Start at 22:30 Famotidine (Pepcid) 20 mg BID PO Last administered on 07/26/17at 09:09; Start at 09:00 Vancomycin HCl 900 mg/Sodium Chloride 259 ml @ 250 mls/hr Q8H IV ; Start at 14:00; Status Cancel Vancomycin HCl 900 mg/Sodium Chloride 259 ml @ 250 mls/hr Q8HR IV ; Start 07/22 at 14:00; Status Cancel Miscellaneous Information ([facility] Ordered Lab Info) SPECIFIC LAB TO BE DRAWN:VANCO TROUGH DATE TO BE DR... ONCE ONCE .XX ; Start 07/23/17 at 06:00; Stop 07/23/17 at 06:01; Status Cancel Pantoprazole Sodium (Protonix) 40 mg ONCE ONCE PO Last administered on at 11:00; Start 07/22/17 at 09:30; Stop 07/22/17 at 09:40; Status DC Pantoprazole Sodium (Protonix) 40 mg DAILY PO Last administered on 07/26/17at 09 :09; Start 07/23/17 at 09:00 Methocarbamol (Robaxin) 1,000 mg Q8H PO Last administered on 07/26/17at 09:09; Start 07/22/17 at 10:00 Vancomycin HCl 1500 mg/Sodium Chloride 515 ml @ 250 mls/hr Q12H IV Last administered on 07/23/17at 13:25; Start 07/22/17 at 13:00; Stop 07/23/17 at 14:43 ; Status DC Miscellaneous Information ([facility] Ordered Lab Info) SPECIFIC LAB TO BE DRAWN:VANCOMYCIN TROUGH DATE TO... ONCE ONCE .XX ; Start 07/23/17 at 12:45; Stop 07/23/17 at 12:46; Status DC Alprazolam (Xanax) 2 mg Q6H PRN PO ANXIETY Last administered on 07/25/17at 23:37 ; Start 07/22/17 at 11:45 Hydromorphone HCl (Dilaudid) 2 mg Q4H PRN PO PAIN 1-5 Last administered on 07/24at 10:38; Start 07/22/17 at 14:00 Hydromorphone HCl (Dilaudid) 4 mg Q4H PRN PO PAIN 6-10 Last administered on at 09:27; Start 07/22/17 at 14:00 Ibuprofen (Motrin) 400 mg ONCE ONCE PO Last administered on 07/22/17 21:12; Start 07/22/17 at 21:00; Stop 07/22/17 at 21:01; Status DC Metoprolol Tartrate (Lopressor) 25 mg ONCE ONCE PO Last administered on at 21:12; Start 07/22/17 at 21:00; Stop 07/22/17 at 21:01; Status DC Sodium Chloride 1,000 ml @ 999 mls/hr BOLUS ONCE IV Last administered on 07/22at 22:57; Start 07/22/17 at 22:45; Stop 07/22/17 at 23:45; Status DC Sodium Chloride 1,000 ml @ 100 mls/hr Q10H IV Last administered on 07/25/17at 21:55; Start 07/22/17 at 22:45 Micafungin Sodium 150 mg/Sodium Chloride 100 ml @ 100 mls/hr Q24H IV Last administered on 07/25/17at 15:14; Start 07/23/17 at 15:00; Stop 07/25/17 at 16:46 ; Status DC Vancomycin HCl 1500 mg/Sodium Chloride 515 ml @ 250 mls/hr Q8H IV Last administered on 07/25/17at 04:38; Start 07/23/17 at 21:00; Stop 07/25/17 at 09:42 ; Status DC Miscellaneous Information ([facility] Ordered Lab Info) SPECIFIC LAB TO BE DRAWN:VANCOMYCIN TROUGH DATE TO... ONCE ONCE .XX Last administered on at 04:37; Start 07/25/17 at 04:45; Stop 07/25/17 at 04:46; Status DC Cefepime HCl 2000 mg/Sodium Chloride 100 ml @ 200 mls/hr Q8H IV Last administered on 07/24/17at 14:10; Start 07/24/17 at 13:00; Stop 07/24/17 at 16:00 ; Status DC Miscellaneous Medication (ASP Crit: Doc ESBL, MDR A baumannii or P aer) 1 UNSCH X1 PRN .XX PHARMACY DOCUMENTATION; Start 07/24/17 at 16:00; Stop 07/24/17 at 16 :04; Status DC Miscellaneous Medication ([facility]) 1 UNSCH X1 PRN XX PHARMACY DOCUMENTATION; Start 07/24/17 at 16:00; Stop 07/24/17 at 16:04; Status DC Ertapenem 1000 mg/ Sodium Chloride 100 ml @ 200 mls/hr Q24H IV ; Start at 17:00; Stop 07/24/17 at 17:00; Status DC Miscellaneous Medication (ASP Crit: Doc ESBL, MDR A baumannii or P aer) 1 UNSCH X1 PRN .XX PHARMACY DOCUMENTATION; Start 07/24/17 at 16:15; Stop 07/25/17 at 16 :14; Status DC Miscellaneous Medication ([facility]) 1 UNSCH X1 PRN XX PHARMACY DOCUMENTATION; Start 07/24/17 at 16:15; Stop 07/25/17 at 16:14; Status DC Meropenem 1000 mg/ Sodium Chloride 100 ml @ 200 mls/hr Q8H IV Last administered on 07/26/17at 09:10; Start 07/24/17 at 17:00 Vancomycin HCl 1750 mg/Sodium Chloride 517.5 ml @ 250 mls/hr Q8H IV Last administered on 07/26/17at 05:05; Start 07/25/17 at 13:00 Miscellaneous Information ([facility] Ordered Lab Info) SPECIFIC LAB TO BE ... ONCE ONCE .XX ; Start 07/26/17 at 12:45; Stop 07/26/17 at 12:46 Guaifenesin (Mucinex Er) 600 mg BID PO Last administered on 07/26/17at 09:09; Start 07/25/17 at 12:00 Albuterol/ Ipratropium (Duoneb Neb) 1 ampule Q6HR NEB NEB Last administered on 07/26/17at 08:30; Start 07/25/17 at 16:00 Albuterol/ Ipratropium (Duoneb Neb) 1 ampule Q2HR NEB PRN NEB SHORTNESS OF BREATH; Start 07/25/17 at 11:45 Fluconazole/ Sodium Chloride 200 ml @ 100 mls/hr Q24H IV Last administered on 07/25/17at 17:35; Start 07/25/17 at 17:00 A/P Problem List: (1) Left foot infection ICD Code: L08.9 - Local infection of the skin and subcutaneous tissue, unspecified (2) Noncompliance ICD Code: Z91.19 - Patient's noncompliance with other medical treatment and regimen (3) Drug-seeking behavior ICD Code: Z76.5 - Malingerer [conscious simulation] (4) Fungal infection ICD Code: B49 - Unspecified mycosis Assessment and Plan -sepsis ( tachycardia/tachypnea) due to osteomyelitis of the left calcaneus - s/ p Left partial calcaneal resection/osteotomy, left foot incision and drainage 12/24, Pathology + for acute OM in proximal clearing margins was discharged on IV Vancomycin and PO Levaquin ( end-date ; 08/02/17 per ID)- however the patient missed a few days of his IV Vanco while he was in [facility]-now with reported worsening erythema of the left foot. will resume the antibiotic regimen and will consult podiatry and ID for reevaluation. ON VANCO AND MERREM and micafungin HERE IN HOSPITAL continue with pain control- HAS CHRONIC PAIN WITH NEUROSTIMULATOR -tachycardia; check EKG and place on telemetry- patient denies any chest pain or sob. -elevated LFT's- with history of Hepatitis C- will monitor- -DVT prophylaxis with subq Lovenox -case management consult to assist with dc planning. CHRONIC PAIN WITH - DRUG SEEKING BEHAVIOR CONTINUE ON PO PAIN MEDS ROBAXIN FOR MUSCLE RELAXERS ON CHRONIC PO PAIN MEDS GERD ADD H2 THELMA AND PPI FUNGAL INFECTION ON micafungin SUSPECT IV/PICC MANIPULATION AND DRUG USE HERE Attempted to shoot up applesauce that had his Dilaudid crushed IN IT ON VANCO, MERREM AND MICAFUNGIN POSSIBLE ASPIRATION CONTINUE ON DUONEBS, IS AND MUCINEX HYPOKALEMIA REPLACE' HYPOMAGNESIA REPLACE AM LABS Discharge Planning PENDING ID CLEARANCE Sumeet Rodríguez DO July 26, 2017 11:08
[2017-07-26] MEDS ORDERED: POTASSIUM CHLORIDE 20 MEQ CONTROLLED RELEASE TAB PO ONE (11:15)
[2017-07-26] MEDS: MAGNESIUM SULFATE 1 GM PREMIX 100 ML IV SCH ×2 (11:29→12:45)
[2017-07-26] MEDS ORDERED: PHARMACY ORDERED LAB ONE (12:45)
[2017-07-26] MEDS: ALPRAZolam 1 MG TAB PO PRN ×2 (16:40→22:29)
[2017-07-26] MEDS: FLUCONAZOLE 400 MG PREMIX BAG 200 ML IV SCH (18:13)
[2017-07-27] VITALS (11 sets, daily range): BP systolic 122–150; BP diastolic 71–89; PULSE 75–106; RESP 17–20; TEMP 97.6–101.3; O2SAT 94–98
[2017-07-27] MEDS: MEROPENEM INJ 1,000 MG in SODIUM CHLORIDE 0.9% INJ 100 ML IV SCH ×3 (01:20→18:02)
[2017-07-27] MEDS: ACETAMINOPHEN 325 MG TAB PO PRN (01:20)
[2017-07-27] MEDS: METHOCARBAMOL 500 MG TAB PO SCH ×3 (01:20→18:02)
[2017-07-27] MEDS: SODIUM CHLOR 0.9% 1000 ML INJ 1,000 ML IV SCH ×2 (01:24→12:45)
[2017-07-27] MEDS: RESP: ALBUTEROL 2.5 MG/IPRATROPIUM 0.5 MG NEB (SCH) NEB ×4 (04:00→21:49)
[2017-07-27] MEDS: HYDROmorphone HCL 2 MG TAB PO PRN ×3 (04:40→13:35)
[2017-07-27] MEDS: VANCOMYCIN INJ 1,750 MG in SODIUM CHLORID 0.9% 500 ML INJ 500 ML IV SCH ×3 (04:40→20:40)
[2017-07-27] MEDS: ALPRAZolam 1 MG TAB PO PRN ×2 (04:42→18:02)
[2017-07-27 05:19] LABS: AUTOMATED NEUTROPHIL # 3.1 TH/MM3 (1.8-7.7); BASOPHIL % 0.4 % (0.0-2.0); EOSINOPHIL # 0.2 TH/MM3 (0-0.4); EOSINOPHIL % 2.9 % (0.0-4.0); HEMATOCRIT 32.4 % (39.0-51.0); HEMOGLOBIN 10.6 GM/DL (13.0-17.0); LYMPH % 35.8 % (9.0-44.0); LYMPHOCYTE # 2.4 TH/MM3 (1.0-4.8); MEAN CELL VOLUME 82.8 FL (80.0-100.0); MEAN CORPUSCULAR HEMOGLOBIN 27.1 PG (27.0-34.0); MEAN CORPUSCULAR HGB CONC 32.8 % (32.0-36.0); MEAN PLATELET VOLUME 8.3 FL (7.0-11.0); MONO % 13.6 % (0.0-8.0); MONOCYTE # 0.9 TH/MM3 (0-0.9); NEUT % 47.3 % (16.0-70.0); PLATELET COUNT 109 TH/MM3 (150-450); RED BLOOD COUNT 3.91 MIL/MM3 (4.50-5.90); RED CELL DISTRIBUTION WIDTH 19.8 % (11.6-17.2); WHITE BLOOD COUNT 6.7 TH/MM3 (4.0-11.0)
[2017-07-27 05:47] LABS: ALBUMIN 2.3 GM/DL (3.4-5.0); AST (GOT) 144 U/L (15-37); BICARBONATE 27.6 MEQ/L (21.0-32.0); BLOOD UREA NITROGEN 4 MG/DL (7-18); CALCIUM 7.6 MG/DL (8.5-10.1); CHLORIDE 107 MEQ/L (98-107); CREATININE 0.61 MG/DL (0.60-1.30); GLOMERULAR FILTRATION RATE 150 ML/MIN (>89); GLUCOSE,RANDOM 73 MG/DL (74-106); MAGNESIUM 1.9 MG/DL (1.5-2.5); SODIUM (NA) 143 MEQ/L (136-145)
[2017-07-27 05:57] LABS: ALKALINE PHOSPHATASE 156 U/L (45-117); ALT (GPT) 143 U/L (12-78); PHOSPHORUS 4.3 MG/DL (2.5-4.9); TOTAL BILIRUBIN ADULT 0.8 MG/DL (0.2-1.0); TOTAL PROTEIN 5.2 GM/DL (6.4-8.2)
--- NOTE | 2017-07-27 08:27 | HHI.PR ---
Subjective Remarks in no acute distress. had a fever last night; T max 101.3. pain seems to be controlled. d/w the RN and no acute issues over night. Objective Vitals Vital Signs Date Time Temp Pulse Resp B/P (MAP) Pulse Ox O2 Delivery O2 Flow Rate FiO2 07/27/17 04:00 98.0 77 18 130/82 (98) 94 07/27/17 04:00 Room Air 07/27/17 03:51 87 07/27/17 00:00 101.3 106 17 122/78 (93) 96 07/27/17 00:00 Nasal Cannula 4.00 Humidified 07/26/17 23:51 108 07/26/17 20:00 98.5 110 18 134/75 (94) 99 07/26/17 20:00 Nasal Cannula 4.00 Humidified 07/26/17 19:40 116 07/26/17 16:00 98.4 98 20 151/99 (116) 98 07/26/17 16:00 102 07/26/17 12:00 87 07/26/17 12:00 97.6 87 20 147/94 (111) 98 07/26/17 09:17 Nasal Cannula 4.00 Humidified 07/26/17 08:31 98 Nasal Cannula 4.00 I/O 07/26/17 07/26/17 07/26/17 07/27/17 07/27/17 07/27/17 07:00 15:00 23:00 07:00 15:00 23:00 Intake Total 1127 ml 750 ml 600 ml 2657 ml Output Total 1600 ml Balance 1127 ml 750 ml 600 ml 1057 ml Intake Oral 600 ml 900 ml IV Total 1127 ml 750 ml 1757 ml Output Urine Total 1600 ml # Voids 3 # Bowel Movements 3 Result Diagram: 07/27/17 0400 07/27/17 0400 Imaging Last Impressions Chest X-Ray 07/24/17 0000 Signed Impressions: Service Date/Time: Monday, July 24, 2017 16:26 - CONCLUSION: Patchy basilar airspace disease suspected. López Dias MD Upper Extremity Ultrasound 07/23/17 0000 Signed Impressions: Service Date/Time: July 13:59 - CONCLUSION: No evidence of DVT. Erik Mcdowell MD Foot X-Ray 07/21/17 0000 Signed Impressions: Service Date/Time: Friday, July 21, 2017 19:08 - CONCLUSION: No definite acute bony findings Dustin Soto MD Objective Remarks GENERAL: This is a well-nourished, well-developed patient, in no apparent distress. CARDIOVASCULAR: Regular rate and regular rhythm without murmurs, gallops, or rubs. RESPIRATORY: Clear to auscultation. Breath sounds equal bilaterally. No wheezes , rales, or rhonchi. GASTROINTESTINAL: Abdomen soft, non-tender, nondistended. Normal, active bowel sounds MUSCULOSKELETAL: left foot is swollen with mild erythema. NEURO: Alert & Oriented x4 to person, place, time, situation. Moves all ext x4 Procedures NONE Medications and IVs Inpatient Medications Acetaminophen (Tylenol) 650 mg Q4H PRN PO FEVER Last administered on 07/27/17at 01:20; Start 07/21/17 at 22:00 Albuterol/ Ipratropium (Duoneb Neb) 1 ampule Q2HR NEB PRN NEB SHORTNESS OF BREATH; Start 07/25/17 at 11:45 Alprazolam (Xanax) 2 mg Q6H PRN PO ANXIETY Last administered on 07/27/17at 04:42 ; Start 07/22/17 at 11:45 Cefepime HCl 2000 mg/Sodium Chloride 100 ml @ 200 mls/hr Q8H IV Last administered on 07/24/17at 14:10; Start 07/24/17 at 13:00; Stop 07/24/17 at 16:00 ; Status DC Enoxaparin Sodium (Lovenox Inj) 40 mg Q24H SQ Last administered on 07/26/17at 09 :10; Start 07/22/17 at 09:00 Ertapenem 1000 mg/ Sodium Chloride 100 ml @ 200 mls/hr Q24H IV ; Start at 17:00; Stop 07/24/17 at 17:00; Status DC Famotidine (Pepcid) 20 mg BID PO Last administered on 07/26/17at 21:44; Start at 09:00 Fluconazole/ Sodium Chloride 200 ml @ 100 mls/hr Q24H IV Last administered on 07/26/17at 18:13; Start 07/25/17 at 17:00 Gabapentin (Neurontin) 300 mg TID PO Last administered on 07/26/17at 18:13; Start 07/22/17 at 09:00 Guaifenesin (Mucinex Er) 600 mg BID PO Last administered on 07/26/17at 21:44; Start 07/25/17 at 12:00 Hydromorphone HCl (Dilaudid) 4 mg Q4H PRN PO PAIN 6-10 Last administered on at 04:40; Start 07/22/17 at 14:00 Ibuprofen (Motrin) 400 mg ONCE ONCE PO Last administered on 07/22/17at 21:12; Start 07/22/17 at 21:00; Stop 07/22/17 at 21:01; Status DC Levofloxacin (Levaquin) 750 mg DAILY PO Last administered on 07/24/17at 08:52; Start 07/22/17 at 09:00; Stop 07/24/17 at 11:08; Status DC Magnesium Sulfate/ Dextrose 100 ml @ 100 mls/hr Q1H IV Last administered on at 12:45; Start 07/26/17 at 11:15; Stop 07/26/17 at 13:14; Status DC Meropenem 1000 mg/ Sodium Chloride 100 ml @ 200 mls/hr Q8H IV Last administered on 07/27/17at 01:20; Start 07/24/17 at 17:00 Methocarbamol (Robaxin) 1,000 mg Q8H PO Last administered on 07/27/17at 01:20; Start 07/22/17 at 10:00 Metoclopramide HCl (Reglan Inj) 10 mg ONCE ONCE IV PUSH Last administered on at 19:41; Start 07/21/17 at 19:00; Stop 07/21/17 at 19:04; Status DC Metoprolol Tartrate (Lopressor) 25 mg ONCE ONCE PO Last administered on at 21:12; Start 07/22/17 at 21:00; Stop 07/22/17 at 21:01; Status DC Micafungin Sodium 150 mg/Sodium Chloride 100 ml @ 100 mls/hr Q24H IV Last administered on 07/25/17at 15:14; Start 07/23/17 at 15:00; Stop 07/25/17 at 16:46 ; Status DC Miscellaneous (Pill Splitter) 1 ea UNSCH PRN OTHER SEE LABEL COMMENTS; Start at 22:30 Miscellaneous Information ([facility] Ordered Lab Info) SPECIFIC LAB TO BE .. ONCE ONCE .XX ; Start 07/28/17 at 04:45; Stop 07/28/17 at 04:46 Miscellaneous Medication (ASP Crit: Doc ESBL, MDR A baumannii or P aer) 1 UNSCH X1 PRN .XX PHARMACY DOCUMENTATION; Start 07/24/17 at 16:15; Stop 07/25/17 at 16 :14; Status DC Miscellaneous Medication ([facility]) 1 UNSCH X1 PRN XX PHARMACY DOCUMENTATION; Start 07/24/17 at 16:15; Stop 07/25/17 at 16:14; Status DC Morphine Sulfate (Morphine Inj) 4 mg ONCE ONCE IV PUSH Last administered on at 19:42; Start 07/21/17 at 19:00; Stop 07/21/17 at 19:04; Status DC Pantoprazole Sodium (Protonix) 40 mg DAILY PO Last administered on 07/26/17at 09 :09; Start 07/23/17 at 09:00 Pharmacy Profile Note 0 ml @ 0 mls/hr UNSCH OTHER ; Start 07/21/17 at 22:00 Potassium Chloride (KCl) 80 meq ONCE ONCE PO Last administered on 07/26/17at 11 :28; Start 07/26/17 at 11:15; Stop 07/26/17 at 11:16; Status DC Sodium Chloride 1,000 ml @ 100 mls/hr Q10H IV Last administered on 07/27/17at 01:24; Start 07/22/17 at 22:45 Vancomycin HCl 1500 mg/Sodium Chloride 515 ml @ 250 mls/hr Q8H IV Last administered on 07/25/17at 04:38; Start 07/23/17 at 21:00; Stop 07/25/17 at 09:42 ; Status DC Vancomycin HCl 1750 mg/Sodium Chloride 517.5 ml @ 250 mls/hr Q8H IV Last administered on 07/27/17at 04:40; Start 07/25/17 at 13:00 Vancomycin HCl 2000 mg/Sodium Chloride 520 ml @ 257.5 mls/ hr ONCE ONCE IV Last administered on 07/21/17at 20:55; Start 07/21/17 at 19:15; Stop 07/21/17 at 21:16; Status DC A/P Problem List: (1) Left foot infection ICD Code: L08.9 - Local infection of the skin and subcutaneous tissue, unspecified (2) Noncompliance ICD Code: Z91.19 - Patient's noncompliance with other medical treatment and regimen (3) Drug-seeking behavior ICD Code: Z76.5 - Malingerer [conscious simulation] (4) Fungal infection ICD Code: B49 - Unspecified mycosis Assessment and Plan A/P -sepsis ( tachycardia/tachypnea) due to osteomyelitis of the left calcaneus - s/ p Left partial calcaneal resection/osteotomy, left foot incision and drainage 12/24, Pathology + for acute OM in proximal clearing margins was discharged on IV Vancomycin and PO Levaquin ( end-date ; 08/02/17 per ID)- however the patient missed a few days of his IV Vanco while he was in shelter- - bacteremia with ESBL E-coli/ Fungemia continue with IV antibiotics per ID; Meropenem, Vanco and Diflucan evaluated by ophthalmology and fungal endophthalmitis was ruled out. evaluated by podiatry and no plan for interventions at this time. continue with oral pain meds. -elevated LFT's- with history of Hepatitis C- will monitor- -DVT prophylaxis with subq Lovenox -case management consulted to assist with dc planning. Discharge Planning still febrile- ID / podiatry following. not ready for discharge yet. Josseline Bernard MD July 27, 2017 08:27
[2017-07-27] MEDS: guaiFENesin E.R. 600 MG TAB PO SCH ×2 (09:20→20:41)
[2017-07-27] MEDS: GABAPENTIN 300 MG CAP PO SCH ×3 (09:20→18:02)
[2017-07-27] MEDS: FAMOTIDINE 20 MG TAB PO SCH ×2 (09:20→20:41)
[2017-07-27] MEDS: PANTOPRAZOLE SOD 40 MG DELAYED RELEASE TAB PO SCH (09:21)
[2017-07-27] MEDS: ENOXAPARIN SODIUM 40 MG/0.4 ML SYRINGE SQ SCH (09:21)
--- NOTE | 2017-07-27 14:33 | ECHRPT ---
Indication: SEPSIS ENDOCARDITIS CONCLUSIONS This is a limited study to evaluate for Endocarditis Normal left ventricular size. Wall thickness is normal. The left ventricular systolic function is low normal with an estimated ejection fraction in the rang e of 50%. Trace mitral valve regurgitation. No vegetation visualizedThere is estimated mild pulmonary hypertension present 48 mmHg. The pulmonary valve is not well visualized. BP: / HR: Rhythm: Technical Quality: FINDINGS LEFT VENTRICLE Normal left ventricular size. Wall thickness is normal. The left ventricular systolic function is low normal with an estimated ejection fraction in the rang e of 50%. RIGHT VENTRICLE Normal right ventricular size and systolic function. LEFT ATRIUM The left atrial size is normal. RIGHT ATRIUM The right atrial size is normal. AORTA The aortic root and proximal ascending aorta are normal in size on limited imaging. The aortic root and proximal ascending aorta are not well visualized. MITRAL VALVE No vegetation visualized Trace mitral valve regurgitation. AORTIC VALVE No vegetation visualized TRICUSPID VALVE There is estimated mild pulmonary hypertension present 48 mmHg. PULMONARY VALVE The pulmonary valve is not well visualized. Dusty Zuluaga MD (Electronically Signed) Final Date:27 Jul 2017 14:32
[2017-07-27] MEDS: FLUCONAZOLE 400 MG PREMIX BAG 200 ML IV SCH (16:03)
--- NOTE | 2017-07-27 19:30 | HHI.PR ---
Addendum to Inpatient Note Additional Information pt was seen earlier today full note to follow Pham Alvarez MD July 27, 2017 19:30
--- NOTE | 2017-07-27 23:42 | HHI.IDPN ---
Subjective Subjective Remarks Growing Yeast 1/4 and ESBL E.coli B / in admission blood clx s/p attempt to shoot up applesauce that had his Dilaudid crushed IN IT no fever resolved hypoxia Antibiotics IV Vancomycin micafungin cefepime Lines PIV sites x 2 with no e/o infx Past Medical History IVDU Allergies: Coded Allergies: MRI PRECAUTION (Verified Adverse Reaction, Severe, Patient states he has a neurostimulator and can't have a MRI, 07/22/17) 07/22/17 LRS Objective . Vital Signs Date Time Temp Pulse Resp B/P (MAP) Pulse Ox O2 Delivery O2 Flow Rate FiO2 07/27/17 20:15 98.8 88 18 141/89 (106) 98 07/27/17 20:00 Room Air 07/27/17 16:18 98.5 100 18 131/83 (99) 96 07/27/17 15:54 100 07/27/17 15:12 97 21 07/27/17 12:15 97.7 92 20 150/71 (97) 97 07/27/17 08:28 75 07/27/17 08:05 97.6 77 20 136/89 (105) 95 07/27/17 08:00 Room Air 07/27/17 04:00 98.0 77 18 130/82 (98) 94 07/27/17 04:00 Room Air 07/27/17 03:51 87 07/27/17 00:00 101.3 106 17 122/78 (93) 96 07/27/17 00:00 Nasal Cannula 4.00 Humidified 07/26/17 23:51 108 07/27/17 07/27/17 07/28/17 15:00 23:00 07:00 Intake Total 717.5 ml 960 ml Output Total 500 ml Balance 717.5 ml 460 ml Intake Oral 960 ml IV Total 717.5 ml Output Urine Total 500 ml # Voids 2 # Bowel Movements 1 . Laboratory Tests Test 07/26/17 04:24 07/27/17 04:00 White Blood Count 7.1 TH/MM3 6.7 TH/MM3 Red Blood Count 4.07 MIL/MM3 3.91 MIL/MM3 Hemoglobin 11.4 GM/DL 10.6 GM/DL Hematocrit 33.7 % 32.4 % Mean Corpuscular Volume 82.7 FL 82.8 FL Mean Corpuscular Hemoglobin 27.9 PG 27.1 PG Mean Corpuscular Hemoglobin Concent 33.8 % 32.8 % Red Cell Distribution Width 19.8 % 19.8 % Platelet Count 94 TH/MM3 109 TH/MM3 Mean Platelet Volume 9.2 FL 8.3 FL Neutrophils (%) (Auto) 58.8 % 47.3 % Lymphocytes (%) (Auto) 27.9 % 35.8 % Monocytes (%) (Auto) 11.5 % 13.6 % Eosinophils (%) (Auto) 1.6 % 2.9 % Basophils (%) (Auto) 0.2 % 0.4 % Neutrophils # (Auto) 4.2 TH/MM3 3.1 TH/MM3 Lymphocytes # (Auto) 2.0 TH/MM3 2.4 TH/MM3 Monocytes # (Auto) 0.8 TH/MM3 0.9 TH/MM3 Eosinophils # (Auto) 0.1 TH/MM3 0.2 TH/MM3 Basophils # (Auto) 0.0 TH/MM3 0.0 TH/MM3 CBC Comment AUTO DIFF DIFF FINAL Differential Comment AUTO DIFF CONFIRMED Platelet Estimate LOW Platelet Morphology Comment NORMAL Laboratory Tests Test 07/26/17 04:24 07/27/17 04:00 Blood Urea Nitrogen 5 MG/DL 4 MG/DL Creatinine 0.75 MG/DL 0.61 MG/DL Random Glucose 99 MG/DL 73 MG/DL Total Protein 5.5 GM/DL 5.2 GM/DL Albumin 2.5 GM/DL 2.3 GM/DL Calcium Level 7.7 MG/DL 7.6 MG/DL Phosphorus Level 2.8 MG/DL 4.3 MG/DL Magnesium Level 1.6 MG/DL 1.9 MG/DL Alkaline Phosphatase 144 U/L 156 U/L Aspartate Amino Transf (AST/SGOT) 179 U/L 144 U/L Alanine Aminotransferase (ALT/SGPT) 164 U/L 143 U/L Total Bilirubin 1.2 MG/DL 0.8 MG/DL Sodium Level 143 MEQ/L 143 MEQ/L Potassium Level 3.1 MEQ/L 3.6 MEQ/L Chloride Level 107 MEQ/L 107 MEQ/L Carbon Dioxide Level 26.0 MEQ/L 27.6 MEQ/L Anion Gap 10 MEQ/L 8 MEQ/L Estimat Glomerular Filtration Rate 119 ML/MIN 150 ML/MIN Imaging Last Impressions Chest X-Ray 07/24/17 0000 Signed Impressions: Service Date/Time: Monday, July 24, 2017 16:26 - CONCLUSION: Patchy basilar airspace disease suspected. López Dias MD Upper Extremity Ultrasound 07/23/17 0000 Signed Impressions: Service Date/Time: July 13:59 - CONCLUSION: No evidence of DVT. Erik Mcdowell MD Foot X-Ray 07/21/17 0000 Signed Impressions: Service Date/Time: Friday, July 21, 2017 19:08 - CONCLUSION: No definite acute bony findings Dustin Soto MD Physical Exam CONSTITUTIONAL/GENERAL: This is an adequately nourished patient, in no apparent distress On RA TUBES/LINES/DRAINS: PIV with no e/o infection Lumbar area with neurostimulator on the R - no skin chages, no sweeling, no redness or tenderness RUE PICC removed previous site looks ok SKIN: No jaundice, rashes, or lesions. Skin temperature appropriate. Not diaphoretic. EYES: Pupils equal and round and reactive. Extraocular motions intact. No scleral icterus. No injection or drainage. Fundi not examined. ENT: Hearing grossly normal. Nose without bleeding or purulent drainage. Throat without visible erythema, exudates, masses, or lesions. CARDIOVASCULAR: Regular rate and rhythm without murmurs, gallops, or rubs. RESPIRATORY/CHEST: Symmetric, unlabored respirations. Clear to auscultation. Breath sounds equal bilaterally. No wheezes, rales, or rhonchi. GASTROINTESTINAL: Abdomen soft, non-tender, nondistended. No hepato-splenomegaly , or palpable masses. No guarding. Bowel sounds present. MUSCULOSKELETAL: Extremities without clubbing, cyanosis, or edema. No joint tenderness or effusion noted. No calf tenderness. No mottling or clubbing. L foot with +eschar over posterior calcaneus area with surrounding mild edema and erythema, not tender to palpation. NEUROLOGICAL: Awake and alert. Motor and sensory grossly within normal limits. Follows commands. Cognitively sharp. Moves all extremities. PSYCHIATRIC: No obvious anxiety/depression. no apparent hallucinations or other psychotic thought process. Assessment & Plan Remarks T Yeast in blood/Fungemia C.parapsilosa No e/o septic fungal thrombophlebitis: ophthaslm consulted no e/o fungal endopthalmitis r/o fungal endocarditis Acute metabolic encephalopathy: sepsis, meds. ESBL E coli sepsis, line sepsis Resp distress, s/p shooting apple sause with crushed dilauidid: resolved -new acute hypoxia after attempted shooting up apple sause Recs: fu Blood cultures change Meropenem to Ertapeem awaiting ECHO cont fluconazol , can be changed to oral form cContinue Vanco IV x 6 weeks . Pham Alvarez MD July 27, 2017 23:42
[2017-07-27] MEDS ORDERED: ASP: Documented ESBL, MDR A baumannii or P. aeruginosa PRN (23:45)
[2017-07-27] MEDS ORDERED: PHARMACY INFORMATION XX PRN (23:45)
[2017-07-28] VITALS (13 sets, daily range): BP systolic 112–162; BP diastolic 69–86; PULSE 68–108; RESP 18–21; TEMP 97.5–99.1; O2SAT 91–100
[2017-07-28] MEDS: ALPRAZolam 1 MG TAB PO PRN ×3 (00:19→17:15)
[2017-07-28] MEDS: ERTAPENEM INJ 1,000 MG in SODIUM CHLORIDE 0.9% INJ 100 ML IV SCH (00:21)
[2017-07-28] MEDS: SODIUM CHLOR 0.9% 1000 ML INJ 1,000 ML IV SCH ×3 (00:22→17:16)
[2017-07-28] MEDS: METHOCARBAMOL 500 MG TAB PO SCH ×3 (02:35→17:15)
[2017-07-28] MEDS: RESP: ALBUTEROL 2.5 MG/IPRATROPIUM 0.5 MG NEB (SCH) NEB ×4 (02:49→22:46)
[2017-07-28] MEDS ORDERED: PHARMACY ORDERED LAB ONE (04:45)
[2017-07-28] MEDS: VANCOMYCIN INJ 1,750 MG in SODIUM CHLORID 0.9% 500 ML INJ 500 ML IV SCH ×3 (04:53→21:50)
[2017-07-28] MEDS: PANTOPRAZOLE SOD 40 MG DELAYED RELEASE TAB PO SCH (08:26)
[2017-07-28] MEDS: ENOXAPARIN SODIUM 40 MG/0.4 ML SYRINGE SQ SCH (08:26)
[2017-07-28] MEDS: GABAPENTIN 300 MG CAP PO SCH ×3 (08:26→17:15)
[2017-07-28] MEDS: FAMOTIDINE 20 MG TAB PO SCH ×2 (08:26→21:50)
[2017-07-28] MEDS: guaiFENesin E.R. 600 MG TAB PO SCH ×2 (08:26→21:50)
[2017-07-28] MEDS: HYDROmorphone HCL 2 MG TAB PO PRN ×3 (08:34→21:52)
--- NOTE | 2017-07-28 11:56 | HHI.PR ---
Subjective Remarks in no acute distress. reports some diarrhea over night. no abdominal pain, nausea/vomiting. afebrile. Objective Vitals Vital Signs Date Time Temp Pulse Resp B/P (MAP) Pulse Ox O2 Delivery O2 Flow Rate FiO2 07/28/17 10:50 21 07/28/17 08:10 97.8 78 18 136/83 (100) 96 07/28/17 04:45 98.8 104 18 138/86 (103) 94 07/28/17 04:00 74 07/28/17 00:08 99.0 101 18 112/70 (84) 91 07/28/17 00:00 102 07/27/17 20:15 98.8 88 18 141/89 (106) 98 07/27/17 20:00 Room Air 07/27/17 20:00 103 07/27/17 16:18 98.5 100 18 131/83 (99) 96 07/27/17 15:54 100 07/27/17 15:12 97 21 07/27/17 12:15 97.7 92 20 150/71 (97) 97 I/O 07/27/17 07/27/17 07/27/17 07/28/17 07/28/17 07/28/17 07:00 15:00 23:00 07:00 15:00 23:00 Intake Total 2657 ml 717.5 ml 960 ml 1350 ml Output Total 1600 ml 500 ml 2775 ml Balance 1057 ml 717.5 ml 460 ml -1425 ml Intake Oral 900 ml 960 ml 720 ml IV Total 1757 ml 717.5 ml 630 ml Output Urine Total 1600 ml 500 ml 2775 ml # Voids 2 # Bowel Movements 1 2 Result Diagram: 07/27/17 0400 07/27/17 0400 Imaging Last Impressions Chest X-Ray 07/24/17 0000 Signed Impressions: Service Date/Time: Monday, July 24, 2017 16:26 - CONCLUSION: Patchy basilar airspace disease suspected. López Dias MD Upper Extremity Ultrasound 07/23/17 0000 Signed Impressions: Service Date/Time: July 13:59 - CONCLUSION: No evidence of DVT. Erik Mcdowell MD Foot X-Ray 07/21/17 0000 Signed Impressions: Service Date/Time: Friday, July 21, 2017 19:08 - CONCLUSION: No definite acute bony findings Dustin Soto MD Objective Remarks GENERAL: This is a well-nourished, well-developed patient, in no apparent distress. CARDIOVASCULAR: Regular rate and regular rhythm without murmurs, gallops, or rubs. RESPIRATORY: Clear to auscultation. Breath sounds equal bilaterally. No wheezes , rales, or rhonchi. GASTROINTESTINAL: Abdomen soft, non-tender, nondistended. Normal, active bowel sounds MUSCULOSKELETAL: left foot is swollen with mild erythema. NEURO: Alert & Oriented x4 to person, place, time, situation. Moves all ext x4 Procedures NONE Medications and IVs Inpatient Medications Acetaminophen (Tylenol) 650 mg Q4H PRN PO FEVER Last administered on 07/27/17 01:20; Start 07/21/17 at 22:00 Albuterol/ Ipratropium (Duoneb Neb) 1 ampule Q2HR NEB PRN NEB SHORTNESS OF BREATH; Start 07/25/17 at 11:45 Alprazolam (Xanax) 2 mg Q6H PRN PO ANXIETY Last administered on 07/28/17 08:33 ; Start 07/22/17 at 11:45 Cefepime HCl 2000 mg/Sodium Chloride 100 ml @ 200 mls/hr Q8H IV Last administered on 07/24/17 14:10; Start 07/24/17 at 13:00; Stop 07/24/17 at 16:00 ; Status DC Enoxaparin Sodium (Lovenox Inj) 40 mg Q24H SQ Last administered on 07/28/17 08 :26; Start 07/22/17 at 09:00 Ertapenem 1000 mg/ Sodium Chloride 100 ml @ 200 mls/hr Q24H IV Last administered on 07/28/17 00:21; Start 07/28/17 at 00:00 Famotidine (Pepcid) 20 mg BID PO Last administered on 07/28/17 08:26; Start at 09:00 Fluconazole/ Sodium Chloride 200 ml @ 100 mls/hr Q24H IV Last administered on 07/27/17 16:03; Start 07/25/17 at 17:00 Gabapentin (Neurontin) 300 mg TID PO Last administered on 07/28/17 08:26; Start 07/22/17 at 09:00 Guaifenesin (Mucinex Er) 600 mg BID PO Last administered on 07/28/17 08:26; Start 07/25/17 at 12:00 Hydromorphone HCl (Dilaudid) 4 mg Q4H PRN PO PAIN 6-10 Last administered on at 08:34; Start 07/22/17 at 14:00 Ibuprofen (Motrin) 400 mg ONCE ONCE PO Last administered on 07/22/17at 21:12; Start 07/22/17 at 21:00; Stop 07/22/17 at 21:01; Status DC Levofloxacin (Levaquin) 750 mg DAILY PO Last administered on 07/24/17at 08:52; Start 07/22/17 at 09:00; Stop 07/24/17 at 11:08; Status DC Magnesium Sulfate/ Dextrose 100 ml @ 100 mls/hr Q1H IV Last administered on at 12:45; Start 07/26/17 at 11:15; Stop 07/26/17 at 13:14; Status DC Meropenem 1000 mg/ Sodium Chloride 100 ml @ 200 mls/hr Q8H IV Last administered on 07/27/17at 18:02; Start 07/24/17 at 17:00; Stop 07/27/17 at 23:45 ; Status DC Methocarbamol (Robaxin) 1,000 mg Q8H PO Last administered on 07/28/17at 09:08; Start 07/22/17 at 10:00 Metoclopramide HCl (Reglan Inj) 10 mg ONCE ONCE IV PUSH Last administered on at 19:41; Start 07/21/17 at 19:00; Stop 07/21/17 at 19:04; Status DC Metoprolol Tartrate (Lopressor) 25 mg ONCE ONCE PO Last administered on at 21:12; Start 07/22/17 at 21:00; Stop 07/22/17 at 21:01; Status DC Micafungin Sodium 150 mg/Sodium Chloride 100 ml @ 100 mls/hr Q24H IV Last administered on 07/25/17at 15:14; Start 07/23/17 at 15:00; Stop 07/25/17 at 16:46 ; Status DC Miscellaneous (Pill Splitter) 1 ea UNSCH PRN OTHER SEE LABEL COMMENTS; Start at 22:30 Miscellaneous Information ([facility] Ordered Lab Info) SPECIFIC LAB TO BE ... ONCE ONCE .XX Last administered on 07/28/17at 04:09; Start 07/28/17 at 04:45; Stop 07/28/17 at 04:46; Status DC Miscellaneous Medication (ASP Crit: Doc ESBL, MDR A baumannii or P aer) 1 UNSCH X1 PRN .XX PHARMACY DOCUMENTATION; Start 07/27/17 at 23:45; Stop 07/28/17 at 23 :44 Miscellaneous Medication ([facility] Information) 1 UNSCH X1 PRN XX PHARMACY DOCUMENTATION; Start 07/27/17 at 23:45; Stop 07/28/17 at 23:44 Morphine Sulfate (Morphine Inj) 4 mg ONCE ONCE IV PUSH Last administered on at 19:42; Start 07/21/17 at 19:00; Stop 07/21/17 at 19:04; Status DC Pantoprazole Sodium (Protonix) 40 mg DAILY PO Last administered on 07/28/17at 08 :26; Start 07/23/17 at 09:00 Pharmacy Profile Note 0 ml @ 0 mls/hr UNSCH OTHER ; Start 07/21/17 at 22:00 Potassium Chloride (KCl) 80 meq ONCE ONCE PO Last administered on 07/26/17at 11 :28; Start 07/26/17 at 11:15; Stop 07/26/17 at 11:16; Status DC Sodium Chloride 1,000 ml @ 100 mls/hr Q10H IV Last administered on 07/28/17at 07:24; Start 07/22/17 at 22:45 Vancomycin HCl 1500 mg/Sodium Chloride 515 ml @ 250 mls/hr Q8H IV Last administered on 07/25/17at 04:38; Start 07/23/17 at 21:00; Stop 07/25/17 at 09:42 ; Status DC Vancomycin HCl 1750 mg/Sodium Chloride 517.5 ml @ 250 mls/hr Q8H IV Last administered on 07/28/17at 04:53; Start 07/25/17 at 13:00 Vancomycin HCl 2000 mg/Sodium Chloride 520 ml @ 257.5 mls/ hr ONCE ONCE IV Last administered on 07/21/17at 20:55; Start 07/21/17 at 19:15; Stop 07/21/17 at 21:16; Status DC A/P Problem List: (1) Left foot infection ICD Code: L08.9 - Local infection of the skin and subcutaneous tissue, unspecified (2) Noncompliance ICD Code: Z91.19 - Patient's noncompliance with other medical treatment and regimen (3) Drug-seeking behavior ICD Code: Z76.5 - Malingerer [conscious simulation] (4) Fungal infection ICD Code: B49 - Unspecified mycosis Assessment and Plan A/P -sepsis ( tachycardia/tachypnea) due to osteomyelitis of the left calcaneus - s/ p Left partial calcaneal resection/osteotomy, left foot incision and drainage 12/24, Pathology + for acute OM in proximal clearing margins was discharged on IV Vancomycin and PO Levaquin ( end-date ; 08/02/17 per ID)- however the patient missed a few days of his IV Vanco while he was in residential- bacteremia with ESBL E-coli/ Fungemia repeated blood cultures from 07/24 negative so far. continue with IV antibiotics per ID; Ertapenem, Vanco and Diflucan evaluated by ophthalmology and fungal endophthalmitis was ruled out. evaluated by podiatry and no plan for interventions at this time. continue with oral pain meds. -Diarrhea- check the stool for c-diff. -elevated LFT's- with history of Hepatitis C- will monitor- -DVT prophylaxis with subq Lovenox -case management consulted to assist with dc planning. Discharge Planning still febrile- ID / podiatry following. not ready for discharge yet. Josseline Bernard MD July 28, 2017 11:56
[2017-07-28] MEDS ORDERED: HYDR-3366 PO (13:24)
[2017-07-28] MEDS: FLUCONAZOLE 400 MG PREMIX BAG 200 ML IV SCH (17:16)
--- NOTE | 2017-07-28 18:52 | HHI.IDPN ---
Subjective Subjective Remarks Growing Yeast 1/4 and ESBL E.coli B / in admission blood clx s/p attempt to shoot up applesauce that had his Dilaudid crushed IN IT no fever resolved hypoxia doing OK Antibiotics IV Vancomycin micafungin cefepime Lines PIV sites x 2 with no e/o infx Past Medical History IVDU Allergies: Coded Allergies: MRI PRECAUTION (Verified Adverse Reaction, Severe, Patient states he has a neurostimulator and can't have a MRI, 07/22/17) 07/22/17 LRS Objective . Vital Signs Date Time Temp Pulse Resp B/P (MAP) Pulse Ox O2 Delivery O2 Flow Rate FiO2 07/28/17 15:50 97.9 98 20 126/85 (99) 96 07/28/17 12:10 97.5 90 21 128/73 (91) 95 07/28/17 12:03 100 07/28/17 10:50 21 07/28/17 08:10 97.8 78 18 136/83 (100) 96 07/28/17 08:03 68 07/28/17 04:45 98.8 104 18 138/86 (103) 94 07/28/17 04:00 74 07/28/17 00:08 99.0 101 18 112/70 (84) 91 07/28/17 00:00 102 07/27/17 20:15 98.8 88 18 141/89 (106) 98 07/27/17 20:00 Room Air 07/27/17 20:00 103 . Laboratory Tests Test 07/27/17 04:00 White Blood Count 6.7 TH/MM3 Red Blood Count 3.91 MIL/MM3 Hemoglobin 10.6 GM/DL Hematocrit 32.4 % Mean Corpuscular Volume 82.8 FL Mean Corpuscular Hemoglobin 27.1 PG Mean Corpuscular Hemoglobin Concent 32.8 % Red Cell Distribution Width 19.8 % Platelet Count 109 TH/MM3 Mean Platelet Volume 8.3 FL Neutrophils (%) (Auto) 47.3 % Lymphocytes (%) (Auto) 35.8 % Monocytes (%) (Auto) 13.6 % Eosinophils (%) (Auto) 2.9 % Basophils (%) (Auto) 0.4 % Neutrophils # (Auto) 3.1 TH/MM3 Lymphocytes # (Auto) 2.4 TH/MM3 Monocytes # (Auto) 0.9 TH/MM3 Eosinophils # (Auto) 0.2 TH/MM3 Basophils # (Auto) 0.0 TH/MM3 CBC Comment DIFF FINAL Differential Comment Laboratory Tests Test 07/27/17 04:00 Blood Urea Nitrogen 4 MG/DL Creatinine 0.61 MG/DL Random Glucose 73 MG/DL Total Protein 5.2 GM/DL Albumin 2.3 GM/DL Calcium Level 7.6 MG/DL Phosphorus Level 4.3 MG/DL Magnesium Level 1.9 MG/DL Alkaline Phosphatase 156 U/L Aspartate Amino Transf (AST/SGOT) 144 U/L Alanine Aminotransferase (ALT/SGPT) 143 U/L Total Bilirubin 0.8 MG/DL Sodium Level 143 MEQ/L Potassium Level 3.6 MEQ/L Chloride Level 107 MEQ/L Carbon Dioxide Level 27.6 MEQ/L Anion Gap 8 MEQ/L Estimat Glomerular Filtration Rate 150 ML/MIN Imaging Last Impressions Chest X-Ray 07/24/17 0000 Signed Impressions: Service Date/Time: Monday, July 24, 2017 16:26 - CONCLUSION: Patchy basilar airspace disease suspected. López Dias MD Upper Extremity Ultrasound 07/23/17 0000 Signed Impressions: Service Date/Time: July 13:59 - CONCLUSION: No evidence of DVT. Erik Mcdowell MD Foot X-Ray 07/21/17 0000 Signed Impressions: Service Date/Time: Friday, July 21, 2017 19:08 - CONCLUSION: No definite acute bony findings Dustin Soto MD Physical Exam CONSTITUTIONAL/GENERAL: This is an adequately nourished patient, in no apparent distress On RA TUBES/LINES/DRAINS: PIV with no e/o infection SKIN: No jaundice, rashes, or lesions. Skin temperature appropriate. Not diaphoretic. EYES: Pupils equal and round and reactive. Extraocular motions intact. No scleral icterus. No injection or drainage. Fundi not examined. ENT: Hearing grossly normal. Nose without bleeding or purulent drainage. Throat without visible erythema, exudates, masses, or lesions. CARDIOVASCULAR: Regular rate and rhythm without murmurs, gallops, or rubs. RESPIRATORY/CHEST: Symmetric, unlabored respirations. Clear to auscultation. Breath sounds equal bilaterally. No wheezes, rales, or rhonchi. GASTROINTESTINAL: Abdomen soft, non-tender, nondistended. No hepato-splenomegaly , or palpable masses. No guarding. Bowel sounds present. MUSCULOSKELETAL: Extremities without clubbing, cyanosis, or edema. No joint tenderness or effusion noted. No calf tenderness. No mottling or clubbing. L foot with mionimal crusted lesion (< 0.5 cm) posterior calcaneus area with surrounding mild edema and erythema, not tender to palpation. NEUROLOGICAL: Awake and alert. Motor and sensory grossly within normal limits. Follows commands. Cognitively sharp. Moves all extremities. PSYCHIATRIC: No obvious anxiety/depression. no apparent hallucinations or other psychotic thought process. Assessment & Plan Remarks Fungemia C.parapsilosa No e/o septic fungal thrombophlebitis: ophthaslm consulted no e/o fungal endopthalmitis no e/o fungal endocarditis Acute metabolic encephalopathy: sepsis, meds. ESBL E coli sepsis, line sepsis Resp distress, s/p shooting apple sause with crushed dilauidid: resolved -new acute hypoxia after attempted shooting up apple sause Recs: fu Blood cultures change Meropenem to Ertapeem complet 10 days of Ertapenem : last on Thursday cont fluconazol , can be changed to oral form and continue at least 2 weeks from 1st neg blood culture (thru 08/08) cContinue Vanco IV x 6 weeks Vanco can be substiturtes with zyvox untill gets on IV vanco in supervised setting I would be careful with zyvox 2/2 neuropathy and use it only untill pt is admistted for in-pt rehab if feasible If not feasible close monitoring for neuropathy required CBC CMP weekly while on zyvox, fluconazol when just on zyxoxx follow just CBC and BMP (bicarb) Stop date on vanco 08/31 dw parents dw case mngr dw Dr Frias . Pham Alvarez MD July 28, 2017 18:52
[2017-07-29] VITALS (13 sets, daily range): BP systolic 125–156; BP diastolic 68–99; PULSE 85–109; RESP 16–18; TEMP 98.1–101.2; O2SAT 93–99
[2017-07-29] MEDS: ERTAPENEM INJ 1,000 MG in SODIUM CHLORIDE 0.9% INJ 100 ML IV SCH ×2 (00:27→23:01)
[2017-07-29] MEDS: METHOCARBAMOL 500 MG TAB PO SCH ×3 (02:03→17:05)
[2017-07-29] MEDS: RESP: ALBUTEROL 2.5 MG/IPRATROPIUM 0.5 MG NEB (SCH) NEB ×2 (04:07→08:06)
[2017-07-29] MEDS: VANCOMYCIN INJ 1,750 MG in SODIUM CHLORID 0.9% 500 ML INJ 500 ML IV SCH ×3 (04:30→21:33)
[2017-07-29] MEDS: ALPRAZolam 1 MG TAB PO PRN ×4 (04:30→22:59)
[2017-07-29] MEDS: SODIUM CHLOR 0.9% 1000 ML INJ 1,000 ML IV SCH (07:17)
[2017-07-29] MEDS: HYDROmorphone HCL 2 MG TAB PO PRN (08:05)
[2017-07-29] MEDS: FAMOTIDINE 20 MG TAB PO SCH ×2 (08:06→21:33)
[2017-07-29] MEDS: GABAPENTIN 300 MG CAP PO SCH ×3 (08:06→17:05)
[2017-07-29] MEDS: guaiFENesin E.R. 600 MG TAB PO SCH ×2 (08:06→21:33)
[2017-07-29] MEDS: PANTOPRAZOLE SOD 40 MG DELAYED RELEASE TAB PO SCH (08:06)
[2017-07-29] MEDS: ENOXAPARIN SODIUM 40 MG/0.4 ML SYRINGE SQ SCH (08:06)
--- NOTE | 2017-07-29 11:36 | HHI.PR ---
Subjective Remarks in no distress. complaining of back pain and says that dilaudid doesn't help as much. had a low grade fever earlier. d/w the RN. Objective Vitals Vital Signs Date Time Temp Pulse Resp B/P (MAP) Pulse Ox O2 Delivery O2 Flow Rate FiO2 07/29/17 09:41 Room Air 21 07/29/17 08:04 100.1 94 17 156/91 (112) 95 07/29/17 04:24 98.6 91 18 139/93 (108) 99 07/29/17 04:09 85 07/29/17 04:00 Room Air 07/29/17 00:52 106 07/29/17 00:20 98.7 109 18 125/68 (87) 93 07/29/17 00:00 Room Air 07/28/17 22:50 100 07/28/17 22:00 Room Air 07/28/17 20:08 99.1 105 18 162/69 (100) 95 07/28/17 20:02 108 07/28/17 15:55 98 07/28/17 15:50 97.9 98 20 126/85 (99) 96 07/28/17 12:10 97.5 90 21 128/73 (91) 95 07/28/17 12:03 100 I/O 07/28/17 07/28/17 07/28/17 07/29/17 07/29/17 07/29/17 07:00 15:00 23:00 07:00 15:00 23:00 Intake Total 1350 ml 1477.5 ml 1337.5 ml Output Total 2775 ml 1600 ml 2225 ml Balance -1425 ml -122.5 ml -887.5 ml Intake Oral 720 ml 960 ml 720 ml IV Total 630 ml 517.5 ml 617.5 ml Output Urine Total 2775 ml 1600 ml 2225 ml # Bowel Movements 2 4 0 Result Diagram: 07/27/17 0400 07/27/17 0400 Imaging Last Impressions Chest X-Ray 07/24/17 0000 Signed Impressions: Service Date/Time: Monday, July 24, 2017 16:26 - CONCLUSION: Patchy basilar airspace disease suspected. López Dias MD Upper Extremity Ultrasound 07/23/17 0000 Signed Impressions: Service Date/Time: July 13:59 - CONCLUSION: No evidence of DVT. Erik Mcdowell MD Foot X-Ray 07/21/17 0000 Signed Impressions: Service Date/Time: Friday, July 21, 2017 19:08 - CONCLUSION: No definite acute bony findings Dustin Soto MD Objective Remarks GENERAL: This is a well-nourished, well-developed patient, in no apparent distress. CARDIOVASCULAR: Regular rate and regular rhythm without murmurs, gallops, or rubs. RESPIRATORY: Clear to auscultation. Breath sounds equal bilaterally. No wheezes , rales, or rhonchi. GASTROINTESTINAL: Abdomen soft, non-tender, nondistended. Normal, active bowel sounds MUSCULOSKELETAL: left foot is swollen with mild erythema. NEURO: Alert & Oriented x4 to person, place, time, situation. Moves all ext x4 Procedures NONE Medications and IVs Inpatient Medications Acetaminophen (Tylenol) 650 mg Q4H PRN PO FEVER Last administered on 07/27/17at 01:20; Start 07/21/17 at 22:00 Albuterol/ Ipratropium (Duoneb Neb) 1 ampule Q2HR NEB PRN NEB SHORTNESS OF BREATH; Start 07/25/17 at 11:45 Alprazolam (Xanax) 2 mg Q6H PRN PO ANXIETY Last administered on 07/29/17at 04:30 ; Start 07/22/17 at 11:45 Cefepime HCl 2000 mg/Sodium Chloride 100 ml @ 200 mls/hr Q8H IV Last administered on 07/24/17at 14:10; Start 07/24/17 at 13:00; Stop 07/24/17 at 16:00 ; Status DC Enoxaparin Sodium (Lovenox Inj) 40 mg Q24H SQ Last administered on 07/29/17at 08 :06; Start 07/22/17 at 09:00 Ertapenem 1000 mg/ Sodium Chloride 100 ml @ 200 mls/hr Q24H IV Last administered on 07/29/17at 00:27; Start 07/28/17 at 00:00 Famotidine (Pepcid) 20 mg BID PO Last administered on 07/29/17at 08:06; Start at 09:00 Fluconazole/ Sodium Chloride 200 ml @ 100 mls/hr Q24H IV Last administered on 07/28/17at 17:16; Start 07/25/17 at 17:00 Gabapentin (Neurontin) 300 mg TID PO Last administered on 07/29/17at 08:06; Start 07/22/17 at 09:00 Guaifenesin (Mucinex Er) 600 mg BID PO Last administered on 07/29/17at 08:06; Start 07/25/17 at 12:00 Hydromorphone HCl (Dilaudid) 4 mg Q4H PRN PO PAIN 6-10 Last administered on at 08:05; Start 07/22/17 at 14:00 Ibuprofen (Motrin) 400 mg ONCE ONCE PO Last administered on 07/22/17at 21:12; Start 07/22/17 at 21:00; Stop 07/22/17 at 21:01; Status DC Levofloxacin (Levaquin) 750 mg DAILY PO Last administered on 07/24/17at 08:52; Start 07/22/17 at 09:00; Stop 07/24/17 at 11:08; Status DC Magnesium Sulfate/ Dextrose 100 ml @ 100 mls/hr Q1H IV Last administered on at 12:45; Start 07/26/17 at 11:15; Stop 07/26/17 at 13:14; Status DC Meropenem 1000 mg/ Sodium Chloride 100 ml @ 200 mls/hr Q8H IV Last administered on 07/27/17at 18:02; Start 07/24/17 at 17:00; Stop 07/27/17 at 23:45 ; Status DC Methocarbamol (Robaxin) 1,000 mg Q8H PO Last administered on 07/29/17at 09:38; Start 07/22/17 at 10:00 Metoclopramide HCl (Reglan Inj) 10 mg ONCE ONCE IV PUSH Last administered on at 19:41; Start 07/21/17 at 19:00; Stop 07/21/17 at 19:04; Status DC Metoprolol Tartrate (Lopressor) 25 mg ONCE ONCE PO Last administered on at 21:12; Start 07/22/17 at 21:00; Stop 07/22/17 at 21:01; Status DC Micafungin Sodium 150 mg/Sodium Chloride 100 ml @ 100 mls/hr Q24H IV Last administered on 07/25/17at 15:14; Start 07/23/17 at 15:00; Stop 07/25/17 at 16:46 ; Status DC Miscellaneous (Pill Splitter) 1 ea UNSCH PRN OTHER SEE LABEL COMMENTS; Start at 22:30 Miscellaneous Information ([facility] Ordered Lab Info) SPECIFIC LAB TO BE MARIAM... ONCE ONCE .XX Last administered on 07/28/17at 04:09; Start 07/28/17 at 04:45; Stop 07/28/17 at 04:46; Status DC Miscellaneous Medication (ASP Crit: Doc ESBL, MDR A baumannii or P aer) 1 UNSCH X1 PRN .XX PHARMACY DOCUMENTATION; Start 07/27/17 at 23:45; Stop 07/28/17 at 23 :44; Status DC Miscellaneous Medication ([facility] Information) 1 UNSCH X1 PRN XX PHARMACY DOCUMENTATION; Start 07/27/17 at 23:45; Stop 07/28/17 at 23:44; Status DC Morphine Sulfate (Morphine Inj) 4 mg ONCE ONCE IV PUSH Last administered on at 19:42; Start 07/21/17 at 19:00; Stop 07/21/17 at 19:04; Status DC Pantoprazole Sodium (Protonix) 40 mg DAILY PO Last administered on 07/29/17at 08 :06; Start 07/23/17 at 09:00 Pharmacy Profile Note 0 ml @ 0 mls/hr UNSCH OTHER ; Start 07/21/17 at 22:00 Potassium Chloride (KCl) 80 meq ONCE ONCE PO Last administered on 07/26/17at 11 :28; Start 07/26/17 at 11:15; Stop 07/26/17 at 11:16; Status DC Sodium Chloride 1,000 ml @ 100 mls/hr Q10H IV Last administered on 07/29/17at 07:17; Start 07/22/17 at 22:45 Vancomycin HCl 1500 mg/Sodium Chloride 515 ml @ 250 mls/hr Q8H IV Last administered on 07/25/17at 04:38; Start 07/23/17 at 21:00; Stop 07/25/17 at 09:42 ; Status DC Vancomycin HCl 1750 mg/Sodium Chloride 517.5 ml @ 250 mls/hr Q8H IV Last administered on 07/29/17at 04:30; Start 07/25/17 at 13:00 Vancomycin HCl 2000 mg/Sodium Chloride 520 ml @ 257.5 mls/ hr ONCE ONCE IV Last administered on 07/21/17at 20:55; Start 07/21/17 at 19:15; Stop 07/21/17 at 21:16; Status DC A/P Problem List: (1) Left foot infection ICD Code: L08.9 - Local infection of the skin and subcutaneous tissue, unspecified (2) Noncompliance ICD Code: Z91.19 - Patient's noncompliance with other medical treatment and regimen (3) Drug-seeking behavior ICD Code: Z76.5 - Malingerer [conscious simulation] (4) Fungal infection ICD Code: B49 - Unspecified mycosis Assessment and Plan A/P -sepsis ( tachycardia/tachypnea) due to osteomyelitis of the left calcaneus - s/ p Left partial calcaneal resection/osteotomy, left foot incision and drainage 12/24, Pathology + for acute OM in proximal clearing margins was discharged on IV Vancomycin and PO Levaquin ( end-date ; 08/02/17 per ID)- however the patient missed a few days of his IV Vanco while he was in longterm- bacteremia with ESBL E-coli/ Fungemia repeated blood cultures from 07/24 negative so far. echo with no vegetation. continue with IV antibiotics per ID; Ertapenem, Vanco and Diflucan evaluated by ophthalmology and fungal endophthalmitis was ruled out. evaluated by podiatry and no plan for interventions at this time. continue with oral pain meds; will stop Dilaudid and switch to long-acting morphine. -Diarrhea- check the stool for c-diff. -elevated LFT's- with history of Hepatitis C- will monitor- -DVT prophylaxis with subq Lovenox -case management consulted to assist with dc planning. Discharge Planning not ready for discharge yet. Josseline Bernard MD July 29, 2017 11:36
[2017-07-29] MEDS: MORPHINE SULFATE 15 MG CONTROLLED RELEASE TAB PO SCH ×2 (13:35→21:33)
[2017-07-29] MEDS: FLUCONAZOLE 400 MG PREMIX BAG 200 ML IV SCH (16:29)
--- NOTE | 2017-07-29 20:49 | HHI.PR ---
Subjective Remarks Patient seen bedside with no complaints. States he has multiple infections. States he was in prison and did not receive his adequate dosing of vancomycin. Reports plans to be treated in [place] and then go to drug rehab. Objective Vital Signs Date Time Temp Pulse Resp B/P (MAP) Pulse Ox O2 Delivery O2 Flow Rate FiO2 07/29/17 16:06 98.1 98 18 132/82 (99) 99 07/29/17 15:52 97 07/29/17 12:06 98.3 109 18 134/85 (101) 99 07/29/17 11:56 100 07/29/17 09:41 Room Air 21 07/29/17 08:04 100.1 94 17 156/91 (112) 95 07/29/17 07:58 100 07/29/17 04:24 98.6 91 18 139/93 (108) 99 07/29/17 04:09 85 07/29/17 04:00 Room Air 07/29/17 00:52 106 07/29/17 00:20 98.7 109 18 125/68 (87) 93 07/29/17 00:00 Room Air 07/28/17 22:50 100 07/28/17 22:00 Room Air I/O 07/28/17 07/28/17 07/28/17 07/29/17 07/29/17 07/29/17 06:59 14:59 22:59 06:59 14:59 22:59 Intake Total 1350 ml 960 ml 1855.0 ml 980 ml Output Total 2775 ml 1600 ml 2225 ml 900 ml Balance -1425 ml -640 ml -370.0 ml 80 ml Intake Oral 720 ml 960 ml 720 ml 480 ml IV Total 630 ml 1135.0 ml 500 ml Output Urine Total 2775 ml 1600 ml 2225 ml 900 ml # Bowel Movements 2 4 0 1 Result Diagram: 07/27/17 0400 07/27/17 0400 Imaging Last Impressions Chest X-Ray 07/24/17 0000 Signed Impressions: Service Date/Time: Monday, July 24, 2017 16:26 - CONCLUSION: Patchy basilar airspace disease suspected. López Dias MD Upper Extremity Ultrasound 07/23/17 0000 Signed Impressions: Service Date/Time: July 13:59 - CONCLUSION: No evidence of DVT. Erik Mcdowell MD Foot X-Ray 07/21/17 0000 Signed Impressions: Service Date/Time: Friday, July 21, 2017 19:08 - CONCLUSION: No definite acute bony findings Dustin Soto MD Objective Remarks Lower extremity physical exam: Vascular: Dorsalis pedis 2/4, posterior tibial 2/4. Capillary refill time within normal limits to digits 5 bilateral foot. Edema not present left foot Neuro: Gross sensation intact to bilateral lower extremity. Pinpoint sensation decreased. No hyperalgesia noted to bilateral lower extremity Dermatology: Normal temperature and turgor to bilateral lower extremity. Left heel with cicatrix present at previous incision site. All skin well coapted no surrounding erythema or acute signs of infection. Small superficial eschar noted to distal aspect of incision. Musculoskeletal: Tender to palpation to left heel. Medications and IVs Current Medications Medications (Trade) Dose Ordered Sig/Negra Route Start Time Stop Time Status Last Admin Pharmacy Profile Note 0 ml @ 0 mls/hr UNSCH OTHER 07/21/17 22:00 (Tylenol) 650 mg Q4H PRN PO 07/21/17 22:00 07/27/17 01:20 (Lovenox Inj) 40 mg Q24H SQ 07/22/17 09:00 07/29/17 08:06 (Neurontin) 300 mg TID PO 07/22/17 09:00 07/29/17 17:05 (Pill Splitter) 1 ea UNSCH PRN OTHER 07/21/17 22:30 (Pepcid) 20 mg BID PO 07/22/17 09:00 07/29/17 08:06 (Protonix) 40 mg DAILY PO 07/23/17 09:00 07/29/17 08:06 (Robaxin) 1,000 mg Q8H PO 07/22/17 10:00 07/29/17 17:05 (Xanax) 2 mg Q6H PRN PO 07/22/17 11:45 07/29/17 16:09 Sodium Chloride 1,000 ml @ 100 mls/hr Q10H IV 07/22/17 22:45 07/29/17 07:17 Vancomycin HCl 1750 mg/Sodium Chloride 517.5 ml @ 250 mls/hr Q8H IV 07/25/17 13:00 5/23/18 12:42 (Mucinex Er) 600 mg BID PO 07/25/17 12:00 07/29/17 08:06 (Duoneb Neb) 1 ampule Q2HR NEB PRN NEB 07/25/17 11:45 Fluconazole/ Sodium Chloride 200 ml @ 100 mls/hr Q24H IV 07/25/17 17:00 07/29/17 16:29 Ertapenem 1000 mg/ Sodium Chloride 100 ml @ 200 mls/hr Q24H IV 07/28/17 00:00 07/29/17 00:27 (Oramorph Sr) 15 mg Q8HR PO 07/29/17 14:00 07/29/17 13:35 (Morphine Inj) 2 mg Q4H PRN IV PUSH 07/29/17 11:45 Assessment and Plan Assessment and Plan 36-year-old male status post left heel partial calcanectomy Patient examined evaluated with all questions answered Surgical site healed Here patient will be joining rehab program in [place], he is very hopeful Discussed with Dr. Alvarez Patient will need to follow-up with branch examiner in [place] Continue IV antibiotics for left Calc OM Dayna Virk DPM July 29, 2017 20:49
[2017-07-29] MEDS: ACETAMINOPHEN 325 MG TAB PO PRN (22:59)
[2017-07-30] VITALS (9 sets, daily range): BP systolic 141–148; BP diastolic 84–93; PULSE 72–118; RESP 16–20; TEMP 97.1–99.9; O2SAT 97–99
[2017-07-30] MEDS: METHOCARBAMOL 500 MG TAB PO SCH ×3 (02:24→18:07)
[2017-07-30] MEDS: MORPHINE SULFATE 15 MG CONTROLLED RELEASE TAB PO SCH ×3 (05:23→20:54)
[2017-07-30] MEDS: VANCOMYCIN INJ 1,750 MG in SODIUM CHLORID 0.9% 500 ML INJ 500 ML IV SCH ×3 (05:25→20:53)
--- NOTE | 2017-07-30 08:40 | HHI.PR ---
Subjective Remarks in no acute distress. looks comfortable. Tmax 101.2. no diarrhea over night. d/w the RN. Objective Vitals Vital Signs Date Time Temp Pulse Resp B/P (MAP) Pulse Ox O2 Delivery O2 Flow Rate FiO2 07/30/17 06:39 Room Air 07/30/17 06:32 18 07/30/17 04:05 80 07/30/17 03:45 97.1 74 16 143/93 (110) 99 07/30/17 00:00 101 07/29/17 23:00 99.0 96 16 147/99 (115) 97 07/29/17 21:40 Room Air 07/29/17 20:24 106 07/29/17 20:18 101.2 92 16 151/95 (113) 97 07/29/17 16:06 98.1 98 18 132/82 (99) 99 07/29/17 15:52 97 07/29/17 12:06 98.3 109 18 134/85 (101) 99 07/29/17 11:56 100 07/29/17 09:41 Room Air 21 I/O 07/29/17 07/29/17 07/29/17 07/30/17 07/30/17 07/30/17 07:00 15:00 23:00 07:00 15:00 23:00 Intake Total 1337.5 ml 980 ml 1697.5 ml Output Total 2225 ml 900 ml 1250 ml Balance -887.5 ml 80 ml 447.5 ml Intake Oral 720 ml 480 ml 1080 ml IV Total 617.5 ml 500 ml 617.5 ml Output Urine Total 2225 ml 900 ml 1250 ml # Bowel Movements 0 1 1 Result Diagram: 07/27/17 0400 07/27/17 0400 Imaging Last Impressions Chest X-Ray 07/24/17 0000 Signed Impressions: Service Date/Time: Monday, July 24, 2017 16:26 - CONCLUSION: Patchy basilar airspace disease suspected. López Dias MD Upper Extremity Ultrasound 07/23/17 0000 Signed Impressions: Service Date/Time: July 13:59 - CONCLUSION: No evidence of DVT. Erik Mcdowell MD Foot X-Ray 07/21/17 0000 Signed Impressions: Service Date/Time: Friday, July 21, 2017 19:08 - CONCLUSION: No definite acute bony findings Dustin Soto MD Objective Remarks GENERAL: This is a well-nourished, well-developed patient, in no apparent distress. CARDIOVASCULAR: Regular rate and regular rhythm without murmurs, gallops, or rubs. RESPIRATORY: Clear to auscultation. Breath sounds equal bilaterally. No wheezes , rales, or rhonchi. GASTROINTESTINAL: Abdomen soft, non-tender, nondistended. Normal, active bowel sounds MUSCULOSKELETAL: left foot is swollen with mild erythema. NEURO: Alert & Oriented x4 to person, place, time, situation. Moves all ext x4 Procedures NONE Medications and IVs Inpatient Medications Acetaminophen (Tylenol) 650 mg Q4H PRN PO FEVER Last administered on 07/29/17 22:59; Start 07/21/17 at 22:00 Albuterol/ Ipratropium (Duoneb Neb) 1 ampule Q2HR NEB PRN NEB SHORTNESS OF BREATH; Start 07/25/17 at 11:45 Alprazolam (Xanax) 2 mg Q6H PRN PO ANXIETY Last administered on 07/29/17 22:59 ; Start 07/22/17 at 11:45 Cefepime HCl 2000 mg/Sodium Chloride 100 ml @ 200 mls/hr Q8H IV Last administered on 07/24/17 14:10; Start 07/24/17 at 13:00; Stop 07/24/17 at 16:00 ; Status DC Enoxaparin Sodium (Lovenox Inj) 40 mg Q24H SQ Last administered on 07/29/17 08 :06; Start 07/22/17 at 09:00 Ertapenem 1000 mg/ Sodium Chloride 100 ml @ 200 mls/hr Q24H IV Last administered on 07/29/17 23:01; Start 07/28/17 at 00:00 Famotidine (Pepcid) 20 mg BID PO Last administered on 07/29/17 21:33; Start at 09:00 Fluconazole/ Sodium Chloride 200 ml @ 100 mls/hr Q24H IV Last administered on 07/29/17 16:29; Start 07/25/17 at 17:00 Gabapentin (Neurontin) 300 mg TID PO Last administered on 07/29/17 17:05; Start 07/22/17 at 09:00 Guaifenesin (Mucinex Er) 600 mg BID PO Last administered on 07/29/17at 21:33; Start 07/25/17 at 12:00 Hydromorphone HCl (Dilaudid) 4 mg Q4H PRN PO PAIN 6-10 Last administered on at 08:05; Start 07/22/17 at 14:00; Stop 07/29/17 at 11:39; Status DC Ibuprofen (Motrin) 400 mg ONCE ONCE PO Last administered on 07/22/17at 21:12; Start 07/22/17 at 21:00; Stop 07/22/17 at 21:01; Status DC Levofloxacin (Levaquin) 750 mg DAILY PO Last administered on 07/24/17at 08:52; Start 07/22/17 at 09:00; Stop 07/24/17 at 11:08; Status DC Magnesium Sulfate/ Dextrose 100 ml @ 100 mls/hr Q1H IV Last administered on at 12:45; Start 07/26/17 at 11:15; Stop 07/26/17 at 13:14; Status DC Meropenem 1000 mg/ Sodium Chloride 100 ml @ 200 mls/hr Q8H IV Last administered on 07/27/17at 18:02; Start 07/24/17 at 17:00; Stop 07/27/17 at 23:45 ; Status DC Methocarbamol (Robaxin) 1,000 mg Q8H PO Last administered on 07/30/17at 02:24; Start 07/22/17 at 10:00 Metoclopramide HCl (Reglan Inj) 10 mg ONCE ONCE IV PUSH Last administered on at 19:41; Start 07/21/17 at 19:00; Stop 07/21/17 at 19:04; Status DC Metoprolol Tartrate (Lopressor) 25 mg ONCE ONCE PO Last administered on at 21:12; Start 07/22/17 at 21:00; Stop 07/22/17 at 21:01; Status DC Micafungin Sodium 150 mg/Sodium Chloride 100 ml @ 100 mls/hr Q24H IV Last administered on 07/25/17at 15:14; Start 07/23/17 at 15:00; Stop 07/25/17 at 16:46 ; Status DC Miscellaneous (Pill Splitter) 1 ea UNSCH PRN OTHER SEE LABEL COMMENTS; Start at 22:30 Miscellaneous Information ([facility] Ordered Lab Info) SPECIFIC LAB TO BE ... ONCE ONCE .XX Last administered on 07/28/17at 04:09; Start 07/28/17 at 04:45; Stop 07/28/17 at 04:46; Status DC Miscellaneous Medication (ASP Crit: Doc ESBL, MDR A baumannii or P aer) 1 UNSCH X1 PRN .XX PHARMACY DOCUMENTATION; Start 07/27/17 at 23:45; Stop 07/28/17 at 23 :44; Status DC Miscellaneous Medication ([facility] Information) 1 UNSCH X1 PRN XX PHARMACY DOCUMENTATION; Start 07/27/17 at 23:45; Stop 07/28/17 at 23:44; Status DC Morphine Sulfate (Morphine Inj) 2 mg Q4H PRN IV PUSH BREAKTHROUGH PAIN; Start 07/29/17 at 11:45 Morphine Sulfate (Oramorph Sr) 15 mg Q8HR PO Last administered on 07/30/17at 05: 23; Start 07/29/17 at 14:00 Pantoprazole Sodium (Protonix) 40 mg DAILY PO Last administered on 07/29/17at 08 :06; Start 07/23/17 at 09:00 Pharmacy Profile Note 0 ml @ 0 mls/hr UNSCH OTHER ; Start 07/21/17 at 22:00 Potassium Chloride (KCl) 80 meq ONCE ONCE PO Last administered on 07/26/17at 11 :28; Start 07/26/17 at 11:15; Stop 07/26/17 at 11:16; Status DC Sodium Chloride 1,000 ml @ 100 mls/hr Q10H IV Last administered on 07/29/17at 07:17; Start 07/22/17 at 22:45 Vancomycin HCl 1500 mg/Sodium Chloride 515 ml @ 250 mls/hr Q8H IV Last administered on 07/25/17at 04:38; Start 07/23/17 at 21:00; Stop 07/25/17 at 09:42 ; Status DC Vancomycin HCl 1750 mg/Sodium Chloride 517.5 ml @ 250 mls/hr Q8H IV Last administered on 5/24/18at 05:25; Start 07/25/17 at 13:00 Vancomycin HCl 2000 mg/Sodium Chloride 520 ml @ 257.5 mls/ hr ONCE ONCE IV Last administered on 07/21/17at 20:55; Start 07/21/17 at 19:15; Stop 07/21/17 at 21:16; Status DC A/P Problem List: (1) Left foot infection ICD Code: L08.9 - Local infection of the skin and subcutaneous tissue, unspecified (2) Noncompliance ICD Code: Z91.19 - Patient's noncompliance with other medical treatment and regimen (3) Drug-seeking behavior ICD Code: Z76.5 - Malingerer [conscious simulation] (4) Fungal infection ICD Code: B49 - Unspecified mycosis Assessment and Plan A/P -sepsis ( tachycardia/tachypnea) due to osteomyelitis of the left calcaneus - s/ p Left partial calcaneal resection/osteotomy, left foot incision and drainage 12/24, Pathology + for acute OM in proximal clearing margins was discharged on IV Vancomycin and PO Levaquin ( end-date ; 08/02/17 per ID)- however the patient missed a few days of his IV V[facility] in [facility]- bacteremia with ESBL E-coli/ Fungemia repeated blood cultures from 07/24 negative so far. echo with no vegetation. continue with IV antibiotics per ID; Ertapenem, Vanco and Diflucan evaluated by ophthalmology and fungal endophthalmitis was ruled out. evaluated by podiatry and no plan for interventions at this time. continue with oral pain meds; switched to long-acting morphine. -Diarrhea- resolved. -elevated LFT's- with history of Hepatitis C- will monitor- -DVT prophylaxis with subq Lovenox -case management consulted to assist with dc planning. Discharge Planning not ready for discharge yet. Josseline Bernard MD July 30, 2017 08:40
[2017-07-30] MEDS: GABAPENTIN 300 MG CAP PO SCH ×3 (09:42→18:07)
[2017-07-30] MEDS: guaiFENesin E.R. 600 MG TAB PO SCH ×2 (09:42→20:53)
[2017-07-30] MEDS: PANTOPRAZOLE SOD 40 MG DELAYED RELEASE TAB PO SCH (09:42)
[2017-07-30] MEDS: ENOXAPARIN SODIUM 40 MG/0.4 ML SYRINGE SQ SCH (09:42)
[2017-07-30] MEDS: FAMOTIDINE 20 MG TAB PO SCH ×2 (09:42→20:53)
[2017-07-30] MEDS: SODIUM CHLOR 0.9% 1000 ML INJ 1,000 ML IV SCH ×3 (10:18→20:55)
[2017-07-30 11:48] LABS: CREATININE 0.6 MG/DL (0.60-1.30)
[2017-07-30] MEDS: ALPRAZolam 1 MG TAB PO PRN (18:07)
[2017-07-30] MEDS: FLUCONAZOLE 400 MG PREMIX BAG 200 ML IV SCH (18:07)
[2017-07-30] MEDS: ERTAPENEM INJ 1,000 MG in SODIUM CHLORIDE 0.9% INJ 100 ML IV SCH (23:54)
[2017-07-31] VITALS (7 sets, daily range): BP systolic 116–136; BP diastolic 73–91; PULSE 82–107; RESP 16–20; TEMP 97.5–100.8; O2SAT 95–98
[2017-07-31] MEDS: ALPRAZolam 1 MG TAB PO PRN ×2 (00:20→20:15)
[2017-07-31] MEDS: METHOCARBAMOL 500 MG TAB PO SCH ×3 (00:59→17:04)
[2017-07-31] MEDS: MORPHINE SULFATE 15 MG CONTROLLED RELEASE TAB PO SCH ×3 (04:55→21:48)
[2017-07-31] MEDS: SODIUM CHLOR 0.9% 1000 ML INJ 1,000 ML IV SCH (04:55)
[2017-07-31] MEDS: VANCOMYCIN INJ 1,750 MG in SODIUM CHLORID 0.9% 500 ML INJ 500 ML IV SCH ×3 (04:56→20:12)
[2017-07-31] MEDS: GABAPENTIN 300 MG CAP PO SCH ×3 (09:19→17:04)
[2017-07-31] MEDS: FAMOTIDINE 20 MG TAB PO SCH ×2 (09:19→20:12)
[2017-07-31] MEDS: guaiFENesin E.R. 600 MG TAB PO SCH ×2 (09:19→20:12)
[2017-07-31] MEDS: PANTOPRAZOLE SOD 40 MG DELAYED RELEASE TAB PO SCH (09:20)
[2017-07-31] MEDS: ENOXAPARIN SODIUM 40 MG/0.4 ML SYRINGE SQ SCH (09:20)
--- NOTE | 2017-07-31 09:59 | HHI.PR ---
Subjective Remarks in no acute distress. had a few soft BM over night. T max 100.8. d/w the RN. Objective Vitals Vital Signs Date Time Temp Pulse Resp B/P (MAP) Pulse Ox O2 Delivery O2 Flow Rate FiO2 07/31/17 08:00 96 07/31/17 07:00 Room Air 07/31/17 06:05 99.5 98 20 130/73 (92) 95 07/31/17 05:02 Room Air 07/31/17 03:46 107 07/31/17 00:01 100.8 105 20 136/91 (106) 97 07/30/17 23:49 109 07/30/17 20:00 Room Air 07/30/17 20:00 99.9 116 20 141/89 (106) 97 07/30/17 19:42 118 07/30/17 16:00 100 07/30/17 16:00 98.6 97 18 142/84 (103) 97 07/30/17 13:00 Room Air 07/30/17 12:00 92 07/30/17 12:00 97.7 92 16 141/91 (108) 97 07/30/17 11:00 Room Air I/O 07/30/17 07/30/17 07/30/17 07/31/17 07/31/17 07/31/17 07:00 15:00 23:00 07:00 15:00 23:00 Intake Total 1697.5 ml 817 ml 525 ml 1980 ml Output Total 1250 ml 2700 ml 1750 ml Balance 447.5 ml 817 ml -2175 ml 230 ml Intake Oral 1080 ml 360 ml IV Total 617.5 ml 817 ml 525 ml 1620 ml Output Urine Total 1250 ml 2700 ml 1750 ml # Bowel Movements 1 Result Diagram: 07/27/17 0400 07/30/17 1032 Imaging Last Impressions Chest X-Ray 07/24/17 0000 Signed Impressions: Service Date/Time: Monday, July 24, 2017 16:26 - CONCLUSION: Patchy basilar airspace disease suspected. López Dias MD Upper Extremity Ultrasound 07/23/17 0000 Signed Impressions: Service Date/Time: July 13:59 - CONCLUSION: No evidence of DVT. Erik Mcdowell MD Foot X-Ray 07/21/17 0000 Signed Impressions: Service Date/Time: Friday, July 21, 2017 19:08 - CONCLUSION: No definite acute bony findings Dustin Soto MD Objective Remarks GENERAL: This is a well-nourished, well-developed patient, in no apparent distress. CARDIOVASCULAR: Regular rate and regular rhythm without murmurs, gallops, or rubs. RESPIRATORY: Clear to auscultation. Breath sounds equal bilaterally. No wheezes , rales, or rhonchi. GASTROINTESTINAL: Abdomen soft, non-tender, nondistended. Normal, active bowel sounds MUSCULOSKELETAL: left foot is swollen with mild erythema/ some swelling/mild erythema of the right arm. NEURO: Alert & Oriented x4 to person, place, time, situation. Moves all ext x4 Procedures NONE Medications and IVs Inpatient Medications Acetaminophen (Tylenol) 650 mg Q4H PRN PO FEVER Last administered on 07/29/17 22:59; Start 07/21/17 at 22:00 Albuterol/ Ipratropium (Duoneb Neb) 1 ampule Q2HR NEB PRN NEB SHORTNESS OF BREATH Last administered on 07/31/17 01:24; Start 07/25/17 at 11:45 Alprazolam (Xanax) 2 mg Q6H PRN PO ANXIETY Last administered on 07/31/17 00:20 ; Start 07/22/17 at 11:45 Cefepime HCl 2000 mg/Sodium Chloride 100 ml @ 200 mls/hr Q8H IV Last administered on 07/24/17 14:10; Start 07/24/17 at 13:00; Stop 07/24/17 at 16:00 ; Status DC Enoxaparin Sodium (Lovenox Inj) 40 mg Q24H SQ Last administered on 07/31/17 09 :20; Start 07/22/17 at 09:00 Ertapenem 1000 mg/ Sodium Chloride 100 ml @ 200 mls/hr Q24H IV Last administered on 07/30/17 23:54; Start 07/28/17 at 00:00 Famotidine (Pepcid) 20 mg BID PO Last administered on 07/31/17 09:19; Start at 09:00 Fluconazole/ Sodium Chloride 200 ml @ 100 mls/hr Q24H IV Last administered on 07/30/17 18:07; Start 07/25/17 at 17:00 Gabapentin (Neurontin) 300 mg TID PO Last administered on 07/31/17 09:19; Start 07/22/17 at 09:00 Guaifenesin (Mucinex Er) 600 mg BID PO Last administered on 07/31/17 09:19; Start 07/25/17 at 12:00 Hydromorphone HCl (Dilaudid) 4 mg Q4H PRN PO PAIN 6-10 Last administered on at 08:05; Start 07/22/17 at 14:00; Stop 07/29/17 at 11:39; Status DC Ibuprofen (Motrin) 400 mg ONCE ONCE PO Last administered on 07/22/17at 21:12; Start 07/22/17 at 21:00; Stop 07/22/17 at 21:01; Status DC Levofloxacin (Levaquin) 750 mg DAILY PO Last administered on 07/24/17at 08:52; Start 07/22/17 at 09:00; Stop 07/24/17 at 11:08; Status DC Magnesium Sulfate/ Dextrose 100 ml @ 100 mls/hr Q1H IV Last administered on at 12:45; Start 07/26/17 at 11:15; Stop 07/26/17 at 13:14; Status DC Meropenem 1000 mg/ Sodium Chloride 100 ml @ 200 mls/hr Q8H IV Last administered on 07/27/17at 18:02; Start 07/24/17 at 17:00; Stop 07/27/17 at 23:45 ; Status DC Methocarbamol (Robaxin) 1,000 mg Q8H PO Last administered on 07/31/17at 09:23; Start 07/22/17 at 10:00 Metoclopramide HCl (Reglan Inj) 10 mg ONCE ONCE IV PUSH Last administered on at 19:41; Start 07/21/17 at 19:00; Stop 07/21/17 at 19:04; Status DC Metoprolol Tartrate (Lopressor) 25 mg ONCE ONCE PO Last administered on at 21:12; Start 07/22/17 at 21:00; Stop 07/22/17 at 21:01; Status DC Micafungin Sodium 150 mg/Sodium Chloride 100 ml @ 100 mls/hr Q24H IV Last administered on 07/25/17at 15:14; Start 07/23/17 at 15:00; Stop 07/25/17 at 16:46 ; Status DC Miscellaneous (Pill Splitter) 1 ea UNSCH PRN OTHER SEE LABEL COMMENTS; Start at 22:30 Miscellaneous Information ([facility] Ordered Lab Info) SPECIFIC LAB TO BE MARIAM... ONCE ONCE .XX Last administered on 07/28/17at 04:09; Start 07/28/17 at 04:45; Stop 07/28/17 at 04:46; Status DC Miscellaneous Medication (ASP Crit: Doc ESBL, MDR A baumannii or P aer) 1 UNSCH X1 PRN .XX PHARMACY DOCUMENTATION; Start 07/27/17 at 23:45; Stop 07/28/17 at 23 :44; Status DC Miscellaneous Medication ([facility]) 1 UNSCH X1 PRN XX PHARMACY DOCUMENTATION; Start 07/27/17 at 23:45; Stop 07/28/17 at 23:44; Status DC Morphine Sulfate (Morphine Inj) 2 mg Q4H PRN IV PUSH BREAKTHROUGH PAIN; Start 07/29/17 at 11:45 Morphine Sulfate (Oramorph Sr) 15 mg Q8HR PO Last administered on 07/31/17at 04: 55; Start 07/29/17 at 14:00 Pantoprazole Sodium (Protonix) 40 mg DAILY PO Last administered on 07/31/17at 09 :20; Start 07/23/17 at 09:00 Pharmacy Profile Note 0 ml @ 0 mls/hr UNSCH OTHER ; Start 07/21/17 at 22:00 Potassium Chloride (KCl) 80 meq ONCE ONCE PO Last administered on 07/26/17at 11 :28; Start 07/26/17 at 11:15; Stop 07/26/17 at 11:16; Status DC Sodium Chloride 1,000 ml @ 100 mls/hr Q10H IV Last administered on 07/31/17at 04:55; Start 07/22/17 at 22:45 Vancomycin HCl 1500 mg/Sodium Chloride 515 ml @ 250 mls/hr Q8H IV Last administered on 07/25/17at 04:38; Start 07/23/17 at 21:00; Stop 07/25/17 at 09:42 ; Status DC Vancomycin HCl 1750 mg/Sodium Chloride 517.5 ml @ 250 mls/hr Q8H IV Last administered on 07/31/17at 04:56; Start 07/25/17 at 13:00 Vancomycin HCl 2000 mg/Sodium Chloride 520 ml @ 257.5 mls/ hr ONCE ONCE IV Last administered on 07/21/17at 20:55; Start 07/21/17 at 19:15; Stop 07/21/17 at 21:16; Status DC A/P Problem List: (1) Left foot infection ICD Code: L08.9 - Local infection of the skin and subcutaneous tissue, unspecified (2) Noncompliance ICD Code: Z91.19 - Patient's noncompliance with other medical treatment and regimen (3) Drug-seeking behavior ICD Code: Z76.5 - Malingerer [conscious simulation] (4) Fungal infection ICD Code: B49 - Unspecified mycosis Assessment and Plan A/P -sepsis ( tachycardia/tachypnea) due to osteomyelitis of the left calcaneus - s/ p Left partial calcaneal resection/osteotomy, left foot incision and drainage 12/24, Pathology + for acute OM in proximal clearing margins was discharged on IV Vancomycin and PO Levaquin ( end-date ; 08/02/17 per ID)- however the patient missed a few days of his IV Vanco while he was in [place] [facility]- bacteremia with ESBL E-coli/ Fungemia repeated blood cultures from 07/24 negative so far. echo with no vegetation. continue with IV antibiotics per ID; Ertapenem, Vanco and Diflucan evaluated by ophthalmology and fungal endophthalmitis was ruled out. evaluated by podiatry and no plan for interventions at this time. continue with oral pain meds; switched to long-acting morphine. -Diarrhea- resolved. -elevated LFT's- with history of Hepatitis C- will monitor- -DVT prophylaxis with subq Lovenox -case management consulted to assist with dc planning. Discharge Planning not ready for discharge yet. Josseline Bernard MD July 31, 2017 09:58
--- NOTE | 2017-07-31 16:50 | HHI.IDPN ---
Subjective Subjective Remarks pt is febrile low grade, up to 101 2 days aog, no fever today also co RUE pain, swelling, redness no other c/o Antibiotics IV Vancomycin fluconazol ertapenem Lines PIV sites x 2 with no e/o infx Past Medical History IVDU Allergies: Coded Allergies: MRI PRECAUTION (Verified Adverse Reaction, Severe, Patient states he has a neurostimulator and can't have a MRI, 07/22/17) 07/22/17 LRS Objective . Vital Signs Date Time Temp Pulse Resp B/P (MAP) Pulse Ox O2 Delivery O2 Flow Rate FiO2 07/31/17 12:00 97.5 96 20 116/85 (95) 97 07/31/17 12:00 90 07/31/17 11:00 Room Air 07/31/17 08:00 96 07/31/17 08:00 98.3 91 20 119/81 (94) 95 07/31/17 07:00 Room Air 07/31/17 06:05 99.5 98 20 130/73 (92) 95 07/31/17 05:02 Room Air 07/31/17 03:46 107 07/31/17 00:01 100.8 105 20 136/91 (106) 97 07/30/17 23:49 109 07/30/17 20:00 Room Air 07/30/17 20:00 99.9 116 20 141/89 (106) 97 07/30/17 19:42 118 . Laboratory Tests Test 07/30/17 10:32 Creatinine 0.60 MG/DL Estimat Glomerular Filtration Rate 153 ML/MIN Imaging Last Impressions Chest X-Ray 07/24/17 0000 Signed Impressions: Service Date/Time: Monday, July 24, 2017 16:26 - CONCLUSION: Patchy basilar airspace disease suspected. López Dias MD Upper Extremity Ultrasound 07/23/17 0000 Signed Impressions: Service Date/Time: July 13:59 - CONCLUSION: No evidence of DVT. Erik Mcdowell MD Foot X-Ray 07/21/17 0000 Signed Impressions: Service Date/Time: Friday, July 21, 2017 19:08 - CONCLUSION: No definite acute bony findings Dustin Soto MD Physical Exam CONSTITUTIONAL/GENERAL: This is an adequately nourished patient, in no apparent distress On RA TUBES/LINES/DRAINS: PIV with no e/o infection SKIN: No jaundice, rashes, or lesions. Skin temperature appropriate. Not diaphoretic. EYES: Pupils equal and round and reactive. Extraocular motions intact. No scleral icterus. No injection or drainage. Fundi not examined. CARDIOVASCULAR: Regular rate and rhythm without murmurs, gallops, or rubs. RESPIRATORY/CHEST: Symmetric, unlabored respirations. Clear to auscultation. Breath sounds equal bilaterally. No wheezes, rales, or rhonchi. GASTROINTESTINAL: Abdomen soft, non-tender, nondistended. No hepato-splenomegaly , or palpable masses. No guarding. Bowel sounds present. MUSCULOSKELETAL: Extremities without clubbing, cyanosis, or edema. LUE : firm, non tender cords RUE: ill defined erythema edema tenderness innfer proximal forearm NEUROLOGICAL: Awake and alert. Motor and sensory grossly within normal limits. Follows commands. Cognitively sharp. Moves all extremities. PSYCHIATRIC: No obvious anxiety/depression. no apparent hallucinations or other psychotic thought process. Assessment & Plan Remarks Fungemia C.parapsilosa No e/o septic fungal thrombophlebitis: ophthaslm consulted no e/o fungal endopthalmitis no e/o fungal endocarditis Acute metabolic encephalopathy: sepsis, meds. ESBL E coli sepsis, line sepsis Resp distress, s/p shooting apple sause with crushed dilauidid: resolved -new acute hypoxia after attempted shooting up apple sause New fever New RUE abscess vs phlebitis Recs: repeat Blood cultures RUE US cont Ertapeem complet 10 days of Ertapenem : last on Thursday cont fluconazol , can be changed to oral form and continue at least 2 weeks from 1st neg blood culture (thru 08/08) cContinue Vanco IV x 6 weeks Vanco can be substiturtes with zyvox untill gets on IV vanco in supervised setting I would be careful with zyvox 2/2 neuropathy and use it only untill pt is admistted for in-pt rehab if feasible If not feasible close monitoring for neuropathy required CBC CMP weekly while on zyvox, fluconazol when just on zyxoxx follow just CBC and BMP (bicarb) Stop date on vanco 08/31 dw parents dw case mngr dw Dr Frias . Pham Alvarez MD July 31, 2017 16:50
[2017-07-31] MEDS: FLUCONAZOLE 400 MG PREMIX BAG 200 ML IV SCH (17:00)
--- NOTE | 2017-07-31 19:45 | RADRPT ---
EXAM DATE: 07/31/2017 6:25 PM EDT AGE/SEX: 36 years / Male INDICATIONS: Abscess. CLINICAL DATA: This is the patient's initial encounter. Patient reports that signs and symptoms have been present for 2 weeks and indicates a pain score of 9/10. Location: Laterality: MEDICAL/SURGICAL HISTORY: . Left leg numbness/tingling. Anxiety. Substance use. MRSA. . Neuros timulator in back. Bilateral hip surgery. Right foot surgery. COMPARISON: No prior [place] exams available for comparison. FINDINGS: There is subcutaneous edema within the right anterior forearm. There is occlusive and nonocclusive th rombus throughout the right cephalic vein. No loculated abscess or drainable fluid collection. CONCLUSION: 1. Occlusive and nonocclusive thrombus in the right cephalic vein with surrounding edema, probably t hrombophlebitis. Electronically signed by: Daren Cotton MD 07/31/2017 7:43 PM EDT
[2017-07-31] MEDS: MORPHINE SULFATE 4 MG/ML INJ IV PUSH PRN (20:10)
[2017-07-31] MEDS: LOPERAMIDE HCL 2 MG CAP PO PRN (23:25)
[2017-07-31] MEDS: ERTAPENEM INJ 1,000 MG in SODIUM CHLORIDE 0.9% INJ 100 ML IV SCH (23:26)
[2017-08-01] VITALS (10 sets, daily range): BP systolic 113–124; BP diastolic 61–76; PULSE 81–101; RESP 16–20; TEMP 97.3–98.2; O2SAT 94–98
[2017-08-01] MEDS: METHOCARBAMOL 500 MG TAB PO SCH ×3 (01:59→17:46)
[2017-08-01] MEDS: ALPRAZolam 1 MG TAB PO PRN (01:59)
[2017-08-01] MEDS: SODIUM CHLOR 0.9% 1000 ML INJ 1,000 ML IV SCH ×3 (05:26→22:45)
[2017-08-01] MEDS: VANCOMYCIN INJ 1,750 MG in SODIUM CHLORID 0.9% 500 ML INJ 500 ML IV SCH ×3 (05:26→21:47)
[2017-08-01] MEDS: MORPHINE SULFATE 15 MG CONTROLLED RELEASE TAB PO SCH ×3 (05:27→21:48)
[2017-08-01 07:44] LABS: AUTOMATED NEUTROPHIL # 3.4 TH/MM3 (1.8-7.7); BASOPHIL % 0.4 % (0.0-2.0); EOSINOPHIL # 0.2 TH/MM3 (0-0.4); EOSINOPHIL % 2.6 % (0.0-4.0); HEMATOCRIT 36.9 % (39.0-51.0); HEMOGLOBIN 12.3 GM/DL (13.0-17.0); LYMPHOCYTE # 1.9 TH/MM3 (1.0-4.8); MEAN CELL VOLUME 83.4 FL (80.0-100.0); MEAN CORPUSCULAR HEMOGLOBIN 27.9 PG (27.0-34.0); MEAN CORPUSCULAR HGB CONC 33.5 % (32.0-36.0); MEAN PLATELET VOLUME 7.3 FL (7.0-11.0); MONO % 12.9 % (0.0-8.0); MONOCYTE # 0.8 TH/MM3 (0-0.9); NEUT % 54.1 % (16.0-70.0); PLATELET COUNT 345 TH/MM3 (150-450); RED BLOOD COUNT 4.42 MIL/MM3 (4.50-5.90); RED CELL DISTRIBUTION WIDTH 19.7 % (11.6-17.2); WHITE BLOOD COUNT 6.3 TH/MM3 (4.0-11.0)
[2017-08-01 08:14] LABS: ALT (GPT) 199 U/L (12-78)
[2017-08-01 08:17] LABS: ALKALINE PHOSPHATASE 278 U/L (45-117); TOTAL BILIRUBIN ADULT 0.6 MG/DL (0.2-1.0); TOTAL PROTEIN 6.8 GM/DL (6.4-8.2)
[2017-08-01 08:24] LABS: ALBUMIN 2.7 GM/DL (3.4-5.0); AST (GOT) 220 U/L (15-37); BICARBONATE 23.6 MEQ/L (21.0-32.0); BLOOD UREA NITROGEN 9 MG/DL (7-18); CALCIUM 8.7 MG/DL (8.5-10.1); CHLORIDE 105 MEQ/L (98-107); CREATININE 0.78 MG/DL (0.60-1.30); GLOMERULAR FILTRATION RATE 113 ML/MIN (>89); GLUCOSE,RANDOM 110 MG/DL (74-106); SODIUM (NA) 139 MEQ/L (136-145)
[2017-08-01 08:46] LABS: BANDS 3 % (0-6); LYMPHOCYTES 35 % (9-44); METAMYELOCYTES 6 % (0-1); MONOCYTES 6 % (0-8); MYELOCYTES 2 % (0-0); NEUTROPHIL # MANUAL DIFF 3.4 TH/MM3 (1.8-7.7); POLYS (SEG NEUTROPHILS) 43 % (16-70); TOXIC GRANULATION 1+ (NORMAL)
[2017-08-01] MEDS: ENOXAPARIN SODIUM 40 MG/0.4 ML SYRINGE SQ SCH (09:51)
[2017-08-01] MEDS: PANTOPRAZOLE SOD 40 MG DELAYED RELEASE TAB PO SCH (09:52)
[2017-08-01] MEDS: FAMOTIDINE 20 MG TAB PO SCH ×2 (09:52→21:48)
[2017-08-01] MEDS: guaiFENesin E.R. 600 MG TAB PO SCH ×2 (09:52→21:47)
[2017-08-01] MEDS: GABAPENTIN 300 MG CAP PO SCH ×3 (09:52→17:46)
--- NOTE | 2017-08-01 11:46 | HHI.PR ---
Subjective Remarks in no acute distress. no fever today. no new complaints. d/w the RN and no acute issues over night. Objective Vitals Vital Signs Date Time Temp Pulse Resp B/P (MAP) Pulse Ox O2 Delivery O2 Flow Rate FiO2 08/01/17 08:00 97.8 89 20 123/65 (84) 97 08/01/17 08:00 Room Air 08/01/17 04:07 88 08/01/17 04:00 97.8 87 18 113/62 (79) 96 08/01/17 00:00 Room Air 08/01/17 00:00 97.6 94 16 117/63 (81) 94 08/01/17 00:00 100 07/31/17 20:00 98.6 82 16 133/74 (93) 98 07/31/17 20:00 Room Air 07/31/17 20:00 98 07/31/17 16:00 98.1 83 20 117/78 (91) 96 07/31/17 16:00 88 07/31/17 12:00 97.5 96 20 116/85 (95) 97 07/31/17 12:00 90 I/O 07/31/17 07/31/17 07/31/17 08/01/17 08/01/17 08/01/17 07:00 15:00 23:00 07:00 15:00 23:00 Intake Total 1980 ml 1237.5 ml 900 ml Output Total 1750 ml 2000 ml 1225 ml Balance 230 ml -762.5 ml -325 ml Intake Oral 360 ml 720 ml 800 ml IV Total 1620 ml 517.5 ml 100 ml Output Urine Total 1750 ml 2000 ml 1225 ml # Bowel Movements 0 Result Diagram: 08/01/17 0701 08/01/17700 Imaging Last Impressions Upper Extremity Ultrasound 07/31/17 0000 Signed Impressions: CONCLUSION: 1. Occlusive and nonocclusive thrombus in the right cephalic vein with surroun ding edema, probably thrombophlebitis. Chest X-Ray 07/24/17 0000 Signed Impressions: Service Date/Time: Monday, July 24, 2017 16:26 - CONCLUSION: Patchy basilar airspace disease suspected. López Dias MD Foot X-Ray 07/21/17 0000 Signed Impressions: Service Date/Time: Friday, July 21, 2017 19:08 - CONCLUSION: No definite acute bony findings Dustin Soto MD Objective Remarks GENERAL: This is a well-nourished, well-developed patient, in no apparent distress. CARDIOVASCULAR: Regular rate and regular rhythm without murmurs, gallops, or rubs. RESPIRATORY: Clear to auscultation. Breath sounds equal bilaterally. No wheezes , rales, or rhonchi. GASTROINTESTINAL: Abdomen soft, non-tender, nondistended. Normal, active bowel sounds MUSCULOSKELETAL: left foot is swollen with mild erythema/ some swelling/mild erythema of the right arm. NEURO: Alert & Oriented x4 to person, place, time, situation. Moves all ext x4 Procedures NONE Medications and IVs Inpatient Medications Acetaminophen (Tylenol) 650 mg Q4H PRN PO FEVER Last administered on 07/29/17 22:59; Start 07/21/17 at 22:00 Albuterol/ Ipratropium (Duoneb Neb) 1 ampule Q2HR NEB PRN NEB SHORTNESS OF BREATH Last administered on 07/31/17 01:24; Start 07/25/17 at 11:45 Alprazolam (Xanax) 2 mg Q6H PRN PO ANXIETY Last administered on 08/01/17 01:59 ; Start 07/22/17 at 11:45 Cefepime HCl 2000 mg/Sodium Chloride 100 ml @ 200 mls/hr Q8H IV Last administered on 07/24/17 14:10; Start 07/24/17 at 13:00; Stop 07/24/17 at 16:00 ; Status DC Enoxaparin Sodium (Lovenox Inj) 40 mg Q24H SQ Last administered on 08/01/17 09 :51; Start 07/22/17 at 09:00 Ertapenem 1000 mg/ Sodium Chloride 100 ml @ 200 mls/hr Q24H IV Last administered on 07/31/17 23:26; Start 07/28/17 at 00:00 Famotidine (Pepcid) 20 mg BID PO Last administered on 08/01/17 09:52; Start at 09:00 Fluconazole/ Sodium Chloride 200 ml @ 100 mls/hr Q24H IV Last administered on 07/31/17at 17:00; Start 07/25/17 at 17:00 Gabapentin (Neurontin) 300 mg TID PO Last administered on 08/01/17 09:52; Start 07/22/17 at 09:00 Guaifenesin (Mucinex Er) 600 mg BID PO Last administered on 08/01/17 09:52; Start 07/25/17 at 12:00 Hydromorphone HCl (Dilaudid) 4 mg Q4H PRN PO PAIN 6-10 Last administered on at 08:05; Start 07/22/17 at 14:00; Stop 07/29/17 at 11:39; Status DC Ibuprofen (Motrin) 400 mg ONCE ONCE PO Last administered on 07/22/17 21:12; Start 07/22/17 at 21:00; Stop 07/22/17 at 21:01; Status DC Levofloxacin (Levaquin) 750 mg DAILY PO Last administered on 07/24/17 08:52; Start 07/22/17 at 09:00; Stop 07/24/17 at 11:08; Status DC Loperamide HCl (Imodium) 2 mg UNSCH PRN PO DIARRHEA Last administered on at 23:25; Start 07/31/17 at 10:00 Magnesium Sulfate/ Dextrose 100 ml @ 100 mls/hr Q1H IV Last administered on at 12:45; Start 07/26/17 at 11:15; Stop 07/26/17 at 13:14; Status DC Meropenem 1000 mg/ Sodium Chloride 100 ml @ 200 mls/hr Q8H IV Last administered on 07/27/17at 18:02; Start 07/24/17 at 17:00; Stop 07/27/17 at 23:45 ; Status DC Methocarbamol (Robaxin) 1,000 mg Q8H PO Last administered on 08/01/17at 09:52; Start 07/22/17 at 10:00 Metoclopramide HCl (Reglan Inj) 10 mg ONCE ONCE IV PUSH Last administered on at 19:41; Start 07/21/17 at 19:00; Stop 07/21/17 at 19:04; Status DC Metoprolol Tartrate (Lopressor) 25 mg ONCE ONCE PO Last administered on at 21:12; Start 07/22/17 at 21:00; Stop 07/22/17 at 21:01; Status DC Micafungin Sodium 150 mg/Sodium Chloride 100 ml @ 100 mls/hr Q24H IV Last administered on 07/25/17at 15:14; Start 07/23/17 at 15:00; Stop 07/25/17 at 16:46 ; Status DC Miscellaneous (Pill Splitter) 1 ea UNSCH PRN OTHER SEE LABEL COMMENTS; Start at 22:30 Miscellaneous Information ([facility] Ordered Lab Info) SPECIFIC LAB TO BE MARIAM... ONCE ONCE .XX Last administered on 07/28/17at 04:09; Start 07/28/17 at 04:45; Stop 07/28/17 at 04:46; Status DC Miscellaneous Medication (ASP Crit: Doc ESBL, MDR A baumannii or P aer) 1 UNSCH X1 PRN .XX PHARMACY DOCUMENTATION; Start 07/27/17 at 23:45; Stop 07/28/17 at 23 :44; Status DC Miscellaneous Medication ([facility] Information) 1 UNSCH X1 PRN XX PHARMACY DOCUMENTATION; Start 07/27/17 at 23:45; Stop 07/28/17 at 23:44; Status DC Morphine Sulfate (Morphine Inj) 2 mg Q4H PRN IV PUSH BREAKTHROUGH PAIN Last administered on 07/31/17at 20:10; Start 07/29/17 at 11:45 Morphine Sulfate (Oramorph Sr) 15 mg Q8HR PO Last administered on 08/01/17at 05: 27; Start 07/29/17 at 14:00 Pantoprazole Sodium (Protonix) 40 mg DAILY PO Last administered on 08/01/17at 09 :52; Start 07/23/17 at 09:00 Pharmacy Profile Note 0 ml @ 0 mls/hr UNSCH OTHER ; Start 07/21/17 at 22:00 Potassium Chloride (KCl) 80 meq ONCE ONCE PO Last administered on 07/26/17at 11 :28; Start 07/26/17 at 11:15; Stop 07/26/17 at 11:16; Status DC Sodium Chloride 1,000 ml @ 100 mls/hr Q10H IV Last administered on 08/01/17at 05:26; Start 07/22/17 at 22:45 Vancomycin HCl 1500 mg/Sodium Chloride 515 ml @ 250 mls/hr Q8H IV Last administered on 07/25/17at 04:38; Start 07/23/17 at 21:00; Stop 07/25/17 at 09:42 ; Status DC Vancomycin HCl 1750 mg/Sodium Chloride 517.5 ml @ 250 mls/hr Q8H IV Last administered on 08/01/17at 05:26; Start 07/25/17 at 13:00 Vancomycin HCl 2000 mg/Sodium Chloride 520 ml @ 257.5 mls/ hr ONCE ONCE IV Last administered on 07/21/17at 20:55; Start 07/21/17 at 19:15; Stop 07/21/17 at 21:16; Status DC A/P Problem List: (1) Left foot infection ICD Code: L08.9 - Local infection of the skin and subcutaneous tissue, unspecified (2) Noncompliance ICD Code: Z91.19 - Patient's noncompliance with other medical treatment and regimen (3) Drug-seeking behavior ICD Code: Z76.5 - Malingerer [conscious simulation] (4) Fungal infection ICD Code: B49 - Unspecified mycosis Assessment and Plan A/P -sepsis ( tachycardia/tachypnea) due to osteomyelitis of the left calcaneus - s/ p Left partial calcaneal resection/osteotomy, left foot incision and drainage 12/24, Pathology + for acute OM in proximal clearing margins was discharged on IV Vancomycin and PO Levaquin ( end-date ; 08/02/17 per ID)- however the patient missed a few days of his IV Vanco while he was in half-way- bacteremia with ESBL E-coli/ Fungemia repeated blood cultures from 07/24 negative so far. echo with no vegetation. continue with IV antibiotics per ID; Ertapenem, Vanco and Diflucan evaluated by ophthalmology and fungal endophthalmitis was ruled out. evaluated by podiatry and no plan for interventions at this time. continue with oral pain meds; switched to long-acting morphine. -thrombophlebitis of the right upper extremity; continue antibiotic and pain control. -Diarrhea- resolved. -elevated LFT's- with history of Hepatitis C- will monitor- -DVT prophylaxis with subq Lovenox -case management consulted to assist with dc planning. Discharge Planning when cleared by ID. Josseline Bernard MD August 01, 2017 11:46
--- NOTE | 2017-08-01 12:33 | HHI.IDPN ---
Subjective Subjective Remarks no fever still co severe RUE pain US + for phlebitis, no fluid collection Antibiotics IV Vancomycin fluconazol ertapenem Lines PIV sites x 2 with no e/o infx Past Medical History IVDU Allergies: Coded Allergies: MRI PRECAUTION (Verified Adverse Reaction, Severe, Patient states he has a neurostimulator and can't have a MRI, 07/22/17) 07/22/17 LRS Objective . Vital Signs Date Time Temp Pulse Resp B/P (MAP) Pulse Ox O2 Delivery O2 Flow Rate FiO2 08/01/17 08:00 97.8 89 20 123/65 (84) 97 08/01/17 08:00 Room Air 08/01/17 04:07 88 08/01/17 04:00 97.8 87 18 113/62 (79) 96 08/01/17 00:00 Room Air 08/01/17 00:00 97.6 94 16 117/63 (81) 94 08/01/17 00:00 100 07/31/17 20:00 98.6 82 16 133/74 (93) 98 07/31/17 20:00 Room Air 07/31/17 20:00 98 07/31/17 16:00 98.1 83 20 117/78 (91) 96 07/31/17 16:00 88 . Laboratory Tests Test 08/01/17 07:01 White Blood Count 6.3 TH/MM3 Red Blood Count 4.42 MIL/MM3 Hemoglobin 12.3 GM/DL Hematocrit 36.9 % Mean Corpuscular Volume 83.4 FL Mean Corpuscular Hemoglobin 27.9 PG Mean Corpuscular Hemoglobin Concent 33.5 % Red Cell Distribution Width 19.7 % Platelet Count 345 TH/MM3 Mean Platelet Volume 7.3 FL Neutrophils (%) (Auto) 54.1 % Lymphocytes (%) (Auto) 30.0 % Monocytes (%) (Auto) 12.9 % Eosinophils (%) (Auto) 2.6 % Basophils (%) (Auto) 0.4 % Neutrophils # (Auto) 3.4 TH/MM3 Lymphocytes # (Auto) 1.9 TH/MM3 Monocytes # (Auto) 0.8 TH/MM3 Eosinophils # (Auto) 0.2 TH/MM3 Basophils # (Auto) 0.0 TH/MM3 CBC Comment AUTO DIFF Differential Total Cells Counted 100 Neutrophils % (Manual) 43 % Band Neutrophils % 3 % Lymphocytes % 35 % Monocytes % 6 % Eosinophils % 5 % Neutrophils # (Manual) 3.4 TH/MM3 Metamyelocytes 6 % Myelocytes 2 % Differential Comment FINAL DIFF MANUAL Toxic Granulation 1+ Platelet Estimate NORMAL Platelet Morphology Comment NORMAL Laboratory Tests Test 08/01/17 07:01 Blood Urea Nitrogen 9 MG/DL Creatinine 0.78 MG/DL Random Glucose 110 MG/DL Total Protein 6.8 GM/DL Albumin 2.7 GM/DL Calcium Level 8.7 MG/DL Alkaline Phosphatase 278 U/L Aspartate Amino Transf (AST/SGOT) 220 U/L Alanine Aminotransferase (ALT/SGPT) 199 U/L Total Bilirubin 0.6 MG/DL Sodium Level 139 MEQ/L Potassium Level 3.8 MEQ/L Chloride Level 105 MEQ/L Carbon Dioxide Level 23.6 MEQ/L Anion Gap 10 MEQ/L Estimat Glomerular Filtration Rate 113 ML/MIN Microbiology Date/Time Source Procedure Growth Status 07/31/17 16:45 Blood Peripheral Aerobic Blood Culture - Preliminary NO GROWTH IN 1 DAY Resulted 07/31/17 16:45 Blood Peripheral Anaerobic Blood Culture - Preliminary NO GROWTH IN 1 DAY Resulted 07/31/17 16:30 Blood Peripheral Aerobic Blood Culture - Preliminary NO GROWTH IN 1 DAY Resulted 07/31/17 16:30 Blood Peripheral Anaerobic Blood Culture - Preliminary NO GROWTH IN 1 DAY Resulted Imaging Last Impressions Upper Extremity Ultrasound 07/31/17 0000 Signed Impressions: CONCLUSION: 1. Occlusive and nonocclusive thrombus in the right cephalic vein with surroun ding edema, probably thrombophlebitis. Chest X-Ray 07/24/17 0000 Signed Impressions: Service Date/Time: Monday, July 24, 2017 16:26 - CONCLUSION: Patchy basilar airspace disease suspected. López Dias MD Foot X-Ray 07/21/17 0000 Signed Impressions: Service Date/Time: Friday, July 21, 2017 19:08 - CONCLUSION: No definite acute bony findings Dustin Soto MD Physical Exam CONSTITUTIONAL/GENERAL: This is an adequately nourished patient, in no apparent distress On RA TUBES/LINES/DRAINS: PIV with no e/o infection SKIN: No jaundice, rashes, or lesions. Skin temperature appropriate. Not diaphoretic. EYES: Pupils equal and round and reactive. Extraocular motions intact. No scleral icterus. No injection or drainage. Fundi not examined. CARDIOVASCULAR: Regular rate and rhythm without murmurs, gallops, or rubs. RESPIRATORY/CHEST: Symmetric, unlabored respirations. Clear to auscultation. Breath sounds equal bilaterally. No wheezes, rales, or rhonchi. GASTROINTESTINAL: Abdomen soft, non-tender, nondistended. No hepato-splenomegaly , or palpable masses. No guarding. Bowel sounds present. MUSCULOSKELETAL: Extremities without clubbing, cyanosis, or edema. LUE : firm, non tender cords RUE: ill defined erythema edema tenderness innfer proximal forearm, very tender , did not improve NEUROLOGICAL: Awake and alert. Motor and sensory grossly within normal limits. Follows commands. Cognitively sharp. Moves all extremities. PSYCHIATRIC: No obvious anxiety/depression. no apparent hallucinations or other psychotic thought process. Assessment & Plan Remarks Fungemia C.parapsilosa No e/o septic fungal thrombophlebitis: ophthaslm consulted no e/o fungal endopthalmitis no e/o fungal endocarditis Acute metabolic encephalopathy: sepsis, meds. ESBL E coli sepsis, line sepsis Resp distress, s/p shooting apple sause with crushed dilauidid: resolved -new acute hypoxia after attempted shooting up apple sause New fever: resolved New RUE phlebitis Recs: repeat Blood cultures RUE US cont Ertapeem complet 10 days of Ertapenem : last on Thursday cont fluconazol , can be changed to oral form and continue at least 2 weeks from 1st neg blood culture (thru 08/08) cContinue Vanco IV x 6 weeks Vanco can be substiturtes with zyvox untill gets on IV vanco in supervised setting I would be careful with zyvox 2/2 neuropathy and use it only untill pt is admistted for in-pt rehab if feasible If not feasible close monitoring for neuropathy required CBC CMP weekly while on zyvox, fluconazol when just on zyxoxx follow just CBC and BMP (bicarb) Stop date on vanco 08/31 Abx (zyvox or vanco ) should be contuinued thru 08/31; however if new bblood clx come back + only vanco can be used Pt is not ready for d/c yet 2/2 his new RYE infection. he needs to improve clinically and have negative blood clx before cleared for d/c dw mother dw Dr Frias . Pham Alvarez MD August 01, 2017 12:33
--- NOTE | 2017-08-01 14:47 | HHI.PR ---
Addendum to Inpatient Note Additional Information Stop date on zyvox or vancomycin: 08/31 If d/c on zyvox CBC, BMP weekly MOnitor for visiual toxicity and neuropathy Problems usaully start after 2-3 weeks of treatment, preferably to switch pt back to ashtyn bettencourt he arrives to [place] Stop date on fluiuconazo 400 mg PO daily l: last dose on August 08 gisel batres pt's mother Pham Alvarez MD August 01, 2017 14:47
[2017-08-01] MEDS ORDERED: ZYVO600T PO (14:48)
[2017-08-01] MEDS ORDERED: FLUC200T2 PO (14:48)
[2017-08-01] MEDS: LOPERAMIDE HCL 2 MG CAP PO PRN (15:30)
[2017-08-01] MEDS: FLUCONAZOLE 400 MG PREMIX BAG 200 ML IV SCH (17:46)
[2017-08-01] MEDS: MORPHINE SULFATE 4 MG/ML INJ IV PUSH PRN (17:47)
[2017-08-02] VITALS (9 sets, daily range): BP systolic 117–129; BP diastolic 60–80; PULSE 87–100; RESP 16–20; TEMP 97.5–98.2; O2SAT 95–99
[2017-08-02] MEDS: ERTAPENEM INJ 1,000 MG in SODIUM CHLORIDE 0.9% INJ 100 ML IV SCH (00:59)
[2017-08-02] MEDS: ALPRAZolam 1 MG TAB PO PRN ×2 (01:01→21:45)
[2017-08-02] MEDS: METHOCARBAMOL 500 MG TAB PO SCH ×3 (01:01→18:58)
[2017-08-02] MEDS: MORPHINE SULFATE 4 MG/ML INJ IV PUSH PRN ×3 (01:02→18:58)
[2017-08-02] MEDS: VANCOMYCIN INJ 1,750 MG in SODIUM CHLORID 0.9% 500 ML INJ 500 ML IV SCH ×3 (05:34→21:44)
[2017-08-02] MEDS: MORPHINE SULFATE 15 MG CONTROLLED RELEASE TAB PO SCH ×3 (05:34→21:45)
[2017-08-02] MEDS: SODIUM CHLOR 0.9% 1000 ML INJ 1,000 ML IV SCH ×2 (08:45→21:44)
[2017-08-02] MEDS: guaiFENesin E.R. 600 MG TAB PO SCH ×2 (09:51→21:44)
[2017-08-02] MEDS: ENOXAPARIN SODIUM 40 MG/0.4 ML SYRINGE SQ SCH (09:52)
[2017-08-02] MEDS: FAMOTIDINE 20 MG TAB PO SCH ×2 (09:52→21:44)
[2017-08-02] MEDS: PANTOPRAZOLE SOD 40 MG DELAYED RELEASE TAB PO SCH (09:52)
[2017-08-02] MEDS: GABAPENTIN 300 MG CAP PO SCH ×3 (09:52→18:58)
--- NOTE | 2017-08-02 12:25 | HHI.PR ---
Subjective Remarks in no acute distress. no fever. right forearm is still swollen. d/w the RN. Objective Vitals Vital Signs Date Time Temp Pulse Resp B/P (MAP) Pulse Ox O2 Delivery O2 Flow Rate FiO2 08/02/17 08:00 97.6 89 20 119/65 (83) 97 08/02/17 04:00 Room Air 08/02/17 04:00 97.9 94 16 128/63 (84) 99 08/02/17 03:56 87 08/02/17 00:00 92 08/02/17 00:00 Room Air 08/02/17 00:00 97.8 100 16 117/71 (86) 95 08/01/17 20:00 98.2 93 18 113/61 (78) 94 08/01/17 20:00 Room Air 08/01/17 19:56 93 08/01/17 16:00 Room Air 08/01/17 16:00 97.8 97 20 120/76 (91) 95 08/01/17 15:47 101 I/O 08/01/17 08/01/17 08/01/17 08/02/17 08/02/17 08/02/17 07:00 15:00 23:00 07:00 15:00 23:00 Intake Total 900 ml 1277.5 ml Output Total 1225 ml 850 ml Balance -325 ml 427.5 ml Intake Oral 800 ml 660 ml IV Total 100 ml 617.5 ml Output Urine Total 1225 ml 850 ml # Bowel Movements 0 1 Result Diagram: 08/01/17 0701 08/01/17 0701 Imaging Last Impressions Upper Extremity Ultrasound 07/31/17 0000 Signed Impressions: CONCLUSION: 1. Occlusive and nonocclusive thrombus in the right cephalic vein with surroun ding edema, probably thrombophlebitis. Chest X-Ray 07/24/17 0000 Signed Impressions: Service Date/Time: Monday, July 24, 2017 16:26 - CONCLUSION: Patchy basilar airspace disease suspected. López Dias MD Foot X-Ray 07/21/17 0000 Signed Impressions: Service Date/Time: Friday, July 21, 2017 19:08 - CONCLUSION: No definite acute bony findings Dustin Soto MD Objective Remarks GENERAL: This is a well-nourished, well-developed patient, in no apparent distress. CARDIOVASCULAR: Regular rate and regular rhythm without murmurs, gallops, or rubs. RESPIRATORY: Clear to auscultation. Breath sounds equal bilaterally. No wheezes , rales, or rhonchi. GASTROINTESTINAL: Abdomen soft, non-tender, nondistended. Normal, active bowel sounds MUSCULOSKELETAL: left foot is swollen with mild erythema/ some swelling/mild erythema of the right arm. NEURO: Alert & Oriented x4 to person, place, time, situation. Moves all ext x4 Procedures NONE Medications and IVs Inpatient Medications Acetaminophen (Tylenol) 650 mg Q4H PRN PO FEVER Last administered on 07/29/17 22:59; Start 07/21/17 at 22:00 Albuterol/ Ipratropium (Duoneb Neb) 1 ampule Q2HR NEB PRN NEB SHORTNESS OF BREATH Last administered on 07/31/17 01:24; Start 07/25/17 at 11:45 Alprazolam (Xanax) 2 mg Q6H PRN PO ANXIETY Last administered on 08/02/17 01:01 ; Start 07/22/17 at 11:45 Cefepime HCl 2000 mg/Sodium Chloride 100 ml @ 200 mls/hr Q8H IV Last administered on 07/24/17 14:10; Start 07/24/17 at 13:00; Stop 07/24/17 at 16:00 ; Status DC Enoxaparin Sodium (Lovenox Inj) 40 mg Q24H SQ Last administered on 08/02/17 09 :52; Start 07/22/17 at 09:00 Ertapenem 1000 mg/ Sodium Chloride 100 ml @ 200 mls/hr Q24H IV Last administered on 08/02/17 00:59; Start 07/28/17 at 00:00; Stop 08/02/17 at 12:00 ; Status DC Famotidine (Pepcid) 20 mg BID PO Last administered on 08/02/17 09:52; Start at 09:00 Fluconazole/ Sodium Chloride 200 ml @ 100 mls/hr Q24H IV Last administered on 08/01/17 17:46; Start 07/25/17 at 17:00 Gabapentin (Neurontin) 300 mg TID PO Last administered on 08/02/17 09:52; Start 07/22/17 at 09:00 Guaifenesin (Mucinex Er) 600 mg BID PO Last administered on 08/02/17at 09:51; Start 07/25/17 at 12:00 Hydromorphone HCl (Dilaudid) 4 mg Q4H PRN PO PAIN 6-10 Last administered on at 08:05; Start 07/22/17 at 14:00; Stop 07/29/17 at 11:39; Status DC Ibuprofen (Motrin) 400 mg ONCE ONCE PO Last administered on 07/22/17at 21:12; Start 07/22/17 at 21:00; Stop 07/22/17 at 21:01; Status DC Levofloxacin (Levaquin) 750 mg DAILY PO Last administered on 07/24/17at 08:52; Start 07/22/17 at 09:00; Stop 07/24/17 at 11:08; Status DC Loperamide HCl (Imodium) 2 mg UNSCH PRN PO DIARRHEA Last administered on at 15:30; Start 07/31/17 at 10:00 Magnesium Sulfate/ Dextrose 100 ml @ 100 mls/hr Q1H IV Last administered on at 12:45; Start 07/26/17 at 11:15; Stop 07/26/17 at 13:14; Status DC Meropenem 1000 mg/ Sodium Chloride 100 ml @ 200 mls/hr Q8H IV Last administered on 07/27/17at 18:02; Start 07/24/17 at 17:00; Stop 07/27/17 at 23:45 ; Status DC Methocarbamol (Robaxin) 1,000 mg Q8H PO Last administered on 08/02/17at 09:51; Start 07/22/17 at 10:00 Metoclopramide HCl (Reglan Inj) 10 mg ONCE ONCE IV PUSH Last administered on at 19:41; Start 07/21/17 at 19:00; Stop 07/21/17 at 19:04; Status DC Metoprolol Tartrate (Lopressor) 25 mg ONCE ONCE PO Last administered on at 21:12; Start 07/22/17 at 21:00; Stop 07/22/17 at 21:01; Status DC Micafungin Sodium 150 mg/Sodium Chloride 100 ml @ 100 mls/hr Q24H IV Last administered on 07/25/17at 15:14; Start 07/23/17 at 15:00; Stop 07/25/17 at 16:46 ; Status DC Miscellaneous (Pill Splitter) 1 ea UNSCH PRN OTHER SEE LABEL COMMENTS; Start at 22:30 Miscellaneous Information ([facility] Or[place] Info) SPECIFIC LAB TO BE MARIAM... ONCE ONCE .XX Last administered on 07/28/17at 04:09; Start 07/28/17 at 04:45; Stop 07/28/17 at 04:46; Status DC Miscellaneous Medication (ASP Crit: Doc ESBL, MDR A baumannii or P aer) 1 UNSCH X1 PRN .XX PHARMACY DOCUMENTATION; Start 07/27/17 at 23:45; Stop 07/28/17 at 23 :44; Status DC Miscellaneous Medication ([facility]) 1 UNSCH X1 PRN XX PHARMACY DOCUMENTATION; Start 07/27/17 at 23:45; Stop 07/28/17 at 23:44; Status DC Morphine Sulfate (Morphine Inj) 2 mg Q4H PRN IV PUSH BREAKTHROUGH PAIN Last administered on 08/02/17at 09:53; Start 07/29/17 at 11:45 Morphine Sulfate (Oramorph Sr) 15 mg Q8HR PO Last administered on 08/02/17at 05: 34; Start 07/29/17 at 14:00 Pantoprazole Sodium (Protonix) 40 mg DAILY PO Last administered on 08/02/17at 09 :52; Start 07/23/17 at 09:00 Pharmacy Profile Note 0 ml @ 0 mls/hr UNSCH OTHER ; Start 07/21/17 at 22:00 Potassium Chloride (KCl) 80 meq ONCE ONCE PO Last administered on 07/26/17at 11 :28; Start 07/26/17 at 11:15; Stop 07/26/17 at 11:16; Status DC Sodium Chloride 1,000 ml @ 100 mls/hr Q10H IV Last administered on 08/01/17at 05:26; Start 07/22/17 at 22:45 Vancomycin HCl 1500 mg/Sodium Chloride 515 ml @ 250 mls/hr Q8H IV Last administered on 07/25/17at 04:38; Start 5/17/18 at 21:00; Stop 07/25/17 at 09:42 ; Status DC Vancomycin HCl 1750 mg/Sodium Chloride 517.5 ml @ 250 mls/hr Q8H IV Last administered on 08/02/17at 05:34; Start 07/25/17 at 13:00 Vancomycin HCl 2000 mg/Sodium Chloride 520 ml @ 257.5 mls/ hr ONCE ONCE IV Last administered on 07/21/17at 20:55; Start 07/21/17 at 19:15; Stop 07/21/17 at 21:16; Status DC A/P Problem List: (1) Left foot infection ICD Code: L08.9 - Local infection of the skin and subcutaneous tissue, unspecified (2) Noncompliance ICD Code: Z91.19 - Patient's noncompliance with other medical treatment and regimen (3) Drug-seeking behavior ICD Code: Z76.5 - Malingerer [conscious simulation] (4) Fungal infection ICD Code: B49 - Unspecified mycosis Assessment and Plan A/P -sepsis ( tachycardia/tachypnea) due to osteomyelitis of the left calcaneus - s/ p Left partial calcaneal resection/osteotomy, left foot incision and drainage 12/24, Pathology + for acute OM in proximal clearing margins was discharged on IV Vancomycin and PO Levaquin ( end-date ; 08/02/17 per ID)- however the patient missed a few days of his IV Vanco while he was in half-way- bacteremia with ESBL E-coli/ Fungemia repeated blood cultures from 07/24 negative so far. echo with no vegetation. continue with IV antibiotics per ID; Ertapenem will be stooped today- continue Vanco and Diflucan evaluated by ophthalmology and fungal endophthalmitis was ruled out. evaluated by podiatry and no plan for interventions at this time. continue with oral pain meds; switched to long-acting morphine. -thrombophlebitis of the right upper extremity; continue antibiotic and pain control. -Diarrhea- resolved. -elevated LFT's- with history of Hepatitis C- will monitor- -DVT prophylaxis with subq Lovenox -case management consulted to assist with dc planning. Discharge Planning dc home tomorrow- if no recurrent fever/ and cleared by ID. d/w the patient, nurse and the mother. Josseline Bernard MD August 02, 2017 12:25
[2017-08-02] MEDS: FLUCONAZOLE 400 MG PREMIX BAG 200 ML IV SCH (18:58)
[2017-08-03] VITALS: BP 125/87; PULSE 91; RESP 16; TEMP 98.1; O2SAT 95
[2017-08-03] MEDS: METHOCARBAMOL 500 MG TAB PO SCH ×2 (01:55→09:04)
[2017-08-03] MEDS: MORPHINE SULFATE 4 MG/ML INJ IV PUSH PRN (01:55)
[2017-08-03 04:00] VITALS: BP 136/83; PULSE 97; RESP 18; TEMP 98.5; O2SAT 98
[2017-08-03] MEDS: ALPRAZolam 1 MG TAB PO PRN ×2 (04:01→12:55)
[2017-08-03] MEDS: VANCOMYCIN INJ 1,750 MG in SODIUM CHLORID 0.9% 500 ML INJ 500 ML IV SCH (04:01)
[2017-08-03 04:05] VITALS: PULSE 89
[2017-08-03] MEDS: SODIUM CHLOR 0.9% 1000 ML INJ 1,000 ML IV SCH (04:45)
[2017-08-03] MEDS ORDERED: PHARMACY ORDERED LAB ONE (04:45)
[2017-08-03 05:45] LABS: CREATININE 0.73 MG/DL (0.60-1.30)
[2017-08-03] MEDS: MORPHINE SULFATE 15 MG CONTROLLED RELEASE TAB PO SCH ×2 (06:12→13:02)
[2017-08-03 08:10] VITALS: BP 114/63; PULSE 81; RESP 20; TEMP 97.5; O2SAT 97
[2017-08-03] MEDS: ENOXAPARIN SODIUM 40 MG/0.4 ML SYRINGE SQ SCH (09:04)
[2017-08-03] MEDS: GABAPENTIN 300 MG CAP PO SCH ×2 (09:04→12:55)
[2017-08-03] MEDS: guaiFENesin E.R. 600 MG TAB PO SCH (09:04)
[2017-08-03] MEDS: PANTOPRAZOLE SOD 40 MG DELAYED RELEASE TAB PO SCH (09:04)
[2017-08-03] MEDS: FAMOTIDINE 20 MG TAB PO SCH (09:04)
--- NOTE | 2017-08-03 09:13 | HHI.PR ---
Subjective Remarks in no acute distress. no fever. swelling and erythema over the right forearm is better today. no new complaints. Objective Vitals Vital Signs Date Time Temp Pulse Resp B/P (MAP) Pulse Ox O2 Delivery O2 Flow Rate FiO2 08/03/17 04:05 89 08/03/17 04:00 98.5 97 18 136/83 (100) 98 08/03/17 00:00 Room Air 08/03/17 00:00 98.1 91 16 125/87 (100) 95 08/02/17 23:54 98 08/02/17 20:00 98.2 88 16 128/80 (96) 97 08/02/17 20:00 Room Air 08/02/17 19:47 89 08/02/17 15:45 97.6 98 20 129/65 (86) 97 08/02/17 12:10 97.5 88 18 127/60 (82) 97 08/02/17 12:00 Room Air I/O 08/02/17 08/02/17 08/02/17 08/03/17 08/03/17 08/03/17 07:00 15:00 23:00 07:00 15:00 23:00 Intake Total 1277.5 ml 1840 ml 997.5 ml Output Total 850 ml 1200 ml 2400 ml Balance 427.5 ml 640 ml -1402.5 ml Intake Oral 660 ml 840 ml 480 ml IV Total 617.5 ml 1000 ml 517.5 ml Output Urine Total 850 ml 1200 ml 2400 ml # Bowel Movements 1 Result Diagram: 08/01/17 0701 08/03/17 0405 Imaging Last Impressions Upper Extremity Ultrasound 07/31/17 0000 Signed Impressions: CONCLUSION: 1. Occlusive and nonocclusive thrombus in the right cephalic vein with surroun ding edema, probably thrombophlebitis. Chest X-Ray 07/24/17 0000 Signed Impressions: Service Date/Time: Monday, July 24, 2017 16:26 - CONCLUSION: Patchy basilar airspace disease suspected. López Dias MD Foot X-Ray 07/21/17 0000 Signed Impressions: Service Date/Time: Friday, July 21, 2017 19:08 - CONCLUSION: No definite acute bony findings Dustin Soto MD Objective Remarks GENERAL: This is a well-nourished, well-developed patient, in no apparent distress. CARDIOVASCULAR: Regular rate and regular rhythm without murmurs, gallops, or rubs. RESPIRATORY: Clear to auscultation. Breath sounds equal bilaterally. No wheezes , rales, or rhonchi. GASTROINTESTINAL: Abdomen soft, non-tender, nondistended. Normal, active bowel sounds MUSCULOSKELETAL: left foot is swollen with mild erythema/ some swelling/mild erythema of the right arm. NEURO: Alert & Oriented x4 to person, place, time, situation. Moves all ext x4 Procedures NONE Medications and IVs Inpatient Medications Acetaminophen (Tylenol) 650 mg Q4H PRN PO FEVER Last administered on 07/29/17 22:59; Start 07/21/17 at 22:00 Albuterol/ Ipratropium (Duoneb Neb) 1 ampule Q2HR NEB PRN NEB SHORTNESS OF BREATH Last administered on 07/31/17 01:24; Start 07/25/17 at 11:45 Alprazolam (Xanax) 2 mg Q6H PRN PO ANXIETY Last administered on 08/03/17 04:01 ; Start 07/22/17 at 11:45 Cefepime HCl 2000 mg/Sodium Chloride 100 ml @ 200 mls/hr Q8H IV Last administered on 07/24/17 14:10; Start 07/24/17 at 13:00; Stop 07/24/17 at 16:00 ; Status DC Enoxaparin Sodium (Lovenox Inj) 40 mg Q24H SQ Last administered on 08/03/17 09 :04; Start 07/22/17 at 09:00 Ertapenem 1000 mg/ Sodium Chloride 100 ml @ 200 mls/hr Q24H IV Last administered on 08/02/17 00:59; Start 07/28/17 at 00:00; Stop 08/02/17 at 12:00 ; Status DC Famotidine (Pepcid) 20 mg BID PO Last administered on 08/03/17 09:04; Start at 09:00 Fluconazole/ Sodium Chloride 200 ml @ 100 mls/hr Q24H IV Last administered on 08/02/17 18:58; Start 07/25/17 at 17:00 Gabapentin (Neurontin) 300 mg TID PO Last administered on 5/28/18at 09:04; Start 07/22/17 at 09:00 Guaifenesin (Mucinex Er) 600 mg BID PO Last administered on 08/03/17at 09:04; Start 07/25/17 at 12:00 Hydromorphone HCl (Dilaudid) 4 mg Q4H PRN PO PAIN 6-10 Last administered on at 08:05; Start 07/22/17 at 14:00; Stop 07/29/17 at 11:39; Status DC Ibuprofen (Motrin) 400 mg ONCE ONCE PO Last administered on 07/22/17at 21:12; Start 07/22/17 at 21:00; Stop 07/22/17 at 21:01; Status DC Levofloxacin (Levaquin) 750 mg DAILY PO Last administered on 07/24/17at 08:52; Start 07/22/17 at 09:00; Stop 07/24/17 at 11:08; Status DC Loperamide HCl (Imodium) 2 mg UNSCH PRN PO DIARRHEA Last administered on at 15:30; Start 07/31/17 at 10:00 Magnesium Sulfate/ Dextrose 100 ml @ 100 mls/hr Q1H IV Last administered on at 12:45; Start 07/26/17 at 11:15; Stop 07/26/17 at 13:14; Status DC Meropenem 1000 mg/ Sodium Chloride 100 ml @ 200 mls/hr Q8H IV Last administered on 07/27/17at 18:02; Start 07/24/17 at 17:00; Stop 07/27/17 at 23:45 ; Status DC Methocarbamol (Robaxin) 1,000 mg Q8H PO Last administered on 08/03/17at 09:04; Start 07/22/17 at 10:00 Metoclopramide HCl (Reglan Inj) 10 mg ONCE ONCE IV PUSH Last administered on at 19:41; Start 07/21/17 at 19:00; Stop 07/21/17 at 19:04; Status DC Metoprolol Tartrate (Lopressor) 25 mg ONCE ONCE PO Last administered on at 21:12; Start 07/22/17 at 21:00; Stop 07/22/17 at 21:01; Status DC Micafungin Sodium 150 mg/Sodium Chloride 100 ml @ 100 mls/hr Q24H IV Last administered on 07/25/17at 15:14; Start 07/23/17 at 15:00; Stop 07/25/17 at 16:46 ; Status DC Miscellaneous (Pill Splitter) 1 ea UNSCH PRN OTHER SEE LABEL COMMENTS; Start at 22:30 Miscellaneous Information ([facility] Ordered Lab Info) SPECIFIC LAB TO BE DRAWN:VA... ONCE ONCE .XX Last administered on 08/03/17at 04:45; Start at 04:45; Stop 08/03/17 at 04:46; Status DC Miscellaneous Medication (ASP Crit: Doc ESBL, MDR A baumannii or P aer) 1 UNSCH X1 PRN .XX PHARMACY DOCUMENTATION; Start 07/27/17 at 23:45; Stop 07/28/17 at 23 :44; Status DC Miscellaneous Medication ([facility] Information) 1 UNSCH X1 PRN XX PHARMACY DOCUMENTATION; Start 07/27/17 at 23:45; Stop 07/28/17 at 23:44; Status DC Morphine Sulfate (Morphine Inj) 2 mg Q4H PRN IV PUSH BREAKTHROUGH PAIN Last administered on 08/03/17at 01:55; Start 07/29/17 at 11:45 Morphine Sulfate (Oramorph Sr) 15 mg Q8HR PO Last administered on 08/03/17at 06: 12; Start 07/29/17 at 14:00 Pantoprazole Sodium (Protonix) 40 mg DAILY PO Last administered on 08/03/17at 09 :04; Start 07/23/17 at 09:00 Pharmacy Profile Note 0 ml @ 0 mls/hr UNSCH OTHER ; Start 07/21/17 at 22:00 Potassium Chloride (KCl) 80 meq ONCE ONCE PO Last administered on 07/26/17at 11 :28; Start 07/26/17 at 11:15; Stop 07/26/17 at 11:16; Status DC Sodium Chloride 1,000 ml @ 100 mls/hr Q10H IV Last administered on 08/02/17at 21:44; Start 07/22/17 at 22:45 Vancomycin HCl 1500 mg/Sodium Chloride 515 ml @ 250 mls/hr Q8H IV Last administered on 07/25/17at 04:38; Start 07/23/17 at 21:00; Stop 07/25/17 at 09:42 ; Status DC Vancomycin HCl 1750 mg/Sodium Chloride 517.5 ml @ 250 mls/hr Q8H IV Last administered on 08/03/17at 04:01; Start 07/25/17 at 13:00 Vancomycin HCl 2000 mg/Sodium Chloride 520 ml @ 257.5 mls/ hr ONCE ONCE IV Last administered on 07/21/17at 20:55; Start 07/21/17 at 19:15; Stop 07/21/17 at 21:16; Status DC A/P Problem List: (1) Left foot infection ICD Code: L08.9 - Local infection of the skin and subcutaneous tissue, unspecified (2) Noncompliance ICD Code: Z91.19 - Patient's noncompliance with other medical treatment and regimen (3) Drug-seeking behavior ICD Code: Z76.5 - Malingerer [conscious simulation] (4) Fungal infection ICD Code: B49 - Unspecified mycosis Assessment and Plan A/P -sepsis ( tachycardia/tachypnea) due to osteomyelitis of the left calcaneus - s/ p Left partial calcaneal resection/osteotomy, left foot incision and drainage 12/24, Pathology + for acute OM in proximal clearing margins was discharged on IV Vancomycin and PO Levaquin ( end-date ; 08/02/17 per ID)- however the patient missed a few days of his IV Vanco while he was in nursing home- bacteremia with ESBL E-coli/ Fungemia repeated blood cultures from 07/24 negative so far. echo with no vegetation. continue with IV antibiotics per ID; Ertapenem will be stooped today- continue Vanco and Diflucan evaluated by ophthalmology and fungal endophthalmitis was ruled out. evaluated by podiatry and no plan for interventions at this time. continue with oral pain meds; switched to long-acting morphine. -thrombophlebitis of the right upper extremity; better today- continue antibiotic and pain control. -Diarrhea- resolved. -elevated LFT's- with history of Hepatitis C- will monitor- -DVT prophylaxis with subq Lovenox -case management consulted to assist with dc planning. Discharge Planning dc home -likely later today- after seen and cleared by ID. see med list. d/w the patient, his mother and . Josseline Bernard MD August 03, 2017 09:13
--- NOTE | 2017-08-03 09:16 | HHI.DS ---
Discharge Summary Admission Date July 21, 2017 at 22:48 Discharge Date: August 03, 2017 Admitting Diagnosis left foot celluliits, lactic acidosis (1) Left foot infection ICD Code: L08.9 - Local infection of the skin and subcutaneous tissue, unspecified Diagnosis: Principal (2) Noncompliance ICD Code: Z91.19 - Patient's noncompliance with other medical treatment and regimen Diagnosis: Principal (3) Drug-seeking behavior ICD Code: Z76.5 - Malingerer [conscious simulation] Diagnosis: Principal (4) Fungal infection ICD Code: B49 - Unspecified mycosis Diagnosis: Principal Procedures NONE Brief History - From Admission patient is a 36 y/o male who was diagnosed with osteomyelitis of the left foot last month, underwent left calcaneal resection and was discharged on IV Vancomycin and PO Levaquin per ID recommendations. he says that he went to [facility] after discharged and was just released today. he says that while he was in correction he missed a few days of his IV Vanco. he says that he's noticed that the redness of his left has been getting worse the past three days. he denies any fever or chills but complaining of moderate to severe pain to the left foot. CBC/BMP: 08/01/17 0701 08/03/17 0405 Significant Findings Laboratory Tests Test 08/01/17 07:01 08/03/17 04:05 Red Blood Count 4.42 MIL/MM3 (4.50-5.90) Hemoglobin 12.3 GM/DL (13.0-17.0) Hematocrit 36.9 % (39.0-51.0) Red Cell Distribution Width 19.7 % (11.6-17.2) Monocytes (%) (Auto) 12.9 % (0.0-8.0) Eosinophils % 5 % (0-4) Metamyelocytes 6 % (0-1) Myelocytes 2 % (0-0) Toxic Granulation 1+ (NORMAL) Random Glucose 110 MG/DL (74-106) Albumin 2.7 GM/DL (3.4-5.0) Alkaline Phosphatase 278 U/L (45-117) Aspartate Amino Transf (AST/SGOT) 220 U/L (15-37) Alanine Aminotransferase (ALT/SGPT) 199 U/L (12-78) Vancomycin Level Trough 25.9 MCG/ML (5.0-10.0) Imaging Last Impressions Upper Extremity Ultrasound 07/31/17 0000 Signed Impressions: CONCLUSION: 1. Occlusive and nonocclusive thrombus in the right cephalic vein with surroun ding edema, probably thrombophlebitis. Chest X-Ray 07/24/17 0000 Signed Impressions: Service Date/Time: Monday, July 24, 2017 16:26 - CONCLUSION: Patchy basilar airspace disease suspected. López Dias MD Foot X-Ray 07/21/17 0000 Signed Impressions: Service Date/Time: Friday, July 21, 2017 19:08 - CONCLUSION: No definite acute bony findings Dustin Soto MD PE at Discharge GENERAL: This is a well-nourished, well-developed patient, in no apparent distress. CARDIOVASCULAR: Regular rate and regular rhythm without murmurs, gallops, or rubs. RESPIRATORY: Clear to auscultation. Breath sounds equal bilaterally. No wheezes , rales, or rhonchi. GASTROINTESTINAL: Abdomen soft, non-tender, nondistended. Normal, active bowel sounds MUSCULOSKELETAL: left foot is swollen with mild erythema/ some swelling/mild erythema of the right arm. NEURO: Alert & Oriented x4 to person, place, time, situation. Moves all ext x4 Hospital Course -sepsis ( tachycardia/tachypnea) due to osteomyelitis of the left calcaneus - s/ p Left partial calcaneal resection/osteotomy, left foot incision and drainage 12/24, Pathology + for acute OM in proximal clearing margins was discharged on IV Vancomycin and PO Levaquin ( end-date ; 08/02/17 per ID)- however the patient missed a few days of his IV Vanco while he was in correction- bacteremia with ESBL E-coli/ Fungemia repeated blood cultures from 07/24 negative so far. echo with no vegetation. continue with IV antibiotics per ID; Ertapenem will be stooped today- continue Vanco and Diflucan evaluated by ophthalmology and fungal endophthalmitis was ruled out. evaluated by podiatry and no plan for interventions at this time. continue with oral pain meds; switched to long-acting morphine. -thrombophlebitis of the right upper extremity; better today- continue antibiotic and pain control. -Diarrhea- resolved. -elevated LFT's- with history of Hepatitis C- will monitor- -DVT prophylaxis with subq Lovenox Pt Condition on Discharge: Guarded Discharge Disposition: Discharge Home Discharge Time: <= 30 minutes Discharge Instructions DIET: Follow Instructions for: Heart Healthy Diet Activities you can perform: Regular-No Restrictions Josseline Bernard MD August 03, 2017 09:16
--- NOTE | 2017-08-03 12:03 | HHI.IDPN ---
Subjective Subjective Remarks no fever RUE pain improved Antibiotics IV Vancomycin fluconazol ertapenem Lines PIV sites x 2 with no e/o infx Past Medical History IVDU Allergies: Coded Allergies: MRI PRECAUTION (Verified Adverse Reaction, Severe, Patient states he has a neurostimulator and can't have a MRI, 07/22/17) 07/22/17 LRS Objective . Vital Signs Date Time Temp Pulse Resp B/P (MAP) Pulse Ox O2 Delivery O2 Flow Rate FiO2 08/03/17 11:05 Room Air 21 08/03/17 08:10 97.5 81 20 114/63 (80) 97 08/03/17 04:05 89 08/03/17 04:00 98.5 97 18 136/83 (100) 98 08/03/17 00:00 Room Air 08/03/17 00:00 98.1 91 16 125/87 (100) 95 08/02/17 23:54 98 08/02/17 20:00 98.2 88 16 128/80 (96) 97 08/02/17 20:00 Room Air 08/02/17 19:47 89 08/02/17 15:45 97.6 98 20 129/65 (86) 97 08/02/17 12:10 97.5 88 18 127/60 (82) 97 . Laboratory Tests Test 08/03/17 04:05 Creatinine 0.73 MG/DL Estimat Glomerular Filtration Rate 122 ML/MIN Microbiology Date/Time Source Procedure Growth Status 07/31/17 16:45 Blood Peripheral Aerobic Blood Culture - Preliminary NO GROWTH IN 3 DAYS Resulted 07/31/17 16:45 Blood Peripheral Anaerobic Blood Culture - Preliminary NO GROWTH IN 3 DAYS Resulted 07/31/17 16:30 Blood Peripheral Aerobic Blood Culture - Preliminary NO GROWTH IN 3 DAYS Resulted 07/31/17 16:30 Blood Peripheral Anaerobic Blood Culture - Preliminary NO GROWTH IN 3 DAYS Resulted Imaging Last Impressions Upper Extremity Ultrasound 07/31/17 0000 Signed Impressions: CONCLUSION: 1. Occlusive and nonocclusive thrombus in the right cephalic vein with surroun ding edema, probably thrombophlebitis. Chest X-Ray 07/24/17 0000 Signed Impressions: Service Date/Time: Monday, July 24, 2017 16:26 - CONCLUSION: Patchy basilar airspace disease suspected. López Dias MD Foot X-Ray 07/21/17 0000 Signed Impressions: Service Date/Time: Friday, July 21, 2017 19:08 - CONCLUSION: No definite acute bony findings Dustin Soto MD Physical Exam CONSTITUTIONAL/GENERAL: This is an adequately nourished patient, in no apparent distress On RA TUBES/LINES/DRAINS: PIV with no e/o infection SKIN: No jaundice, rashes, or lesions. Skin temperature appropriate. Not diaphoretic. EYES: Pupils equal and round and reactive. Extraocular motions intact. No scleral icterus. No injection or drainage. Fundi not examined. CARDIOVASCULAR: Regular rate and rhythm without murmurs, gallops, or rubs. RESPIRATORY/CHEST: Symmetric, unlabored respirations. Clear to auscultation. Breath sounds equal bilaterally. No wheezes, rales, or rhonchi. GASTROINTESTINAL: Abdomen soft, non-tender, nondistended. No hepato-splenomegaly , or palpable masses. No guarding. Bowel sounds present. MUSCULOSKELETAL: Extremities without clubbing, cyanosis, or edema. LUE : firm, non tender cords; new infiltrated IV RUE: erythema edema tenderness resolved; firm, non tender cords are palpable NEUROLOGICAL: Awake and alert. Motor and sensory grossly within normal limits. Follows commands. Cognitively sharp. Moves all extremities. PSYCHIATRIC: No obvious anxiety/depression. no apparent hallucinations or other psychotic thought process. Assessment & Plan Remarks Fungemia C.parapsilosa No e/o septic fungal thrombophlebitis: ophthaslm consulted no e/o fungal endopthalmitis no e/o fungal endocarditis Acute metabolic encephalopathy: sepsis, meds. ESBL E coli sepsis, line sepsis Resp distress, s/p shooting apple sause with crushed dilauidid: resolved -new acute hypoxia after attempted shooting up apple sause New fever: resolved New RUE phlebitis: improved Recs: complet 10 days of Ertapenem : last on Thursday cont fluconazol , can be changed to oral form and continue at least 2 weeks from 1st neg blood culture (thru 6/2) Continue Vanco IV x 6 weeks Vanco can be substiturtes with zyvox untill gets on IV vanco in supervised setting I would be careful with zyvox 2/2 neuropathy and use it only untill pt is admistted for in-pt rehab if feasible If not feasible close monitoring for neuropathy required CBC CMP weekly while on zyvox, fluconazol when just on zyxoxx follow just CBC and BMP (bicarb) Stop date on vanco/zyvox 08/31 Abx (zyvox or vanco ) should be contuinued thru 08/31; however if new bblood clx come back + only vanco can be used - the need for blood work while on zyvox was dw pt and his mother - also pt was instructed to monitor and immediately report parestesias, numbness, vision changes and other new neurological issues while on zyvox OK to DC Pt need to be under care of ID specialist in [place] dw mother dw Dr Frias . Pham Alvarez MD August 03, 2017 12:03
[2017-08-03] MEDS ORDERED: METH500T3 PO (12:22)
[2017-08-03] MEDS ORDERED: GABA300C5 PO (12:22)
[2017-08-03] MEDS ORDERED: ZANT150T2 PO (12:22)
[2017-08-03] MEDS ORDERED: XANA2TAB2 PO (12:22)
[2017-08-03 12:25] VITALS: BP 116/77; PULSE 106; RESP 20; TEMP 98.1; O2SAT 98
== END 2017-08-03 14:22 | disposition home or self-care (01) | DRG 314 ==
LOC: NEPC 18:33 → NEDA 21:42 → OBSVTOIN 22:48 → N04A 22:50 → N04B 07-27 08:33 → N04A 07-27 08:36
PROVIDERS: ADMIT Internal Medicine; ATTEND Internal Medicine
DX: T80.211A Bloodstream infection due to central venous catheter, initial encounter (principal); A41.51 Sepsis due to Escherichia coli [E. coli]; G93.41 Metabolic encephalopathy; B37.89 Other sites of candidiasis; M86.672 Other chronic osteomyelitis, left ankle and foot; I80.8 Phlebitis and thrombophlebitis of other sites; E83.42 Hypomagnesemia; G62.9 Polyneuropathy, unspecified; B96.20 Unspecified Escherichia coli [E. coli] as the cause of diseases classified elsewhere; Z16.12 Extended spectrum beta lactamase (ESBL) resistance; R19.7 Diarrhea, unspecified; R79.89 Other specified abnormal findings of blood chemistry; B19.20 Unspecified viral hepatitis C without hepatic coma; Z91.19 Patient's noncompliance with other medical treatment and regimen; Z76.5 Malingerer [conscious simulation]; F17.210 Nicotine dependence, cigarettes, uncomplicated; M54.5 Low back pain; G89.29 Other chronic pain; Z96.89 Presence of other specified functional implants; Z79.899 Other long term (current) drug therapy; K21.9 Gastro-esophageal reflux disease without esophagitis; E87.6 Hypokalemia; R09.02 Hypoxemia; Y84.8 Other medical procedures as the cause of abnormal reaction of the patient, or of later complication, without mention of misadventure at the time of the procedure
CPT/HCPCS: 36600; 71045; 73630; 76882; 76937; 80053; 80202; 80307; 82565; 82805; 83036; 83605; 83735; 84100; 84439; 84443; 85007; 85025; 85027; 85610; 85652; 85730; 86140; 87040; 87071; 87077; 87106; 87186; 87205; 87493; 93005; 93308; 93971; 94640; 94664; J0692; J1335; J1450; J1650; J2185; J2248; J2270; J2765; J3370; J3475; J7030; J7040

== ENCOUNTER 2017-09-25 03:04 | Inpatient (IN) ==
[2017-09-25] MEDS ORDERED: Acetaminophen 325 MG Tablet PO ONE (03:20)
[2017-09-25] MEDS ORDERED: Vancomycin Inj 1,000 MG in Sodium Chlor 0.9% Inj 250 ML IV.SIG STA (03:20)
[2017-09-25] MEDS ORDERED: Piperacil/Tazo 4.5 GM Premix 4.5 GM/100 ML BAG IV.SIG STA (03:20)
--- NOTE | 2017-09-25 03:29 | ED ---
HPI General Chief complaint: Wound/Laceration Stated complaint: Poss Infection Time Seen by Provider: 09/25/17 03:20 Source: patient Mode of arrival: ambulatory Limitations: no limitations History of Present Illness HPI narrative: 36-year-old male patient with history of IV drug use, MRSA infections, osteomyelitis of the left foot which she was treated for several weeks ago, presents to the ER today because he states that he has been walking a lot in his feet, has had breakdown on his skin on the left foot where his osteomyelitis is and today is running fevers. He has been nauseous, not feeling well. He denies any chest pains, shortness of breath, abdominal pains, or other symptoms. Related Data Home Medications Medication Instructions Recorded Confirmed No Known Home Medications 09/25/17 09/25/17 Allergies Allergy/AdvReac Type Severity Reaction Status Date / Time MRI PRECAUTION AdvReac Severe Patient Uncoded 09/25/17 03:22 states he has a neurostimulator and can't have a MRI Review of Systems Except as stated in HPI: all other systems reviewed are negative PMFSH History History Provided By: Patient Social History Social History Smoking Status: Never smoker How Often Do You Have a Drink Containing Alcohol: Never Recent Out of Country Travel within the Last 8 Weeks: No Exam Narrative Exam Narrative: GENERAL: Well-developed middle-age male patient currently in mild distress. Awake and oriented 3. SKIN: Focused skin assessment warm/dry. There is notable 2 cm ulcerated area at the left heel, with significant induration, and edema of the entire left foot. HEAD: Atraumatic. Normocephalic. EYES: Pupils equal and round. No scleral icterus. No injection or drainage. ENT: No nasal bleeding or discharge. Mucous membranes pink and moist. NECK: Trachea midline. No JVD. CARDIOVASCULAR: Regular rate and rhythm. No murmur appreciated. RESPIRATORY: No accessory muscle use. Clear to auscultation. Breath sounds equal bilaterally. GASTROINTESTINAL: Abdomen soft, non-tender, nondistended. Hepatic and splenic margins not palpable. MUSCULOSKELETAL: No obvious deformities. No clubbing. No cyanosis. No edema. NEUROLOGICAL: Awake and alert. No obvious cranial nerve deficits. Motor grossly within normal limits. Normal speech. PSYCHIATRIC: Appropriate mood and affect; insight and judgment normal. Course Hospital Course: X-ray shows signs of worsening already chronic osteomyelitis of the heel. Lab work was fairly unremarkable otherwise. At this point, IV antibiotics were initiated after cultures were drawn. Plan would be to admit the patient for further treatment. Case was discussed with Dr. Vicente for admission. Initial Documented Vital Signs Temperature 101.3 F H 09/25/17 03:22 Pulse Rate 123 H 09/25/17 03:22 Respiratory Rate 16 09/25/17 03:22 Blood Pressure 162/79 H 09/25/17 03:22 Pulse Oximetry 97 09/25/17 03:22 Last Documented Vital Signs Temperature 101.3 F H 09/25/17 03:22 Pulse Rate 123 H 09/25/17 03:22 Respiratory Rate 16 09/25/17 03:22 Blood Pressure 162/79 H 09/25/17 03:22 Pulse Oximetry 100 09/25/17 03:30 Medical Decision Making Differential Diagnosis Differential Diagnosis: Sepsis versus osteomyelitis versus cellulitis Lab Data Result diagrams: 09/25/17 03:25 09/25/17 03:25 Lab Results 09/25/17 09/25/17 09/25/17 Range/Units 03:25 03:25 03:25 WBC 9.4 (4.0-11.0) th/mm3 RBC 4.21 L (4.50-5.90) mil/mm3 Hgb 12.3 L (13.0-17.0) gm/dL Hct 35.7 L (39.0-51.0) % MCV 84.8 (80.0-100.0) fL MCH 29.1 (27.0-34.0) pg MCHC 34.3 (32.0-36.0) % RDW 16.0 (11.6-17.2) % Plt Count 273 (150-450) th/mm3 MPV 7.8 (7.0-11.0) fL Prelim Diff (Auto) Slide review pending Neut % (Auto) 69.6 (16.0-70.0) % Lymph % (Auto) 11.9 (9.0-44.0) % [place] % (Auto) 15.8 H (0.0-8.0) % Eos % (Auto) 0.1 (0.0-4.0) % Baso % (Auto) 2.6 H (0.0-2.0) % Neut # (Auto) 6.6 (1.8-7.7) th/mm3 Lymph # (Auto) 1.1 (1.0-4.8) th/mm3 [place] # (Auto) 1.5 H (0.0-0.9) th/mm3 Eos # (Auto) 0.0 (0.0-0.4) th/mm3 Baso # (Auto) 0.2 (0.0-0.2) th/mm3 WBC Differential . Diff Scan Auto diff confirmed Differential Comment . Platelet Estimate Normal (Normal) Platelet Morphology Normal (Normal) RBC Morphology Normal (Normal) Sodium 135 L (136-145) meq/L Potassium 2.9 L* (3.5-5.1) meq/L Chloride 100 (98-107) meq/L Carbon Dioxide 26.6 (21.0-32.0) meq/L Anion Gap 8 (5-15) meq/L BUN 13 (7-18) mg/dL Creatinine 0.81 (0.60-1.30) mg/dL Estimated GFR Greater than 89 (>89) mL/min Random Glucose 146 H (74-106) mg/dL Lactic Acid 1.4 (0.4-2.0) mmol/L Calcium 8.3 L (8.5-10.1) mg/dL Total Bilirubin 1.4 H (0.2-1.0) mg/dL AST 116 H (15-37) U/L ALT 147 H (12-78) U/L Alkaline Phosphatase 95 (45-117) U/L Total Protein 6.9 (6.4-8.2) g/dL Albumin 3.3 L (3.4-5.0) g/dL Imaging Data Radiologist's impression: Chest X-Ray 09/25/17 03:20 CONCLUSION: No evidence of acute cardiopulmonary disease. Foot X-Ray 09/25/17 03:22 CONCLUSION: Focally increased fragmentation/soft tissue ossification of the plantar aspect of the calcaneus. There is a broad area of chronic deformity and sclerosis of the posterior/plantar calcaneus suggesting modest worsening of chronic osteomyelitis. Discharge Plan Discharge Disposition Patient Disposition: 30 Still Patient Discharge Condition Condition: Stable Discharge Details Anticipated Discharge Date: 09/25/17 Diagnosis: Osteomyelitis Physicians Team ED Provider: Jay Evans Primary Care Provider: UNKNOWN, Rxs /Orders / Referrals /Forms Prescriptions: No Action No Known Home Medications RF: 0 Status ED Status: With Doctor
[2017-09-25] MEDS ORDERED: Sod Chloride 0.9% Inj 1,000 ML IV.SIG SCH (03:30)
[2017-09-25 03:38] LABS: Baso # (Auto) 0.2 th/mm3 (0.0-0.2); Baso % (Auto) 2.6 % (0.0-2.0); Eos % (Auto) 0.1 % (0.0-4.0); Hematocrit 35.7 % (39.0-51.0); Hemoglobin 12.3 gm/dL (13.0-17.0); Lymph # (Auto) 1.1 th/mm3 (1.0-4.8); Lymph % (Auto) 11.9 % (9.0-44.0); Mean Corpuscular HGB Conc 34.3 % (32.0-36.0); Mean Corpuscular Hemoglobin 29.1 pg (27.0-34.0); Mean Corpuscular Volume 84.8 fL (80.0-100.0); Mean Platelet Volume 7.8 fL (7.0-11.0); Mono # (Auto) 1.5 th/mm3 (0.0-0.9); Mono % (Auto) 15.8 % (0.0-8.0); Neut # (Auto) 6.6 th/mm3 (1.8-7.7); Neut % (Auto) 69.6 % (16.0-70.0); Platelet Count 273 th/mm3 (150-450); Red Blood Count 4.21 mil/mm3 (4.50-5.90); White Blood Count 9.4 th/mm3 (4.0-11.0)
[2017-09-25 04:21] LABS: Platelet Estimate Normal (Normal); Platelet Morphology Normal (Normal); RBC Morphology Normal (Normal)
[2017-09-25 04:28] LABS: Alanine Aminotransferase 147 U/L (12-78); Albumin 3.3 g/dL (3.4-5.0); Alkaline Phosphatase 95 U/L (45-117); Anion Gap 8 meq/L (5-15); Aspartate Aminotransferase 116 U/L (15-37); Blood Urea Nitrogen 13 mg/dL (7-18); Calcium 8.3 mg/dL (8.5-10.1); Carbon Dioxide 26.6 meq/L (21.0-32.0); Chloride 100 meq/L (98-107); Glomerular Filtration Rate Greater Than 89 mL/min (>89); Glucose,Random 146 mg/dL (74-106); Sodium 135 meq/L (136-145); Total Protein 6.9 g/dL (6.4-8.2)
[2017-09-25 04:31] LABS: Potassium 2.9 meq/L (3.5-5.1)
--- NOTE | 2017-09-25 04:34 | XR ---
EXAM DATE: 09/25/2017 3:54 AM EDT AGE/SEX: 36 years / Male INDICATIONS: Fever. CLINICAL DATA: This is the patient's initial encounter. Patient reports that signs and symptoms have been present for 2 days and indicates a pain score of 5/10. MEDICAL/SURGICAL HISTORY: . Left leg numbness/tingling. Anxiety. Substance use. MRSA. . Neuros timulator in back. Bilateral hip surgery. Right foot surgery COMPARISON: [facility] [place], CHEST SINGLE AP, 07/24/2017. . FINDINGS: A single AP view of the chest demonstrates the lungs to be symmetrically aerated without evidence of mass, infiltrate or effusion. The cardiomediastinal contours are unremarkable. Osseous structures are grossly intact. Spinal stimulator leads at the level of T9 again noted. CONCLUSION: No evidence of acute cardiopulmonary disease. Electronically signed by: Dustin Panchal MD 09/25/2017 4:32 AM EDT
--- NOTE | 2017-09-25 04:38 | XR ---
EXAM DATE: 09/25/2017 3:57 AM EDT AGE/SEX: 36 years / Male INDICATIONS: Left foot pain from open sore. CLINICAL DATA: This is the patient's initial encounter. Patient reports that signs and symptoms have been present for 2 days and indicates a pain score of 5/10. MEDICAL/SURGICAL HISTORY: . Left leg numbness/tingling. Anxiety. Substance use. MRSA. . Neuros timulator in back. Bilateral hip surgery. Right foot surgery. COMPARISON: [facility] – [place] W [place]AST, 06/10/2017. [facility] – [place], FOOT LEFT COMPLETE ([id number]), 8. . FINDINGS: Chronic appearing destruction/deformity with sclerosis again seen of the posterior/plantar aspect of the calcaneus. There is an overlying deep soft tissue ulcer. Findings are similar to before although there is some increased calcification in the soft tissues plantar to the mid calcaneus and probably i n the region of the proximal plantar fascia. There is generalized osteopenia. Mild osteoarthritis seen of the first metatarsophalangeal joint and sesamoids. CONCLUSION: Focally increased fragmentation/soft tissue ossification of the plantar aspect of the calcaneus. Ther e is a broad area of chronic deformity and sclerosis of the posterior/plantar calcaneus suggesting mo dest worsening of chronic osteomyelitis. Electronically signed by: Dustin Panchal MD 09/25/2017 4:37 AM EDT
[2017-09-25] MEDS ORDERED: Vancomycin Consult Pharmacy 1 EACH OTHER SCH (06:00)
[2017-09-25] MEDS ORDERED: Piperacil/Tazo 3.375 GM Premix 50 ML IV.SIG SCH (09:00)
--- NOTE | 2017-09-25 09:57 | P.HPIM ---
History of Present Illness Primary Care Physician: UNKNOWN History of Present Illness: 36-year-old male with a history of osteomyelitis of the left foot recently discharged 2 weeks ago from hospital. He presents with 3 day worsening of constant sharp nonradiating pain worse with walking in the heel of left foot, skin breakdown as well as subjective fevers and chills, general malaise. He last injected "soren" yesterday. He reports nausea but no vomiting. Review of Systems Performed and negative except for HPI and past medical history. [facility] - History History Provided By: Patient - Medical History Medical History: Medical History (Last Updated 09/25/17 @ 07:48 by Svetlana Machado) Fracture, clavicle Osteomyelitis of foot - Surgical History Surgical History: Surgical History (Last Updated 09/25/17 @ 07:48 by Svetlana Machado) History of foot surgery - Family History Family History: Family History (Last Updated 09/25/17 @ 09:55 by Fredy cMmillan MD) Other Family history non-contributory - Tobacco History Second Hand Smoke Exposure: Yes Tobacco Use In Past 30 Days: Yes Smoking Status: Never smoker Tobacco Type: Cigarettes - Alcohol History How Often Do You Have a Drink Containing Alcohol: Never - Substance Use History Substance History: Active Abuse - Substance Use Type Opiates Status: Active Route Used: By Mouth Reason for Use: Calm Down Methamphetamine Status: Active Route Used: Intravenously Reason for Use: Feels Good - Travel History Recent Travel Out of the Country Within the Last 8 Weeks: No - Immunization History Tetanus Immunization: >5 Years Hx Influenza Vaccine This Season: No Medications and Allergies Active Medications: Active Medications Sodium Chloride (Ns Inj) 1,000 mls @ 0 mls/hr IV.SIG .Q0M [facility]OM[facility] Last Admin: 09/25/17 04:18 Dose: 1,000 mls/hr Potassium Chloride/Sodium Chloride (Ns + Kcl 40 Meq Inj) 1,000 mls @ 125 mls/ hr IV.CONT .Q8H ONE Stop: 09/25/17 12:33 Last Admin: 09/25/17 07:45 Dose: 125 mls/hr Pharmacy Profile Note (Vancomycin Consult Pharmacy) 0 mls @ 0 mls/hr OTHER UNSCH [facility] Piperacillin/Tazobactam/Dextrose (Zosyn 3.375 Gm Premix) 50 mls @ 100 mls/hr IV.SIG Q6H [facility] Last Admin: 09/25/17 08:52 Dose: 100 mls/hr Ondansetron HCl (Zofran Inj) 4 mg IV.PUSH Q6H PRN PRN Reason: NAUSEA OR VOMITING Allergies Allergy/AdvReac Type Severity Reaction Status Date / Time MRI PRECAUTION AdvReac Severe Patient Uncoded 09/25/17 03:22 states he has a neurostimulator and can't have a MRI Home Medications Medication Instructions Recorded Confirmed Type No Known Home Medications 09/25/17 09/25/17 History Exam Vital signs: Vital Signs 09/25/17 03:22 09/25/17 03:30 09/25/17 07:00 Temperature 101.3 F H 98.1 F Pulse Rate 123 H 88 Respiratory Rate 16 17 Blood Pressure 162/79 H 121/83 Pulse Oximetry 97 100 09/25/17 09:00 Temperature 97.8 F Pulse Rate 86 Respiratory Rate 17 Blood Pressure 118/83 Pulse Oximetry Intake & Output 09/24/17 09/25/17 09/25/17 18:59 06:59 18:59 Weight 95.254 kg Narrative: GENERAL: Patient lying in bed. Somnolent, wakes of for exam. Alert and oriented 3. SKIN: Warm and dry. HEAD: Atraumatic. Normocephalic. EYES: Pupils equal and round. No scleral icterus. No injection or drainage. ENT: No nasal bleeding or discharge. Mucous membranes pink and moist. NECK: Trachea midline. No JVD. CARDIOVASCULAR: Regular rate and rhythm. RESPIRATORY: No accessory muscle use. Clear to auscultation. Breath sounds equal bilaterally. GASTROINTESTINAL: Abdomen soft, non-tender, nondistended. Hepatic and splenic margins not palpable. MUSCULOSKELETAL: Extremities without clubbing. Patient with multiple small lesions over body. Stage IV ulcer over the left heel with pus. NEUROLOGICAL: Awake and alert. No obvious cranial nerve deficits. Motor grossly within normal limits. Five out of 5 muscle strength in the arms and legs. Normal speech. PSYCHIATRIC: Appropriate mood and affect; insight and judgment normal. Results - Labs CBC & Chem 7: 09/25/17 03:25 09/25/17 03:25 Labs: Short CBC 09/25/17 Range/Units 03:25 WBC 9.4 (4.0-11.0) th/mm3 Hgb 12.3 L (13.0-17.0) gm/dL Hct 35.7 L (39.0-51.0) % Plt Count 273 (150-450) th/mm3 BMP 09/25/17 03:25 Sodium 135 L Potassium 2.9 L* Chloride 100 Carbon Dioxide 26.6 BUN 13 Creatinine 0.81 Calcium 8.3 L Liver Function 09/25/17 Range/Units 03:25 Total Bilirubin 1.4 H (0.2-1.0) mg/dL AST 116 H (15-37) U/L ALT 147 H (12-78) U/L Alkaline Phosphatase 95 (45-117) U/L Albumin 3.3 L (3.4-5.0) g/dL - Imaging Impressions Chest X-Ray 09/25/17 03:20 CONCLUSION: No evidence of acute cardiopulmonary disease. Foot X-Ray 09/25/17 03:22 CONCLUSION: Focally increased fragmentation/soft tissue ossification of the plantar aspect of the calcaneus. There is a broad area of chronic deformity and sclerosis of the posterior/plantar calcaneus suggesting modest worsening of chronic osteomyelitis. Caprini VTE Risk Assessment Caprini VTE Risk Assessment: No/Low Risk (score <= 1) Caprini Risk Assessment Model: Point Value = 1 Point Value = 2 Point Value = 3 Point Value = 5 Age 41-60 Minor surgery BMI > 25 kg/m2 Swollen legs Varicose veins or History of unexplained or recurrent spontaneous Oral contraceptives or hormone replacement Sepsis (< 1 month) Serious lung disease, including pneumonia (< 1 month) Abnormal pulmonary function Acute myocardial infarction Congestive heart failure (< 1 month) History of inflammatory bowel disease Medical patient at bed rest Age 61-74 Arthroscopic surgery Major open surgery (> 45 min) Laparoscopic surgery (> 45 min) Malignancy Confined to bed (> 72 hours) Immobilizing plaster cast Central venous access Age >= 75 History of VTE Family history of VTE Factor V Leiden Prothrombin [id number] Lupus anticoagulant Anticardiolipin antibodies Elevated serum homocysteine Heparin-induced thrombocytopenia Other congenital or acquired thrombophilia Stroke (< 1 month) Elective arthroplasty Hip, pelvis, or leg fracture Acute spinal cord injury (< 1 month) Prophylaxis Regimen: Total Risk Factor Score Risk Level Prophylaxis Regimen 0-1 Low Early ambulation 2 Moderate Order ONE of the following: *Sequential Compression Device (SCD) *Heparin 5000 units SQ BID 3-4 Higher Order ONE of the following medications: *Heparin 5000 units SQ TID *Enoxaparin/Lovenox 40 mg SQ daily (WT < 150 kg, CrCl > 30 mL/min) *Enoxaparin/Lovenox 30 mg SQ daily (WT < 150 kg, CrCl > 10-29 mL/min) *Enoxaparin/Lovenox 30 mg SQ BID (WT < 150 kg, CrCl > 30 mL/min) AND/OR *Sequential Compression Device (SCD) 5 or more Highest Order ONE of the following medications: *Heparin 5000 units SQ TID (Preferred with Epidurals) *Enoxaparin/Lovenox 40 mg SQ daily (WT < 150 kg, CrCl > 30 mL/min) *Enoxaparin/Lovenox 30 mg SQ daily (WT < 150 kg, CrCl > 10-29 mL/min) *Enoxaparin/Lovenox 30 mg SQ BID (WT < 150 kg, CrCl > 30 mL/min) AND *Sequential Compression Device (SCD) Assessment and Plan - Plan //Left foot osteomyelitis. = With acute worsening. Consult podiatry and infectious disease. Continue IV antibiotics which were started in the ER. Patient is n.p.o. for procedure. //Polysubstance abuse. Cessation counseling provided //Hypokalemia. 2.[address]. Place. Monitor. //Transaminitis. Chronic. Discharge Planning: Pending clearance from ID and podiatry.
[2017-09-25] MEDS ORDERED: Vancomycin Inj 2,000 MG in Sodium Chlor 0.9% Inj 500 ML IV.SIG SCH (12:00)
[2017-09-25 13:45] VITALS: RESP 20
--- NOTE | 2017-09-25 14:15 | P.CONID ---
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 I know him from previous admission I saw him in June and he was d/c'd on vanco + levauine (po) Rx x 6 weeks for MRSA/Provident[facility] mixed infection He was discharged but soon after d/c he was jailed and missed 11 days aof abx treatment He was admitted yday when he presented c/o worsening L heel pain No fever ESR 4 WBC wnl Mildly elevated lactic acid No fevers, however T max 99.1 today Restarted on vanco + levaquine Review of Systems Except as stated in HPI: all other systems reviewed are Neg Past Family Social History Allergies: Coded Allergies: No Known Allergies (Unverified , 06/26/17) Past Medical History IVDU Hep B Henp C Past Surgical History B/L hip fractures hip surgeries nerve stimulator/ surgeries on the foot. Active Ordered Medications Medications where reviewed in EMR Antibiotics Include: levaquine vanco Family History not contributory to ID problem this admission. Social History smokes a few cigarettes/ uses marijuana/ doesn't drink. Physical Exam Vital Signs Vital Signs Date Time Temp Pulse Resp B/P (MAP) Pulse Ox O2 Delivery O2 Flow Rate FiO2 07/22/17 08:06 99.1 126 18 142/81 (101) 98 07/22/17 04:00 97.2 78 18 116/75 (89) 99 07/22/17 04:00 71 07/22/17 00:00 Room Air 07/22/17 00:00 100 07/21/17 23:30 Room Air 07/21/17 22:55 07/21/17 22:55 90 20 129/87 (101) 98 Room Air 07/21/17 22:44 97.8 95 17 122/80 (94) 98 07/21/17 20:30 98 Room Air 07/21/17 18:43 99.1 148 25 138/111 (120) 98 Physical Exam CONSTITUTIONAL/GENERAL: This is an adequately nourished patient, in no apparent distress. TUBES/LINES/DRAINS: RUE PICC looks fine SKIN: No jaundice, rashes, or lesions. Skin temperature appropriate. Not diaphoretic. HEAD: Atraumatic. Normocephalic. EYES: Pupils equal and round and reactive. Extraocular motions intact. No scleral icterus. No injection or drainage. Fundi not examined. ENT: Hearing grossly normal. Nose without bleeding or purulent drainage. Throat without visible erythema, exudates, masses, or lesions. NECK: Trachea midline. Supple, nontender. No palpable thyroid enlargement or nodularity. CARDIOVASCULAR: Regular rate and rhythm without murmurs, gallops, or rubs. No JVD. Peripheral pulses symmetric. RESPIRATORY/CHEST: Symmetric, unlabored respirations. Clear to auscultation. Breath sounds equal bilaterally. No wheezes, rales, or rhonchi. GASTROINTESTINAL: Abdomen soft, non-tender, nondistended. No hepato-splenomegaly , or palpable masses. No guarding. Bowel sounds present. GENITOURINARY: Without palpable bladder distension. Tam catheter in place. MUSCULOSKELETAL: Extremities without clubbing, cyanosis, or edema. No joint tenderness or effusion noted. No calf tenderness. No mottling or clubbing. L foot with minimla edema, no erythema, no tenderness, well healed wound with small crusty lesion in the mid calcaneoaus area LYMPHATICS: No palpable cervical or supraclavicular adenopathy. NEUROLOGICAL: Awake and alert. Motor and sensory grossly within normal limits. Follows commands. Cognitively sharp. Moves all extremities. PSYCHIATRIC: No obvious anxiety/depression. no apparent hallucinations or other psychotic thought process. Laboratory Laboratory Tests Test 07/21/17 19:40 07/21/17 23:30 White Blood Count 8.3 Red Blood Count 5.08 Hemoglobin 14.4 Hematocrit 41.2 Mean Corpuscular Volume 81.0 Mean Corpuscular Hemoglobin 28.4 Mean Corpuscular Hemoglobin Concent 35.1 Red Cell Distribution Width 18.3 Platelet Count 170 Mean Platelet Volume 8.3 Neutrophils (%) (Auto) 59.0 Lymphocytes (%) (Auto) 26.8 Monocytes (%) (Auto) 12.6 Eosinophils (%) (Auto) 1.2 Basophils (%) (Auto) 0.4 Neutrophils # (Auto) 4.9 Lymphocytes # (Auto) 2.2 Monocytes # (Auto) 1.0 Eosinophils # (Auto) 0.1 Basophils # (Auto) 0.0 CBC Comment DIFF FINAL Differential Comment Erythrocyte Sedimentation Rate 4 Prothrombin Time 11.2 Prothromb Time International Ratio 1.1 Activated Partial Thromboplast Time 30.4 Blood Urea Nitrogen 9 Creatinine 1.16 Random Glucose 120 Total Protein 7.4 Albumin 3.7 Calcium Level 8.5 Alkaline Phosphatase 156 Aspartate Amino Transf (AST/SGOT) 144 Alanine Aminotransferase (ALT/SGPT) 224 Total Bilirubin 0.8 Sodium Level 139 Potassium Level 4.2 Chloride Level 103 Carbon Dioxide Level 24.9 Anion Gap 11 Lactic Acid Level 2.9 2.6 C-Reactive Protein 0.98 Date/Time Source Procedure Growth Status 07/21/17 19:50 Blood Peripheral Aerobic Blood Culture - Preliminary NO GROWTH IN 1 DAY Resulted 07/21/17 19:50 Blood Peripheral Anaerobic Blood Culture - Preliminary NO GROWTH IN 1 DAY Resulted Result Diagram: 07/21/17193907/21/17 194 Imaging Last Impressions Foot X-Ray 07/21/17 0000 Signed Impressions: Service Date/Time: Friday, July 21, 2017 19:08 - CONCLUSION: No definite acute bony findings Dustin Soto MD Assessment and Plan Assessment and Plan Review of Systems All other systems reviewed negative except as stated in HPI PMFSH - History History Provided By: Patient - Medical History Medical History: Medical History (Last Reviewed 11/24/17 @ 09:31 by Pham Alvarez MD) Back pain Fracture, clavicle History of MRSA infection Osteomyelitis of foot - Surgical History Surgical History: Surgical History (Last Reviewed 11/24/17 @ 09:31 by Pham Alvarez MD) History of foot surgery - Family History Family History: Family History (Last Reviewed 11/24/17 @ 09:31 by Pham Alvarez MD) Other Family history non-contributory - Social History I have reviewed the patient's Social History: Yes - Tobacco History Second Hand Smoke Exposure: Yes Tobacco Use In Past 30 Days: Yes Smoking Status: Current every day smoker Tobacco Type: Cigarettes - Alcohol History How Often Do You Have a Drink Containing Alcohol: Never - Substance Use History Substance History: Active Abuse - Substance Use Type Opiates Status: Active Route Used: By Mouth Frequency: 5 times daily Reason for Use: Calm Down Comment: for pain to back Methamphetamine Type: soren Status: Active Route Used: Intravenously Reason for Use: Feels Good Comment: pt. takes soren x2 per week - Travel History Recent Travel Out of the Country Within the Last 8 Weeks: No - Immunization History Tetanus Immunization: >5 Years Hx Influenza Vaccine This Season: No Medications and Allergies Active Medications: Active Medications Sodium Chloride (Ns Inj) 1,000 mls @ 0 mls/hr IV.SIG .Q0M [facility] Last Admin: 09/25/17 04:18 Dose: 1,000 mls/hr Pharmacy Profile Note (Vancomycin Consult Pharmacy) 0 mls @ 0 mls/hr OTHER UNSCH [facility] Piperacillin/Tazobactam/Dextrose (Zosyn 3.375 Gm Premix) 50 mls @ 100 mls/hr IV.SIG Q6H [facility] Last Infusion: 09/25/17 09:25 Dose: 100 mls/hr Vancomycin HCl 2,000 mg/ (Sodium Chloride) 520 mls @ 250 mls/hr IV.SIG Q12H [facility] Miscellaneous Information ([facility] Ordered Lab Info) 0 each OTHER ONCE ONE Stop: 09/26/17 23:46 Ondansetron HCl (Zofran Inj) 4 mg IV.PUSH Q6H PRN PRN Reason: NAUSEA OR VOMITING Allergies Allergy/AdvReac Type Severity Reaction Status Date / Time MRI PRECAUTION AdvReac Severe Patient Uncoded 09/25/17 03:22 states he has a neurostimulator and can't have a MRI Home Medications Medication Instructions Recorded Confirmed Type dextroamphetamine-amphetamine 30 mg PO DAILY 09/25/17 09/25/17 History [Adderall] gabapentin 200 mg PO TID 09/25/17 09/25/17 History hydromorphone 8 mg PO Q4H PRN 09/25/17 09/25/17 History naproxen 500 mg PO BID 09/25/17 09/25/17 History ranitidine HCl 150 mg PO BID 09/25/17 09/25/17 History Exam Vital signs: Vital Signs 09/25/17 03:22 09/25/17 03:30 09/25/17 07:00 Temperature 101.3 F H 98.1 F Pulse Rate 123 H 88 Respiratory Rate 16 17 Blood Pressure 162/79 H 121/83 Pulse Oximetry 97 100 09/25/17 09:00 09/25/17 11:55 09/25/17 12:30 Temperature 97.8 F 98.2 F 97.9 F Pulse Rate 86 88 99 H Respiratory Rate 17 17 20 Blood Pressure 118/83 124/77 151/64 H Pulse Oximetry 97 Intake & Output 09/24/17 09/25/17 09/25/17 18:59 06:59 18:59 Weight 95.254 kg 93.9 kg Other: Weight On Admission 93.9 kg - Constitutional no acute distress, average body habitus - Routine HEENT Exam Head: Present: normocephalic, atraumatic Eye: Present: EOMI, PERRL ENT: Present: mucous membranes moist, oropharynx clear - Routine Neck Exam Present: supple, full ROM - Routine Respiratory Exam Present: CTA bilaterally Comments: no accessory muscle use, unlaboured breathing - Routine Cardiovascular Exam Present: RRR, S1, S2 Comments: well perfused perifery - Routine Abdominal Exam Present: soft, normoactive bowel sounds Comments: no organomegaly and masses - Routine Extremities Exam Comments: no cyanosis cludbbying, diane,ma L foot is swollen, erythematous in hindfoot large stage III clean based decub on the heel + ascending lympangoitis + lymphadenopathy - Routine Skin Exam Present: warm, wounds (L heel) Comments: no rash Results - Labs CBC & Chem 7: 09/25/17 03:25 09/25/17 03:25 Labs: Laboratory Results - last 24 hr 09/25/17 09/25/17 09/25/17 03:25 03:25 03:25 WBC 9.4 RBC 4.21 L Hgb 12.3 L Hct 35.7 L MCV 84.8 MCH 29.1 MCHC 34.3 RDW 16.0 Plt Count 273 MPV 7.8 Prelim Diff (Auto) Slide review pending Neut % (Auto) 69.6 Lymph % (Auto) 11.9 [place] % (Auto) 15.8 H Eos % (Auto) 0.1 Baso % (Auto) 2.6 H Neut # (Auto) 6.6 Lymph # (Auto) 1.1 [place] # (Auto) 1.5 H Eos # (Auto) 0.0 Baso # (Auto) 0.2 WBC Differential . Diff Scan Auto diff confirmed Differential Comment . Platelet Estimate Normal Platelet Morphology Normal RBC Morphology Normal Sodium 135 L Potassium 2.9 L* Chloride 100 Carbon Dioxide 26.6 Anion Gap 8 BUN 13 Creatinine 0.81 Estimated GFR Greater than 89 Random Glucose 146 H Lactic Acid 1.4 Calcium 8.3 L Total Bilirubin 1.4 H AST 116 H ALT 147 H Alkaline Phosphatase 95 Total Protein 6.9 Albumin 3.3 L - Imaging Impressions Chest X-Ray 09/25/17 03:20 CONCLUSION: No evidence of acute cardiopulmonary disease. Foot X-Ray 09/25/17 03:22 CONCLUSION: Focally increased fragmentation/soft tissue ossification of the plantar aspect of the calcaneus. There is a broad area of chronic deformity and sclerosis of the posterior/plantar calcaneus suggesting modest worsening of chronic osteomyelitis. Assessment and Plan - Plan chronic L calcaneous osteo, MRSA, gram-neg previously relapsed clinically obtaine cultures start vancomycin, cefepime MRI poditry consult
[2017-09-25 17:21] VITALS: TEMP 98.1
[2017-09-25] MEDS ORDERED: Naloxone Inj 0.4 MG/ML Vial IV.PUSH PRN (17:45)
[2017-09-25] MEDS ORDERED: Morphine Inj 4 MG/ML Vial IV.PUSH PRN (17:45)
[2017-09-25] MEDS ORDERED: oxyCODONE/Acetaminophen 10/325 Tablet PO PRN (17:45)
[2017-09-25] MEDS ORDERED: Acetaminophen 325 MG Tablet PO PRN (17:45)
--- NOTE | 2017-09-25 19:40 | P.CONPOD ---
History of Present Illness Service: Foot and ankle surgery/podiatry Consult date: 09/25/17 Primary Care Provider: UNKNOWN Family Provider: Maeve Cash Chief Complaint: Left foot ulceration History of Present Illness: Podiatry consulted for this 36-year-old male with a history of osteomyelitis to his left foot he presents with 3 days of he was recently discharged 2 weeks ago from the hospital. Worsening pain, swelling, and redness to the heel of the left foot. Patient states he has fevers and chills and generally does not feel well. Patient states he relapsed and about 2 weeks ago started IV drug use once again. He does report being at a hospital in [place]. Patient appears apprehensive and nervous. States the reason his ulcer broke down once again was because he had to walk from [place] to [place]. Review of Systems Constitutional: Reports body ache(s), Reports chills, Reports fatigue, Reports malaise, Reports night sweats Eyes: Denies blind spots Ears, Nose, Mouth, and Throat: Denies abnormal hearing Cardiovascular: Denies chest pain, Denies excessive sweating, Denies fast heart rate Respiratory: Denies cough, Denies pain with cough, Denies shortness of breath Gastrointestinal: Denies abdominal pain Musculoskeletal: Reports body aches, Reports joint pain, Denies back pain PMFSH - History History Provided By: Patient - Medical History Medical History: Medical History (Last Reviewed 09/25/17 @ 19:36 by Dayna Virk DPM) Back pain Fracture, clavicle History of MRSA infection Osteomyelitis of foot - Surgical History Surgical History: Surgical History (Last Reviewed 09/25/17 @ 19:36 by Dayna Virk DPM) History of foot surgery - Family History Family History: Family History (Last Reviewed 09/25/17 @ 19:36 by Dayna Virk DPM) Other Family history non-contributory - Tobacco History Second Hand Smoke Exposure: Yes Tobacco Use In Past 30 Days: Yes Smoking Status: Current every day smoker Tobacco Type: Cigarettes - Alcohol History How Often Do You Have a Drink Containing Alcohol: Never - Substance Use History Substance History: Active Abuse - Substance Use Type Opiates Status: Active Route Used: By Mouth Frequency: 5 times daily Reason for Use: Calm Down Comment: for pain to back Methamphetamine Type: soren Status: Active Route Used: Intravenously Reason for Use: Feels Good Comment: pt. takes soren x2 per week - Travel History Recent Travel Out of the Country Within the Last 8 Weeks: No - Immunization History Tetanus Immunization: >5 Years Hx Influenza Vaccine This Season: No Medications and Allergies Active Medications: Active Medications Acetaminophen (Tylenol) 650 mg PO Q6HR PRN PRN Reason: PAIN SCALE 1 TO 2 Sodium Chloride (Ns Inj) 1,000 mls @ 0 mls/hr IV.SIG .Q0M [facility] Last Infusion: 09/25/17 16:13 Dose: Infused Pharmacy Profile Note (Vancomycin Consult Pharmacy) 0 mls @ 0 mls/hr OTHER UNSCH [facility] Vancomycin HCl 2,000 mg/ (Sodium Chloride) 520 mls @ 250 mls/hr IV.SIG Q12H [facility] Last Infusion: 09/25/17 18:12 Dose: Infused Cefepime HCl 2,000 mg/ Sodium (Chloride) 100 mls @ 200 mls/hr IV.SIG Q8H [facility] Last Admin: 09/25/17 18:42 Dose: 200 mls/hr Miscellaneous Information ([facility] Ordered Lab Info) 0 each OTHER ONCE ONE Stop: 09/26/17 23:46 Morphine Sulfate (Morphine Inj) 4 mg IV.PUSH Q3H PRN PRN Reason: BREAKTHROUGH PAIN Naloxone HCl (Narcan Inj) 0.4 mg IV.PUSH UNSCH PRN PRN Reason: SEE LABEL COMMENTS Ondansetron HCl (Zofran Inj) 4 mg IV.PUSH Q6H PRN PRN Reason: NAUSEA OR VOMITING Oxycodone/Acetaminophen (Percocet 10/325 Mg) 1 tab PO Q6H PRN PRN Reason: PAIN SCALE 6 TO 10 Last Admin: 09/25/17 19:12 Dose: 1 tab Oxycodone/Acetaminophen (Percocet 5/325 Mg) 1 tab PO Q6H PRN PRN Reason: PAIN SCALE 3 TO 5 Allergies Allergy/AdvReac Type Severity Reaction Status Date / Time MRI PRECAUTION AdvReac Severe Patient Uncoded 09/25/17 03:22 states he has a neurostimulator and can't have a MRI Home Medications Medication Instructions Recorded Confirmed Type dextroamphetamine-amphetamine 30 mg PO DAILY 09/25/17 09/25/17 History [Adderall] gabapentin 200 mg PO TID 09/25/17 09/25/17 History hydromorphone 8 mg PO Q4H PRN 09/25/17 09/25/17 History naproxen 500 mg PO BID 09/25/17 09/25/17 History ranitidine HCl 150 mg PO BID 09/25/17 09/25/17 History Physical Exam Vital signs: Vital Signs 09/25/17 03:22 09/25/17 03:30 09/25/17 07:00 Temperature 101.3 F H 98.1 F Pulse Rate 123 H 88 Respiratory Rate 16 17 Blood Pressure 162/79 H 121/83 Pulse Oximetry 97 100 09/25/17 09:00 09/25/17 11:55 09/25/17 12:30 Temperature 97.8 F 98.2 F 97.9 F Pulse Rate 86 88 99 H Respiratory Rate 17 17 20 Blood Pressure 118/83 124/77 151/64 H Pulse Oximetry 97 09/25/17 16:00 Temperature 98.1 F Pulse Rate 100 H Respiratory Rate 20 Blood Pressure 132/63 Pulse Oximetry 98 Intake & Output 09/25/17 09/25/17 09/26/17 06:59 18:59 06:59 Intake Total 2920 / 2920 Balance 2920 / 2920 Weight 95.254 kg 93.9 kg Intake: IV 2920 / 2920 NS + KCl 40 mEq Inj 1,000 ML @ 1000 / 1000 125 mls/hr IV.CONT .Q8H ONE Rx# :[id number] Zosyn 3.375 GM Premix 50 ML @ 50 / 50 100 mls/hr IV.SIG Q6H [facility] Rx#: [id number] NS Inj 1,000 ML @ Wide Open IV. 1000 / 1000 SIG .Q0M [facility] Rx#:[id number] Vancomycin Inj 1,000 MG In NS 250 / 250 Inj 250 ML @ 250 mls/hr IV.SIG STAT STA Rx#:[id number] Vancomycin Inj 2,000 MG In NS 520 / 520 Inj 500 ML @ 250 mls/hr IV.SIG Q12H [facility] Rx#:[id number] Other: Weight On Admission 93.9 kg Narrative: GENERAL: This is a well-nourished, well-developed patient, in no apparent distress. SKIN: HEAD: Atraumatic. EYES: Pupils equal round and reactive. ENT: Airway patent. NECK: Trachea midline. RESPIRATORY: Nonlabored breathing. MUSCULOSKELETAL:. Negative Homans sign bilaterally. NEUROLOGICAL: Awake and alert. Normal speech. Lower extremity physical exam: Vascular: Dorsalis pedis 2/4, posterior tibial 2/4. Capillary refill time within normal limits to digits X5 bilateral foot. Edema present to left foot Neuro: Gross sensation intact to bilateral lower extremity. Pinpoint sensation decreased. No hyperalgesia noted to bilateral lower extremity Dermatology: Superficial left heel ulcer with fibro-granular base, serous drainage noted no purulent drainage. No fluctuance or crepitance felt upon palpation. Heel ulcer with surrounding erythema and edema ascending into ankle. Musculoskeletal: Tender to palpation to left heel. Results - Labs CBC & Chem 7: 09/25/17 03:25 09/25/17 03:25 Laboratory Results - last 24 hr 09/25/17 09/25/17 09/25/17 03:25 03:25 03:25 WBC 9.4 RBC 4.21 L Hgb 12.3 L Hct 35.7 L MCV 84.8 MCH 29.1 MCHC 34.3 RDW 16.0 Plt Count 273 MPV 7.8 Prelim Diff (Auto) Slide review pending Neut % (Auto) 69.6 Lymph % (Auto) 11.9 [place] % (Auto) 15.8 H Eos % (Auto) 0.1 Baso % (Auto) 2.6 H Neut # (Auto) 6.6 Lymph # (Auto) 1.1 [place] # (Auto) 1.5 H Eos # (Auto) 0.0 Baso # (Auto) 0.2 WBC Differential . Diff Scan Auto diff confirmed Differential Comment . Platelet Estimate Normal Platelet Morphology Normal RBC Morphology Normal Sodium 135 L Potassium 2.9 L* Chloride 100 Carbon Dioxide 26.6 Anion Gap 8 BUN 13 Creatinine 0.81 Estimated GFR Greater than 89 Random Glucose 146 H Lactic Acid 1.4 Calcium 8.3 L Total Bilirubin 1.4 H AST 116 H ALT 147 H Alkaline Phosphatase 95 Total Protein 6.9 Albumin 3.3 L - Imaging Impressions Chest X-Ray 09/25/17 03:20 CONCLUSION: No evidence of acute cardiopulmonary disease. Foot X-Ray 09/25/17 03:22 CONCLUSION: Focally increased fragmentation/soft tissue ossification of the plantar aspect of the calcaneus. There is a broad area of chronic deformity and sclerosis of the posterior/plantar calcaneus suggesting modest worsening of chronic osteomyelitis. Assessment and Plan - Plan 36-year-old male with left heel ulcer status post partial colic secondary to osteomyelitis Patient examined and evaluated all questions answered On last admission patient's incision and left heel was completely healed He now has plantar breakdown, dressed with Maxorb AG, 4 x 4's, Scottie, and Abilio Continue with daily dressing changes Will await MRI No surgical intervention anticipated at this time Wound culture taken by nurse and sent to micro Offloading to left heel at all times
[2017-09-25 21:15] VITALS: BP 147/82; PULSE 109; O2SAT 100
[2017-09-26] MEDS ORDERED: Pharmacy Ordered Lab Info OTHER ONE (23:45)
== END 2017-09-25 23:57 | disposition left against medical advice (07) ==
LOC: NEPC 03:04 → NEDA 05:25 → INTOOBSV 05:25 → N04 12:10
PROVIDERS: ADMIT Internal Medicine; ATTEND Internal Medicine
DX: G62.9 Polyneuropathy, unspecified; E87.6 Hypokalemia; L89.623 Pressure ulcer of left heel, stage 3; M86.672 Other chronic osteomyelitis, left ankle and foot; R74.0 Nonspecific elevation of levels of transaminase and lactic acid dehydrogenase [LDH]; F17.210 Nicotine dependence, cigarettes, uncomplicated; F15.10 Other stimulant abuse, uncomplicated; F12.90 Cannabis use, unspecified, uncomplicated; F11.10 Opioid abuse, uncomplicated; I89.1 Lymphangitis; Z86.14 Personal history of Methicillin resistant Staphylococcus aureus infection